=== PATIENT | female | born 1980 | race Caucasian/White ===

== ENCOUNTER 2019-09-19 13:40 | Emergency (ER) | payer OTHER, SELFPAY ==
--- NOTE | ~2019-09-19 | CT_ITS ---
EXAMINATION: CT abdomen pelvis w con DATE: 09/19/2019 18:53 INDICATION: Epigastric and right upper abdominal pain TECHNIQUE: Computed tomography (CT) of the abdomen and pelvis was performed with 100 cc Omnipaque 350 intravenous contrast. The dose-length product was 1472.28 mGy-cm. Automated exposure control and ite rative reconstruction technique were employed. COMPARISON: CT dated 12/09/2010 FINDINGS: There is right lower lobe atelectasis/scarring. Heart size normal. No significant pleural o r pericardial effusion. Fatty infiltration of the liver. The spleen, pancreas, adrenal glands and kid neys are normal. Normal appendix. Gallbladder is present. No significant vascular abnormality. No lym phadenopathy. Small fat-containing umbilical hernia. Anteverted uterus. Grade 1 spondylolisthesis L5 and S1 disc narrowing and endplate hypertrophy. No acute osseous abnormality. IMPRESSION: 1. Hepatic steatosis. 2: No acute abnormality of the abdomen or pelvis. Reviewed, dictated and finalized at location A.
[2019-09-19 13:51] VITALS: BP 145/84; PULSE 93; RESP 16; TEMP 37.5; O2SAT 97
[2019-09-19 14:19] VITALS: BP 155/89; PULSE 89; RESP 20; O2SAT 96
--- NOTE | 2019-09-19 14:22 | ED.ABDPAIN ---
HPI - Abdominal Pain General Chief Complaint: Abdominal Pain Stated Complaint: right abd pain Time Seen by Provider: 09/19/19 14:20 Source: patient Mode of arrival: ambulatory Limitations: no limitations History of Present Illness HPI narrative: The pt is a 39 y/o female who presents to the ED c/o intermittent RUQ ABD pain onset one day ago. Pt describes it as sharp, but also squeezing. She notes that the pain radiates into her back. Pt reports that it worsens with eating, and that her pain has not been improved with Aleve. Pt reports nausea, but denies cough, vomiting, and fever. Pt notes that she has never had similar pain. Pt reports a PMHx of DM and HTN. MD elicited complaint: abdominal pain Onset (ago): day(s) (1) Location: RUQ Quality: sharp and other (Squeezing) Radiation: back Exacerbating factors: eating Relieving factors: nothing Associated symptoms: nausea Treatments prior to arrival: other (Aleve) Related Data Home Medications Medication Instructions Recorded Confirmed lorazepam 0.5 mg PO DAILY PRN 05/13/19 05/13/19 sitagliptin [Januvia] 25 mg PO DAILY 05/13/19 05/13/19 topiramate [Topamax] 100 mg PO TID 05/13/19 05/13/19 trazodone 50 mg PO 05/13/19 vortioxetine [Trintellix] 20 mg PO DAILY 05/13/19 05/13/19 Allergies Allergy/AdvReac Type Severity Reaction Status Date / Time morphine Allergy Intermediate Unresponsiv Verified 09/19/19 14:25 e metformin Allergy Unknown Vomiting Verified 09/19/19 14:25 Review of Systems Review of Systems: All systems reviewed & are unremarkable except as noted in HPI and below Constitutional: Constitutional: Denies fever(s) Respiratory: Respiratory: Denies cough Gastrointestinal: Gastrointestinal: Reports abdominal pain (RUQ, sharp/squeezing, intermittent, radiates to the back), Reports nausea and Denies vomiting PMFSH Past Medical History Medical History Arthritis of spine Borderline diabetes mellitus Depression HTN (hypertension) Surgical History Surgical History No history of previous surgery Family History Family History (System 07/31/19 @ 12:26 by Annalise Reagan) Grandparent Diabetes mellitus Hypertension Family history of cardiovascular disease Family history of arthritis Family history of lung cancer Family history of primary malignant neoplasm of liver Family history of malignant neoplasm of breast in first degree relative Mother Diabetes mellitus Hypertension Family history of cardiovascular disease Family history of malignant neoplasm of ovary Sibling Family history of arthritis Other Carcinoma of colon Cerebrovascular accident Family history of alcoholism Family history of blood dyscrasia Family history of malignant neoplasm of urinary bladder Family history of mental disorder Family history of seizure disorder Malignant neoplasm of prostate Social History Social History Smoking packs per day: 1 Smoking cigarettes per day: 20.0 Smoking status: Current every day smoker Tobacco type: cigarettes Alcohol intake: never Gender identity (if verbalized by the patient): Female Comments 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
[2019-09-19] MEDS: ONDANSETRON INJ 4 MG/2 ML VIAL IV PUSH (15:28)
[2019-09-19] MEDS: SODIUM CHLORIDE 0.9% IV 1,000 ML 999 ML IV CONT (15:28)
[2019-09-19 15:33] LABS: Basophils Percent Auto 0.5 % (0.2-1.2); Eosinophils Absolute Auto 0.1 K/mm3 (0-0.3); Eosinophils Percent Auto 1.1 % (0-4.4); Hematocrit 46.9 % (37.0-47.0); Hemoglobin 15.1 g/dL (12.0-15.0); Immature Granulocyte Absolute 0.03 K/mm3 (0.00-0.031); Immature Granulocyte Percent A 0.3 % (0-0.5); Lymphocytes Absolute Auto 2.13 K/mm3 (0.9-3.2); Mean Corpuscular HGB Conc 32.2 g/dl (32-36); Mean Corpuscular Hemoglobin 27.4 pg (26-34); Mean Platelet Volume 10.3 fl (7.4-10.4); Monocytes Absolute Auto 0.4 K/mm3 (0.1-0.6); Monocytes Percent Auto 4.4 % (2.6-8.5); Neutrophils Absolute Auto 6.2 K/mm3 (1.3-6.7); Neutrophils Percent Auto 69.7 % (45.5-73.1); Platelet Count Result 355 k/mm3 (150-375); Red Blood Count 5.52 M/mm3 (4.2-5.4); Red Cell Distribution Width 14.3 % (11.5-14.5); White Blood Count 8.9 K/mm3 (4.5-10.0)
[2019-09-19 15:45] LABS: Alanine Aminotransferase 28 U/L (4-35); Alkaline Phosphatase 72 U/L (38-126); Aspartate Amino Transferase 26 U/L (14-36); Bilirubin,Total 0.4 mg/dL (0.2-1.3); Blood Urea Nitrogen 7 mg/dL (7-17); Calcium 9.2 mg/dL (8.4-10.2); Carbon Dioxide 25 mmol/L (22-30); Chloride 104 mmol/L (98-107); Estimated CRCL calculation 148 ml/min; Estimated Glomerular Filt Rate > 60; Glucose 150 mg/dL (65-105); Lipase 125 U/L (23-300); Potassium 3.9 mmol/L (3.4-5.0); Sodium 137 mmol/L (137-145)
--- NOTE | 2019-09-19 19:23 | PC.NURSE ---
assuming care of pt at this time, received report from anthony bocanegra.
[2019-09-19 19:24] VITALS: BP 145/85; PULSE 79; RESP 16; O2SAT 99
[2019-09-19 20:10] VITALS: BP 131/84; PULSE 70; RESP 16; TEMP 36.6; O2SAT 98
== END 2019-09-19 20:12 | disposition home or self-care (01) ==
PROVIDERS: Emergency Provider Emergency Medicine; PCP Nurse Practitioner Family
DX: R10.11 Right upper quadrant pain (principal); F41.9 Anxiety disorder, unspecified; F32.9 Major depressive disorder, single episode, unspecified; I10 Essential (primary) hypertension; R73.03 Prediabetes; Z79.84 Long term (current) use of oral hypoglycemic drugs; F17.210 Nicotine dependence, cigarettes, uncomplicated
CPT/HCPCS: 36415; 74177; 80053; 81025; 83690; 85025; 96361; 96374; 99284; J2405; J7030; Q9967

== ENCOUNTER 2019-10-11 13:22 | Outpatient (CLI) | payer OTHER, SELFPAY ==
--- NOTE | ~2019-10-11 | CT_ITS ---
EXAMINATION: CT brain wo con DATE: 10/11/2019 13:51 INDICATION: Migraine headache TECHNIQUE: Computed tomography (CT) of the head was performed without intravenous contrast. The mA wa s adjusted according to patient size. Iterative reconstruction technique was employed. Exam dose: 60 5.33 mGy-cm total exam DLP. COMPARISON: None FINDINGS: No intracranial mass lesion or hemorrhage or cerebrovascular accident. No midline shift or mass effect. No subdural or epidural hematoma. Normal ren white matter differentiation. Normal ventricular size. No skull fracture or bone destruction. The included paranasal sinuses and mastoid air cells are normally developed and aerated, with excepti on of mild mucoperiosteal thickening of the maxillary sinuses, greater on the left. IMPRESSION: No significant intracranial abnormality Reviewed, dictated and finalized at Location [facility]. Reviewed, dictated and finalized at location A.
== END 2019-10-11 13:23 | disposition home or self-care (01) ==
PROVIDERS: PCP Nurse Practitioner Family; Visit Provider Nurse Practitioner Family
DX: G43.909 Migraine, unspecified, not intractable, without status migrainosus (principal)
CPT/HCPCS: 70450

== ENCOUNTER 2020-02-10 23:00 | Emergency (ER) | payer OTHER, SELFPAY ==
--- NOTE | ~2020-02-10 | CT_ITS ---
EXAMINATION: CT abdomen pelvis w con INDICATION: Right upper quadrant pain TECHNIQUE: Computed tomographic images of the abdomen and pelvis were obtained after the administrati on of 100 cc of Omnipaque 350 intravenous contrast. The dose-length product (DLP) was 1617.92 mGy-cm. Automated exposure control and iterative reconstruction technique were employed. COMPARISON: 09/19/2019 FINDINGS: Minimal dependent atelectasis is present in the lung bases. The heart size is normal. The l iver is diffusely low in attenuation when compared with the spleen, consistent with hepatic steatosis . The spleen, pancreas, gallbladder, and adrenal glands are normal. The kidneys are unremarkable. No pathologically enlarged abdominal or pelvic lymph nodes are identified. There is no free intraperiton eal gas or evidence of bowel obstruction. There is a small fat-containing umbilical hernia. There are bilateral L4 and L5 pars defects with 5 mm of anterolisthesis of L5 on S1 and severe loss of the L5- S1 intervertebral disc space height. IMPRESSION: 1. No CT correlate for the patient's symptoms. 2. Diffuse hepatic steatosis. Reviewed, dictated and finalized at location A.
[2020-02-10 23:02] VITALS: BP 146/88; PULSE 112; RESP 14; TEMP 37.2; O2SAT 98
[2020-02-10 23:32] LABS: Basophils Absolute Auto 0.1 K/mm3 (0.0-0.1); Basophils Percent Auto 0.4 % (0.2-1.2); Eosinophils Absolute Auto 0.1 K/mm3 (0-0.3); Eosinophils Percent Auto 1.1 % (0-4.4); Hematocrit 48.2 % (37.0-47.0); Hemoglobin 15.6 g/dL (12.0-15.0); Immature Granulocyte Absolute 0.07 K/mm3 (0.00-0.031); Immature Granulocyte Percent A 0.6 % (0-0.5); Lymphocytes Absolute Auto 2.39 K/mm3 (0.9-3.2); Lymphocytes Percent Auto 21.4 % (18.3-44.2); Mean Corpuscular HGB Conc 32.4 g/dl (32-36); Mean Corpuscular Hemoglobin 28.3 pg (26-34); Mean Corpuscular Volume 87.3 fl (80-100); Mean Platelet Volume 10.2 fl (7.4-10.4); Monocytes Absolute Auto 0.6 K/mm3 (0.1-0.6); Monocytes Percent Auto 5.4 % (2.6-8.5); Neutrophils Percent Auto 71.1 % (45.5-73.1); Platelet Count Result 367 k/mm3 (150-375); Red Blood Count 5.52 M/mm3 (4.2-5.4); Red Cell Distribution Width 14.6 % (11.5-14.5); White Blood Count 11.2 K/mm3 (4.5-10.0)
[2020-02-10 23:37] LABS: Add Urine Microscopic? YES; Appearance Urine Clear (Clear); Bacteria Urine Trace /hpf; Bilirubin Urine Negative (Negative); Blood Urine 2+ (Negative); Color Urine Yellow (Yellow); Glucose Urine UA 2+ mg/dL (Negative); Ketones Urine Negative (Negative); Leukocyte Esterase Ur 2+ LEU/UL (Negative); Mucus Urine Rare /lpf; Nitrate Urine Negative (Negative); Protein Urine Negative (Negative); RBC Urine 0-2 /hpf (0-2); Specific Grav Ur 1.016 (1.001-1.035); Squamous Epithelial Cell Urine Many /hpf (Few); Urobilinogen Urine Negative mg/dL (<2.0); WBC Urine 21-30 /hpf
[2020-02-10 23:46] LABS: Alanine Aminotransferase 30 U/L (4-35); Albumin Level 3.8 g/dL (3.5-5.1); Alkaline Phosphatase 77 U/L (38-126); Anion Gap 9.9 mmol/L (7-16); Aspartate Amino Transferase 27 U/L (14-36); Bilirubin,Total 0.4 mg/dL (0.2-1.3); Blood Urea Nitrogen 10 mg/dL (7-17); Calcium 9.2 mg/dL (8.4-10.2); Carbon Dioxide 28 mmol/L (22-30); Chloride 101 mmol/L (98-107); Estimated CRCL calculation 167 ml/min; Estimated Glomerular Filt Rate > 60; Glucose 186 mg/dL (65-105); Lipase 243 U/L (23-300); Potassium 3.9 mmol/L (3.4-5.0); Sodium 135 mmol/L (137-145)
--- NOTE | 2020-02-10 23:50 | ED.ABDPAIN ---
HPI - Abdominal Pain General Chief Complaint: Abdominal Pain Stated Complaint: abdominal pain Time Seen by Provider: 02/10/20 23:16 History of Present Illness HPI narrative: Patient presents with her son for right upper quadrant pain today. She had a similar episode years ago, and was told it was her gallbladder. Started this morning with a light pain, but it has increased through the day to 9 out of 10. She has had chills. But no fever or sweats. She has been vomiting, and still has nausea. 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 She does smoke cigarettes, does not drink, do drugs. Her only surgery is a ear surgery with tubes. MD elicited complaint: abdominal pain Pertinent past history: other (Similar symptoms previous) Onset (ago): hour(s) Pain Consistency: constant Location: RUQ Severity: similar to previous episodes Exacerbating factors: nothing Relieving factors: nothing Associated symptoms: nausea, vomiting and chills Related Data Home Medications Medication Instructions Recorded Confirmed lorazepam 0.5 mg PO DAILY PRN 05/13/19 05/13/19 sitagliptin [Januvia] 25 mg PO DAILY 05/13/19 05/13/19 topiramate [Topamax] 100 mg PO TID 05/13/19 05/13/19 trazodone 50 mg PO 05/13/19 vortioxetine [Trintellix] 20 mg PO DAILY 05/13/19 05/13/19 Allergies Allergy/AdvReac Type Severity Reaction Status Date / Time morphine Allergy Intermediate Unresponsiv Verified 02/10/20 23:12 e metformin Allergy Unknown Vomiting Verified 02/10/20 23:12 Review of Systems Review of Systems: Narrative: CONSTITUTIONAL: Denies fever, chills, or sweats. EYES: Denies visual changes, redness, or discharge. ENT: Denies rhinorrhea, congestion, sore throat, or otalgia. CARDIOVASCULAR: Denies chest pain, palpitations, or edema. RESPIRATORY: Denies cough or dyspnea. GASTROINTESTINAL: She has abdominal pain, nausea, vomiting, but not diarrhea. GENITOURINARY: Denies dysuria or hematuria. SKIN: Denies rash or itching. MUSCULOSKELETAL: Denies back pain, joint pain, or myalgia. NEUROLOGIC: Denies headache, numbness, or weakness. PSYCHIATRIC: Denies anxiety or depression. [facility] Past Medical History Medical History (Updated 02/11/20 @ 01:28 by Lalitha Martin MD) Arthritis of spine Borderline diabetes mellitus Depression HTN (hypertension) Surgical History Surgical History (Updated 02/11/20 @ 00:06 by Lalitha Martin MD) History of ear surgery Family History Family History (System 07/31/19 @ 12:26 by Annalise Reagan) Grandparent Diabetes mellitus Hypertension Family history of cardiovascular disease Family history of arthritis Family history of lung cancer Family history of primary malignant neoplasm of liver Family history of malignant neoplasm of breast in first degree relative Mother Diabetes mellitus Hypertension Family history of cardiovascular disease Family history of malignant neoplasm of ovary Sibling Family history of arthritis Other Carcinoma of colon Cerebrovascular accident Family history of alcoholism Family history of blood dyscrasia Family history of malignant neoplasm of urinary bladder Family history of mental disorder Family history of seizure disorder Malignant neoplasm of prostate Social History Social History Smoking packs per day: 1 Smoking cigarettes per day: 20.0 Smoking status: Current every day smoker Tobacco type: cigarettes Alcohol intake: never Gender identity (if verbalized by the patient): Female Exam Narrative: Exam Narrative: GENERAL: Well-appearing, well-nourished, and in no acute distress. Morbid obesity. HEAD: Normocephalic, atraumatic. EYES: PERRLA and EOMI. ENT: Nares clear, no rhinorrhea or epistaxis. Mucous membranes moist. NECK: Supple. CHEST: Clear to auscultation. No respiratory distress. HEART: Regular rate and rhythm. No murmur heard. Normal peripheral pulses. ABDOMEN: Soft, nontender, nondistend
[2020-02-11] MEDS: FAMOTIDINE 20 MG/2 ML VIAL IV PUSH (00:24)
[2020-02-11] MEDS: ONDANSETRON INJ 4 MG/2 ML VIAL IV PUSH (00:24)
[2020-02-11] MEDS: SODIUM CHLORIDE 0.9% IV 1,000 ML 999 ML IV CONT (00:25)
[2020-02-11 00:33] VITALS: BP 158/104; PULSE 92; RESP 17; O2SAT 94
--- NOTE | 2020-02-11 00:58 | PC.NURSE ---
pt ambulatory to restroom at this time without difficulty. reports relief of pain
[2020-02-11 01:49] VITALS: BP 148/71; PULSE 87; RESP 17; O2SAT 95
== END 2020-02-11 01:51 | disposition home or self-care (01) ==
PROVIDERS: Emergency Provider Emergency Medicine; PCP Nurse Practitioner Family
DX: D75.1 Secondary polycythemia (principal); R10.11 Right upper quadrant pain; K76.0 Fatty (change of) liver, not elsewhere classified; F17.210 Nicotine dependence, cigarettes, uncomplicated; R73.03 Prediabetes; Z79.84 Long term (current) use of oral hypoglycemic drugs; I10 Essential (primary) hypertension; F32.9 Major depressive disorder, single episode, unspecified
CPT/HCPCS: 36415; 74177; 80053; 81001; 81025; 83690; 85025; 87077; 87086; 87088; 96361; 96374; 96375; 96376; 99284; J2405; J3010; J7030; Q9967

== ENCOUNTER 2020-04-17 14:49 | Emergency (ER) | payer OTHER, SELFPAY ==
[2020-04-17 14:54] VITALS: BP 159/89; PULSE 85; RESP 16; TEMP 36.9; O2SAT 98
--- NOTE | 2020-04-17 15:14 | ED.SKABFB ---
HPI - Skin/Abscess/Foreign Bdy General Chief complaint: Skin/Abscess/Foreign Body Stated complaint: Cyst on stomach Time Seen by Provider: 04/17/20 15:03 Source: patient and RN notes reviewed Mode of arrival: ambulatory Limitations: no limitations History of Present Illness HPI narrative: Patient presents today complaining of a cyst to the left lower abdomen x3 days. This area is been very painful. Reports a temperature from 99.5 to 100.82 days ago, but none since then. Currently rates her pain 8/10 and has been taking Tylenol, Aleve, and prescription pain pills without relief. History of diabetes. States she does have a history of abscesses to the axilla and lower abdomen. Denies history of known MRSA. MD complaint: abscess/boil Related Data Home Medications Medication Instructions Recorded Confirmed lorazepam 0.5 mg PO DAILY PRN 05/13/19 04/17/20 topiramate [Topamax] 100 mg PO TID 05/13/19 04/17/20 trazodone 50 mg PO DAILY 05/13/19 04/17/20 vortioxetine [Trintellix] 20 mg PO DAILY 05/13/19 04/17/20 medroxyprogesterone [Depo-SubQ 104 mg SUBCUT [id number] 04/17/20 04/17/20 provera 104] Allergies Allergy/AdvReac Type Severity Reaction Status Date / Time morphine Allergy Intermediate Unresponsiv Verified 04/17/20 15:06 e metformin Allergy Unknown Vomiting Verified 04/17/20 15:06 Review of Systems Review of Systems: Narrative: CONSTITUTIONAL: Denies body aches, fever, chills, or sweats. EYES: Denies visual changes, redness, or discharge. ENT: Denies rhinorrhea, congestion, sore throat, or otalgia. CARDIOVASCULAR: Denies chest pain, palpitations, or edema. RESPIRATORY: Denies cough or dyspnea. GASTROINTESTINAL: Denies abdominal pain, nausea, vomiting, or diarrhea. GENITOURINARY: Denies dysuria or hematuria. SKIN: Denies rash, itching, or wounds. + Cyst to left lower abdomen MUSCULOSKELETAL: Denies back pain, joint pain, or myalgia. NEUROLOGIC: Denies headache, numbness, tingling, or weakness. PSYCH: Denies depression or anxiety. [facility] Past Medical History Medical History Arthritis of spine Borderline diabetes mellitus Depression HTN (hypertension) Surgical History Surgical History History of ear surgery Family History Family History Grandparent Diabetes mellitus Hypertension Family history of cardiovascular disease Family history of arthritis Family history of lung cancer Family history of primary malignant neoplasm of liver Family history of malignant neoplasm of breast in first degree relative Mother Diabetes mellitus Hypertension Family history of cardiovascular disease Family history of malignant neoplasm of ovary Sibling Family history of arthritis Other Carcinoma of colon Cerebrovascular accident Family history of alcoholism Family history of blood dyscrasia Family history of malignant neoplasm of urinary bladder Family history of mental disorder Family history of seizure disorder Malignant neoplasm of prostate Social History Social History Smoking packs per day: 1 Smoking cigarettes per day: 20.0 Smoking status: Current every day smoker Tobacco type: cigarettes Alcohol intake: never Gender identity (if verbalized by the patient): Female Comments At time of signature, I have reviewed and agree with nursing past medical, surgical, social and family history unless otherwise noted. Please see nursing chart for further information. There is no relevant family history pertinent to the presenting complaint Exam Narrative: Exam Narrative: GENERAL: Well-appearing, well-nourished, and in no acute distress. HEAD: Normocephalic, atraumatic. EYES: EOMI. No redness or drainage. Conjunctivae normal. ENT: Mucous membranes
== END 2020-04-17 15:34 | disposition home or self-care (01) ==
PROVIDERS: Emergency Provider Nurse Practitioner; PCP Nurse Practitioner Family
DX: L02.211 Cutaneous abscess of abdominal wall (principal); L03.311 Cellulitis of abdominal wall; F17.210 Nicotine dependence, cigarettes, uncomplicated; F32.9 Major depressive disorder, single episode, unspecified; I10 Essential (primary) hypertension; M47.9 Spondylosis, unspecified
CPT/HCPCS: 10061; 99213; G0463

== ENCOUNTER 2020-06-11 12:03 | Emergency (ER) | payer OTHER, SELFPAY ==
--- NOTE | ~2020-06-11 | XR_ITS ---
EXAMINATION: XR chest 2V DATE: 06/11/2020 12:55 INDICATION: Shortness of breath. Burning chest pain. TECHNIQUE: Frontal and lateral views of the chest were obtained on 3 radiographs. COMPARISON: Chest 2 views 06/12/18 FINDINGS: The chest demonstrates clear lungs without pneumonia, pleural effusion, or pneumothorax. Th e heart size is normal. IMPRESSION: 1. No acute cardiopulmonary disease. Reviewed, dictated and finalized at location A. 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
[2020-06-11 12:08] VITALS: BP 161/92; PULSE 89; RESP 20; TEMP 36.8; O2SAT 100
--- NOTE | 2020-06-11 12:20 | ED.URI ---
HPI - URI/Sore Throat General Chief Complaint: Upper Respiratory Infection Stated Complaint: Hard to breathe Time Seen by Provider: 06/11/20 12:40 Source: patient and RN notes reviewed Mode of arrival: ambulatory Limitations: no limitations History of Present Illness HPI Narrative: 40-year-old female presents with concern for burning lungs, body aches, occasional cough. She denies shortness of breath, rhinorrhea nasal congestion, sore throat, chills, sweats, ear pain, headache. Denies any intervention. MD elicited complaint: cough Related Data Home Medications Medication Instructions Recorded Confirmed lorazepam 0.5 mg PO DAILY PRN 05/13/19 06/11/20 trazodone 50 mg PO BID 05/13/19 06/11/20 glimepiride 1 mg PO DAILY 06/11/20 06/11/20 glimepiride 4 mg PO DAILY 06/11/20 06/11/20 montelukast 10 mg PO DAILY 06/11/20 06/11/20 topiramate 100 mg PO DAILY 06/11/20 06/11/20 Allergies Allergy/AdvReac Type Severity Reaction Status Date / Time morphine Allergy Intermediate Unresponsiv Verified 06/11/20 12:14 e metformin Allergy Unknown Vomiting Verified 06/11/20 12:14 Review of Systems Review of Systems: Narrative: CONSTITUTIONAL: Denies malaise, chills, sweats, or fever. EYES: Denies visual changes, redness, or discharge. ENT: Denies rhinorrhea, congestion, sinus pain, otalgia and sore throat. CARDIOVASCULAR: Denies chest pain, palpitations, or edema. RESPIRATORY: Reports cough, burning sensation in the lungs. Denies dyspnea. GASTROINTESTINAL: Denies abdominal pain, nausea, vomiting, diarrhea SKIN: Denies rash or itching. MUSCULOSKELETAL: Denies myalgia. NEUROLOGIC: Denies headache. All systems reviewed & are unremarkable except as noted in HPI and below PMFSH Past Medical History Medical History Arthritis of spine Borderline diabetes mellitus Depression HTN (hypertension) Surgical History Surgical History History of ear surgery Family History Family History Grandparent Diabetes mellitus Hypertension Family history of cardiovascular disease Family history of arthritis Family history of lung cancer Family history of primary malignant neoplasm of liver Family history of malignant neoplasm of breast in first degree relative Mother Diabetes mellitus Hypertension Family history of cardiovascular disease Family history of malignant neoplasm of ovary Sibling Family history of arthritis Other Carcinoma of colon Cerebrovascular accident Family history of alcoholism Family history of blood dyscrasia Family history of malignant neoplasm of urinary bladder Family history of mental disorder Family history of seizure disorder Malignant neoplasm of prostate Social History Social History Smoking packs per day: 1 Smoking cigarettes per day: 20.0 Smoking status: Current every day smoker Tobacco type: cigarettes Alcohol intake: never Gender identity (if verbalized by the patient): Female Comments At time of signature, agree with nursing past medical, surgical, social and family history. There is no relevant family history pertinent to the presenting complaint Exam Narrative: Exam Narrative: GENERAL: Well-appearing, well-nourished, and in no acute distress. HEAD: Normocephalic EYES: PERRLA, conjunctivae clear ENT: Nares clear. Mucous membranes moist. TM pearly ren with dull light reflex bilaterally; no tragal tenderness. Oropharynx not erythematous without lesions. Tonsils not enlarged and without exudate, no drooling, no hoarseness, no trismus, uvula midline. NECK: Supple. No lymphadenopathy CHEST: Clear to auscultation, breath sounds equal. No wheezing, rhonchi, rales, or stridor. No respiratory distress, speaks in full sentences. HEART: Regular r
== END 2020-06-11 13:20 | disposition home or self-care (01) ==
PROVIDERS: Emergency Provider Nurse Practitioner; PCP Nurse Practitioner Family
DX: J06.9 Acute upper respiratory infection, unspecified (principal); Z20.828 Contact with and (suspected) exposure to other viral communicable diseases; F17.210 Nicotine dependence, cigarettes, uncomplicated; M47.9 Spondylosis, unspecified; F32.9 Major depressive disorder, single episode, unspecified; I10 Essential (primary) hypertension; R73.03 Prediabetes
CPT/HCPCS: 71046; 99213; G0463

== ENCOUNTER 2020-06-12 07:05 | Outpatient (NON) | payer OTHER, SELFPAY ==
[2020-06-12 19:11] LABS: SARS-CoV-2 RNA PCR Negative
== END 2020-06-12 07:06 ==
LOC: ANHCOVIDDT 07:36
PROVIDERS: PCP Nurse Practitioner Family; Visit Provider Nurse Practitioner
DX: Z20.828 Contact with and (suspected) exposure to other viral communicable diseases (principal); R05 Cough
CPT/HCPCS: 87635; C9803; U0003

== ENCOUNTER 2020-12-08 22:58 | Observation (INO) | payer OTHER, SELFPAY ==
--- NOTE | ~2020-12-08 | XR_ITS ---
XR chest 2V DATE: 12/08/2020 23:36 INDICATION: Epigastric chest pain, left side x1 day. Shortness of breath. TECHNIQUE: PA and lateral views COMPARISON: 06/11/2020 PA and lateral chest FINDINGS: Normal heart size. No hilar or mediastinal enlargement. No pulmonary infiltrate or consolid ation, pleural effusion or pulmonary vascular congestion or pneumothorax. IMPRESSION: No active cardiopulmonary disease Reviewed, dictated and finalized at location A.
--- NOTE | ~2020-12-08 | US_ITS ---
EXAMINATION: US venous doppler [facility] DATE: 12/09/2020 13:20 INDICATION: Lower limb swelling TECHNIQUE: Grayscale ultrasound images without and with compression and Doppler ultrasound images of the bilateral lower extremity veins were obtained. COMPARISON: None. FINDINGS: The visualized portions of right common femoral vein, profunda (deep) femoral vein, femoral vein, pop liteal vein, posterior tibial veins, peroneal veins, gastrocnemius vein and greater saphenous vein ou tflow are patent. The visualized portions of left common femoral vein, profunda femoral vein, femoral vein, popliteal v ein, posterior tibial veins, peroneal veins, gastrocnemius vein and greater saphenous vein outflow ar e patent. IMPRESSION: 1. No deep venous thrombosis in either lower limb. Reviewed, dictated and finalized at location A.
--- NOTE | ~2020-12-08 | CT_ITS ---
EXAMINATION: CTA chest PE protocol EXAM DATE: 12/09/2020 13:00 INDICATION: Midsternal chest pain with shortness of breath. TECHNIQUE: Spiral CTA of the chest (pulmonary arteries) was performed with 100 cc Omnipaque 350 intr avenous contrast injection. Images were acquired during the pulmonary arterial phase. Coronal maxi mum intensity projection 3D-reconstructions were created by the technologist on dedicated workstation . Axial, coronal and sagittal reformatted images were reviewed. The dose-length product (DLP) for t his examination was 1001.96 mGy-cm. The exposure was tailored according to patient size (auto mA ex posure control), and iterative reconstruction (ASIR) was used as additional dose reduction technique. There is no prior study for comparison. FINDINGS: Pulmonary arteries are well opacified and without intraluminal filling defects. No thora cic aortic dissection. The lungs are clear. There are no pleural or pericardial effusions. Trach eobronchial tree is patent. There is no mediastinal, hilar or axillary lymphadenopathy. There is no pneumothorax. Heart normal in size. No evidence of coronary arterial calcification. There is hepatic steatosis. There is thoracic spondylosis without osteoblastic or osteolytic lesions identifi ed. IMPRESSION: 1. No pulmonary emboli or acute findings. 2. Hepatic steatosis. Reviewed, dictated and finalized at location B.
--- NOTE | ~2020-12-08 | NM_ITS ---
EXAMINATION: NM chuck stress w perfusion DATE: 12/09/2020 12:45 INDICATION: Chest pain TECHNIQUE: Rest images were obtained following intravenous administration of 9.87 mCi Tc99m tetrofosm in (Myoview). The patient was infused intravenously with Lexiscan (Regadenoson). Then, 32.5 mCi Tc99m tetrofosmin (Myoview) was administered intravenously, and stress images were obtained. Data was silvina nstructed into short axis and horizontal and vertical long axis SPECT images. Gated SPECT images were also obtained. COMPARISON: None. FINDINGS: There is no definite reversible or fixed perfusion abnormality to suggest ischemia or infar ction. There is normal left ventricular chamber size, wall motion and ejection fraction. Left ventr icular ejection fraction measures >70%. IMPRESSION: 1. Normal myocardial perfusion at rest and during stress. 2. Left ventricular ejection fraction measuring >70%. Reviewed, dictated and finalized at location A.
--- NOTE | 2020-12-08 23:01 | ECG_ITS ---
Measurements Intervals [place] Rate: 85 P: 12 [place]: 157 QRS: 52 QRSD: 98 T: 32 QT: 372 QTc: 443 Interpretive Statements SINUS RHYTHM NORMAL ECG Electronically Signed On 12-09-2020 6:05:44 CDT by Scotty Vásquez D.O.
[2020-12-08 23:02] VITALS: BP 163/83; PULSE 90; RESP 18; TEMP 36.7; O2SAT 97
[2020-12-08 23:31] LABS: Basophils Percent Auto 0.4 % (0.2-1.2); Eosinophils Absolute Auto 0.1 K/mm3 (0-0.3); Eosinophils Percent Auto 1.3 % (0-4.4); Hematocrit 48.1 % (37.0-47.0); Hemoglobin 15.8 g/dL (12.0-15.0); Immature Granulocyte Absolute 0.03 K/mm3 (0.00-0.031); Immature Granulocyte Percent A 0.4 % (0-0.5); Lymphocytes Absolute Auto 2.03 K/mm3 (0.9-3.2); Lymphocytes Percent Auto 29.6 % (18.3-44.2); Mean Corpuscular HGB Conc 32.8 g/dl (32-36); Mean Corpuscular Hemoglobin 28.7 pg (26-34); Mean Corpuscular Volume 87.3 fl (80-100); Mean Platelet Volume 11.1 fl (7.4-10.4); Monocytes Absolute Auto 0.4 K/mm3 (0.1-0.6); Monocytes Percent Auto 6.1 % (2.6-8.5); Neutrophils Absolute Auto 4.3 K/mm3 (1.3-6.7); Neutrophils Percent Auto 62.2 % (45.5-73.1); Platelet Count Result 243 k/mm3 (150-375); Red Blood Count 5.51 M/mm3 (4.2-5.4); Red Cell Distribution Width 13.6 % (11.5-14.5); White Blood Count 6.9 K/mm3 (4.5-10.0)
[2020-12-08 23:41] LABS: INR 0.9; Partial Thromboplastin Time 25.9 SECONDS (22.3-36.8); Prothrombin Time 13.2 Seconds (11.1-14.7)
[2020-12-08 23:47] LABS: Anion Gap 11 mmol/L (8-16); Blood Urea Nitrogen 7 mg/dL (7-17); Calcium 9.6 mg/dL (8.4-10.2); Carbon Dioxide 24 mmol/L (22-30); Chloride 100 mmol/L (98-107); Estimated CRCL calculation 144 ml/min; Estimated Glomerular Filt Rate > 60; Glucose 460 mg/dL (65-105); Potassium 3.8 mmol/L (3.4-5.0); Sodium 135 mmol/L (137-145)
[2020-12-08 23:59] LABS: Troponin I < 0.012 ng/mL (0.000-0.034)
[2020-12-09] VITALS (23 sets, daily range): BP systolic 119–150; BP diastolic 53–115; PULSE 63–92; RESP 16–29; TEMP 35.8–36.6; O2SAT 94–100; BMI 51.5
--- NOTE | 2020-12-09 03:32 | ED.CHESTPAIN ---
HPI - Chest Pain General Chief Complaint: Chest Pain Stated Complaint: chest pain Time Seen by Provider: 12/09/20 02:50 Source: patient and family Mode of arrival: ambulatory History of Present Illness HPI narrative: Patient 40 years old white female came from home with left chest pain started 3 and half hour ago. Patient was planning to go to bed suddenly started having pain at the left side of her chest radiating to the left upper extremity, like somebody squeezing her heart. Patient denies having similar symptoms. History of diabetes, hypertension, morbid obesity, smoking, positive family history of coronary artery disease. Patient denies any fever, chills, nausea, vomiting, diarrhea, constipation, abdominal pain or back pain. Related Data Home Medications Medication Instructions Recorded Confirmed lorazepam 0.5 mg PO DAILY PRN 05/13/19 06/11/20 trazodone 50 mg PO BID 05/13/19 06/11/20 glimepiride 1 mg PO DAILY 06/11/20 06/11/20 glimepiride 4 mg PO DAILY 06/11/20 06/11/20 montelukast 10 mg PO DAILY 06/11/20 06/11/20 topiramate 100 mg PO DAILY 06/11/20 06/11/20 Allergies Allergy/AdvReac Type Severity Reaction Status Date / Time morphine Allergy Intermediate Unresponsiv Verified 06/11/20 12:14 e metformin Allergy Unknown Vomiting Verified 06/11/20 12:14 Review of Systems Review of Systems: Narrative: CONSTITUTIONAL: Denies fever, chills, or sweats. EYES: Denies visual changes, redness, or discharge. ENT: Denies rhinorrhea, congestion, sore throat, or otalgia. CARDIOVASCULAR: Denies chest pain, palpitations, or edema. RESPIRATORY: Denies cough or dyspnea. GASTROINTESTINAL: Denies abdominal pain, nausea, vomiting, or diarrhea. GENITOURINARY: Denies dysuria or hematuria. SKIN: Denies rash or itching. MUSCULOSKELETAL: Denies back pain, joint pain, or myalgia. NEUROLOGIC: Denies headache, numbness, or weakness. PSYCHIATRIC: Denies anxiety or depression. [facility] Past Medical History Medical History Arthritis of spine Borderline diabetes mellitus Depression HTN (hypertension) Surgical History Surgical History History of ear surgery Family History Family History Grandparent Diabetes mellitus Hypertension Family history of cardiovascular disease Family history of arthritis Family history of lung cancer Family history of primary malignant neoplasm of liver Family history of malignant neoplasm of breast in first degree relative Mother Diabetes mellitus Hypertension Family history of cardiovascular disease Family history of malignant neoplasm of ovary Sibling Family history of arthritis Other Carcinoma of colon Cerebrovascular accident Family history of alcoholism Family history of blood dyscrasia Family history of malignant neoplasm of urinary bladder Family history of mental disorder Family history of seizure disorder Malignant neoplasm of prostate Social History Social History Smoking packs per day: 1 Smoking cigarettes per day: 20.0 Smoking status: Current every day smoker Tobacco type: cigarettes Alcohol intake: never Gender identity (if verbalized by the patient): Female Exam Narrative: Exam Narrative: General appearance: Well-developed, well-nourished Skin: Normal color Head: Normocephalic, nontraumatic Eyes: Clear conjunctiva ENT: Oropharynx normal, ears normal, nose normal Neck: Supple, nontender Chest and respiratory: Diffuse tenderness left chest with light palpation, no bruises, no swelling or rash Heart: Regular rate/rhythm Abdomen: Soft, nontender, no organomegaly, quiet bowel sounds Vascular: Normal peripheral pulses, normal capillary refill. Musculoskeletal: Normal range of motion, nontender back Neurologic: Alert and oriented ?3, [employer] is normal as te
[2020-12-09] MEDS: ASPIRIN 81 MG CHEWABLE TABLET 324 MG PO (05:06)
[2020-12-09] MEDS: ENOXAPARIN 30 MG/0.3 ML SYRINGE SUB-Q (05:07)
[2020-12-09] MEDS: ENOXAPARIN 120 MG/0.8 ML SYRINGE SUB-Q (05:07)
[2020-12-09] MEDS: INSULIN HUMAN REGULAR (*BKC) 100 UNITS/ML 10 UNITS IV PUSH (05:50)
[2020-12-09] MEDS: SODIUM CHLORIDE 0.9% IV 1,000 ML 999 ML IV CONT (05:51)
[2020-12-09 06:08] LABS: Alveolar/Arterial O2 Gradient 14.9 mmHg; Base Excess ABG -4.1 mEq/l (+/-2.0); Fractional Inspired Oxygen 21 %; HCO3 ABG 19.7 mEq/l (22.0-26.0); Oxygen Content ABG 21.3 %vol (16.0-22.0); Oxygen Saturation ABG 97.3 % (95.0-100.0); Oxyhemoglobin 95.1 % THb (90.0-100.0); PCO2 ABG 33.2 mmHg (35.0-45.0); PO2 ABG 95.1 mmHg (80.0-100.0); PO2 FiO2 Ratio Arterial Blood 4.53 %; Total Hemoglobin 15.9 g/dL (12.0-18.0); pH ABG 7.392 (7.350-7.450)
[2020-12-09 06:10] LABS: Device ROOM AIR; Modified Allen's Test Pass; Site Drawn RIGHT RADIAL
[2020-12-09] MEDS: NITROGLYCERIN SL 0.4 MG TABLET SUBLINGUAL (06:45)
[2020-12-09 07:39] LABS: D Dimer 0.27 ug/mL (<0.48)
[2020-12-09 07:44] LABS: Troponin I < 0.012 ng/mL (0.000-0.034)
--- NOTE | 2020-12-09 08:40 | EST_ITS ---
Patient Info Name: Randee Lazo Age: 40 years : 1980 Gender: Female Ht: 66 in Wt: 319 lbs BSA: 2.68 m2 Exam Date: 12/09/2020 11:22 AM Exam Location: [facility] Stress Patient Status: Outpatient Admit Date: 12/09/2020 Staff Ordering Physician: Marleni Philippe MD Attending Provider: Keo Alexandre MD Exercise Technologist: Winston Singh RDCS, RT Exercise Physician: Marleni Philippe MD Exam Type: CA stress chuck w NM Study Info A regadenoson stress test was performed. Summary 1. Pharmacological EKG stress test. Reason for the test: chest pain Findings: The patient received total of 0.4 mg of Lexiscan. The resting heart rate was 67 and resting BP 146/76 . Following injection HR increased to 114 and BP decreased to 133/77 EKG at rest showed normal sinus rhythm. Post Lexiscan injection EKG showed sinus tachycardia with no ST/T changes from baseline. Impression: Negative stress EKG with lexiscan. Nuclear part of stress test to be reported separately. Protocol: Lexiscan Stress ECG Details Stage: REST Duration (min): 6 min : 2 sec HR (bpm): 73 SBP (mmHg): 146 DBP (mmHg): 76 Stage: REST Duration (min): 7 min : 46 sec HR (bpm): 69 SBP (mmHg): 146 DBP (mmHg): 76 Stage: STAGE 1 Duration (min): 0 min : 59 sec HR (bpm): 114 SBP (mmHg): 141 DBP (mmHg): 77 Stage: RECOVERY Duration (min): 1 min : 0 sec HR (bpm): 89 SBP (mmHg): 141 DBP (mmHg): 77 Stage: RECOVERY Duration (min): 2 min : 0 sec HR (bpm): 82 SBP (mmHg): 141 DBP (mmHg): 77 Stage: RECOVERY Duration (min): 3 min : 0 sec HR (bpm): 78 SBP (mmHg): 133 DBP (mmHg): 77 Stage: RECOVERY Duration (min): 4 min : 0 sec HR (bpm): 78 SBP (mmHg): 133 DBP (mmHg): 77 Stage: RECOVERY Duration (min): 4 min : 2 sec HR (bpm): 76 SBP (mmHg): 133 DBP (mmHg): 77 Rest HR: 69 bpm Peak HR: 114 bpm Rest Sys BP: 146 mmHg Peak Sys BP: 141 mmHg Max Pred HR: 182 bpm % Max Pred HR: 63 % Target HR: 155 bpm Max RPP: 16,074 bpm*mmHg Total Time: 1 min : 0 sec Rest Ascencio BP: 76 mmHg Peak Ascencio BP: 77 mmHg Total Dose: 0.4 mg Report Signatures
--- NOTE | 2020-12-09 08:42 | PM.CNCAR ---
Assessment and Plan Assessment and plan (1) Chest pain: Qualifiers: Chest pain type: unspecified Qualified Code(s): R07.9 - Chest pain, unspecified Code(s): R07.9 - Chest pain, unspecified Status: Acute Assessment and Plan: She ruled out for CO with negative troponin and EKG Chest pain has mixed features for angina. Given extensive risk factors including HTN, DM,morbid obesity and active tobacco abuse will proceed with nuc stress test to rule out ischemia as potential cause of her chest pain. She can't walk on treadmill due to back pain. Will proceed with Lexiscan stress test. She is NPO (2) HTN (hypertension): Code(s): I10 - Essential (primary) hypertension Status: Acute Assessment and Plan: Resume home Amlodipine. Consider adding Lisinopril for better BP control and given the fact she is diabetic (3) Uncontrolled diabetes mellitus with hyperglycemia: Qualifiers: Diabetes mellitus type: other specified (including KAR) Qualified Code(s): E13.65 - Other specified diabetes mellitus with hyperglycemia Code(s): E11.65 - Type 2 diabetes mellitus with hyperglycemia Status: Acute Assessment and Plan: Management per primary team (4) Tobacco abuse: Code(s): Z72.0 - Tobacco use Status: Acute Assessment and Plan: Smoking cessation counseling History of Present Illness History of Present Illness Consult date/time: 12/09/20 08:42 40 y/o female with no known cardiac history however extensive cardiovascular risk factors including insulin dependent DM, HTN, morbid obesity, family history of CAD and active tobacco abuse who presents with chest pain Pain started around 11 last night, was initially sharp and subsequently became like heaviness in the chest, no radiation, not associated with nausea, diaphoresis but admits to dyspnea. Pain is better right now but has not completely resolved. EKG shows normal sinus rhythm at HR of 85 Trop negative X3. D dimer was negative. Chest X ray within normal limits. She smokes half pack a day Mother alive, had stents in her 50s Reason For Visit: Chest pain, morbid obesity Review of Systems Review of Systems: All systems reviewed & are unremarkable except as noted in HPI and below Constitutional: Constitutional: Denies fatigue and Denies headache(s) Eyes: Eyes: Denies blurry vision ENT: Reports Normal hearing present and Denies headache(s) Cardiovascular: Cardiovascular: Denies chest pain, Denies diaphoresis, Denies pedal edema, Denies leg edema, Denies lightheadedness, Denies palpitations and Denies dyspnea Respiratory: Respiratory: Denies cough and Denies dyspnea Gastrointestinal: Gastrointestinal: Denies abdominal pain Musculoskeletal: Musculoskeletal: Denies back pain Neurologic: Reports Normal hearing present and Denies headache(s) Psychiatric: Psychiatric: Denies anxiety Endocrine: Endocrine: Denies fatigue and Denies palpitations PMFSH Past Medical History Medical History (Updated 12/09/20 @ 08:50 by Marleni Philippe MD) Arthritis of spine Borderline diabetes mellitus Depression HTN (hypertension) Surgical History Surgical History History of ear surgery Family History Family History Grandparent Diabetes mellitus Hypertension Family history of cardiovascular disease Family history of arthritis Family history of lung cancer Family history of primary malignant neoplasm of liver Family history of malignant neoplasm of breast in first degree relative Mother Diabetes mellitus Hypertension Family history of cardiovascular disease Family history of malignant neoplasm of ovary Sibling Family history of arthritis Other Carcinoma of colon Cerebrovascular accident Family history of alcoholism Family history of blood dyscrasia Family history of
[2020-12-09 08:44] LABS: Glucose Point of Care 241 mg/dl (65-105)
--- NOTE | 2020-12-09 09:08 | PM.IMHP ---
H&P: HPI History of Present Illness Date/Time: 12/09/20 09:08 Patient is a 40-year-old morbidly obese female with past medical history of hypertension, depression, and diabetes who presented to the ED with left-sided chest pain. Patient stated that her chest pain started 20 minutes prior to arrival and she had to the ED about 0414-5715. Patient stated that she has never had the experience of chest pain prior to this however she describes as sharp sternal with radiation to left arm and the back and a little bit in the jaw. Patient also said that she was short of breath and was unable to catch her breath. She also stated that it felt like somebody was squeezing her heart she took Tylenol at home with no relief. Patient also stated that she has been having some diarrhea lately and abnormal swelling in her legs. Patient denies nausea vomiting abdominal pain, constipation, lightheadedness, dizziness, fatigue, numbness and tingling, falls, syncope, sweats, chills, fevers, urination dysfunction or weakness. Patient did state that she has and substance she is tired today. Talked to patient about her glucose control. Patient states that she checks it once in the a.m. for a fasting glucose and takes clipper might at home. She also states that she takes 58 units of Lantus nightly however she has not taken it last night. This morning her glucose was 460. Patient also stated that she is fully vaccinated for COVID. Review of Systems Review of Systems: All systems reviewed & are unremarkable except as noted in HPI and below PMFSH Past Medical History Medical History Arthritis of spine Depression Diabetes HTN (hypertension) Migraine WINNIE (obstructive sleep apnea) Surgical History Surgical History History of ear surgery Family History Family History Grandparent Diabetes mellitus Hypertension Family history of cardiovascular disease Family history of arthritis Family history of lung cancer Family history of primary malignant neoplasm of liver Family history of malignant neoplasm of breast in first degree relative Mother Diabetes mellitus Hypertension Family history of cardiovascular disease Family history of malignant neoplasm of ovary Cerebrovascular accident PAD (peripheral artery disease) Heart disease HLD (hyperlipidemia) Sibling Family history of arthritis Father Hypertension Heart disease HLD (hyperlipidemia) Other Carcinoma of colon Family history of alcoholism Family history of blood dyscrasia Family history of malignant neoplasm of urinary bladder Family history of mental disorder Family history of seizure disorder Malignant neoplasm of prostate Social History Social History Social History: Patient lives at home with and 1 child. Patient would like her surrogate to be Christopher her . Patient also stated that she look forward is her mother and can also be contacted if needed. Patient has lots of animals including 4 cats and a dog with 9 puppies. Smoking packs per day: 1 Smoking cigarettes per day: 20.0 Years smoked: 20 Smoking pack-years: 20.00 Smoking status: Current every day smoker Tobacco type: cigarettes Alcohol intake: never Substance use: never Living arrangements: with family Occupation/Education: unemployed Gender identity (if verbalized by the patient): Female Sexual Orientation (if Verbalized by the Patient): Straight or Heterosexual Spiritual care concerns: No Meds Home Medications and Allergies Home Medications Medication Instructions Recorded Confirmed Type lorazepam 0.5 mg PO DAILY PRN 05/13/19 12/09/20 History montelukast 10 mg PO DAILY 06/11/20 12/09/20 History topiramate 100 mg PO DAILY 06/11/20
--- NOTE | 2020-12-09 10:58 | PC.NURSE ---
1015- to cardiology dept for stress test via wheelchair accompanied by transporters
[2020-12-09 11:08] LABS: NT Pro B Type Natriuretic Pept 20 pg/mL (5-100)
[2020-12-09 11:18] LABS: Hemoglobin A1C 12.6 % (<5.7)
[2020-12-09 13:13] LABS: Glucose Point of Care 291 mg/dl (65-105)
[2020-12-09] MEDS: FAMOTIDINE 20 MG TABLET 40 MG PO (13:16)
[2020-12-09] MEDS: MONTELUKAST SODIUM 10 MG TABLET PO (13:17)
[2020-12-09] MEDS: TOPIRAMATE 100 MG TABLET PO (13:17)
[2020-12-09] MEDS: INSULIN ASPART (*BKC) 100 UNITS/ML SUB-Q (13:18)
[2020-12-09] MEDS: amLODIPine BESYLATE 5 MG TABLET PO (13:18)
[2020-12-09] MEDS: INSULIN ASPART (*BKC) 100 UNITS/ML 10 UNITS SUB-Q (13:19)
--- NOTE | 2020-12-09 13:34 | PC.NURSE ---
1310 returned to room - procedures completed- denies pain- vss- monitor SR
--- NOTE | 2020-12-09 14:19 | PM.SD2 ---
Same Day Admit/Disch: HPI History of Present Illness Chief complaint: Chest pain, morbid obesity Narrative: Patient is a 40-year-old morbidly obese female with past medical history of hypertension, depression, and diabetes who presented to the ED with left-sided chest pain. Patient stated that her chest pain started 20 minutes prior to arrival and she had to the ED about [id number]. Patient stated that she has never had the experience of chest pain prior to this however she describes as sharp sternal with radiation to left arm and the back and a little bit in the jaw. Patient also said that she was short of breath and was unable to catch her breath. She also stated that it felt like somebody was squeezing her heart she took Tylenol at home with no relief. Patient also stated that she has been having some diarrhea lately and abnormal swelling in her legs. Patient denies nausea vomiting abdominal pain, constipation, lightheadedness, dizziness, fatigue, numbness and tingling, falls, syncope, sweats, chills, fevers, urination dysfunction or weakness. Patient did state that she has and substance she is tired today. Talked to patient about her glucose control. Patient states that she checks it once in the a.m. for a fasting glucose and takes clipper might at home. She also states that she takes 58 units of Lantus nightly however she has not taken it last night. This morning her glucose was 460. Patient also stated that she is fully vaccinated for COVID. Patient has had a lexiscan stress test that came back normal with an EF of >70%. CTA was negative for PE and Venous ultra sound was also negative for DVT. Explained to the patient that she should lose weight, quit smoking, and have better control over her diet and glucose levels. BNP was also 29, and all labs were normal as well. [facility] Past Medical History Medical History Arthritis of spine Depression Diabetes HTN (hypertension) Migraine WINNIE (obstructive sleep apnea) Surgical History Surgical History History of ear surgery Family History Family History Grandparent Diabetes mellitus Hypertension Family history of cardiovascular disease Family history of arthritis Family history of lung cancer Family history of primary malignant neoplasm of liver Family history of malignant neoplasm of breast in first degree relative Mother Diabetes mellitus Hypertension Family history of cardiovascular disease Family history of malignant neoplasm of ovary Cerebrovascular accident PAD (peripheral artery disease) Heart disease HLD (hyperlipidemia) Sibling Family history of arthritis Father Hypertension Heart disease HLD (hyperlipidemia) Other Carcinoma of colon Family history of alcoholism Family history of blood dyscrasia Family history of malignant neoplasm of urinary bladder Family history of mental disorder Family history of seizure disorder Malignant neoplasm of prostate Social History Social History Social History: Patient lives at home with and 1 child. Patient would like her surrogate to be Christopher her . Patient also stated that she look forward is her mother and can also be contacted if needed. Patient has lots of animals including 4 cats and a dog with 9 puppies. Smoking packs per day: 1 Smoking cigarettes per day: 20.0 Years smoked: 20 Smoking pack-years: 20.00 Smoking status: Current every day smoker Tobacco type: cigarettes Alcohol intake: never Substance use: never Living arrangements: with family Occupation/Education: unemployed Gender identity (if verbalized by the patient): Female Sexual Orientation (if Verbalized by the Patient): Straight or Heterosexual Spiritual care concerns: No
== END 2020-12-09 16:18 | disposition home or self-care (01) ==
LOC: ANHED 12-09 03:35 → ANHIMU 12-09 06:15
PROVIDERS: Nurse Practitioner; Admitting Provider Internal Medicine; Emergency Provider Emergency Medicine; PCP Nurse Practitioner Family; Visit Provider Internal Medicine
DX: R07.9 Chest pain, unspecified (principal); E11.65 Type 2 diabetes mellitus with hyperglycemia; R06.02 Shortness of breath; E66.01 Morbid (severe) obesity due to excess calories; I10 Essential (primary) hypertension; M79.89 Other specified soft tissue disorders; F17.210 Nicotine dependence, cigarettes, uncomplicated; G43.909 Migraine, unspecified, not intractable, without status migrainosus; G47.33 Obstructive sleep apnea (adult) (pediatric); Z68.43 Body mass index [BMI] 50.0-59.9, adult; Z79.4 Long term (current) use of insulin
CPT/HCPCS: 36415; 36600; 71046; 71275; 78452; 80048; 82805; 82948; 83036; 83880; 84484; 85025; 85380; 85610; 85730; 93005; 93017; 93970; 99285; A9270; A9502; G0378; G0379; J1650; J1815; J2785; J7030; Q9967

== ENCOUNTER 2021-07-09 01:03 | Emergency (ER) | payer OTHER, SELFPAY ==
--- NOTE | ~2021-07-09 | XR_ITS ---
EXAMINATION: XR finger 2nd RT min 2V DATE: 07/09/2021 03:24 INDICATION: Right hand second digit foreign body. TECHNIQUE: 4 views of right hand second digit were obtained. COMPARISON: Right wrist radiographs 11/24/2018 FINDINGS: Bone alignment is normal. No fracture. Joint spaces are well maintained. IMPRESSION: 1. No radiopaque foreign body. Reviewed, dictated and finalized at location A. [facility]
[2021-07-09 01:06] VITALS: BP 154/97; PULSE 112; RESP 18; TEMP 36.7; O2SAT 98
[2021-07-09] MEDS: HYDROcodone/acetaminophen (*CRX) 5-325 MG TABLET 1 TAB PO (03:15)
--- NOTE | 2021-07-09 03:46 | ED.GENADULT ---
HPI - General Adult General Chief complaint: Extremity Injury, Upper Stated complaint: right index finger injury Time Seen by Provider: 07/09/21 02:53 History of Present Illness HPI narrative: Patient is a 41-year-old female who reports injury to her right index finger. She was using her brush when it snapped and struck her finger. She has pain over the dorsal aspect of the PIP on the ulnar aspect. She can extend her finger but has difficulty flexing due to pain. She reports throbbing discomfort and some numbness going into her fingertip. No additional injuries. Related Data Home Medications Medication Instructions Recorded Confirmed lorazepam 0.5 mg PO DAILY PRN 05/13/19 12/09/20 montelukast 10 mg PO DAILY 06/11/20 12/09/20 topiramate 100 mg PO DAILY 06/11/20 12/09/20 Lantus Solostar U-100 Insulin 50 unit SUBCUT HS 12/09/20 12/09/20 acetaminophen 1,000 mg PO Q6H PRN 12/09/20 12/09/20 amlodipine 5 mg PO DAILY 12/09/20 12/09/20 diphenhydramine HCl [Benadryl] 50 mg PO HS 12/09/20 12/09/20 famotidine 40 mg PO DAILY 12/09/20 12/09/20 mometasone 1 applic TOPICAL DAILY 12/09/20 12/09/20 norethindrone (contraceptive) 0.35 mg DAILY 12/09/20 12/09/20 Allergies Allergy/AdvReac Type Severity Reaction Status Date / Time lisinopril Allergy Severe angioedema Verified 07/09/21 01:08 morphine Allergy Intermediate Unresponsiv Verified 07/09/21 01:08 e metformin Allergy Unknown Vomiting Verified 07/09/21 01:08 Review of Systems Review of Systems: All systems reviewed & are unremarkable except as noted in HPI and below Musculoskeletal: Musculoskeletal: Reports arthralgias, Reports joint swelling and Denies muscle cramps Integumentary/Breasts: Skin/Breast: Denies erythema and Denies rash Neurologic: Denies focal weakness and Reports numbness PMFSH Past Medical History Medical History Arthritis of spine Depression Diabetes HTN (hypertension) Migraine WINNIE (obstructive sleep apnea) Surgical History Surgical History History of ear surgery Family History Family History Grandparent Diabetes mellitus Hypertension Family history of cardiovascular disease Family history of arthritis Family history of lung cancer Family history of primary malignant neoplasm of liver Family history of malignant neoplasm of breast in first degree relative Mother Diabetes mellitus Hypertension Family history of cardiovascular disease Family history of malignant neoplasm of ovary Cerebrovascular accident PAD (peripheral artery disease) Heart disease HLD (hyperlipidemia) Sibling Family history of arthritis Father Hypertension Heart disease HLD (hyperlipidemia) Other Carcinoma of colon Family history of alcoholism Family history of blood dyscrasia Family history of malignant neoplasm of urinary bladder Family history of mental disorder Family history of seizure disorder Malignant neoplasm of prostate Social History Social History Social History: Patient lives at home with and 1 child. Patient would like her surrogate to be Christopher her . Patient also stated that she look forward is her mother and can also be contacted if needed. Patient has lots of animals including 4 cats and a dog with 9 puppies. Smoking packs per day: 1 Smoking cigarettes per day: 20.0 Years smoked: 20 Smoking pack-years: 20.00 Smoking status: Current every day smoker Tobacco type: cigarettes Alcohol intake: never Substance use: never Gender identity (if verbalized by the patient): Female Sexual Orientation (if Verbalized by the Patient): Straight or Heterosexual Spiritual care concerns: No Exam Narrative: GENERAL: Well-appearing, obese, and in no acute distress. STEPHANIE
[2021-07-09 03:56] VITALS: PULSE 68; RESP 15; O2SAT 99
== END 2021-07-09 03:57 | disposition home or self-care (01) ==
PROVIDERS: Emergency Provider Emergency Medicine; PCP Nurse Practitioner Family
DX: S63.610A Unspecified sprain of right index finger, initial encounter (principal); E11.9 Type 2 diabetes mellitus without complications; I10 Essential (primary) hypertension; F17.210 Nicotine dependence, cigarettes, uncomplicated; Z79.4 Long term (current) use of insulin; W22.8XXA Striking against or struck by other objects, initial encounter
CPT/HCPCS: 29130; 73140; 99283; A9270

== ENCOUNTER 2021-08-31 10:23 | Emergency (ER) | payer OTHER, SELFPAY ==
--- NOTE | ~2021-08-31 | XR_ITS ---
EXAMINATION: XR hand RT min 3V EXAM DATE: 08/31/2021 10:46 INDICATION: Diffuse rt hand pain s/p fall 2 day ago. TECHNIQUE: Right hand frontal, lateral and oblique projections obtained and reviewed. Comparison is m eligio to prior examination from 07/09/2021. FINDINGS: Right metacarpal bones are unremarkable. There are no acute fractures or dislocations iden tified. There is no subcutaneous gas. The soft tissue is unremarkable. There are no radiopaque fo reign bodies. IMPRESSION: 1. XR hand RT min 3V exam without acute osseous findings. Reviewed, dictated and finalized at location A. SKE[employer] EXAMINER
[2021-08-31 10:29] VITALS: BP 150/77; PULSE 87; RESP 16; TEMP 36.5; O2SAT 98
--- NOTE | 2021-08-31 10:34 | ED.UPPEXIN ---
HPI - Extremity Injury (Upper) General Chief Complaint: Extremity Injury, Upper Stated Complaint: right hand pain Time Seen by Provider: 08/31/21 10:50 Source: patient, RN notes reviewed and old records reviewed Mode of arrival: ambulatory Limitations: no limitations History of Present Illness HPI narrative: Patient presents with right hand pain. Fell 2 days ago down the stairs trying to lift [id number]'s wheelchair down the stairs. Patient fell forward bent hand towards wrist. Reports increased pain and discomfort. Unable to make fist. Unable to flex or extend wrist. Reports pain in middle of back of hand. Right hand and wrist are swollen. Has been taking 400 mg ibuprofen every 6 hours. Has been applying ice and heat. Does not feel heat or ice or ibuprofen are helping. Right hand is more painful today. Some parts of this dictation were generated by voice recognition software and may contain typographical and/or grammatical inaccuracies. complaint: injury to: right and hand Related Data Home Medications Medication Instructions Recorded Confirmed lorazepam 0.5 mg PO DAILY PRN 05/13/19 08/31/21 montelukast 10 mg PO DAILY 06/11/20 08/31/21 topiramate 100 mg PO DAILY 06/11/20 08/31/21 Lantus Solostar U-100 Insulin 50 unit SUBCUT HS 12/09/20 08/31/21 amlodipine 5 mg PO DAILY 12/09/20 08/31/21 vortioxetine [Trintellix] 10 mg DIRECTED 08/31/21 08/31/21 Allergies Allergy/AdvReac Type Severity Reaction Status Date / Time lisinopril Allergy Severe angioedema Verified 07/09/21 01:08 morphine Allergy Intermediate Unresponsiv Verified 07/09/21 01:08 e metformin Allergy Unknown Vomiting Verified 07/09/21 01:08 Review of Systems Review of Systems: CONSTITUTIONAL: Denies fever, chills, or sweats. EYES: Denies visual changes, redness, or discharge. ENT: Denies rhinorrhea, congestion, sore throat, or otalgia. CARDIOVASCULAR: Denies chest pain, palpitations, or edema. RESPIRATORY: Denies cough or dyspnea. GASTROINTESTINAL: Denies abdominal pain, nausea, vomiting, or diarrhea. GENITOURINARY: Denies dysuria or hematuria. SKIN: Denies rash or itching. MUSCULOSKELETAL: Denies back pain or myalgia. Reports right hand pain and tenderness and swelling after fall. NEUROLOGIC: Denies headache, numbness, or weakness. All other systems reviewed are negative, except as documented in HPI. [facility] Past Medical History Medical History Arthritis of spine Depression Diabetes HTN (hypertension) Migraine WINNIE (obstructive sleep apnea) Surgical History Surgical History History of ear surgery Family History Family History Grandparent Diabetes mellitus Hypertension Family history of cardiovascular disease Family history of arthritis Family history of lung cancer Family history of primary malignant neoplasm of liver Family history of malignant neoplasm of breast in first degree relative Mother Diabetes mellitus Hypertension Family history of cardiovascular disease Family history of malignant neoplasm of ovary Cerebrovascular accident PAD (peripheral artery disease) Heart disease HLD (hyperlipidemia) Sibling Family history of arthritis Father Hypertension Heart disease HLD (hyperlipidemia) Other Carcinoma of colon Family history of alcoholism Family history of blood dyscrasia Family history of malignant neoplasm of urinary bladder Family history of mental disorder Family history of seizure disorder Malignant neoplasm of prostate Social History Social History Social History: Patient lives at home with and 1 child. Patient would like her surrogate to be Christopher her . Patient also stated that she look forward is her mother and can also be contacted if needed. Wilder
== END 2021-08-31 11:19 | disposition home or self-care (01) ==
PROVIDERS: Emergency Provider Nurse Practitioner Family; PCP Nurse Practitioner Family
DX: S63.91XA Sprain of unspecified part of right wrist and hand, initial encounter (principal); S66.911A Strain of unspecified muscle, fascia and tendon at wrist and hand level, right hand, initial encounter; S60.221A Contusion of right hand, initial encounter; W10.9XXA Fall (on) (from) unspecified stairs and steps, initial encounter; F17.210 Nicotine dependence, cigarettes, uncomplicated; E11.9 Type 2 diabetes mellitus without complications; I10 Essential (primary) hypertension; G47.33 Obstructive sleep apnea (adult) (pediatric); M47.9 Spondylosis, unspecified
CPT/HCPCS: 73130; 99213; G0463

== ENCOUNTER 2021-10-26 10:55 | Outpatient (CLI) | payer OTHER, SELFPAY ==
--- NOTE | 2021-10-26 | ECG_ITS ---
Measurements Intervals [place] Rate: 82 P: 48 FL: 177 QRS: 42 QRSD: 97 T: 9 QT: 367 QTc: 429 Interpretive Statements SINUS RHYTHM LOW QRS VOLTAGE IN PRECORDIAL LEADS [QRS DEFLECTION < 1.0 mV IN CHEST LEADS] BORDERLINE ECG COMPARED TO ECG 12/08/2020 23:10:22 LOW-VOLTAGE QRS APPRECIATED Electronically Signed On 10-26-2021 15:00:38 CDT by Usman King M.D.
--- NOTE | ~2021-10-26 | XR_ITS ---
EXAMINATION: XR chest 2V Exam Date/Time: 10/26/2021 11:35 CDT CLINICAL HISTORY: MORBID OBESITY, PREOPERATIVE EXAMINATION, SMOKER Comparison: 12/08/2020. RESULT: Lines, tubes, and devices: None. Lungs and pleura: Clear. Cardiomediastinal silhouette: Stable cardiomediastinal silhouette. Other: No acute osseous or upper abdominal finding. IMPRESSION: No acute cardiopulmonary process Reviewed, dictated and finalized at location K.
== END 2021-10-26 10:56 | disposition home or self-care (01) ==
PROVIDERS: PCP Nurse Practitioner Family
DX: Z01.810 Encounter for preprocedural cardiovascular examination (principal)
CPT/HCPCS: 71046; 93005

== ENCOUNTER 2022-02-22 21:30 | Inpatient (IN) | payer OTHER, SELFPAY ==
--- NOTE | ~2022-02-22 | MR_ITS ---
EXAMINATION: MR brain/brain stem wo/w con DATE: 02/25/2022 12:55 INDICATION: Left arm numbness and paresthesias. TECHNIQUE: Magnetic resonance imaging (MRI) of the brain and brainstem was performed without and with 20 mL Multihance intravenous contrast. Sequences included sagittal and axial T1-weighted SE, axial d iffusion-weighted FS SE, axial 3D SWAN, axial T2-weighted FLAIR, and axial T2-weighted FSE. Postcontr ast axial and coronal T1-weighted SE was obtained. Apparent diffusion coefficient (ADC) maps were cre ated. COMPARISON: Head CT dated 02/25/2022 FINDINGS: There are no areas of restricted diffusion to suggest acute infarction. No intracranial hemorrhage or abnormal intracranial mass lesion. There are scattered areas of nonspecific increased T2-weighted si gnal intensity in the cerebral white matter, predominantly involving the deep and periventricular whi te matter. There are no intraparenchymal signal abnormalities seen on the other pulse sequences. The ventricles are symmetric and normal in size. Small CSF collection consistent with a normal variant me ga cisterna magna along the posterior midline of the posterior fossa. There are no other abnormal ext ra-axial fluid collections. Flow voids are seen in the cerebral arteries on the T2-weighted sequences consistent with their expected patency. Mucosal thickening the left maxillary sinus. Visualized orbi ts and soft tissues are unremarkable. There are no areas of abnormal enhancement on the post contrast images. IMPRESSION: 1. Normal brain. No acute intracranial process. Reviewed, dictated and finalized at location A.
--- NOTE | ~2022-02-22 | CT_ITS ---
EXAMINATION: CT diagnostic chest w con DATE: 02/25/2022 08:55 INDICATION: Cellulitis and abscess at the left breast and axilla TECHNIQUE: Computed tomography (CT) of the chest was performed with 75 mL Omnipaque-300 intravenous c ontrast. Additional 3D reconstructions utilizing coronal maximum intensity projection (MIP) were perf ormed. Automated exposure control and iterative reconstruction technique were employed. The dose-isrrael th product was 1072.85 mGy-cm. COMPARISON: 02/23/2022 FINDINGS: Unchanged mild atelectasis/scarring in the right lower lobe along the caudal aspect of the major fiss ure. No pneumonia, pulmonary edema or other pulmonary infiltrates. No pleural effusion or pneumothora x. Heart size is normal. No pericardial effusion. Thoracic aorta is normal in caliber with no dissect ion. No pathologically enlarged thoracic lymphadenopathy. Persistent skin thickening at the left michael st. There is a small amount of gas within the now unremarkable left and decompressed abscess cavity w ithin the region of left breast cellulitis. There is a small amount of high attenuation material angel g the margins of an additional likely unroofed and decompressed left axillary abscess cavity. No othe r masses or abnormal fluid collections identified. Diffuse hepatic steatosis. Moderate thoracic spond ylosis with chronic appearing mild anterior wedging at T6 and T7. IMPRESSION: 1. Interval incision and drainage of the previously seen small subcutaneous abscesses at the left yoni ast and left axilla with small amount of residual gas within the decompressed abscess cavities. Reviewed, dictated and finalized at location A. IMPRESSION: 1. Interval incision and drainage of the previously seen small subcutaneous abs cesses at the left breast and left axilla with small amount of residual gas wit hin the decompressed abscess cavities.
--- NOTE | ~2022-02-22 | MR_ITS ---
EXAMINATION: MRA neck wo/w con DATE: 02/25/2022 12:55 INDICATION: Left arm numbness and paresthesias. TECHNIQUE: Magnetic resonance angiography (MRA) of the neck was performed without and with 20 mL Mult ihance intravenous contrast. Sequences included axial 2D-time of flight T1-weighted FSPGR, axial INHA NCE 3D and precontrast and time course of postcontrast coronal [id number]-hw-[id number] T1-weighted SPGR. COMPARISON: None. FINDINGS: Visualized aortic arch and the great vessels arising from the arch appear normal. No aneurysm or diss ection. There is 0% stenosis of the right carotid bulb relative to normal distal artery lumen diamete r (NASCET criteria). There is 0% stenosis of the left carotid bulb relative to normal distal artery lumen diameter. IMPRESSION: 1. 0% stenosis of the right carotid bulb relative to normal distal artery lumen diameter (NASCET crit eria). 2. 0% stenosis of the left carotid bulb relative to normal distal artery lumen diameter. Reviewed, dictated and finalized at location A. IMPRESSION: 1. 0% stenosis of the right carotid bulb relative to normal distal artery lumen diameter (NASCET criteria). 2. 0% stenosis of the left carotid bulb relative to normal distal artery lumen diameter.
--- NOTE | ~2022-02-22 | CT_ITS ---
EXAMINATION: CT diagnostic chest w con DATE: 02/23/2022 01:04 INDICATION: L breast cellulitis, r/o abscess, marked w/ BB TECHNIQUE: Computed tomography (CT) of the chest was performed with 75 mL Omnipaque-300 intravenous c ontrast. Additional 3D reconstructions utilizing coronal maximum intensity projection (MIP) were perf ormed. Automated exposure control and iterative reconstruction technique were employed. The dose-isrrael th product was 953.11 mGy-cm. COMPARISON: 12/09/2020 FINDINGS: Unchanged mild discoid atelectasis/scarring in the right lower lobe along the caudal aspect of the ma joyce fissure. No pneumonia, pulmonary edema or other pulmonary infiltrates. No pleural effusion or pne umothorax. Heart size is normal. No pericardial effusion. There is a marking BB centrally within a re gion of skin thickening at the left breast. Immediately underlying the BB is a more focal approximate ly 4 x 2.5 cm lesion which appears centrally lower in attenuation than peripherally and with mild str anding along its margins suspicious for abscess with surrounding cellulitis. There is an additional s maller 2.5 x 2.3 cm superficial subcutaneous lesion at the left axilla also suspicious for abscess. N o pathologically enlarged thoracic lymphadenopathy. Prominent diffuse hepatic steatosis. Visualized u pper abdomen is otherwise unremarkable. Moderate thoracic spondylosis with chronic appearing mild ant erior wedging at T6 and T7. IMPRESSION: 1. A couple likely superficial subcutaneous abscesses at the left breast and left axilla. Would recom mend clinical follow-up to resolution with further evaluation with ultrasound should the lesion persi st as differential would include malignancy. Reviewed, dictated and finalized at location A. IMPRESSION: 1. A couple likely superficial subcutaneous abscesses at the left breast and le ft axilla. Would recommend clinical follow-up to resolution with further evalua tion with ultrasound should the lesion persist as differential would include ma lignancy.
--- NOTE | ~2022-02-22 | MR_ITS ---
EXAMINATION: MRA brain wo con DATE: 02/25/2022 12:55 INDICATION: Left arm numbness and paresthesias EXAMINATION: MRA brain wo con DATE: 02/25/2022 12:55 INDICATION: Left arm numbness and paresthesias TECHNIQUE: Magnetic resonance angiography (MRA) of the brain was performed without intravenous contrast by the 3 D [id number] technique. COMPARISON: None. FINDINGS: There is normal flow related signal seen within the vertebral, basilar and internal carotid arteries. There is no proximal stenosis. There are no aneurysms identified. Both A1 and P1 segments are pat ent. Flow in the cerebral arteries is symmetric. IMPRESSION: 1. Normal cerebral MR angiogram. Reviewed, dictated and finalized at location A.
--- NOTE | ~2022-02-22 | MR_ITS ---
EXAMINATION: MR chest wo/w con DATE: 02/25/2022 12:55 INDICATION: Left arm numbness and paresthesias TECHNIQUE: Magnetic resonance imaging (MRI) of the left brachial plexus was performed without and wit h 20 mL Multihance intravenous contrast. Sequences included axial and coronal T2-weighted FS FSE, cor onal STIR FSE, coronal T2 FSE FLEX, sagittal T1-weighted FS SE, sagittal T2-weighted FS FSE of the le ft brachial plexus. Postcontrast sequences included axial, sagittal and coronal T1-weighted FS FSE. COMPARISON: Chest CT dated 02/25/2022 FINDINGS: Left brachial plexus appears normal with no abnormally enhancing lesions or impinging masses along th e course of the brachial plexus. No pathologically enlarged lymphadenopathy at the axilla, neck or vi sualized chest. Bone marrow signal is normal throughout. Mild cervical and thoracic spondylosis with mild disc height loss at C4-C5 and moderate disc height loss at T5-T6. Small disc bulges resulting in mild central canal stenosis at C6-C7 and minimal at C5-C6 and C7-T1. No evident neural foraminal chester nosis. IMPRESSION: 1. Normal left brachial plexus with no evident abnormal enhancing lesions or impinging masses. 2. Mild cervical spondylosis. Reviewed, dictated and finalized at location A. IMPRESSION: 1. Normal left brachial plexus with no evident abnormal enhancing lesions or im pinging masses. 2. Mild cervical spondylosis.
--- NOTE | ~2022-02-22 | CT_ITS ---
EXAMINATION: CT brain wo con INDICATION: Left upper extremity numbness and tingling COMPARISON: 10/11/2019 TECHNIQUE: Standard unenhanced head CT. The dose-length product (DLP) was 605.33 mGy-cm. The mA was a djusted according to patient size. Iterative reconstruction technique was employed. FINDINGS: There is a subtle area of low attenuation in the right basal ganglia. There is no intracran ial hemorrhage or abnormal mass lesion. The ventricles are normal. There is no abnormal mass effect o r midline shift. The ren-white matter differentiation is normal. The basal cisterns are patent. The orbits are normal. The paranasal sinuses, mastoids and calvarium are normal. IMPRESSION: 1. Subtle area of low attenuation in the right basal ganglia which could be reflect an early infarct in the correct clinical setting. These findings were discussed with Maddison Barrett APRN at 0903 h ours on 02/25/2022. Reviewed, dictated and finalized at location A. IMPRESSION: 1. Subtle area of low attenuation in the right basal ganglia which could be ref lect an early infarct in the correct clinical setting. These findings were disc ussed with Maddison Barrett APRN at 0903 hours on 02/25/2022.
[2022-02-22 22:22] VITALS: BP 148/97; PULSE 100; RESP 16; TEMP 36.6; O2SAT 100
[2022-02-22 23:32] VITALS: BP 142/89; PULSE 102; RESP 20; TEMP 37.1; O2SAT 96
[2022-02-22 23:48] LABS: Basophils Percent Auto 0.3 % (0.2-1.2); Eosinophils Absolute Auto 0.1 K/mm3 (0-0.3); Eosinophils Percent Auto 0.8 % (0-4.4); Hematocrit 49.7 % (37.0-47.0); Hemoglobin 16.7 g/dL (12.0-15.0); Immature Granulocyte Absolute 0.04 K/mm3 (0.00-0.031); Immature Granulocyte Percent A 0.3 % (0-0.5); Lymphocytes Absolute Auto 2.43 K/mm3 (0.9-3.2); Lymphocytes Percent Auto 20.9 % (18.3-44.2); Mean Corpuscular HGB Conc 33.6 g/dl (32-36); Mean Corpuscular Hemoglobin 28.8 pg (26-34); Mean Corpuscular Volume 85.8 fl (80-100); Mean Platelet Volume 10.8 fl (7.4-10.4); Monocytes Absolute Auto 0.6 K/mm3 (0.1-0.6); Monocytes Percent Auto 5.4 % (2.6-8.5); Neutrophils Absolute Auto 8.4 K/mm3 (1.3-6.7); Neutrophils Percent Auto 72.3 % (45.5-73.1); Platelet Count Result 331 k/mm3 (150-375); Red Blood Count 5.79 M/mm3 (4.2-5.4); Red Cell Distribution Width 13.5 % (11.5-14.5); White Blood Count 11.6 K/mm3 (4.5-10.0)
[2022-02-23] VITALS (16 sets, daily range): BP systolic 108–147; BP diastolic 67–84; PULSE 66–86; RESP 14–20; TEMP 36.1–37.4; O2SAT 94–100; BMI 45.5
[2022-02-23 00:01] LABS: Potassium 3.9 mmol/L (3.4-5.0)
[2022-02-23 00:02] LABS: Lactic Acid Reflex 1.5 mmol/L (0.7-2.0)
[2022-02-23 00:07] LABS: Alanine Aminotransferase 27 U/L (6-35); Albumin Level 3.9 g/dL (3.5-5.1); Alkaline Phosphatase 121 U/L (38-126); Anion Gap 12 mmol/L (8-16); Aspartate Amino Transferase 27 U/L (14-36); Bilirubin,Total 0.5 mg/dL (0.2-1.3); Blood Urea Nitrogen 10 mg/dL (7-17); Calcium 9.3 mg/dL (8.4-10.2); Carbon Dioxide 19 mmol/L (22-30); Chloride 105 mmol/L (98-107); Estimated CRCL calculation 147 ml/min; Estimated Glomerular Filt Rate > 60; Glucose 307 mg/dL (65-110); Sodium 136 mmol/L (137-145)
--- NOTE | 2022-02-23 00:16 | ED.SKABFB ---
HPI - Skin/Abscess/Foreign Bdy General Chief complaint: Skin/Abscess/Foreign Body <Ivy Garcia PA-C - Last Filed: 02/23/22 03:39> Stated complaint: rash to left breast <Ivy Garcia PA-C - Last Filed: 02/23/22 03:39> Time Seen by Provider: 02/22/22 23:29 <MYRNA Mccarthy Last Filed: 02/23/22 03:39> Source: patient <Ivy Garcia PA-C - Last Filed: 02/23/22 03:39> Mode of arrival: ambulatory <MYRNA Mccarthy Last Filed: 02/23/22 03:39> Limitations: no limitations <Ivy Garcia PA-C - Last Filed: 02/23/22 03:39> History of Present Illness HPI narrative: Patient is a 41-year-old female who presents the ED with report of left breast redness, warmth, pain. Patient reports she first noticed an area of redness to the left of her nipple 1 week ago. She was seen by her primary care doctor at that time and started on Bactrim. She has been taking this for the last week but states the redness has continued to expand. Her left medial breast is erythematous, tender, warm. She does note an area of firmness underneath her left nipple and extending medially. She denies any fevers at home. No nipple discharge. She is a diabetic and reports her blood sugars have been elevated recently. Does also report nausea, but denies vomiting. <Ivy Garcia PA-C - Last Filed: 02/23/22 03:39> Related Data Home medications: Home Medications Medication Instructions Recorded Confirmed lorazepam 0.5 mg tablet 0.5 mg PO DAILY PRN Agitation 05/13/19 02/23/22 montelukast 10 mg tablet 10 mg PO DAILY 06/11/20 02/23/22 topiramate 100 mg tablet 100 mg PO DAILY 06/11/20 02/23/22 amlodipine 5 mg tablet 5 mg PO DAILY 12/09/20 02/23/22 insulin glargine 100 unit/mL (3 50 unit subcut HS 12/09/20 02/23/22 mL) subcutaneous pen (Lantus Solostar U-100 Insulin) vortioxetine 10 mg tablet 10 mg DIRECTED 08/31/21 02/23/22 (Trintellix) <Ivy Garcia PA-C - Last Filed: 02/23/22 03:39> Allergies/Adverse reactions: Allergies Allergy/AdvReac Type Severity Reaction Status Date / Time lisinopril Allergy Severe angioedema Verified 07/09/21 01:08 morphine Allergy Intermediate Unresponsiv Verified 07/09/21 01:08 e metformin Allergy Unknown Vomiting Verified 07/09/21 01:08 <Ivy Garcia PA-C - Last Filed: 02/23/22 03:39> Review of Systems Review of Systems: CONSTITUTIONAL: Denies fever, chills, or sweats. CARDIOVASCULAR: Denies chest pain. RESPIRATORY: Denies dyspnea. GASTROINTESTINAL: Reports nausea. Denies abdominal pain, vomiting, or diarrhea. SKIN: Reports redness and warmth to left breast. MUSCULOSKELETAL: Reports pain to left medial breast. <Ivy Garcia PA-C - Last Filed: 02/23/22 03:39> All systems reviewed & are unremarkable except as noted in HPI and below <Ivy Garcia PA-C - Last Filed: 02/23/22 03:39> [facility] Past Medical History Medical History: Medical History Arthritis of spine Depression Diabetes HTN (hypertension) Migraine WINNIE (obstructive sleep apnea) <Ivy Garcia PA-C - Last Filed: 02/23/22 03:39> Surgical History Surgical History: Surgical History History of ear surgery <Ivy Garcia PA-C - Last Filed: 02/23/22 03:39> Family History Family History: Family History Grandparent Diabetes mellitus Hypertension Family history of cardiovascular disease Family history of arthritis Family history of lung cancer Family history of primary malignant neoplasm of liver Family history of malignant neoplasm of breast in first degree relative Mother Diabetes mellitus Hypertension Family history of cardiovascular disease Family history of malignant neoplasm of ovary Cerebrovascular accident PAD (peripheral artery disease) Heart disease HLD (hyperlipi
[2022-02-23] MEDS: ONDANSETRON INJ 4 MG/2 ML VIAL IV PUSH (00:46)
[2022-02-23] MEDS: SODIUM CHLORIDE 0.9% IV 1,000 ML 999 ML IV CONT (00:47)
--- NOTE | 2022-02-23 00:49 | PC.NURSE ---
Pt to CT scan via w/c at this time.
[2022-02-23 01:31] LABS: SARS-CoV-2 RNA PCR Negative
[2022-02-23] MEDS: metroNIDAZOLE 500 MG/ISO 100ML 500 MG/100 ML BAG 100 MG IVPB ×3 (02:18→17:26)
--- NOTE | 2022-02-23 02:41 | PC.NURSE ---
Bedside glucose 02:42 249mg/dL
[2022-02-23 02:45] LABS: Glucose Point of Care 249 mg/dl (65-105)
[2022-02-23] MEDS: INSULIN HUMAN REGULAR (*BKC) 100 UNITS/ML 10 UNITS IV PUSH (03:12)
[2022-02-23] MEDS: fentaNYL CITRATE INJ (*CRX) 100 MCG/2 ML VIAL 25 MCG IV PUSH ×4 (03:44→20:32)
--- NOTE | 2022-02-23 04:17 | ADMGEN ---
This patient, Randee Lazo, was admitted to 3 [facility] Surg Room 317-01. Patient/family oriented to hospital policies and general routines including ID bracelet, bed and alarms, visiting hours, pain management, procedures, bathroom and other care routines, personal items, smoking policy, room service/diet, and visiting hours. Information on how to activate the Rapid Response Team has been discussed. Patient/Family are encouraged to report perceived risks to care and to ask questions if they do not understand what they are told or what they should do.
--- NOTE | 2022-02-23 07:02 | PM.IMHP ---
H&P: HPI History of Present Illness Date/Time: 02/23/22 07:02 Chief Complaint: Left breast redness and pain Narrative: Randee Lazo is a 41 yo insulin-dependent diabetes, hypertension, obesity BMI 45, CPAP trial compliant with CPAP, tobacco dependence, and depression with anxiety. The patient presented to the emergency department for evaluation of left breast redness, tenderness, and warmth. Patient reports this started approximately 1 week ago with a very small ?reddened area?. She states the area was not raised no discharge was noted she reports this progressively worsened to include the nipple area. She also reports open and draining lesions to her left armpit area. She has had a history of these types of lesions to her right axilla and lower abdomen. She denies known prior history of MRSA infection. However she does endorse having lower abdomen I&D of a large apparent mass and no culture was obtained. This was several years ago. She denies complaints of fever, chills, shortness of breath, chest pain, abdominal pain, vomiting, diarrhea, or dysuria. She has chronic nausea. Patient of note is scheduled for gastric sleeve on April 05 of this year. She does report of being evaluated by her primary care provider approximately 1 week ago and was prescribed Bactrim for approximately 10 days. She reports compliance with his antibiotic and has approximately 3 days remaining. She saw no improvement to her left breast since starting antibiotics. She denies injury. Patient does have family history maternal grandmother with breast cancer diagnosed at age 150. She has never had a mammogram. In the emergency room vitals were temp 98? F, heart rate 100, respirations 16, BP 148/97, and SpO2 100% on room air. Lab work was significant for WBC 11.6, lactic acid 1.5, glucose 307, sodium 136 (sodium corrects to normal when 41 when accounted for hyperglycemia) and hemoglobin 16.7. CT of the chest showed possible retroareolar abscess soft tissue inflammation. The patient was treated with IV cefepime, IV Flagyl, and IV vancomycin. General surgery was consulted in the ED and agreeable to evaluate the patient. If Review of Systems Review of Systems: All systems reviewed & are unremarkable except as noted in HPI and below Gastrointestinal: Gastrointestinal: Reports as per HPI and Reports other (anorexia ) Integumentary/Breasts: Skin/Breast: Reports as per HPI Psychiatric: Psychiatric: Reports anxiety and Reports depression [facility] Past Medical History Medical History (Updated 02/23/22 @ 11:34 by Maddison Barrett APRN) Arthritis of spine Depression Diabetes HTN (hypertension) Migraine WINNIE (obstructive sleep apnea) Surgical History Surgical History (Updated 02/23/22 @ 11:22 by Maddison Barrett APRN) History of ear surgery Eustachian tubes Family History Family History Grandparent Diabetes mellitus Hypertension Family history of cardiovascular disease Family history of arthritis Family history of lung cancer Family history of primary malignant neoplasm of liver Family history of malignant neoplasm of breast in first degree relative Mother Diabetes mellitus Hypertension Family history of cardiovascular disease Family history of malignant neoplasm of ovary Cerebrovascular accident PAD (peripheral artery disease) Heart disease HLD (hyperlipidemia) Sibling Family history of arthritis Father Hypertension Heart disease HLD (hyperlipidemia) Other Carcinoma of colon Family history of alcoholism Family history of blood dyscrasia Family history of malignant neoplasm of urinary bladder Family history of mental disorder Family history of seizure disorder Malignant neoplasm of prostate Social History Social History (Updated 02/23/22 @ 11:25 by Maddison Barrett APRN) Social History: Patient lives at home with and 1 child. Patient
[2022-02-23 07:50] LABS: Hemoglobin A1C 13.1 % (<5.7)
--- NOTE | 2022-02-23 07:50 | PM.CNGS ---
Assessment and Plan Assessment and plan (1) Cellulitis of left breast: Code(s): N61.0 - Mastitis without abscess Status: Acute Assessment and Plan: CT shows possible abscess in the left breast subareolar. I reviewed the CT scan of the chest done last evening with Dr. Chen in Radiology this morning. He agrees that both areas in the axilla and breast appeared to be superficial subcutaneous abscesses. Therefore, I did not feel that I needed ultrasound to show that this was an abscess since with clinical exam and the CT it seems obvious and the patient has significant uncontrolled diabetes. She would be best served with a incision and drainage and packing of the abscesses in the periareolar to area of her left breast and the left Axilla. This was discussed with her the risks including bleeding,and infection have been described and the need to pack this until it heals from the inside out have been described. She seemed to understand wished to proceed. (2) Diabetes mellitus: Qualifiers: Diabetes mellitus complication status: with hyperglycemia Diabetes mellitus group home insulin use: with group home use Diabetes mellitus type: type 2 Qualified Code(s): E11.65 - Type 2 diabetes mellitus with hyperglycemia; Z79.4 - shelter (current) use of insulin Code(s): E11.9 - Type 2 diabetes mellitus without complications Status: Acute Assessment and Plan: As per hospitalist (3) WINNIE (obstructive sleep apnea): Code(s): G47.33 - Obstructive sleep apnea (adult) (pediatric) Status: Acute Assessment and Plan: as per hospitalist (4) Tobacco abuse: Code(s): Z72.0 - Tobacco use Status: Acute Assessment and Plan: will encourage cessation. (5) HTN (hypertension): Qualifiers: Hypertension type: essential hypertension Qualified Code(s): I10 - Essential (primary) hypertension Code(s): I10 - Essential (primary) hypertension Status: Chronic (6) Morbid obesity: Code(s): E66.01 - Morbid (severe) obesity due to excess calories Status: Chronic (7) Left breast abscess: Code(s): N61.1 - Abscess of the breast and nipple Status: Acute Assessment and Plan: suspected clinically and by CT.#1 above see History of Present Illness Consult details Consult date: 02/23/22 Reason for consult: other ( suspected left breast abscess) Requesting physician: Jeovanny Baxter, DO Narrative: ?Patient is a 41-year-old White female who presents the ED with report of left breast redness, warmth, pain.? Patient reports she first noticed an area of redness to the left of her nipple 1 week ago.? She was seen by her primary care doctor at that time and started on Bactrim.? She has been taking this for the last week but states the redness has continued to expand.? Her left medial breast is erythematous, tender, warm.? She does note an area of firmness underneath her left nipple and extending medially.? She denies any fevers at home. No nipple discharge. She is a diabetic and reports her blood sugars have been elevated recently.? Does also report nausea, but denies vomiting. When I saw the patient this morning she also points out an approximately 3 cm rounded area of soreness and mild yellowish purulent drainage from a lump in the left axilla. She has had multiple previous small abscesses in the axilla on both sides in the past. She denies any on the right axilla at this time. Review of Systems Review of Systems: All systems reviewed & are unremarkable except as noted in HPI and below Constitutional: Constitutional: Reports as per HPI, Denies chills and Denies fever(s) Cardiovascular: Cardiovascular: Denies chest pain and Denies dyspnea Respiratory: Respiratory: Reports no additional respiratory complaints and Denies dyspnea Gastrointestinal: Gastrointestinal: Reports as per HPI and Denies bloating Musculoskeletal: Musculoskelet
[2022-02-23 08:14] LABS: Glucose Point of Care 211 mg/dl (65-105)
[2022-02-23] MEDS: SODIUM CHLORIDE 0.9% IV 1,000 ML 100 ML IV CONT (08:58)
[2022-02-23] MEDS: CHLORHEXIDINE GLUCONATE 4% SOL 120 ML BTL 1 APPLIC TOPICAL (11:31)
[2022-02-23] MEDS: TOLNAFTATE 1% POWDER 45 GM BTL 1 APPLIC TOPICAL ×2 (12:15→20:37)
[2022-02-23 12:16] LABS: Glucose Point of Care 229 mg/dl (65-105)
--- NOTE | 2022-02-23 13:30 | PC.NURSE ---
To OR via bed
[2022-02-23] MEDS: LACTATED RINGERS 1,000 ML 30 ML IV CONT ×2 (13:40→14:30)
--- NOTE | 2022-02-23 14:08 | WPDANESEPPF ---
Anes - Initial Pre Proc Eval Procedure: Operation Date: 02/23/22 14:30 Proposed Procedures p Incision and Drainage Left Breast Abscess, Incision and Drainage Left Axillary Abscess - Adarsh Youngblood MD Date/Time: 02/23/22 14:08 Surgeon: Jeovanny Baxter DO Pre Op Diagnosis: L breast cellulitis, poorly controlled diabetes Patient Data Age: 41 Gender: F Height: 1.68 m Weight: 128 kg Last Vital Signs Temp 36.1 C L 02/23/22 06:00 Pulse 68 02/23/22 14:00 Resp 16 02/23/22 14:00 BP 121/71 02/23/22 14:00 Pulse Ox 98 02/23/22 14:00 O2 Del Method Room Air 02/23/22 14:00 Allergies Allergy/AdvReac Type Severity Reaction Status Date / Time lisinopril Allergy Severe angioedema Verified 02/23/22 09:09 morphine Allergy Intermediate Unresponsiv Verified 02/23/22 09:09 e metformin AdvReac Unknown Vomiting Verified 02/23/22 09:09 Home Medications Medication Instructions Recorded Confirmed Type lorazepam 0.5 mg tablet 0.5 mg PO DAILY PRN Agitation 05/13/19 02/23/22 History montelukast 10 mg tablet 10 mg PO DAILY 06/11/20 02/23/22 History topiramate 100 mg tablet 100 mg PO BID 06/11/20 02/23/22 History insulin glargine 100 unit/mL (3 50 unit subcut HS 12/09/20 02/23/22 History mL) subcutaneous pen (Lantus Solostar U-100 Insulin) vortioxetine 10 mg tablet 10 mg PO DAILY 08/31/21 02/23/22 History (Trintellix) amlodipine 10 mg tablet 10 mg PO DAILY 02/23/22 02/23/22 History aripiprazole 2 mg tablet 2 mg PO DAILY 02/23/22 02/23/22 History ergocalciferol (vitamin D2) 1,250 1,250 mcg PO WEEKLY 02/23/22 02/23/22 History mcg (50,000 unit) capsule famotidine 40 mg tablet 40 mg PO HS 02/23/22 02/23/22 History ferrous sulfate 325 mg (65 mg 325 mg PO BID 02/23/22 02/23/22 History iron) tablet glimepiride 4 mg tablet 8 mg PO DAILY 02/23/22 02/23/22 History liraglutide 0.6 mg/0.1 mL (18 mg/3 1.2 mg subcut DAILY 02/23/22 02/23/22 History mL) subcutaneous pen injector (Victoza 2-Justo) magnesium oxide 400 mg (241.3 mg 400 mg PO DAILY 02/23/22 02/23/22 History magnesium) tablet rosuvastatin 10 mg tablet 10 mg PO DAILY 02/23/22 02/23/22 History Laboratory Tests 02/22/22 02/22/22 02/22/22 23:34 23:34 23:34 WBC 11.6 K/mm3 H K/mm3 (4.5-10.0) RBC 5.79 M/mm3 H M/mm3 (4.2-5.4) Hgb 16.7 g/dL H g/dL (12.0-15.0) Hct 49.7 % H % (37.0-47.0) MCV 85.8 fl fl (80-100) MCH 28.8 pg pg (26-34) MCHC 33.6 g/dl g/dl (32-36) RDW 13.5 % % (11.5-14.5) Plt Count 331 k/mm3 k/mm3 (150-375) MPV 10.8 fl H fl (7.4-10.4) Immature Gran % (Auto) 0.3 % % (0-0.5) Neut % (Auto) 72.3 % % (45.5-73.1) Lymph % (Auto) 20.9 % % (18.3-44.2) [place] % (Auto) 5.4 % % (2.6-8.5) Eos % (Auto) 0.8 % % (0-4.4) Baso % (Auto) 0.3 % % (0.2-1.2) Lymph # (Auto) 2.43 K/mm3 K/mm3 (0.9-3.2) [place] # (Auto) 0.6 K/mm3 K/mm3 (0.1-0.6) Eos # (Auto) 0.1 K/mm3 K/mm3 (0-0.3) Baso # (Auto) 0.0 K/mm3 K/mm3 (0.0-0.1) Abs Immat Gran (auto) 0.04 K/mm3 H K/mm3 (0.00-0.031) Absolute Neuts (auto) 8.4 K/mm3 H K/mm3 (1.3-6.7) Absolute Nucleated RBC 0.0 K/mm3 K/mm3 (0.0-0.012) Nucleated RBC % 0.0 % % (0.0-0.2) Sodium 136 mmol/L L mmol/L (137-145) Potassium 3.9 mmol/L mmol/L (3.4-5.0) Chloride 105 mmol/L mmol/L (98-107) Carbon Dioxide 19 mmol/L L mmol/L (22-30) Anion Gap 12 mmol/L mmol/L (8-16) BUN 10 mg/dL mg/dL (7-17) Creatinine 0.60 mg/dL L mg/dL (0.7-1.0) Estim Creat Clear Calc 147 ml/min ml/min Estimated GFR > 60 (59 - ) Glucose 307 mg/dL H mg/dL (65-110) POC Capillary Glucose Hemoglobin A1c Lactic Acid 1.5 mmol/L mmol/L (
--- NOTE | 2022-02-23 14:33 | WPDHPUPDATE1 ---
History and Physical Update Update Date/Time: 02/23/22 14:33 History and Physical has been reviewed, including an updated exam of the patient. There are NO changes in the patient's condition. Risks, benefits, and alternatives of incision and drainage left breast abscess and left axillary abscess have been discussed and questions answered. Patient agrees to proceed with procedure.
--- NOTE | 2022-02-23 15:28 | SUR.OPER ---
LEFT BREAST CULTURE AND LEFT AXILLA CULTURE SENT TO PATHOLOGY PER SCOTT FOSTER. RECEIVED BY SUGAR.
[2022-02-23 15:50] LABS: Glucose Point of Care 264 mg/dl (65-105)
--- NOTE | 2022-02-23 15:54 | W.PM.PROC2 ---
Procedure Note - Detailed Date of Procedure 02/23/22 Pre-op Diagnosis 1. Lt. breast cellulitis surrounding a subareolar abscess. 2. poorly controlled diabetes Post-op Diagnosis Same Procedure Performed 1. Incision and drainage of left breast abscess 2. Incision and drainage and placement of a vessel loop in an infected tract and subcutaneous abscess left axilla. Surgeon Adarsh Youngblood MD Client Sales And Service Officer [facility] [place], [place] 1st assist Anesthesia General and Local Indications Patient began developing a red area on the skin of her left breast approximately 1 week prior to presentation. She did see her PCP regarding this and was started on Bactrim. However this continued to worsen and she came to the ED last evening. See history and physical and consult note. CT scan suggested abscess and clinically appears she did have an abscess in the left breast and an obvious abscess in the left axilla with signs of chronic possible hidradenitis in the left axilla. (2 or 3 small skin openings with granulation drainage). Description of Procedure The area of the left breast abscess was marked and time-out performed confirming patient and site of required I and D. Following this the area was prepped with 1st a chlorhexidine wipes in the axilla and then Betadine scrub and paint. The area was draped as I drape a mastectomy with the entire left arm prepped in a stockinette placed over the hand so we could freely move the arm while we did the axillary abscess drainage also. And local anesthetic using 2% xylocaine with epinephrine was infiltrated directly over the area of swelling and abscess formation on the medial side of the nipple-areolar complex left breast. After allowing the local anesthetic to work an 18 gauge needle on a 20 cc syringe was inserted into the suspected abscess along the medial border of the nipple-areolar complex and 4 cc of yellowish pus was immediately aspirated. The syringe was disconnected and needle left in place. Some of the pus from the syringe was placed on a culture swab and sent for Gram stain aerobic anaerobic C&S. Subsequently then an incision was made over the central portion of the area of abscess using a 15 blade knife. The opening was made about 2-2.5 cm in size in a circumareolar manner. There was about a 4 x 3 x 4 cm area of abscess cavity under this area. This was thoroughly irrigated out with saline. Following this I did take a biopsy of some of the breast tissue within the abscess cavity to rule out any sign of cancer. This was sent for pathology. Bovie cautery was used for hemostasis within the wound cavity and then it was packed. Following this the area was packed fairly tightly with 1/4 inch iodoform Nu Gauze (approximately 3 ft used) The area was then covered with Kerlix super sponges until we finished with the drainage of the axillary abscess and then held in place with Medipore tape upon completing the surgery. Following this we turned our attention to the left axilla. The obvious abscess of the skin on the arm side of the axilla was identified and just with compression there was a small pin like opening that was draining some yellowish purulence. Local anesthetic was infiltrated on & around this and a transverse incision was made directly over it after aspirating again with a 18 gauge needle and approximately 4 cc of pus aspirated. Some of this pus was placed on a culture swab and sent labeled as a culture from the left axillary abscess. (for routine Gram stain aerobic anaerobic cultures). I then irrigated with by temperature saline and I simply probed this with a hemostat and it seemed to track medially toward an area that had already had a small 3 mm opening in the skin suggestive of infection related to hidradenitis. I suspect that the new abscess tracked from that and the tract sealed off and the abscess formed. Therefore, more local anesthetic was placed by this small opening and then a tonsil was used placing it t
[2022-02-23] MEDS: INSULIN HUMAN REGULAR (*BKC) 100 UNITS/ML SUB-Q (16:25)
--- NOTE | 2022-02-23 17:15 | PC.NURSE ---
Back from OR via bed.
[2022-02-23] MEDS: amLODIPine BESYLATE 5 MG TABLET PO (17:25)
[2022-02-23] MEDS: TOPIRAMATE 100 MG TABLET PO (17:25)
[2022-02-23 17:33] LABS: Glucose Point of Care 225 mg/dl (65-105)
[2022-02-23] MEDS: INSULIN ASPART (*BKC) 100 UNITS/ML SUB-Q (17:33)
[2022-02-23 20:44] LABS: Glucose Point of Care 263 mg/dl (65-105)
[2022-02-24 01:20] VITALS: BP 156/101; PULSE 81; RESP 18; TEMP 36.8; O2SAT 98
[2022-02-24 02:45] VITALS: PULSE 71; O2SAT 98
[2022-02-24] MEDS: metroNIDAZOLE 500 MG/ISO 100ML 500 MG/100 ML BAG 100 MG IVPB ×3 (03:10→17:55)
[2022-02-24] MEDS: SODIUM CHLORIDE 0.9% IV 1,000 ML 100 ML IV CONT (03:11)
[2022-02-24] MEDS: HYDROcodone/acetaminophen (*CRX) 7.5-325 MG TABLET 1 TAB PO ×4 (03:23→21:24)
[2022-02-24 07:11] LABS: Basophils Percent Auto 0.4 % (0.2-1.2); Eosinophils Absolute Auto 0.1 K/mm3 (0-0.3); Eosinophils Percent Auto 1.7 % (0-4.4); Hematocrit 45.1 % (37.0-47.0); Hemoglobin 14.8 g/dL (12.0-15.0); Immature Granulocyte Absolute 0.04 K/mm3 (0.00-0.031); Immature Granulocyte Percent A 0.5 % (0-0.5); Lymphocytes Absolute Auto 1.69 K/mm3 (0.9-3.2); Lymphocytes Percent Auto 22.7 % (18.3-44.2); Mean Corpuscular HGB Conc 32.8 g/dl (32-36); Mean Corpuscular Hemoglobin 28.8 pg (26-34); Mean Corpuscular Volume 87.7 fl (80-100); Monocytes Absolute Auto 0.4 K/mm3 (0.1-0.6); Monocytes Percent Auto 5.9 % (2.6-8.5); Neutrophils Absolute Auto 5.1 K/mm3 (1.3-6.7); Neutrophils Percent Auto 68.8 % (45.5-73.1); Platelet Count Result 258 k/mm3 (150-375); Red Blood Count 5.14 M/mm3 (4.2-5.4); Red Cell Distribution Width 13.8 % (11.5-14.5); White Blood Count 7.4 K/mm3 (4.5-10.0)
[2022-02-24 07:23] LABS: Alanine Aminotransferase 19 U/L (6-35); Albumin Level 2.8 g/dL (3.5-5.1); Alkaline Phosphatase 87 U/L (38-126); Anion Gap 7 mmol/L (8-16); Aspartate Amino Transferase 17 U/L (14-36); Bilirubin,Total 0.3 mg/dL (0.2-1.3); Blood Urea Nitrogen 5 mg/dL (7-17); Calcium 8.3 mg/dL (8.4-10.2); Carbon Dioxide 20 mmol/L (22-30); Chloride 108 mmol/L (98-107); Estimated CRCL calculation 147 ml/min; Estimated Glomerular Filt Rate > 60; Glucose 238 mg/dL (65-110); Potassium 3.8 mmol/L (3.4-5.0); Sodium 135 mmol/L (137-145)
[2022-02-24 07:51] LABS: Vancomycin Trough 9.8 ug/mL (10.0-20.0)
[2022-02-24 07:56] LABS: Glucose Point of Care 243 mg/dl (65-105)
[2022-02-24 08:00] VITALS: BP 145/89; PULSE 66; RESP 16; TEMP 36.6; O2SAT 98
[2022-02-24] MEDS: TOPIRAMATE 100 MG TABLET PO (08:08)
[2022-02-24] MEDS: INSULIN GLARGINE (*BKC) 100 UNITS/ML 25 UNITS SUB-Q (08:09)
[2022-02-24] MEDS: FERROUS SULFATE 324 MG TABLET PO (08:09)
[2022-02-24] MEDS: amLODIPine BESYLATE 5 MG TABLET 10 MG PO (08:09)
[2022-02-24] MEDS: ROSUVASTATIN 10 MG TABLET PO (08:09)
[2022-02-24] MEDS: MAGNESIUM OXIDE 400 MG TABLET PO (08:09)
[2022-02-24] MEDS: ARIPiprazole 2 MG TABLET PO (08:09)
[2022-02-24] MEDS: TOLNAFTATE 1% POWDER 45 GM BTL 1 APPLIC TOPICAL ×2 (08:10→21:19)
[2022-02-24] MEDS: INSULIN ASPART (*BKC) 100 UNITS/ML SUB-Q ×3 (08:11→16:59)
--- NOTE | 2022-02-24 11:20 | PM.IMPN ---
Progress Note: A&P Assessment and Plan (1) Cellulitis and abscess of other specified site: Code(s): L03.818 - Cellulitis of other sites; L02.818 - Cutaneous abscess of other sites Status: Acute Assessment and Plan: C/O left breast redness, pain, and warmth. Failed outpatient Bactrim. CT chest concerning for cellulitis changes and retroareolar abscess. FH of breast cancer. Wound care management per General Surgery Left breast and left axilla wound cultures pending. Left breast tissue biopsy taken in OR, per report Day 2: broad spectrum IV antibiotics - Vancomycin pharmacy to dose, Cefepime 2 gr Q8 hours, Metronidazole IV Q8 hours for anaerobe coverage. De-escalate and transition to oral antibiotics pending culture results. Continue PRN analgesics. (2) Hydradenitis: Code(s): L73.2 - Hidradenitis suppurativa Status: Acute Assessment and Plan: As above. Patient was being treated with oral doxycycline previously and should be resumed after this course of antibiotics is completed. (3) Uncontrolled diabetes mellitus with hyperglycemia: Qualifiers: Diabetes mellitus type: other specified (including KAR) Qualified Code(s): E13.65 - Other specified diabetes mellitus with hyperglycemia Code(s): E11.65 - Type 2 diabetes mellitus with hyperglycemia Status: Acute Assessment and Plan: Patient with insulin dependent diabetes. She reports elevated blood sugars recently. A1c 13.3% Blood glucose monitoring AC/HS. Increase aspart sliding scale high dose scale AC/HS . Resume lantus- patient was not taking reportedly. Start at 25 units daily and adjust for goal glucose <200 mg/dL for wound healing. She does not want to see a restaurant host. She is having a gastric sleeve in approximately 1 month. (4) Morbid obesity: Code(s): E66.01 - Morbid (severe) obesity due to excess calories Status: Chronic Assessment and Plan: Plan for gastric sleeve in March, per patient. (5) HTN (hypertension): Qualifiers: Hypertension type: essential hypertension Qualified Code(s): I10 - Essential (primary) hypertension Code(s): I10 - Essential (primary) hypertension Status: Chronic Assessment and Plan: Continue amlodipine as BP tolerates. Plan CODE STATUS: FULL CODE Disposition: Home DVT prophylaxis: pharmacologic VTE prophylaxis per surgery. Time Spent With Patient Time with patient: 15 - 25 minutes Subjective Date/time seen: 02/24/22 11:20 Interval history: Randee Lazo is a 41 yo insulin-dependent diabetes, hypertension, obesity BMI 45, CPAP trial compliant with CPAP, tobacco dependence, and depression with anxiety.? The patient presented to the emergency department for evaluation of left breast redness, tenderness, and warmth for approximately 1 week that did not improve on oral Bactrim. The patient underwent I&D of the left breast abscess and left axilla. She reports tenderness to her breast, but thinks the medication is helping. She denies SOB, chest pain, nausea, vomiting, dizziness or dysuria. She noticed some blood in her urine. She has not had her menses in several years and does not think it is that. She also reports trouble getting some of her medications and only recently resumed her medications since September. Review of Systems Review of Systems: All systems reviewed & are unremarkable except as noted in HPI and below Exam Narrative: General: No acute respiratory distress. Mental Status: Awake, AOx4. Clear speech. Flat affect. Skin: warm, dry.? Fair.? No cyanosis noted to all extremities or digits.? Left breast dressing with small serosanguinous discharge to distal end. Left axilla dressing clean and dry, loose. left pannus with improving red, moist excoriation. HEENT: Normocephalic. Sclera is non-icteric. Pupils equal and round. Mucous membranes moist. Neck: No JVD. Cardiac: S1 and S
[2022-02-24 11:50] LABS: Glucose Point of Care 333 mg/dl (65-105)
[2022-02-24 12:00] VITALS: BP 120/71; PULSE 70; RESP 16; TEMP 36.2; O2SAT 97
--- NOTE | 2022-02-24 12:37 | PM.PNGS ---
Progress Note: A&P Assessment and Plan (1) Left breast abscess: Code(s): N61.1 - Abscess of the breast and nipple Status: Acute Assessment and Plan: Postop day 1.---- Status post incision drainage of abscess medial side of left breast near nipple. pain seems to be a rolled okay. --- awaiting 1st dressing change. Initial cultures pending C & S Gram stain: gram-positive cocci in clumps or clusters. This could be MRSA so will await further identification and continue vancomycin. (2) Hydradenitis: Code(s): L73.2 - Hidradenitis suppurativa Status: Acute Assessment and Plan: Patient told me yesterday that she has received low-dose doxycycline from her PCPand has been taking this for almost a month daily prior to coming to the hospital. This correlates with her exam in the left axilla and with the finding of tunneling at surgery to a site of old infection in the left axilla. (3) Cellulitis and abscess of other specified site: Code(s): L03.818 - Cellulitis of other sites; L02.818 - Cutaneous abscess of other sites Status: Acute Assessment and Plan: Patient had a 2nd abscess in the axilla area on the left. This was I and D yesterday during her surgery. Initial Gram stain reveals Gram-positive cocci in chains ( may be strep species). Continue current antibiotics until further identification (4) Diabetes mellitus: Qualifiers: Diabetes mellitus complication status: with hyperglycemia Diabetes mellitus long chain beamer insulin use: with long chain beamer use Diabetes mellitus type: type 2 Qualified Code(s): E11.65 - Type 2 diabetes mellitus with hyperglycemia; Z79.4 - [facility] (current) use of insulin Code(s): E11.9 - Type 2 diabetes mellitus without complications Status: Acute Assessment and Plan: Discussed care with Maddison from hospitalist group. She will continue to work on improving the patient's diabetic care so that wound healing will be improved. (5) Tobacco abuse: Code(s): Z72.0 - Tobacco use Status: Acute Assessment and Plan: Discussed this with patient today. She states she is trying to quit smoking completely so that it she will have done so by the time she is scheduled for her laparoscopic sleeve gastrectomy in [facility]. She is down to about 5-10 cigarettes per day now. She is not using any assistance to quit. She is quitting cold turkey Subjective Subjective Date/Time Seen: 02/24/22 12:37 Review of Systems Review of Systems: All systems reviewed & are unremarkable except as noted in HPI and below Constitutional: Constitutional: Reports as per HPI, Denies chills and Denies fever(s) Cardiovascular: Cardiovascular: Denies chest pain and Denies dyspnea Respiratory: Respiratory: Reports no additional respiratory complaints and Denies dyspnea Gastrointestinal: Gastrointestinal: Reports as per HPI and Denies bloating Musculoskeletal: Musculoskeletal: Reports no additional musculoskeletal complaints Exam Const: General: cooperative, comfortable, alert and awake Orientation/consciousness: patient oriented x3 HENMT: Head: normal to inspection Mouth: Yes moist mucous membranes Chest: Chest palpation & inspection: normal inspection of the chest Breast/axilla inspection: abnormal inspection of the axilla ( Dressing intact, nurse reports serosanguineous drainage.) left erythema and abnormal inspection of the breast ( Left breast: Dressing intact with some serosanguineous drainage.) Other: Nurse reports less erythema but still significant pain when packing the abscess openings in the left axilla. ( patient again not tolerate showering the axillary area well). Resp: Effort & Inspection: normal respiratory effort Auscultation: clear to auscultation bilaterally Neuro: General: patient oriented x3 Objective Data Vital Signs Vital Signs: Vital Signs - 24 hr 02/23/22 14:00 02/23/22 15:
[2022-02-24] MEDS: ONDANSETRON INJ 4 MG/2 ML VIAL IV PUSH (12:55)
--- NOTE | 2022-02-24 13:26 | WPDANESPN ---
Anes - Prog Note Post-Op Date/Time: 02/24/22 13:26 Vital Signs: Last Vital Signs Temp 36.2 C L 02/24/22 12:00 Pulse 70 02/24/22 12:00 Resp 16 02/24/22 12:00 BP 120/71 02/24/22 12:00 Pulse Ox 97 02/24/22 12:00 O2 Del Method Room Air 02/24/22 08:05 O2 Flow Rate 10 02/23/22 16:05 Pain Score (VAS): 0 I/O: Intake & Output 02/23/22 02/24/22 02/24/22 23:59 07:59 15:59 Intake Total 720 1700 170 Output Total 500 Balance 720 1200 170 Laboratory Tests 02/24/22 06:55 02/24/22 06:55 02/23/22 02/23/22 02/23/22 15:47 17:29 20:24 WBC RBC Hgb Hct MCV MCH MCHC RDW Plt Count MPV Immature Gran % (Auto) Neut % (Auto) Lymph % (Auto) [place] % (Auto) Eos % (Auto) Baso % (Auto) Lymph # (Auto) [place] # (Auto) Eos # (Auto) Baso # (Auto) Abs Immat Gran (auto) Absolute Neuts (auto) Absolute Nucleated RBC Nucleated RBC % Sodium Potassium Chloride Carbon Dioxide Anion Gap BUN Creatinine Estim Creat Clear Calc Estimated GFR Glucose POC Capillary Glucose 264 H 225 H 263 H Calcium Total Bilirubin AST ALT Alkaline Phosphatase Total Protein Albumin Vancomycin Trough 02/24/22 02/24/22 02/24/22 06:54 06:55 06:55 WBC 7.4 RBC 5.14 Hgb 14.8 Hct 45.1 MCV 87.7 MCH 28.8 MCHC 32.8 RDW 13.8 Plt Count 258 MPV 11.0 H Immature Gran % (Auto) 0.5 Neut % (Auto) 68.8 Lymph % (Auto) 22.7 [place] % (Auto) 5.9 Eos % (Auto) 1.7 Baso % (Auto) 0.4 Lymph # (Auto) 1.69 [place] # (Auto) 0.4 Eos # (Auto) 0.1 Baso # (Auto) 0.0 Abs Immat Gran (auto) 0.04 H Absolute Neuts (auto) 5.1 Absolute Nucleated RBC 0.0 Nucleated RBC % 0.0 Sodium 135 L Potassium 3.8 Chloride 108 H Carbon Dioxide 20 L Anion Gap 7 L BUN 5 L D Creatinine 0.60 L Estim Creat Clear Calc 147 Estimated GFR > 60 Glucose 238 H POC Capillary Glucose Calcium 8.3 L Total Bilirubin 0.3 AST 17 ALT 19 Alkaline Phosphatase 87 Total Protein 6.0 L Albumin 2.8 L Vancomycin Trough 9.8 L 02/24/22 02/24/22 07:53 11:17 WBC RBC Hgb Hct MCV MCH MCHC RDW Plt Count MPV Immature Gran % (Auto) Neut % (Auto) Lymph % (Auto) [place] % (Auto) Eos % (Auto) Baso % (Auto) Lymph # (Auto) [place] # (Auto) Eos # (Auto) Baso # (Auto) Abs Immat Gran (auto) Absolute Neuts (auto) Absolute Nucleated RBC Nucleated RBC % Sodium Potassium Chloride Carbon Dioxide Anion Gap BUN Creatinine Estim Creat Clear Calc Estimated GFR Glucose POC Capillary Glucose 243 H 333 H Calcium Total Bilirubin AST ALT Alkaline Phosphatase Total Protein Albumin Vancomycin Trough Microbiology 02/23/22 15:00 Breast Left Anaerobic Culture - Preliminary 02/23/22 15:03 Axilla Left Anaerobic Culture - Preliminary Patient Feedback: Patient satisfied with anesthetic care. Other Findings: Patient states having nasuea, but did not report feeling nauseous to her nurse. Notified nursing staff of the patients complication.
[2022-02-24 16:51] LABS: Glucose Point of Care 243 mg/dl (65-105)
--- NOTE | 2022-02-24 18:20 | PC.NURSE ---
Encouraged patient to walk in the [place].
[2022-02-24] MEDS: DOCUSATE SODIUM 100 MG CAPSULE PO (21:18)
[2022-02-24] MEDS: FAMOTIDINE 20 MG TABLET 40 MG PO (21:18)
[2022-02-24 21:48] LABS: Glucose Point of Care 282 mg/dl (65-105)
[2022-02-24 21:52] VITALS: BP 119/70; PULSE 64; RESP 20; TEMP 36.1; O2SAT 98
[2022-02-24 23:41] VITALS: PULSE 70; O2SAT 98
[2022-02-25] VITALS (8 sets, daily range): BP systolic 107–127; BP diastolic 47–82; PULSE 55–74; RESP 16–20; TEMP 35.9–36.9; O2SAT 96–98
--- NOTE | 2022-02-25 | ECHO_ITS ---
Patient Info Name: Randee Lazo Age: 41 years : 1980 Gender: Female Ht: 66 in Wt: 282 lbs BSA: 2.51 m2 HR: 78 bpm BP: 127 / 82 mmHg Technical Quality: Poor Exam Date: 02/25/2022 1:41 PM Exam Location: [facility] Pul[facility] Exam Room: [facility] Patient Status: Inpatient Admit Date: 02/25/2022 Staff Ordering Physician: Maddison Barrett APRN Geek Squad Manager: Jeanette Singh RDCS Attending Provider: Jeovanny Baxter DO Referring Physician: Arnold ENGEL; Exam Type: CA echo dop bubble study w con Study Info Indications - stroke Complete two-dimentional, color flow and Doppler transthoracic echocardiogram is performed with agitated saline and with contrast to opacify the left ventricle and to improve the delineation of the left ventricle endocardial borders. Contrast/Agitated Saline Contrast/Ag. Saline: Definity Amount: 2.00 ml Administered By: Jeanette Singh [facility] Existing IV Access: Yes IV Access Condition: patent with no signs of infiltration Reason for Poor Study: patient body habitus Summary 1. Technically suboptimal study due to poor sonographic images. 2. Definity contrast administered improved wall motion interpretation. 3. Left ventricular chamber dimension is normal. 4. Left ventricular systolic function is normal, estimated at 65-70%. 5. The left ventricular diastolic function is abnormal. 6. E/e' 12 is mildly elevated. 7. No pulmonary hypertension, estimated pulmonary arterial systolic pressure is 24 mmHg. Left Ventricle Technically suboptimal study due to poor sonographic images. Definity contrast administered improved wall motion interpretation. E/e' 12 is mildly elevated. Left ventricular chamber dimension is normal. Left ventricular systolic function is normal, estimated at 65-70%. The left ventricular diastolic function is abnormal. Right Ventricle Right ventricular chamber dimension is normal. Right ventricular systolic function is normal. Left Atria Left atrial chamber dimension is normal. Right Atria Right atrial chamber dimension is normal. Atrial Septum Agitated saline injection with and without valsalva maneuver opacified right side cardiac chambers without obvious shunt to left side cardiac chambers. Intact interatrial septum visualized by 2D and agitated saline imaging. Aortic Valve The aortic valve is trileaflet. There is no aortic valve stenosis. There is no aortic valve regurgitation. Pulmonic Valve There is no pulmonic regurgitation. Mitral Valve There is no mitral valve stenosis. There is no mitral valve regurgitation. Tricuspid Valve There is no tricuspid valve regurgitation. No pulmonary hypertension, estimated pulmonary arterial systolic pressure is 24 mmHg. Pericardium/Pleural There is no pericardial effusion. Inferior Vena Cava Normal inferior vena cava with >50% collapse upon inspiration consistent with normal right atrial pressure, 5 mmHg. Aorta The aortic root size at the sinus of Valsalva is normal. Left Ventricular Outflow Tract Name Value Normal LVOT 2D LVOT Diameter 2.0 cm LVOT Doppler
[2022-02-25] MEDS: metroNIDAZOLE 500 MG/ISO 100ML 500 MG/100 ML BAG 100 MG IVPB ×3 (01:01→18:02)
[2022-02-25] MEDS: ONDANSETRON INJ 4 MG/2 ML VIAL IV PUSH (07:10)
--- NOTE | 2022-02-25 07:18 | ECG_ITS ---
Measurements Intervals [place] Rate: 68 P: 12 [place]: 180 QRS: 45 QRSD: 88 T: 7 QT: 405 QTc: 431 Interpretive Statements SINUS RHYTHM LOW QRS VOLTAGE IN PRECORDIAL LEADS [QRS DEFLECTION < 1.0 mV IN CHEST LEADS] COMPARED TO ECG 10/26/2021 11:56:25 NO SIGNIFICANT CHANGES Electronically Signed On 02-25-2022 12:00:58 CDT by Yuan Ordaz M.D.
[2022-02-25 07:50] LABS: Basophils Percent Auto 0.6 % (0.2-1.2); Eosinophils Absolute Auto 0.2 K/mm3 (0-0.3); Eosinophils Percent Auto 2.3 % (0-4.4); Hematocrit 45.4 % (37.0-47.0); Hemoglobin 14.7 g/dL (12.0-15.0); Immature Granulocyte Absolute 0.03 K/mm3 (0.00-0.031); Immature Granulocyte Percent A 0.5 % (0-0.5); Lymphocytes Absolute Auto 1.59 K/mm3 (0.9-3.2); Lymphocytes Percent Auto 24.6 % (18.3-44.2); Mean Corpuscular HGB Conc 32.4 g/dl (32-36); Mean Corpuscular Hemoglobin 28.5 pg (26-34); Mean Corpuscular Volume 88.2 fl (80-100); Mean Platelet Volume 10.9 fl (7.4-10.4); Monocytes Absolute Auto 0.3 K/mm3 (0.1-0.6); Monocytes Percent Auto 5.3 % (2.6-8.5); Neutrophils Absolute Auto 4.3 K/mm3 (1.3-6.7); Neutrophils Percent Auto 66.7 % (45.5-73.1); Platelet Count Result 289 k/mm3 (150-375); Red Blood Count 5.15 M/mm3 (4.2-5.4); Red Cell Distribution Width 13.7 % (11.5-14.5); White Blood Count 6.5 K/mm3 (4.5-10.0)
[2022-02-25 07:56] LABS: Alanine Aminotransferase 22 U/L (6-35); Albumin Level 3.1 g/dL (3.5-5.1); Alkaline Phosphatase 89 U/L (38-126); Anion Gap 10 mmol/L (8-16); Aspartate Amino Transferase 22 U/L (14-36); Bilirubin,Total 0.2 mg/dL (0.2-1.3); Blood Urea Nitrogen 6 mg/dL (7-17); Calcium 8.7 mg/dL (8.4-10.2); Carbon Dioxide 20 mmol/L (22-30); Chloride 104 mmol/L (98-107); Estimated CRCL calculation 147 ml/min; Estimated Glomerular Filt Rate > 60; Glucose 260 mg/dL (65-110); Potassium 3.6 mmol/L (3.4-5.0); Sodium 134 mmol/L (137-145)
[2022-02-25 08:37] LABS: Vancomycin Trough 30.7 ug/mL (10.0-20.0)
[2022-02-25 08:40] LABS: Creatine Kinase MB < 0.2 ng/mL (0.0-2.37); Troponin I < 0.012 ng/mL (0.000-0.034)
[2022-02-25] MEDS: MAGNESIUM OXIDE 400 MG TABLET PO (09:30)
[2022-02-25] MEDS: ARIPiprazole 2 MG TABLET PO (09:30)
[2022-02-25] MEDS: TOPIRAMATE 100 MG TABLET PO (09:30)
[2022-02-25] MEDS: FERROUS SULFATE 324 MG TABLET PO (09:30)
[2022-02-25] MEDS: ROSUVASTATIN 10 MG TABLET PO ×2 (09:30→13:21)
[2022-02-25] MEDS: amLODIPine BESYLATE 5 MG TABLET 10 MG PO (09:30)
[2022-02-25] MEDS: INSULIN ASPART (*BKC) 100 UNITS/ML SUB-Q ×3 (09:32→16:41)
[2022-02-25] MEDS: INSULIN GLARGINE (*BKC) 100 UNITS/ML 25 UNITS SUB-Q (09:36)
[2022-02-25] MEDS: DOCUSATE SODIUM 100 MG CAPSULE PO ×2 (09:37→20:13)
[2022-02-25 09:41] LABS: Glucose Point of Care 268 mg/dl (65-105)
[2022-02-25] MEDS: TOLNAFTATE 1% POWDER 45 GM BTL 1 APPLIC TOPICAL ×2 (09:43→20:14)
--- NOTE | 2022-02-25 09:56 | P.PNIM_ITS ---
Progress Note: A&P Assessment and Plan (1) Cellulitis and abscess of other specified site: Code(s): L03.818 - Cellulitis of other sites; L02.818 - Cutaneous abscess of other sites Status: Acute Assessment and Plan: C/O left breast redness, pain, and warmth. Failed outpatient Bactrim. CT chest concerning for cellulitis changes and retroareolar abscess. FH of breast cancer. * Wound care management per General Surgery * Left breast with Staph aureus and left axilla Group B strep noted. Final cultures pending with sensitivities. * Left breast tissue biopsy benighn fibrofatty tissue with acute inflammation. * Day 3: broad spectrum IV antibiotics - Vancomycin pharmacy to dose, Cefepime 2 gr Q8 hours, Metronidazole IV Q8 hours for anaerobe coverage. De-escalate and transition to oral antibiotics pending culture results. * Continue PRN analgesics. (2) Hydradenitis: Code(s): L73.2 - Hidradenitis suppurativa Status: Acute Assessment and Plan: As above. Patient was being treated with oral doxycycline previously and should be resumed after this course of antibiotics is completed. (3) Left arm numbness: Code(s): R20.0 - Anesthesia of skin Status: Acute Assessment and Plan: noted on awakening today (see 02/25/2022) per patient. slight weakness noted to left upper extremity compared to right upper extremity. * CT head with small hypoattenuation right basal ganglia noted. * MRI/ MRA head and neck completed and no acute infarct, large vessel occlusion or stenosis noted. * CT chest only shows improved small subcutaneous abscesses to the breast and axilla. * MRI chest is negative for brachial plexus impingement * neurology has been consulted and appreciate recommendations. * EKG shows normal sinus rhythm without ischemic changes or significant change from previous tracing. * Troponin negative x2 * Echocardiogram ordered and pending. * Monitor telemetry * Patient was treated with aspirin 325 mg p.o. x1 and Plavix 300 mg p.o. x1. Patient was continued on aspirin 81 mg to start on 02/26. Plavix was discontinued when MRI results were negative. NIHSS score 2. * neurochecks Q 4. * Given negative MRI/MRAs if paresthesia continues for 1 month patient will need EMG /NCS per Neurology (4) Uncontrolled diabetes mellitus with hyperglycemia: Qualifiers: Diabetes mellitus type: other specified (including KAR) Qualified Code(s): E13.65 - Other specified diabetes mellitus with hyperglycemia Code(s): E11.65 - Type 2 diabetes mellitus with hyperglycemia Status: Acute Assessment and Plan: Patient with insulin dependent diabetes. She reports elevated blood sugars recently. * A1c 13.3% * Blood glucose monitoring AC/HS. * Increase aspart sliding scale high dose scale AC/HS . * POC glucose >200 mg/dL today. Continue and increase lantus 30 units daily and adjust for goal glucose <200 mg/dL for wound healing. * She does not want to see a music educator. She is having a gastric sleeve in approximately 1 month. (5) Morbid obesity: Code(s): E66.01 - Morbid (severe) obesity due to excess calories Status: Chronic Assessment and Plan: Plan for gastric sleeve in March, per patient. (6) HTN (hypertension): Qualifiers: Hypertension type: essential hypertension Qualified Code(s): I10 - Essential (primary) hypertension Code(s): I10 - Essential (primary) hypertension Status: Chronic Assessment and Plan: * Hold amlodipine for possible str
--- NOTE | 2022-02-25 09:56 | PM.IMPN ---
Progress Note: A&P Assessment and Plan (1) Cellulitis and abscess of other specified site: Code(s): L03.818 - Cellulitis of other sites; L02.818 - Cutaneous abscess of other sites Status: Acute Assessment and Plan: C/O left breast redness, pain, and warmth. Failed outpatient Bactrim. CT chest concerning for cellulitis changes and retroareolar abscess. FH of breast cancer. Wound care management per General Surgery Left breast with Staph aureus and left axilla Group B strep noted. Final cultures pending with sensitivities. Left breast tissue biopsy benighn fibrofatty tissue with acute inflammation. Day 3: broad spectrum IV antibiotics - Vancomycin pharmacy to dose, Cefepime 2 gr Q8 hours, Metronidazole IV Q8 hours for anaerobe coverage. De-escalate and transition to oral antibiotics pending culture results. Continue PRN analgesics. (2) Hydradenitis: Code(s): L73.2 - Hidradenitis suppurativa Status: Acute Assessment and Plan: As above. Patient was being treated with oral doxycycline previously and should be resumed after this course of antibiotics is completed. (3) Left arm numbness: Code(s): R20.0 - Anesthesia of skin Status: Acute Assessment and Plan: noted on awakening today (see 02/25/2022) per patient. slight weakness noted to left upper extremity compared to right upper extremity. CT head with small hypoattenuation right basal ganglia noted. MRI/ MRA head and neck completed and no acute infarct, large vessel occlusion or stenosis noted. CT chest only shows improved small subcutaneous abscesses to the breast and axilla. MRI chest is negative for brachial plexus impingement neurology has been consulted and appreciate recommendations. EKG shows normal sinus rhythm without ischemic changes or significant change from previous tracing. Troponin negative x2 Echocardiogram ordered and pending. Monitor telemetry Patient was treated with aspirin 325 mg p.o. x1 and Plavix 300 mg p.o. x1. Patient was continued on aspirin 81 mg to start on 02/26. Plavix was discontinued when MRI results were negative. NIHSS score 2. neurochecks Q 4. Given negative MRI/MRAs if paresthesia continues for 1 month patient will need EMG /NCS per Neurology (4) Uncontrolled diabetes mellitus with hyperglycemia: Qualifiers: Diabetes mellitus type: other specified (including KAR) Qualified Code(s): E13.65 - Other specified diabetes mellitus with hyperglycemia Code(s): E11.65 - Type 2 diabetes mellitus with hyperglycemia Status: Acute Assessment and Plan: Patient with insulin dependent diabetes. She reports elevated blood sugars recently. A1c 13.3% Blood glucose monitoring AC/HS. Increase aspart sliding scale high dose scale AC/HS . POC glucose >200 mg/dL today. Continue and increase lantus 30 units daily and adjust for goal glucose <200 mg/dL for wound healing. She does not want to see a ems educator. She is having a gastric sleeve in approximately 1 month. (5) Morbid obesity: Code(s): E66.01 - Morbid (severe) obesity due to excess calories Status: Chronic Assessment and Plan: Plan for gastric sleeve in March, per patient. (6) HTN (hypertension): Qualifiers: Hypertension type: essential hypertension Qualified Code(s): I10 - Essential (primary) hypertension Code(s): I10 - Essential (primary) hypertension Status: Chronic Assessment and Plan: Hold amlodipine for possible stroke symptoms. Will allow permissive hypertension for 24 hours. PRN hydralazine 10 mg IV for SBP>180 or DBP>110 Plan CODE STATUS: FULL CODE Disposition: Home Time Spent With Patient Time with patient: 25 - 35 minutes Subjective Date/time seen: 02/25/22 09:56 Interval history: Randee Lazo is a 41 yo insulin-dependent diabetes, hypertension, obesity BMI 45, CPAP trial comp
--- NOTE | 2022-02-25 10:38 | WPDNEURCNPN ---
Assessment and Plan Assessment and plan (1) Left arm numbness: Code(s): R20.0 - Anesthesia of skin Status: Acute Assessment and Plan: Ms. Lazo is a 41 year old female with a history of DM, HTN, obesity, and smoking who is s/p I+D of left breast and axilla abscesses. She started having numbness of the left face and left arm this morning. LKW is not clear as patient is not sure if she woke-up with symptoms or not. CT head showed R basal ganglia hypodensity. Given unknown LKW and improving symptoms, tPA was not administered. Left facial numbness has mostly resolved. LUE numbness and weakness fits distribution of axillary and radial nerve which would indicate posterior cord involvement of the brachial plexus. This could be seen in the setting of post-op swelling or local anesthesia to the axilla. However, a R basal ganglia stroke could also present with LUE/facial numbness. Per patient, symptoms have improved since then morning. Weakness is still present in the extensors of the left arm but subtle. Plan - Recommend MRI brain, vessel imaging of brain and neck (CTA or MRA), MRI w/wo contrast of left brachial plexus - Obtain surface echo with bubble study - Most recent A1c was 13.1, check lipid panel; goal LDL<70 - Ok to give ASA and Plavix Consult date: 02/25/22 Time Seen: 10:38 Reason for consult: Left facial and upper extremity numbness HPI: Randee Lazo is a 41 year old female with a history of DM, HTN, obesity, smoking who is current admitted for L axillary/breast cellulitus. She presented with pain and induration in that area two days ago. CT chest at [place] showed retroareolar and axillary abscesses. She underwent I+D of the abscesses in the breast and axilla day before yesterday. In addition to general anesthesia, she received local anesthesia in the axilla. She felt fine when she woke up from surgery and all of yesterday. This morning she noticed some numbness on the left side of her face and left arm. She is not sure exactly when it started but she reported it to her nurse this morning. Since then she had noted gradual improvement in her symptoms. She denies any vision changes, dysphagia, speech difficulties, or focal weakness. She had a CT head this morning that showed small area of hypodensity in the right basal ganglia. EKG done this morning, resport pending. Her WBC this morning was 6.5 and she has been afebrile. Review of Systems Constitutional: Constitutional: Reports body ache(s), Denies chills and Reports difficulty sleeping Eyes: Eyes: Reports no additional eye complaints ENT: Reports Normal hearing present and Denies dysphagia Cardiovascular: Cardiovascular: Reports no additional cardiovascular complaints Respiratory: Respiratory: Reports no additional respiratory complaints Gastrointestinal: Gastrointestinal: Reports no additional gastrointestinal complaints Genitourinary: Genitourinary: Reports no additional female genitourinary complaints Musculoskeletal: Musculoskeletal: Reports myalgias Integumentary/Breasts: Skin/Breast: Reports breast pain Neurologic: Reports as per HPI and Reports numbness Psychiatric: Psychiatric: Reports anxiety PMFSH Past Medical History Medical History Arthritis of spine Depression Diabetes HTN (hypertension) Migraine WINNIE (obstructive sleep apnea) Surgical History Surgical History History of ear surgery Eustachian tubes Family History Family History Grandparent Diabetes mellitus Hypertension Family history of cardiovascular disease Family history of arthritis Family history of lung cancer Family history of primary malignant neoplasm of liver Family history of malignant neoplasm of breast in first degree relative Mother Diabetes mellitus Hypertension Family history of cardiovascular dise
[2022-02-25] MEDS: CLOPIDOGREL BISULFATE 300 MG TABLET PO (11:01)
[2022-02-25] MEDS: ASPIRIN 325 MG TABLET PO (11:01)
[2022-02-25 11:32] LABS: LDL Cholesterol Direct 58 mg/dL
[2022-02-25 11:36] LABS: Cholesterol 107 mg/dL (0-200); HDL Direct 26 mg/dL; Triglycerides 69 mg/dL (<150)
[2022-02-25 13:33] LABS: Glucose Point of Care 234 mg/dl (65-105)
[2022-02-25] MEDS: PERFLUTREN LIPID MICROSPHERES 1.5 ML VIAL DILUTED TO 10 ML TOTAL VOLUME IV PUSH (13:59)
--- NOTE | 2022-02-25 13:59 | IVDEFINITY ---
Prior to administration of IV Definity the patient was educated on the risks and benefits of the imaging enhancing agent including potential adverse side effects. The patient verbalized understanding. Allergies were verified. No exclusion criteria were identified and at least one of the following inclusion criteria were met: 1) physician request, 2) patient technically difficult to image (per the [place] [employer] guidelines of two or more segments not discernable within the apical view), or 3) questionable left ventricular function. ?
--- NOTE | 2022-02-25 15:14 | PM.PNGS ---
Progress Note: A&P Assessment and Plan (1) Left breast abscess: Code(s): N61.1 - Abscess of the breast and nipple Status: Acute Assessment and Plan: Postop day 2.---- Status post incision drainage of abscess medial side of left breast near nipple. pain seems to be a little less today. (Patient did have packing changed yesterday with the nurse and has significant discomfort more at the axilla than the breast). Initial cultures pending C & S Gram stain-Breast abscess: gram-positive cocci in clumps or clusters. Identified as Staph aureus no sensitivities yet. This could be MRSA so will await further identification and continue vancomycin. plan: Okay for discharge Surgically whenever okay with medical service. ---- I recommend if patient is sent home before culture sensitivities are back that we cover for MRSA. We could consider even now changing patient to Bactrim 2 double-strength tablets PO q.12 hours here in the hospital and see how she does since her white count is normal &the abscesses are drained. Could also consider switching metronidazole to oral. Would need to continue cefepime to cover for the streptococci at the other sites and decide on appropriate p.o. coverage upon discharge for this streptococci group B. (2) Hydradenitis: Code(s): L73.2 - Hidradenitis suppurativa Status: Acute Assessment and Plan: Patient told me yesterday that she has received low-dose doxycycline from her PCP and has been taking this for almost a month on a daily basis prior to coming to the hospital. This is often done for patients with hidradenitis. This therefore, correlates with her exam in the left axilla and with the finding of tunneling at surgery to a site of old infection in the left axilla. (3) Cellulitis and abscess of other specified site: Code(s): L03.818 - Cellulitis of other sites; L02.818 - Cutaneous abscess of other sites Status: Acute Assessment and Plan: Patient had a 2nd abscess in the axilla area on the left. This was I and D'ed on 02/23 during her surgery. This abscess seemed to be associated with tunneling from 1 of the chronic openings from her suspected hidradenitis. Initial Gram stain reveals Gram-positive cocci in chains ( may be strep species). This is now known to be based group B strep and should be sensitive to penicillin and cephalosporins. (See microbiology report). 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 She will continue to work on improving the patient's diabetic care so that wound healing will be improved. (5) Tobacco abuse: Code(s): Z72.0 - Tobacco use Status: Acute Assessment and Plan: Discussed this with patient on 02/24. She states she is trying to quit smoking completely so that it she will have done so by the time she is scheduled for her laparoscopic sleeve gastrectomy in [place], [place]. She is down to about 5-10 cigarettes per day now. She is not using any assistance to quit. She is quitting cold turkey . Subjective Subjective Date/Time Seen: 02/25/22 15:00 Post Op day: 2 ( Status post I and D of left breast and left axillary abscesses) Patient reports: pain is less and other ( When awakening today had reports of numbness in left arm and face.) Interval history: because of the above complaints the patient has had a battery of blood tests and radiology test. See neurology consultation and notes. Review of Systems Review of Systems: All systems reviewed & are un
[2022-02-25 15:17] LABS: Troponin I < 0.012 ng/mL (0.000-0.034)
[2022-02-25 15:47] LABS: Thyroid Stimulating Hormone Reflex 0.901 uIU/mL (0.465-4.68)
[2022-02-25] MEDS: HYDROcodone/acetaminophen (*CRX) 7.5-325 MG TABLET 1 TAB PO (15:50)
[2022-02-25 16:29] LABS: Glucose Point of Care 236 mg/dl (65-105)
[2022-02-25] MEDS: FAMOTIDINE 20 MG TABLET 40 MG PO (20:13)
[2022-02-25 21:43] LABS: Glucose Point of Care 316 mg/dl (65-105)
[2022-02-26] VITALS: PULSE 63
[2022-02-26] MEDS: metroNIDAZOLE 500 MG/ISO 100ML 500 MG/100 ML BAG 100 MG IVPB ×2 (02:56→09:13)
[2022-02-26 03:00] VITALS: PULSE 61; O2SAT 96
[2022-02-26 04:00] VITALS: PULSE 63
[2022-02-26 05:42] VITALS: BP 91/54; PULSE 59; RESP 17; TEMP 36.8; O2SAT 96
[2022-02-26 06:21] LABS: Hematocrit 45.1 % (37.0-47.0); Hemoglobin 14.8 g/dL (12.0-15.0); Mean Corpuscular HGB Conc 32.8 g/dl (32-36); Mean Corpuscular Hemoglobin 28.6 pg (26-34); Mean Corpuscular Volume 87.2 fl (80-100); Mean Platelet Volume 10.9 fl (7.4-10.4); Platelet Count Result 272 k/mm3 (150-375); Red Blood Count 5.17 M/mm3 (4.2-5.4); Red Cell Distribution Width 13.6 % (11.5-14.5); White Blood Count 6.3 K/mm3 (4.5-10.0)
[2022-02-26 06:39] LABS: Anion Gap 10 mmol/L (8-16); Blood Urea Nitrogen 9 mg/dL (7-17); Calcium 8.3 mg/dL (8.4-10.2); Carbon Dioxide 20 mmol/L (22-30); Chloride 109 mmol/L (98-107); Estimated CRCL calculation 147 ml/min; Estimated Glomerular Filt Rate > 60; Glucose 240 mg/dL (65-110); Potassium 3.8 mmol/L (3.4-5.0); Sodium 139 mmol/L (137-145)
[2022-02-26 07:35] LABS: Glucose Point of Care 244 mg/dl (65-105)
[2022-02-26 08:00] VITALS: PULSE 67
[2022-02-26] MEDS: ARIPiprazole 2 MG TABLET PO (08:45)
[2022-02-26] MEDS: MAGNESIUM OXIDE 400 MG TABLET PO (08:46)
[2022-02-26] MEDS: DOCUSATE SODIUM 100 MG CAPSULE PO (08:46)
[2022-02-26] MEDS: ASPIRIN 81 MG ENTERIC TABLET PO (08:46)
[2022-02-26] MEDS: FERROUS SULFATE 324 MG TABLET PO (08:46)
[2022-02-26] MEDS: TOPIRAMATE 100 MG TABLET PO (08:46)
[2022-02-26] MEDS: ROSUVASTATIN 10 MG TABLET 20 MG PO (08:46)
[2022-02-26] MEDS: INSULIN ASPART (*BKC) 100 UNITS/ML SUB-Q (08:47)
[2022-02-26] MEDS: INSULIN GLARGINE (*BKC) 100 UNITS/ML 30 UNITS SUB-Q (08:47)
[2022-02-26] MEDS: TOLNAFTATE 1% POWDER 45 GM BTL 1 APPLIC TOPICAL (08:48)
[2022-02-26 09:10] LABS: Vancomycin Trough < 5.0 ug/mL (10.0-20.0)
--- NOTE | 2022-02-26 10:54 | P.DS_ITS ---
DS: Admitting Diagnosis Discharge Date 02/26/2022 Admitting Diagnosis Left breast redness and pain DS: Discharge Diagnosis Discharge Diagnosis (1) Cellulitis and abscess of other specified site: Code(s): L03.818 - Cellulitis of other sites; L02.818 - Cutaneous abscess of other sites Status: Acute Assessment and Plan: C/O left breast redness, pain, and warmth. Failed outpatient Bactrim. CT chest concerning for cellulitis changes and retroareolar abscess. FH of breast cancer. * Wound care management per General Surgery * Left breast with Staph aureus and left axilla Group B strep noted. Final cultures pending with sensitivities. * Left breast tissue biopsy benighn fibrofatty tissue with acute inflammation. * Day 3: broad spectrum IV antibiotics - Vancomycin pharmacy to dose, Cefepime 2 gr Q8 hours, Metronidazole IV Q8 hours for anaerobe coverage. De-escalate and transition to oral antibiotics pending culture results. * Continue PRN analgesics. (2) Hydradenitis: Code(s): L73.2 - Hidradenitis suppurativa Status: Acute Assessment and Plan: As above. Patient was being treated with oral doxycycline previously and should be resumed after this course of antibiotics is completed. (3) Left arm numbness: Code(s): R20.0 - Anesthesia of skin Status: Acute Assessment and Plan: noted on awakening today (see 02/25/2022) per patient. slight weakness noted to left upper extremity compared to right upper extremity. * CT head with small hypoattenuation right basal ganglia noted. * MRI/ MRA head and neck completed and no acute infarct, large vessel occlusion or stenosis noted. * CT chest only shows improved small subcutaneous abscesses to the breast and axilla. * MRI chest is negative for brachial plexus impingement * neurology has been consulted and appreciate recommendations. * EKG shows normal sinus rhythm without ischemic changes or significant change from previous tracing. * Troponin negative x2 * Echocardiogram ordered and pending. * Monitor telemetry * Patient was treated with aspirin 325 mg p.o. x1 and Plavix 300 mg p.o. x1. Patient was continued on aspirin 81 mg to start on 02/26. Plavix was discontinued when MRI results were negative. NIHSS score 2. * neurochecks Q 4. * Given negative MRI/MRAs if paresthesia continues for 1 month patient will need EMG /NCS per Neurology (4) Uncontrolled diabetes mellitus with hyperglycemia: Qualifiers: Diabetes mellitus type: other specified (including KAR) Qualified Code(s): E13.65 - Other specified diabetes mellitus with hyperglycemia Code(s): E11.65 - Type 2 diabetes mellitus with hyperglycemia Status: Acute Assessment and Plan: Patient with insulin dependent diabetes. She reports elevated blood sugars recently. * A1c 13.3% * Blood glucose monitoring AC/HS. * Increase aspart sliding scale high dose scale AC/HS . * POC glucose >200 mg/dL today. Continue and increase lantus 30 units daily and adjust for goal glucose <200 mg/dL for wound healing. * She does not want to see a human resources partner. She is having a gastric sleeve in approximately 1 month. (5) Morbid obesity: Code(s): E66.01 - Morbid (severe) obesity due to excess calories Status: Chronic Assessment and Plan: Plan for gastric sleeve in March, per patient. (6) HTN (hypertension): Qualifiers: Hypertension type: essential hypertension Qualified Code(s): I10 - Essential (primary) hypertension Code(s): I10
--- NOTE | 2022-02-26 10:54 | PM.DS ---
DS: Admitting Diagnosis Discharge Date 02/26/2022 Admitting Diagnosis Left breast redness and pain DS: Discharge Diagnosis Discharge Diagnosis (1) Cellulitis and abscess of other specified site: Code(s): L03.818 - Cellulitis of other sites; L02.818 - Cutaneous abscess of other sites Status: Acute Assessment and Plan: C/O left breast redness, pain, and warmth. Failed outpatient Bactrim. CT chest concerning for cellulitis changes and retroareolar abscess. FH of breast cancer. Wound care management per General Surgery Left breast with Staph aureus and left axilla Group B strep noted. Final cultures pending with sensitivities. Left breast tissue biopsy benighn fibrofatty tissue with acute inflammation. Day 3: broad spectrum IV antibiotics - Vancomycin pharmacy to dose, Cefepime 2 gr Q8 hours, Metronidazole IV Q8 hours for anaerobe coverage. De-escalate and transition to oral antibiotics pending culture results. Continue PRN analgesics. (2) Hydradenitis: Code(s): L73.2 - Hidradenitis suppurativa Status: Acute Assessment and Plan: As above. Patient was being treated with oral doxycycline previously and should be resumed after this course of antibiotics is completed. (3) Left arm numbness: Code(s): R20.0 - Anesthesia of skin Status: Acute Assessment and Plan: noted on awakening today (see 02/25/2022) per patient. slight weakness noted to left upper extremity compared to right upper extremity. CT head with small hypoattenuation right basal ganglia noted. MRI/ MRA head and neck completed and no acute infarct, large vessel occlusion or stenosis noted. CT chest only shows improved small subcutaneous abscesses to the breast and axilla. MRI chest is negative for brachial plexus impingement neurology has been consulted and appreciate recommendations. EKG shows normal sinus rhythm without ischemic changes or significant change from previous tracing. Troponin negative x2 Echocardiogram ordered and pending. Monitor telemetry Patient was treated with aspirin 325 mg p.o. x1 and Plavix 300 mg p.o. x1. Patient was continued on aspirin 81 mg to start on 02/26. Plavix was discontinued when MRI results were negative. NIHSS score 2. neurochecks Q 4. Given negative MRI/MRAs if paresthesia continues for 1 month patient will need EMG /NCS per Neurology (4) Uncontrolled diabetes mellitus with hyperglycemia: Qualifiers: Diabetes mellitus type: other specified (including KAR) Qualified Code(s): E13.65 - Other specified diabetes mellitus with hyperglycemia Code(s): E11.65 - Type 2 diabetes mellitus with hyperglycemia Status: Acute Assessment and Plan: Patient with insulin dependent diabetes. She reports elevated blood sugars recently. A1c 13.3% Blood glucose monitoring AC/HS. Increase aspart sliding scale high dose scale AC/HS . POC glucose >200 mg/dL today. Continue and increase lantus 30 units daily and adjust for goal glucose <200 mg/dL for wound healing. 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 She is having a gastric sleeve in approximately 1 month. (5) Morbid obesity: Code(s): E66.01 - Morbid (severe) obesity due to excess calories Status: Chronic Assessment and Plan: Plan for gastric sleeve in March, per patient. (6) HTN (hypertension): Qualifiers: Hypertension type: essential hypertension Qualified Code(s): I10 - Essential (primary) hypertension Code(s): I10 - Essential (primary) hypertension Status: Chronic Assessment and Plan: Hold amlodipine for possible stroke symptoms. Will allow permissive hypertension for 24 hours. PRN hydralazine 10 mg IV for SBP>180 or DBP>110 Plan CODE STATUS: FULL CODE Disposition: Home DS: Summary Hospital Course Reason for hospitalization: Left breast redness and pain Narrative: Randee Lazo i
== END 2022-02-26 10:48 | disposition home or self-care (01) | DRG 363 ==
LOC: ANHED 23:53 → ANH3MEDSUR 02-23 03:27
PROVIDERS: Nurse Practitioner Family; Physician Assistant; Surgery; Admitting Provider Internal Medicine; Emergency Provider Emergency Medicine; PCP Nurse Practitioner Family; Visit Provider Family Medicine
PROC: 0HBU0ZX Excision of Left Breast, Open Approach, Diagnostic (ICD-10-PCS; principal; 2022-02-23 14:30)
DX: N61.1 Abscess of the breast and nipple (principal); L02.412 Cutaneous abscess of left axilla; L03.818 Cellulitis of other sites; Z68.42 Body mass index [BMI] 45.0-49.9, adult; L73.2 Hidradenitis suppurativa; E66.01 Morbid (severe) obesity due to excess calories; B95.61 Methicillin susceptible Staphylococcus aureus infection as the cause of diseases classified elsewhere; B95.1 Streptococcus, group B, as the cause of diseases classified elsewhere; Z80.3 Family history of malignant neoplasm of breast; R20.0 Anesthesia of skin; E11.65 Type 2 diabetes mellitus with hyperglycemia; F17.210 Nicotine dependence, cigarettes, uncomplicated; F41.8 Other specified anxiety disorders; G47.33 Obstructive sleep apnea (adult) (pediatric); I10 Essential (primary) hypertension; G43.909 Migraine, unspecified, not intractable, without status migrainosus; M47.9 Spondylosis, unspecified; Z20.822 Contact with and (suspected) exposure to COVID-19; Z79.4 Long term (current) use of insulin; Z79.84 Long term (current) use of oral hypoglycemic drugs; Z79.899 Other long term (current) drug therapy
CPT/HCPCS: 36415; 70450; 70544; 70549; 70553; 71260; 71552; 80048; 80053; 80061; 80202; 81025; 82550; 82553; 82948; 83036; 83605; 84443; 84484; 85025; 85027; 87070; 87075; 87147; 87181; 87186; 87205; 88305; 93005; 96365; 96367; 96375; 99285; A9270; A9577; C8929; C9803; G0378; G0379; J0131; J0692; J1815; J2250; J2405; J2704; J3010; J3370; J7030; J7120; Q9957; Q9967; U0003; U0005

== ENCOUNTER 2022-03-08 11:59 | Outpatient (RCR) | payer OTHER, SELFPAY ==
[2022-03-08 12:44] VITALS: BMI 45.5
--- NOTE | 2022-03-08 21:04 | WPDWOUNDNOTE ---
Wound Care Note Date/Time: 03/08/22 12:04 History: Patient is a morbidly obese 41-year-old white female who has a history of previous abscesses. She was recently in the hospital with a left breast abscess. She also had a abscess in the Lt. axilla. and tis may have been related to hidradenitis. The abscess from breast cultured MSSA sens to Bactirm. Wound history: Patient actually has four wounds which are being treated. The left breast wound just medial to the nipple is healing well and is with about a 1.5 cm opening. It is being packed and. Pt. has 3 small wounds in left axilla which are being packed with quarter-inch Nu Gauze. These are all smaller with around 3 mm size openings. There is good granulation tissue under each of them. Continue packing and let them heal from the inside out. Patient has a history hidradenitis problems in both axilla in the past. Wound width: see wound clinic nurse documentation: Lt. Breast: 0.5 cm Wound length: as above Lt.breast:0.5 cm Wound depth: as above LT. Breast:0.6 cm Drainage: serous from all. Surrounding tissue appearance: normal appearing skin Tunneling: The most lateral one in the lt. axilla tunnes about 1 cm medailly. Percentage granulation tissue: 100 % Treatment/Procedures: Will Change to wicking /packing with plain Nu-gauze. Dressings: packing and gauze covering Assessment and Plan Assessment and plan (1) Left breast abscess: Code(s): N61.1 - Abscess of the breast and nipple Status: Acute Assessment and Plan: suspected clinically and by CT.#1 above and now > 1 week s/p I & D. see c & S results ---- showed MSSA sens to Bactrim which she has been on and will complete the course tomorrow. plan for this left breast abscess is to continue packing let it heal from inside out. will change to packing it with quarter-inch plain Nu Gauze. Will wash the area as well also cleanse the area with Hibiclens 3 times a week. When she finishes her Bactrim she will go on doxycycline once a day for 30 days mainly for treatment helpful fluid prevention further infections the axilla which are probably related to # 8 below. (2) Cellulitis of left breast: Code(s): N61.0 - Mastitis without abscess Status: Acute Assessment and Plan: CT at the time of her hospitalization in Feb showed an abscess in the left breast subareolar area. I D/W pt that she would be best served with a incision and drainage and packing of the abscesses in the periareolar to area of her left breast and the left Axilla. This was done approximately 1 week ago. 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 (6) HTN (hypertension): Qualifiers: Hypertension type: essential hypertension Qualified Code(s): I10 - Essential (primary) hypertension Code(s): I10 - Essential (primary) hypertension Status: Chronic Assessment and Plan: on meds as per PCP (7) Morbid obesity: Code(s): E66.01 - Morbid (severe) obesity due to excess calories Status: Chronic Assessment and Plan: encouraged wt loss diet (8) Hydradenitis: Code(s): L73.2 - Hidradenitis suppurativa Status: Acute Assessment and Plan: I suspected the a
--- NOTE | 2022-03-24 12:43 | PCWOUND ---
WOCN NOTE Patient did not show up for appointment, called phone number several times with no answer and unable to leave a message. Reported to Dr Youngblood.
--- NOTE | 2022-03-24 13:24 | PCWOUND ---
WOCN NOTE Patient called back and stated her wounds are healed. Phone Dr Youngblood with report.
== END 2022-05-23 09:28 | disposition home or self-care (01) ==
LOC: ANHWOC 11:59
PROVIDERS: PCP Nurse Practitioner Family; Visit Provider Surgery
DX: Z48.817 Encounter for surgical aftercare following surgery on the skin and subcutaneous tissue (principal); N61.1 Abscess of the breast and nipple; L73.2 Hidradenitis suppurativa
CPT/HCPCS: 99213; G0463

== ENCOUNTER 2022-05-05 18:47 | Emergency (ER) | payer OTHER, SELFPAY ==
[2022-05-05 18:59] VITALS: BP 152/89; PULSE 103; RESP 16; TEMP 36.7; O2SAT 99
--- NOTE | 2022-05-05 19:12 | ED.SKABFB ---
HPI - Skin/Abscess/Foreign Bdy General Chief complaint: Skin/Abscess/Foreign Body Stated complaint: rash Time Seen by Provider: 05/05/22 19:14 Source: patient and RN notes reviewed Mode of arrival: ambulatory Limitations: no limitations History of Present Illness HPI narrative: 42-year-old female with a history of diabetes, morbid obesity presents to the [facility] with a rash underneath her pannus for several days. Has been using fungal powder with no relief. Describes it as being very painful. Has a history of cellulitis to the same area and under her breast. Denies fevers. Related Data Home Medications Medication Instructions Recorded Confirmed lorazepam 0.5 mg tablet 0.5 mg PO DAILY PRN Agitation 05/13/19 03/08/22 montelukast 10 mg tablet 10 mg PO DAILY 06/11/20 03/08/22 topiramate 100 mg tablet 100 mg PO BID 06/11/20 03/08/22 insulin glargine 100 unit/mL (3 50 unit subcut HS 12/09/20 03/08/22 mL) subcutaneous pen (Lantus Solostar U-100 Insulin) vortioxetine 10 mg tablet 10 mg PO DAILY 08/31/21 03/08/22 (Trintellix) amlodipine 10 mg tablet 10 mg PO DAILY 02/23/22 03/08/22 aripiprazole 2 mg tablet 2 mg PO DAILY 02/23/22 03/08/22 ergocalciferol (vitamin D2) 1,250 1,250 mcg PO WEEKLY 02/23/22 03/08/22 mcg (50,000 unit) capsule famotidine 40 mg tablet 40 mg PO HS 02/23/22 03/08/22 ferrous sulfate 325 mg (65 mg 325 mg PO BID 02/23/22 03/08/22 iron) tablet glimepiride 4 mg tablet 8 mg PO DAILY 02/23/22 03/08/22 liraglutide 0.6 mg/0.1 mL (18 mg/3 1.2 mg subcut DAILY 02/23/22 03/08/22 mL) subcutaneous pen injector (Victoza 2-Justo) magnesium oxide 400 mg (241.3 mg 400 mg PO DAILY 02/23/22 03/08/22 magnesium) tablet rosuvastatin 10 mg tablet 10 mg PO DAILY 02/23/22 03/08/22 Allergies Allergy/AdvReac Type Severity Reaction Status Date / Time lisinopril Allergy Severe angioedema Verified 05/05/22 19:09 morphine Allergy Intermediate Unresponsiv Verified 05/05/22 19:09 e metformin AdvReac Unknown Vomiting Verified 05/05/22 19:09 Review of Systems Review of Systems: All systems reviewed & are unremarkable except as noted in HPI and below Constitutional: Constitutional: Reports no additional constitutional complaints, Denies chills and Denies fever(s) Eyes: Eyes: Reports no additional eye complaints ENT: Reports system reviewed and no additional complaints, except as documented Cardiovascular: Cardiovascular: Reports no additional cardiovascular complaints Respiratory: Respiratory: Reports no additional respiratory complaints Gastrointestinal: Gastrointestinal: Reports no additional gastrointestinal complaints Musculoskeletal: Musculoskeletal: Reports no additional musculoskeletal complaints Integumentary/Breasts: Skin/Breast: Reports as per HPI and Reports erythema Neurologic: Reports system reviewed and no additional complaints, except as documented Psychiatric: Psychiatric: Reports no additional psychiatric complaints Allergic/Immunologic: Allergic/Immunologic: Reports no additional allergic/immunologic complaints [facility] Past Medical History Medical History Arthritis of spine Depression Diabetes HTN (hypertension) Migraine WINNIE (obstructive sleep apnea) Surgical History Surgical History History of ear surgery Eustachian tubes Family History Family History Grandparent Diabetes mellitus Hypertension Family history of cardiovascular disease Family history of arthritis Family history of lung cancer Family history of primary malignant neoplasm of liver Family history of malignant neoplasm of breast in first degree relative Mother Diabetes mellitus Hypertension Family history of cardiovascular disease Family history of malignant neoplasm of ovary Cerebrovascular accident PAD (peripheral artery disease)
== END 2022-05-05 19:28 | disposition short-term general hospital (02) ==
PROVIDERS: Emergency Provider Nurse Practitioner; PCP Nurse Practitioner Family
DX: L03.311 Cellulitis of abdominal wall (principal); E66.01 Morbid (severe) obesity due to excess calories; Z68.41 Body mass index [BMI] 40.0-44.9, adult; F17.210 Nicotine dependence, cigarettes, uncomplicated; F12.90 Cannabis use, unspecified, uncomplicated; E11.9 Type 2 diabetes mellitus without complications; I10 Essential (primary) hypertension; G47.33 Obstructive sleep apnea (adult) (pediatric); M47.819 Spondylosis without myelopathy or radiculopathy, site unspecified
CPT/HCPCS: 99212; G0463

== ENCOUNTER 2022-05-05 19:43 | Emergency (ER) | payer OTHER, SELFPAY ==
--- NOTE | ~2022-05-05 | CT_ITS ---
EXAMINATION: CT abdomen pelvis w con INDICATION: Panniculitis TECHNIQUE: Computed tomographic images of the abdomen and pelvis were obtained after the administrati on of 100 cc of Omnipaque 350 intravenous contrast. The dose-length product (DLP) was 1570.65 mGy-cm. Automated exposure control and iterative reconstruction technique were employed. COMPARISON: 02/11/2020 FINDINGS: The lung bases are clear. The heart size is normal. The liver, spleen, pancreas, gallbladde r, and adrenal glands are normal. Surgical changes in the stomach have the appearance of gastric slee ve surgery. The kidneys are unremarkable. No pathologically enlarged abdominal or pelvic lymph nodes are identified. There is no free intraperitoneal gas or evidence of bowel obstruction. There is mild subcutaneous inflammation involving the pannus without evidence of focal fluid collection or abscess. The appendix is normal. There are pars defects at L4 and L5. There is grade 1 anterolisthesis of L5 on S1 with severe loss of intervertebral disc space height at L5-S1. A small fat-containing umbilical hernia is noted. IMPRESSION: 1. Findings consistent with mild panniculitis without focal fluid collection or abscess. Reviewed, dictated and finalized at location F.
[2022-05-05 19:46] VITALS: BP 149/93; PULSE 90; RESP 18; TEMP 37.1; O2SAT 100
--- NOTE | 2022-05-05 22:40 | ED.SKABFB ---
HPI - Skin/Abscess/Foreign Bdy General Chief complaint: Skin/Abscess/Foreign Body Stated complaint: rash to stomach sent by urgent care Time Seen by Provider: 05/05/22 21:36 Source: patient Mode of arrival: ambulatory Limitations: no limitations History of Present Illness HPI narrative: Patient is a 42-year-old female, with a history of hidradenitis suppurativa, who presents to the ED with report of a rash to her lower abdomen. Patient reports she first noticed the rash under her pannus 3 days ago. She has been using Tolnaftate power, but denies any improvement. She states the rash is very uncomfortable. She denies any other abdominal pain. She has had similar rashes like this in the past, which have been fungal infections. Patient also has 2 sores to her lower abdomen, which she reports is also frequent. Denies any current drainage. Denies fevers. She has been nauseous and had one episode of emesis last night. Patient has a history of diabetes mellitus and states her blood sugars have been under control. She denies any changes in her blood sugars over the last couple days since the rash began. Related Data Home Medications Medication Instructions Recorded Confirmed lorazepam 0.5 mg tablet 0.5 mg PO DAILY PRN Agitation 05/13/19 03/08/22 montelukast 10 mg tablet 10 mg PO DAILY 06/11/20 03/08/22 insulin glargine 100 unit/mL (3 50 unit subcut HS 12/09/20 03/08/22 mL) subcutaneous pen (Lantus Solostar U-100 Insulin) vortioxetine 10 mg tablet 10 mg PO DAILY 08/31/21 03/08/22 (Trintellix) amlodipine 10 mg tablet 10 mg PO DAILY 02/23/22 03/08/22 aripiprazole 2 mg tablet 2 mg PO DAILY 02/23/22 03/08/22 ergocalciferol (vitamin D2) 1,250 1,250 mcg PO WEEKLY 02/23/22 03/08/22 mcg (50,000 unit) capsule magnesium oxide 400 mg (241.3 mg 400 mg PO DAILY 02/23/22 03/08/22 magnesium) tablet rosuvastatin 10 mg tablet 10 mg PO DAILY 02/23/22 03/08/22 Aimovig Autoinjector 05/05/22 ursodiol 05/05/22 Allergies Allergy/AdvReac Type Severity Reaction Status Date / Time lisinopril Allergy Severe angioedema Verified 05/05/22 23:17 morphine Allergy Intermediate Unresponsiv Verified 05/05/22 23:17 e metformin AdvReac Unknown Vomiting Verified 05/05/22 23:17 Review of Systems Review of Systems: CONSTITUTIONAL: Denies fever, chills, or sweats. GASTROINTESTINAL: Reports N/V. Denies abdominal pain. SKIN: Reports painful red rash to pannus/lower abdomen. All systems reviewed & are unremarkable except as noted in HPI and below PMFSH Past Medical History Medical History (Updated 05/06/22 @ 00:56 by Ivy Haro PA-C) Arthritis of spine Depression Diabetes Hidradenitis suppurativa HTN (hypertension) Migraine WINNIE (obstructive sleep apnea) Surgical History Surgical History (Updated 05/05/22 @ 22:46 by Ivy Haro PA-C) H/O gastric sleeve History of ear surgery Eustachian tubes Family History Family History Grandparent Diabetes mellitus Hypertension Family history of cardiovascular disease Family history of arthritis Family history of lung cancer Family history of primary malignant neoplasm of liver Family history of malignant neoplasm of breast in first degree relative Mother Diabetes mellitus Hypertension Family history of cardiovascular disease Family history of malignant neoplasm of ovary Cerebrovascular accident PAD (peripheral artery disease) Heart disease HLD (hyperlipidemia) Sibling Family history of arthritis Father Hypertension Heart disease HLD (hyperlipidemia) Other Carcinoma of colon Family history of alcoholism Family history of blood dyscrasia Family history of malignant neoplasm of urinary bladder Family history of mental disorder Family history of seizure disorder Malignant neoplasm of prostate Social History Social History
[2022-05-05 22:55] LABS: Basophils Absolute Auto 0.1 K/mm3 (0.0-0.1); Basophils Percent Auto 0.5 % (0.2-1.2); Eosinophils Absolute Auto 0.2 K/mm3 (0-0.3); Eosinophils Percent Auto 1.5 % (0-4.4); Hematocrit 48.4 % (37.0-47.0); Hemoglobin 15.5 g/dL (12.0-15.0); Immature Granulocyte Absolute 0.02 K/mm3 (0.00-0.031); Immature Granulocyte Percent A 0.2 % (0-0.5); Lymphocytes Absolute Auto 2.47 K/mm3 (0.9-3.2); Lymphocytes Percent Auto 25.5 % (18.3-44.2); Mean Corpuscular Hemoglobin 29.1 pg (26-34); Mean Corpuscular Volume 90.8 fl (80-100); Mean Platelet Volume 10.7 fl (7.4-10.4); Monocytes Absolute Auto 0.5 K/mm3 (0.1-0.6); Monocytes Percent Auto 5.1 % (2.6-8.5); Neutrophils Absolute Auto 6.5 K/mm3 (1.3-6.7); Neutrophils Percent Auto 67.2 % (45.5-73.1); Platelet Count Result 340 k/mm3 (150-375); Red Blood Count 5.33 M/mm3 (4.2-5.4); Red Cell Distribution Width 14.7 % (11.5-14.5); White Blood Count 9.7 K/mm3 (4.5-10.0)
[2022-05-05 23:06] VITALS: O2SAT 97
[2022-05-05 23:06] LABS: Alanine Aminotransferase 28 U/L (6-35); Albumin Level 4.2 g/dL (3.5-5.1); Alkaline Phosphatase 93 U/L (38-126); Anion Gap 10 mmol/L (8-16); Aspartate Amino Transferase 28 U/L (14-36); Bilirubin,Total 0.6 mg/dL (0.2-1.3); Blood Urea Nitrogen 8 mg/dL (7-17); Calcium 9.2 mg/dL (8.4-10.2); Carbon Dioxide 23 mmol/L (22-30); Chloride 108 mmol/L (98-107); Estimated CRCL calculation 106 ml/min; Estimated Glomerular Filt Rate > 60; Glucose 176 mg/dL (65-110); Potassium 3.5 mmol/L (3.4-5.0); Sodium 141 mmol/L (137-145)
[2022-05-05 23:07] VITALS: BP 125/85; O2SAT 96
[2022-05-05 23:15] VITALS: O2SAT 95
[2022-05-06] MEDS: FLUCONAZOLE 150 MG TABLET PO (01:16)
[2022-05-06] MEDS: SULFAMETHOXAZOLE/TRIMETHOPRIM 800/160 MG DS TABLET 1 TAB PO (01:16)
[2022-05-06 01:20] VITALS: BP 141/80; PULSE 78; RESP 14; O2SAT 97
== END 2022-05-06 01:25 | disposition home or self-care (01) ==
PROVIDERS: Physician Assistant; Emergency Provider Emergency Medicine; PCP Nurse Practitioner Family
DX: M79.3 Panniculitis, unspecified (principal); L30.4 Erythema intertrigo; E11.9 Type 2 diabetes mellitus without complications; I10 Essential (primary) hypertension; F32.A Depression, unspecified; G47.33 Obstructive sleep apnea (adult) (pediatric); F17.210 Nicotine dependence, cigarettes, uncomplicated; Z98.84 Bariatric surgery status; Z79.4 Long term (current) use of insulin
CPT/HCPCS: 36415; 74177; 80053; 81025; 85025; 99284; A9270; Q9967

== ENCOUNTER 2022-10-24 09:50 | Emergency (ER) | payer OTHER, SELFPAY ==
[2022-10-24 10:11] VITALS: BP 138/62; PULSE 66; RESP 16; TEMP 36.9; O2SAT 99
--- NOTE | 2022-10-24 10:56 | ED.URI ---
HPI - URI/Sore Throat General Chief Complaint: Upper Respiratory Infection Stated Complaint: Sore Throat Time Seen by Provider: 10/24/22 10:50 Source: patient Mode of arrival: ambulatory Limitations: no limitations History of Present Illness HPI Narrative: Patient presents today complaining of a sore throat since yesterday that has been worsening since onset with congestion and rhinorrhea. She currently rates her pain 7/10 and has been drinking hot tea and using Chloraseptic spray without relief. States she is unable to get Tylenol or ibuprofen down due to swelling in her throat. Smokes 1 pack per day. Denies shortness of breath. Related Data Home Medications Medication Instructions Recorded Confirmed lorazepam 0.5 mg tablet 0.5 mg PO DAILY PRN Agitation 05/13/19 10/24/22 montelukast 10 mg tablet 10 mg PO DAILY 06/11/20 10/24/22 insulin glargine 100 unit/mL (3 50 unit subcut HS 12/09/20 10/24/22 mL) subcutaneous pen (Lantus Solostar U-100 Insulin) vortioxetine 10 mg tablet 10 mg PO DAILY 08/31/21 10/24/22 (Trintellix) amlodipine 10 mg tablet 10 mg PO DAILY 02/23/22 10/24/22 aripiprazole 2 mg tablet 2 mg PO DAILY 02/23/22 10/24/22 ergocalciferol (vitamin D2) 1,250 1,250 mcg PO WEEKLY 02/23/22 10/24/22 mcg (50,000 unit) capsule magnesium oxide 400 mg (241.3 mg 400 mg PO DAILY 02/23/22 10/24/22 magnesium) tablet rosuvastatin 10 mg tablet 10 mg PO DAILY 02/23/22 10/24/22 erenumab-aooe 70 mg/mL 70 mg subcut USEASDIRECTD 10/24/22 10/24/22 subcutaneous auto-injector (Aimovig Autoinjector) ubrogepant 50 mg tablet (Ubrelvy) 50 mg PO USEASDIRECTD 10/24/22 10/24/22 Allergies Allergy/AdvReac Type Severity Reaction Status Date / Time lisinopril Allergy Severe angioedema Verified 10/24/22 10:47 morphine Allergy Intermediate Unresponsiv Verified 10/24/22 10:47 e metformin AdvReac Unknown Vomiting Verified 10/24/22 10:47 Review of Systems Review of Systems: CONSTITUTIONAL: Denies body aches, fever, chills, or sweats. EYES: Denies visual changes, redness, or discharge. ENT: Denies otalgia.+ sore throat, congestion, rhinorrhea CARDIOVASCULAR: Denies chest pain, palpitations, or edema. RESPIRATORY: Denies cough or dyspnea. GASTROINTESTINAL: Denies abdominal pain, nausea, vomiting, or diarrhea. GENITOURINARY: Denies dysuria or hematuria. SKIN: Denies rash, itching, or wounds. MUSCULOSKELETAL: Denies back pain, joint pain, or myalgia. NEUROLOGIC: Denies headache, numbness, tingling, or weakness. PSYCH: Denies depression or anxiety. FOR[facility]LY [facility], [facility] Past Medical History Medical History Arthritis of spine Depression Diabetes Hidradenitis suppurativa HTN (hypertension) Migraine WINNIE (obstructive sleep apnea) Surgical History Surgical History H/O gastric sleeve History of ear surgery Eustachian tubes Family History Family History Grandparent Diabetes mellitus Hypertension Family history of cardiovascular disease Family history of arthritis Family history of lung cancer Family history of primary malignant neoplasm of liver Family history of malignant neoplasm of breast in first degree relative Mother Diabetes mellitus Hypertension Family history of cardiovascular disease Family history of malignant neoplasm of ovary Cerebrovascular accident PAD (peripheral artery disease) Heart disease HLD (hyperlipidemia) Sibling Family history of arthritis Father Hypertension Heart disease HLD (hyperlipidemia) Other Carcinoma of colon Family history of alcoholism Family history of blood dyscrasia Family history of malignant neoplasm of urinary bladder Family history of mental disorder Family history of seizure disorder Malignant neoplasm of prostate Social History Social History (Reviewed 10/24/22 @ 10:57 b
== END 2022-10-24 11:32 | disposition home or self-care (01) ==
PROVIDERS: Emergency Provider Nurse Practitioner; PCP Nurse Practitioner Family
DX: J06.9 Acute upper respiratory infection, unspecified (principal); F17.210 Nicotine dependence, cigarettes, uncomplicated; F12.90 Cannabis use, unspecified, uncomplicated; M47.819 Spondylosis without myelopathy or radiculopathy, site unspecified; E11.9 Type 2 diabetes mellitus without complications; I10 Essential (primary) hypertension; Z98.84 Bariatric surgery status
CPT/HCPCS: 87081; 87880; 99213; G0463

== ENCOUNTER 2024-01-25 19:33 | Emergency (ER) | payer OTHER, SELFPAY ==
--- NOTE | ~2024-01-25 | XR_ITS ---
XR chest 2V Ordering provider: Delbert Floyd APRN History: 43 years Female with . left side chest pain radiating to back x 1 day . Comparison: October 26, 2021 FINDINGS: MEDIASTINUM: The cardiac silhouette is not enlarged. LUNGS: No infiltrates, effusions or pneumothorax. OTHER: No free air under the diaphragm. IMPRESSION: No acute cardiopulmonary pathology. Reviewed, dictated and finalized at location A.
[2024-01-25 19:35] VITALS: BP 175/72; PULSE 91; RESP 16; TEMP 36.8; O2SAT 99
--- NOTE | 2024-01-25 19:39 | ECG_ITS ---
Test Date: 2024-01-25 19:39:16 Measurements Intervals [place] Rate: 85 P: 3 MI: 158 QRS: 27 QRSD: 93 T: 12 QT: 357 QTc: 425 Interpretive Statements SINUS RHYTHM BORDERLINE ST-T WAVE ABNORMALITY- DIFFUSE LEADS BASELINE ARTIFACT- I, II, III, AVR, AVF, V1 BORDERLINE ECG No previous ECG available for comparison Electronically Signed On 01-26-2024 07:49:43 CDT by Scotty Vásquez D.O.
[2024-01-25 20:01] LABS: Basophils Percent Auto 0.4 % (0.2-1.2); Eosinophils Absolute Auto 0.1 K/mm3 (0-0.3); Eosinophils Percent Auto 0.8 % (0-4.4); Hematocrit 48.2 % (37.0-47.0); Hemoglobin 16.2 g/dL (12.0-15.0); Immature Granulocyte Absolute 0.05 K/mm3 (0.00-0.031); Immature Granulocyte Percent A 0.5 % (0-0.5); Lymphocytes Percent Auto 25.1 % (18.3-44.2); Mean Corpuscular HGB Conc 33.6 g/dl (32-36); Mean Corpuscular Hemoglobin 30.3 pg (26-34); Mean Corpuscular Volume 90.1 fl (80-100); Mean Platelet Volume 9.9 fl (7.4-10.4); Monocytes Absolute Auto 0.5 K/mm3 (0.1-0.6); Monocytes Percent Auto 5.1 % (2.6-8.5); Neutrophils Absolute Auto 6.2 K/mm3 (1.3-6.7); Neutrophils Percent Auto 68.1 % (45.5-73.1); Platelet Count Result 329 k/mm3 (150-375); Red Blood Count 5.35 M/mm3 (4.2-5.4); Red Cell Distribution Width 13.9 % (11.5-14.5); White Blood Count 9.2 K/mm3 (4.5-10.0)
[2024-01-25 20:12] LABS: Alanine Aminotransferase 17 U/L (6-35); Albumin Level 4.2 g/dL (3.5-5.1); Alkaline Phosphatase 73 U/L (38-126); Anion Gap 8 mmol/L (4-12); Aspartate Amino Transferase 20 U/L (14-36); Bilirubin,Total 0.4 mg/dL (0.2-1.3); Blood Urea Nitrogen 10 mg/dL (7-17); Carbon Dioxide 23 mmol/L (22-30); Chloride 104 mmol/L (98-107); Estimated CRCL calculation 136 ml/min; Estimated Glomerular Filt Rate > 60; Glucose 161 mg/dL (65-110); INR 0.9; Lipase 337 U/L (23-300); Partial Thromboplastin Time 26.1 Seconds (22.3-36.8); Sodium 135 mmol/L (137-145)
[2024-01-25 20:23] LABS: Troponin I < 0.012 ng/mL (0.000-0.034)
[2024-01-25 21:25] VITALS: O2SAT 96
[2024-01-25 21:27] VITALS: BP 110/74; PULSE 63; RESP 14; O2SAT 98
--- NOTE | 2024-01-25 21:54 | ED.GENADULT ---
HPI - General Adult General Chief complaint: Chest Pain Stated complaint: chest pain Time Seen by Provider: 01/25/24 21:02 History of Present Illness HPI narrative: patient 43-year-old female who presents emergency department with chief complaint of chest pain. Patient reports that she has sharp pain in the sternal border and reports that she has a heaviness in her chest. The patient reports that she has no nausea reports that she has had no fever reports no trauma patient had a stress test in 2020 did not show any acute abnormalities Related Data Home Medications Medication Instructions Recorded Confirmed lorazepam 0.5 mg tablet 0.5 mg PO DAILY PRN Agitation 05/13/19 10/24/22 montelukast 10 mg tablet 10 mg PO DAILY 06/11/20 10/24/22 insulin glargine 100 unit/mL (3 50 unit subcut HS 12/09/20 10/24/22 mL) subcutaneous pen (Lantus Solostar U-100 Insulin) vortioxetine 10 mg tablet 10 mg PO DAILY 08/31/21 10/24/22 (Trintellix) amlodipine 10 mg tablet 10 mg PO DAILY 02/23/22 10/24/22 aripiprazole 2 mg tablet 2 mg PO DAILY 02/23/22 10/24/22 ergocalciferol (vitamin D2) 1,250 1,250 mcg PO WEEKLY 02/23/22 10/24/22 mcg (50,000 unit) capsule magnesium oxide 400 mg (241.3 mg 400 mg PO DAILY 02/23/22 10/24/22 magnesium) tablet rosuvastatin 10 mg tablet 10 mg PO DAILY 02/23/22 10/24/22 erenumab-aooe 70 mg/mL 70 mg subcut USEASDIRECTD 10/24/22 10/24/22 subcutaneous auto-injector (Aimovig Autoinjector) ubrogepant 50 mg tablet (Ubrelvy) 50 mg PO USEASDIRECTD 10/24/22 10/24/22 doxycycline hyclate 100 mg capsule mg 01/25/24 erenumab-aooe 70 mg/mL mg subcut 01/25/24 subcutaneous auto-injector (Aimovig Autoinjector) gabapentin 100 mg capsule mg 01/25/24 gabapentin 300 mg capsule mg 01/25/24 hydroxyzine HCl 25 mg tablet mg 01/25/24 lamotrigine 100 mg tablet mg 01/25/24 linaclotide 145 mcg capsule mcg 01/25/24 (Linzess) sertraline 50 mg tablet mg 01/25/24 sertraline 50 mg tablet mg 01/25/24 spironolactone 100 mg tablet mg 01/25/24 spironolactone 50 mg tablet mg 01/25/24 Allergies Allergy/AdvReac Type Severity Reaction Status Date / Time lisinopril Allergy Severe angioedema Verified 01/25/24 19:38 morphine Allergy Intermediate Unresponsiv Verified 01/25/24 19:38 e metformin AdvReac Unknown Vomiting Verified 01/25/24 19:38 Review of Systems Review of Systems: A 10 system review of systems was completed on the patient and is negative except for what is stated in the HPI. Nursing and ancillary documentation was reviewed. [facility] Past Medical History Medical History Arthritis of spine Depression Diabetes Hidradenitis suppurativa HTN (hypertension) Migraine WINNIE (obstructive sleep apnea) Surgical History Surgical History H/O gastric sleeve History of ear surgery Eustachian tubes Family History Family History Grandparent Diabetes mellitus Hypertension Family history of cardiovascular disease Family history of arthritis Family history of lung cancer Family history of primary malignant neoplasm of liver Family history of malignant neoplasm of breast in first degree relative Mother Diabetes mellitus Hypertension Family history of cardiovascular disease Family history of malignant neoplasm of ovary Cerebrovascular accident PAD (peripheral artery disease) Heart disease HLD (hyperlipidemia) Sibling Family history of arthritis Father Hypertension Heart disease HLD (hyperlipidemia) Other Carcinoma of colon Family history of alcoholism Family history of blood dyscrasia Family history of malignant neoplasm of urinary bladder Family history of mental disorder Family history of seizure disorder Malignant neoplasm of prostate Social History Social History (Reviewed
[2024-01-25] MEDS: BELLADONNA ALK/PHENOB ELIX 10 ML, MAG HYDROX/ALUMINUM HYD/SIMETH 30 ML, LIDOCAINE HCL 2... PO (22:34)
[2024-01-25] MEDS: ASPIRIN 81 MG CHEWABLE TABLET 324 MG PO (22:34)
--- NOTE | 2024-01-25 23:00 | ECG_ITS ---
Test Date: 2024-01-25 23:06:38 Measurements Intervals [place] Rate: 54 P: -2 SC: 171 QRS: 52 QRSD: 91 T: 48 QT: 432 QTc: 412 Interpretive Statements SINUS BRADYCARDIA BASELINE ARTIFACT- I, II, III, AVR, AVL, AVF, V1-V2 BORDERLINE ECG No previous ECG available for comparison Electronically Signed On 01-26-2024 05:57:47 CDT by Scotty Vásquez D.O.
[2024-01-25 23:31] LABS: Troponin I < 0.012 ng/mL (0.000-0.034)
[2024-01-25 23:53] VITALS: BP 104/64; PULSE 58; RESP 15; O2SAT 98
== END 2024-01-25 23:54 | disposition home or self-care (01) ==
PROVIDERS: Nurse Practitioner Family; Emergency Provider Emergency Medicine
DX: R07.89 Other chest pain (principal); E11.9 Type 2 diabetes mellitus without complications; I10 Essential (primary) hypertension; G47.33 Obstructive sleep apnea (adult) (pediatric); F32.A Depression, unspecified; Z98.84 Bariatric surgery status; F17.210 Nicotine dependence, cigarettes, uncomplicated; R94.31 Abnormal electrocardiogram [ECG] [EKG]; Z79.4 Long term (current) use of insulin; Z79.899 Other long term (current) drug therapy
CPT/HCPCS: 36415; 71046; 80053; 83690; 84484; 85025; 85610; 85730; 93005; 99284; A9270

== ENCOUNTER 2024-08-14 14:19 | Emergency (ER) | payer BC, SELFPAY ==
--- NOTE | ~2024-08-14 | XR_ITS ---
CHEST RADIOGRAPH, PA AND LATERAL CLINICAL HISTORY: chest pain . COMPARISON: 01/25/2024 TECHNIQUE: PA and lateral views of the chest. FINDINGS The cardiomediastinal silhouette is unremarkable. The lungs are clear. Visualized osseous structures and soft tissues are unremarkable. IMPRESSION: No focal infiltrate or effusion. Reviewed, dictated and finalized at location A. [employer] REFRIGERATION TECHNICIAN
[2024-08-14 14:28] VITALS: BP 135/81; PULSE 60; RESP 18; TEMP 36.8; O2SAT 100
--- OUTSIDE RECORDS SUMMARY | 2024-08-14 15:12 | XMS_ITS | Clinical Summary ---
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 Mill Operator Name Role Phone Maribell Dowling APRN, SALES OPERATIONS LEAD Primary Care Provider Van Watts MD Unavailable [phone] Allergies Active Allergy Reactions Criticality Noted Date Comments Egg Solids, Whole Other (see Comments),Vomiting Medium 11/01/2021 Body aching Hydrocodone Vomiting 05/10/2023 Lisinopril Swelling Medium 11/01/2021 Metformin Other (see Comments),Vomiting High 02/14/2019 Low blood sugar, disorientation Low blood sugar, disorientation Morphine Nausea 09/16/2015 Nsaids Other (see Comments) Medium 05/10/2023 Previous sleeve gastrectomy; contraindication Medications HYDROcodone-shireen taminophen (NORCO) 10-325 MG Tablet Take 1 Tab by mouth every 6 hours as needed for Pain. 20 Tab 0 08/10/2016 Active CLINDAMYCIN HCL PO Take by mouth. Active Topiramate (TOPAMAX PO) Take by mouth. Active naproxen (NAPROSYN) 500 MG Tablet Take 1 Tab by mouth 2 times daily as needed for Mild or more severe pain. 20 Tab 04/23/2018 Active linaclotide (Linzess) 145 MCG Capsule 1 capsule at least 30 minutes before the first meal of the day on an empty stomach Orally Once a day 05/09/2023 Active Aripiprazole (Abilify) 20 MG Tablet 1 tablet Orally Once a day for 30 days Active Trintellix 20 MG Tablet Take 1 Tablet by mouth daily. 06/14/2023 Active hydrOXYzine (ATARAX) 25 MG Tablet TAKE 1 TABLET BY MOUTH TWICE A DAY NEEDED FOR 30 DAYS 06/22/2023 Active gabapentin (NEURONTIN) 300 MG Capsule 1 Capsule. Active spironolactone (ALDACTONE) 50 MG Tablet Take 1 Tablet by mouth daily. 03/22/2023 Active gabapentin (NEURONTIN) 100 MG Capsule TAKE ONE CAP EVERY DAY IN THE MORNING AND AT NOON 06/13/2023 Active magnesium oxide (MAG-OX) 400 MG Tablet Take 400 mg by mouth daily. 06/19/2023 Active lamoTRIgine (LaMICtal) 100 MG Tablet 07/11/2023 Active Biotin 06131 MCG Tablet Take 1 Tablet by mouth daily. Active Aimovig 70 MG/ML Solution Auto-injector 07/13/2023 Activ e Ubrelvy 50 MG Tablet TAKE 1 TABLET BY MOUTH AT ONSET OF HEADACHE. MAY REPEAT IN 2 HOURS FOR 1 DOSE. MAX 200 MG/24 HOURS 04/26/2023 Active Calcium Carbonate (CALCIUM 500 PO) Take by mouth. Active Multiple Vitamin (MULTIVITAMINS PO) Take by mouth. Active Active Problems Problem Noted Date Diagnosed Date Polycythemia 07/13/2023 Family History Medical History Relation Name Comments Cancer Maternal Grandmother Congestive Heart Failure Maternal Grandmother Diabetes Maternal Grandmother Cancer Mother Congestive Heart Failure Mother Coronary Artery Disease Mother Diabetes Mother Cancer Paternal Grandfather Cancer Paternal Grandmother Diabetes Paternal Grandmother Relation Name Status Comments Maternal Grandmother Mother Paternal Grandfather Paternal Grandmother Social History Tobacco Use Types Packs/Day Years Used Date Smoking Tobacco: Every Day Cigarettes Smokeless Tobacco: Never Tobacco Cessation:Ready to Q uit: Not Asked; Counseling Given: Not Answered Alcohol Use Standard Drinks/Week Comments No 0 (1 standard drink = 0.6 oz pur e alcohol) Comments No Sex and Gender Information Value Date Recorded Sex Assigned at Not on file Legal Sex Female 7:35 PM CDT Gender Identity Not on file Sexual Orientation Not on file Last Filed Vital Signs Vital Sign Reading Time Taken Comments Blood Pressure 136/82 07/13/2023 12:55 PM SENIOR DIRECTOR INSIGHT Pulse 79 07/13/2023 12:55 PM [employer]ENIOR [employer]OR [employer] Temperature 36.6 C (97.8 F) 07/13/2023 12:55 PM SENIOR [employer]OR INSIGHT Respiratory Rate 18 07/13/2023 12:55 PM SENIOR DIRECTOR INSIGHT Oxygen Saturation 98% 07/13/2023 12:55 PM SENIOR [employer]OR INSIGHT Inhaled Oxygen Concentration - - Weight 107 kg (236 lb) 07/13/2023 12:55 PM SENIOR DIRECTOR INSIGHT Height 170.2 cm (5' 7 ) 07/13/2023 12:55 PM SENIOR DIRECTOR INSIGHT Body Mass Index 36.96 07/13/2023 12:55 PM SENIOR DIRECTOR INSIGHT Plan of Treatment Health Maintenance Due Date Last Done Comments Hepatitis C Virus (HCV) Screening 1982 Hepatitis B Immunization (1 of 3 - 19+ 3-dose series) 2001 Pneumococcal Immunization Combined (1 of 2 - PCV) 2001 Pap Smear 2003 Cervical Cancer Screening (CCS) 2012 HPV/Cotest 2012 Discussion re Starting/Frequency of Mammograms 2022 Influenza Immunization (#1) 2024 06/06/2016 SARS-COV-2 Immunization ( season) 2024 11/20/2020, 10/30/2020 Respiratory Syncytial Virus (RSV) Immunization (Adult) (1 - 1-dose 75+ series) 2057 DTaP/Tdap/Td Immunization Discontinued 05/25/2021 TdaP Immunization Completed 05/25/2021 Meningococcal Immunization (ACWY) Aged Out No longer eligible based on patient's age to complete this topic Rotavirus Immunization Aged Out No lo nger eligible based on patient's age to complete this topic Insurance MEDICAID [employer] Care Teams Pulp Mill Operator Relationship Specialty Start Date End Date Maribell Dowling, PSYCHIATRIC CNS, SALES OPERATIONS LEAD [address] [place] [address] PCP - General Certified Nurse Practitioner 09/16/15 Van Watts MD [address] [place] [phone] Consulting Physician Oncology 06/06/23
--- OUTSIDE RECORDS SUMMARY | 2024-08-14 15:12 | XMS_ITS | Data Portability ---
Author Organization [facility] [place] Yang Address [address] [place] [address] Care Team Providers Care Glass Driller Name Role Phone DOWLINGESATANVIR Primary Care Provider Assessment Encounter Date Assessment Date Assessment LastModified by Organization Details LastModified Time 12/24/2020 12/24/2020 Duration of appointment was 65 minutes rloar Not available 12/24/2020 17:22:25 Plan of Treatment Reminders Order Date Submit Date Provider Last Modified By Organization Details Last Modified Time Details Appointments None recorded. Lab H pylori urea breath test, co2 infrared 2020 021 [facility] (Lab), [address], [place], [address], 21:07:48 SARS CoV 2 RNA (COVID-19) , QL, ginner helper-PCR, respirator y specimen 2020 021 [facility] (Lab), [address] [facility], [place], [address], 11:42:47 CBC w/ diff [address] [facility] (Lab), [address], [place], [address], 08:32:49 gamma-glut amyl transferas e (ggt), serum 2020 021 [facility] (Lab), [address], [place], [address], 15:10:11 iron + TIBC + ferritin, serum [address] [facility] (Lab), [address], [place], [address], 1 08:32:49 hepatitis panel (A+B+C), acute, serum 2020 [facility] (Lab), [address], [place], [address], 1 11:12:08 ceruloplas min, serum 2020 [facility] (Lab), [address], [place], [address], 1 11:12:07 alpha-1-an titrypsin (aat), QN, serum 2020 [facility] (Lab), [address], [place], [address], 08:32:49 LOIS (antinucle ar antibodies ) panel, serum 2020 [facility] (Lab), [address], [place], [address], 1 13:10:38 liver-kidn ey microsome type 1 igg Ab, serum 2020 [facility] (Lab), [address], [place], [address], 1 08:32:50 smooth muscle Ab, serum 2020 [facility] (Lab), [address], [place], [address], 1 08:32:50 prothrombi n time 2020 [facility] (Lab), [address], [place], [address], 08:32:50 BMP, serum or plasma 2020 [facility] (Lab), [address], [place], [address], 20:33:05 hepatic function panel, serum 2020 [facility] (Lab), [address], [place], [address], 20:33:02 mitochondr ial Ab, serum 2020 [facility] (Lab), [address], [place], [address], 15:10:15 Referral cardiologi referral - Chest pain. Records ordered from [facility]. They told me I might have angina 2020 [facility] Not available 17:43:35 Procedures upper endoscopy procedure (EGD) (PROC) - Cardiac clearance required 2020 [facility] (Surgery Sched), [address] [place], [address], 12:26:55 colonoscop y procedure (PROC) - cardiac clearance 2020 021 [facility] (Surgery Sched), [address] [place], [address], 15:41:31 Surgeries None recorded. Imaging US, elastogram - NAFLD - already had US at [place] 2020 [facility] (Rad), [address], [place], [address], 16:35:20 Medication Orders pantoprazo le 40 mg tablet,del ayed release 2020 [facility]/Pharmacy #[id number], [address] [place], [address], 17:09:26 Dulcolax (bisacodyl ) 5 mg tablet,del ayed release 2020 [id number] [address] [place], [address], 17:09:26 Miralax 17 gram/dose oral powder 2020 021 [id number] [address] [place], [address], 17:09:25 Patient TargetsNo targets recorded. Patient Instructions Encounter Date Encounter Id Patient Instructions Last Modified By Organization Details Last Modified Time 12/24/2020 [id number] medical record request* - All records, procedure notes, imaging, lab results, discharge medication list from October 2020 to present [facility] Not available 12/25/2020 08:29:52 medical record request* - Abdominal and pelvic US of 10/15/2020, HIDA scan of 10/23/20 [email or web address] Not available 12/25/2020 08:29:32 RL About your EGD rloar Not availabl e 12/24/2020 17:09:21 RL About Your Colonoscopy 1 Day Prep rloar Not available 12/24/2020 17:09:21 cardiac clearance* [email or web address] Not available 05/14/2021 10:39:35 To take pantoprazole on an empty stomach and wait for 30 - 60 minutes before eating or drinking. Stressed that procedure is done at [facility]. Discussed that patient will need a front loader residential driver to and from the hospital. Instructed in clear liquid diet the day before the colonoscopy and that laxative should be taken only the day before the colonoscopy. Importance of full prep prior to colonoscopy discussed. Discussed NPO after the midnight prior to the colonoscopy. rloar Not available 12/24/2020 17:05:48 Discussed rationale for colonoscopy and EGD, discussed procedure, prep. The risks and benefits of the procedures were discussed with the patient at length including but not limited to bleeding for which a blood transfusion might be necessary, adverse reaction to the medications given, infection, aspiration, perforation of the bowel/stomach/eso phagus for which surgery may be needed, missing lesions, and even . Patient verbalized understanding and wishes to proceed with the procedures. 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 Records ordered from [facility]. They told me I might have angina Referring Physician: Brandon Escudero, Gastroenterology, Encounter Date: 12/24/2020 Results Created Date Observation Date Name Description Value Unit Range Abnormal Flag Note LastModifiedBy Organization Detail LastModifiedTime 12/25/19 21 12/24/2020 CBC w/ auto diff WBC 10.3 K/uL 3.4-10 .8 Not Available [facility] (Lab) [address], [place], [address], 12/24/2020 19:36:19 12/25/19 21 12/24/2020 CBC w/ auto diff red blood count 5.5 M/uL 4.2-5. 4 high Not Available [facility] (Lab) [address], [place], [address], 12/24/2020 19:36:19 12/25/19 21 12/24/2020 CBC w/ auto diff hemoglobin 16.2 g/dL 11.5-1 5.5 high Not Available [facility] (Lab) [address] [place], [address], 12/24/2020 19:36:19 12/25/19 21 12/24/2020 CBC w/ auto diff hematocrit 48.6 % 36.0-4 8.0 high Not Available [facility] (Lab) [address] [place], [address], 12/24/2020 19:36:19 12/25/19 21 12/24/2020 CBC w/ auto diff MCV 89 fL 80-95 Not Available [facility] (Lab) [address], [place], [address], 12/24/2020 19:36:19 12/25/19 21 12/24/2020 CBC w/ auto diff MCH 30 pg 27-32 Not Available [facility] (Lab) [address], [place], [address], 12/24/2020 19:36:19 12/25/19 21 12/24/2020 CBC w/ auto diff MCHC 33 g/dL 32-36 Not Available [facility] (Lab) [address], [place], [address], 12/24/2020 19:36:19 12/25/19 21 12/24/2020 CBC w/ auto diff platelets 309 K/uL 155-37 9 Not Available [facility] (Lab) [address], [place], [address], 12/24/2020 19:36:19 12/25/19 21 12/24/2020 CBC w/ auto diff RDW 14.8 % 11.5-1 4.5 high Not Available [facility] (Lab) [address], [place], [address], 12/24/2020 19:36:19 12/25/19 21 12/24/2020 CBC w/ auto diff MPV 11.7 fL 8.9-12 .7 Not Available [facility] (Lab) [address], [place], [address], 12/24/2020 19:36:19 12/25/19 21 12/24/2020 CBC w/ auto diff neutrophils absolute 7.6 K/uL 1.4-7. 0 high Not Available [facility] (Lab) [address] [place], [address], 12/24/2020 19:36:19 12/25/19 21 12/24/2020 CBC w/ auto diff lymphs (absolute) 2.1 K/uL 0.7-3. 1 Not Available [facility] (Lab) [address] [place], [address], 12/24/2020 19:36:19 12/25/19 21 12/24/2020 CBC w/ auto diff monocytes (absolute) 0.6 K/uL 0.1-0. 9 Not Available [facility] (Lab) [address] [place], [address], 12/24/2020 19:36:19 12/25/19 21 12/24/2020 CBC w/ auto diff eos (absolute) 0.1 K/uL 0.0-0. 4 Not Available [facility] (Lab) [address] [place], [address], 12/24/2020 19:36:19 12/25/19 21 12/24/2020 CBC w/ auto diff baso (absolute) 0.0 K/uL 0.0-0. 3 Not Available [facility] (Lab) [address], [place], [address], 12/24/2020 19:36:19 12/25/19 21 12/24/2020 CBC w/ auto diff neut % 73.2 % 40.0-7 4.0 Not Available [facility] (Lab) [address] [place], [address], 12/24/2020 19:36:19 12/25/19 21 12/24/2020 CBC w/ auto diff lymphs % 19.9 % 14.0-4 6.0 Not Available [facility] (Lab) [address] [place], [address], 12/24/2020 19:36:19 12/25/19 21 12/24/2020 CBC w/ auto diff mono % 5.5 % 4.0-12 .0 Not Available [facility] (Lab) [address] [place], [address], 12/24/2020 19:36:19 12/25/19 21 12/24/2020 CBC w/ auto diff eos % 1 % 0-5 Not Available [facility] (Lab) [address] [place], [address], 12/24/2020 19:36:19 12/25/19 21 12/24/2020 CBC w/ auto diff baso % 0.2 % 0.0-1. 0 Not Available [facility] (Lab) [address], [place], [address], 12/24/2020 19:36:19 12/25/19 21 12/24/2020 PT/IN R PT 10.0 secon ds 9.3-11 .1 Not Available [facility] (Lab) [address], [place], [address], 12/24/2020 20:01:19 12/25/19 21 12/24/2020 PT/IN R INR 1.0 0.4-2. 0 Not Available [facility] (Lab) [address], [place], [address], 12/24/2020 20:01:19 12/25/19 21 12/24/2020 PT/IN R coagcom Please note Refere nce Range has change d Not Available [facility] (Lab) [address], [place], [address], 12/24/2020 20:01:19 12/25/19 21 12/24/2020 hepat ic funct ion panel , serum total protein 6.7 g/dL 6.7-8. 2 Not Available [facility] (Lab) [address] [place], [address], 12/24/2020 20:33:02 12/25/19 21 12/24/2020 hepat ic funct ion panel , serum albumin, serum 3.8 g/dL 3.5-5. 5 Not Available [facility] (Lab) [address] [place], [address], 12/24/2020 20:33:02 12/25/19 21 12/24/2020 hepat ic funct ion panel , serum bilt 0.4 mg/dL 0.0-1. 2 Not Available [facility] (Lab) [address], [place], [address], 12/24/2020 20:33:02 12/25/19 21 12/24/2020 hepat ic funct ion panel , serum bild <0.20 mg/dL 0.10-0 .50 Not Available [facility] (Lab) [address] [place], [address], 12/24/2020 20:33:02 12/25/19 21 12/24/2020 hepat ic funct ion panel , serum AST 19.6 U/L 10.0-4 2.0 Not Available [facility] (Lab) [address], [place], [address], 12/24/2020 20:33:02 12/25/19 21 12/24/2020 hepat ic funct ion panel , serum ALT 33.5 U/L 10.0-6 0.0 Not Available [facility] (Lab) [address], [place], [address], 12/24/2020 20:33:02 12/25/19 21 12/24/2020 hepat ic funct ion panel , serum alk phos 112.0 IU/L 42.0-1 21.0 Not Available [facility] (Lab) [address], [place], [address], 12/24/2020 20:33:02 12/25/19 21 12/24/2020 hepat ic funct ion panel , serum agratio 1.3 Not Available [facility] (Lab) [address], [place], [address], 12/24/2020 20:33:02 12/25/19 21 12/24/2020 BMP, serum or plasm a glucose, serum 241 mg/dL 65-99 high Not Available [facility] (Lab) [address] [place], [address], 12/24/2020 20:33:05 12/25/19 21 12/24/2020 BMP, serum or plasm a BUN 8 mg/dL 8-26 Not Available [facility] (Lab) [address] [place], [address], 12/24/2020 20:33:05 12/25/19 21 12/24/2020 BMP, serum or plasm a creatinine, serum 0.65 mg/dL 0.50-1 .40 Not Available [facility] (Lab) [address] [place], [address], 12/24/2020 20:33:05 12/25/19 21 12/24/2020 BMP, serum or plasm a BUN/creatnin e ratio 12.9 Not Available [facility] (Lab) [address], [place], [address], 12/24/2020 20:33:05 12/25/19 21 12/24/2020 BMP, serum or plasm a sodium, serum 137.0 mmol/ L 136.0- 144.0 Not Available [facility] (Lab) [address] [place], [address], 12/24/2020 20:33:05 12/25/19 21 12/24/2020 BMP, serum or plasm a potassium, serum 4.1 mmol/ L 3.5-5. 3 Not Available [facility] (Lab) [address], [place], [address], 12/24/2020 20:33:05 12/25/19 21 12/24/2020 BMP, serum or plasm a chloride, serum 103 mmol/ l 101-11 1 Not Available [facility] (Lab) [address] [place], [address], 12/24/2020 20:33:05 12/25/19 21 12/24/2020 BMP, serum or plasm a carbon dioxide total 18.2 mmol/ L 21.0-3 2.0 low Not Available [facility] (Lab) [address] [place], [address], 12/24/2020 20:33:05 12/25/19 21 12/24/2020 BMP, serum or plasm a aniongp 20.0 mmol/ L Not Available [facility] (Lab) [address] [place], [address], 12/24/2020 20:33:05 12/25/19 21 12/24/2020 BMP, serum or plasm a calcium, serum 9.8 mg/dL 8.2-10 .0 Not Available [facility] (Lab) [address], [place], [address], 12/24/2020 20:33:05 12/25/19 21 12/24/2020 BMP, serum or plasm a osmol 280.0 mOsm/ L 275.0- 301.0 Not Available [facility] (Lab) [address], [place], [address], 12/24/2020 20:33:05 12/25/19 21 12/24/2020 BMP, serum or plasm a eGFR, non- AM 109 mL/mi n/1.7 3/m >=60 Not Available [facility] (Lab) [address] [place], [address], 12/24/2020 20:33:05 12/25/19 21 12/25/2020 LOIS (anti nucle ar antib odies ) panel , serum anti-DNA (ds) Ab qn <1 IU/mL 0-9 Negat mark <5 Equiv ocal 5 - 9 Posit mark >9 Not Available [facility] (Lab) [address] [place], [address], 12/25/2020 13:10:38 12/25/19 21 12/25/2020 LOIS (anti nucle ar antib odies ) panel , serum engineering scientist antibodies 0.7 ai 0.0-0. 9 Not Available [facility] (Lab) [address], [place], [address], 12/25/2020 13:10:38 12/25/19 21 12/25/2020 LIOS (anti nucle ar antib odies ) panel , serum mao antibodies <0.2 ai 0.0-0. 9 Not Available [facility] (Lab) [address] [place], [address], 12/25/2020 13:10:38 12/25/19 21 12/25/2020 LOIS (anti nucle ar antib odies ) panel , serum antisclerode rma-70 antibodies <0.2 ai 0.0-0. 9 Not Available [facility] (Lab) [address] [place], [address], 12/25/2020 13:10:38 12/25/19 21 12/25/2020 LOIS (anti nucle ar antib odies ) panel , serum sjogren's anti-ss-A <0.2 ai 0.0-0. 9 Not Available [facility] (Lab) [address] [place], [address], 12/25/2020 13:10:38 12/25/19 21 12/25/2020 LOIS (anti nucle ar antib odies ) panel , serum sjogren's anti-ss-B <0.2 ai 0.0-0. 9 Not Available [facility] (Lab) [address] [place], [address], 12/25/2020 13:10:38 12/25/19 21 12/25/2020 LOIS (anti nucle ar antib odies ) panel , serum antichromati n antibodies <0.2 ai 0.0-0. 9 Not Available [facility] (Lab) [address] [place], [address], 12/25/2020 13:10:38 12/25/19 21 12/25/2020 LOIS (anti nucle ar antib odies ) panel , serum anti-taylor-1 <0.2 ai 0.0-0. 9 Not Available [facility] (Lab) [address] [place], [address], 12/25/2020 13:10:38 12/25/19 21 12/25/2020 LOIS (anti nucle ar antib odies ) panel , serum anti-centrom ere B antibodies <0.2 ai 0.0-0. 9 Not Available [facility] (Lab) [address], [place], [address], 12/25/2020 13:10:38 12/25/19 21 12/25/2020 LOIS (anti nucle ar antib odies ) panel , serum see below: [employer] nt[employer] se [employer] iatio n ----- ----- ----- ----- ----- ----- ----- ----- ----- ----- ----- ----- Condi tion Frequ ency ----- ----- ----- ----- - ----- ----- ----- ----- ---- ----- ---- Antin uclea r Antib chaya, SLE, mixed conne ctive Direc t (LOIS- D) tissu e disea ses ----- ----- ----- ----- - ----- ----- ----- ----- ---- ----- ---- dsDNA SLE 40 - 60% ----- ----- ----- ----- - ----- ----- ----- ----- ---- ----- ---- Chrom atin Drug induc ed SLE 90% SLE 48 - 97% ----- ----- ----- ----- - ----- ----- ----- ----- ---- ----- ---- SSA (Ro) SLE 25 - 35% Sjogr en's Syndr ome 40 - 70% Neona lynn Lupus 100% ----- ----- ----- ----- - ----- ----- ----- ----- ---- ----- ---- SSB (La) SLE 10% Sjogr en's Syndr ome 30% ----- ----- ----- ----- - ----- ----- ----- ----- --- ----- ---- Sm (anti -Pete h) SLE 15 - 30% ----- ----- ----- ----- - ----- ----- ----- ----- --- ----- ---- COLD ROLL CATCHER Mixed Conne ctive Tissu e Disea se 95% (U1 nRNP, SLE 30 - 50% anti- ribon ucleo prote in) Polym yosit is and/o r [place] tomyo sitis 20% ----- ----- ----- ----- - ----- ----- ----- ----- ---- ----- ---- Scl-7 0 (anti DNA Scler oderm a (diff use) 20 - 35% topoi kennedi ase) Crest 13% ----- ----- ----- ----- - ----- ----- ----- ----- ---- ----- ---- Taylor-1 Polym yosit is and/o r [place] tomyo sitis 20 - 40% ----- ----- ----- ----- - ----- ----- ----- ----- ---- ----- ---- Centr omere B Scler oderm a - Crest varia nt 80% Not Available [facility] (Lab) [address], [place], [address], 12/25/2020 13:10:38 12/25/19 21 12/25/2020 gamma -glut amyl trans feras e (ggt) , serum GGT 110 IU/L 0-60 high Not Available [facility] (Lab) [address] [place], [address], 12/25/2020 15:10:11 12/25/19 21 12/25/2020 alpha 1 antit rypsi n pheno typin g, serum or plasm a [id number] trypsin, serum 151 mg/dL 100-18 8 Not Available [facility] (Lab) [address], [place], [address], 12/25/2020 15:10:12 12/25/19 21 12/25/2020 iron + total iron- pattie ng capac ity (TIBC ), serum iron bind.cap.(TI BC) 251 ug/dL 250-45 0 Not Available [facility] (Lab) [address] [place], [address], 12/25/2020 15:10:14 12/25/19 21 12/25/2020 iron + total iron- pattie ng capac ity (TIBC ), serum UIBC 203 ug/dL 131-42 5 Not Available [facility] (Lab) [address], [place], [address], 12/25/2020 15:10:14 12/25/19 21 12/25/2020 iron + total iron- pattie ng capac ity (TIBC ), serum iron, serum 48 ug/dL 27-159 Not Available [facility] ([facility]) [address] [place], [address], 12/25/2020 15:10:14 12/25/19 21 12/25/2020 iron + total iron- pattie ng capac ity (TIBC ), serum iron saturation 19 % 15-55 Not Available [facility] ([facility]) [address] [place], [address], 12/25/2020 15:10:14 12/25/19 21 12/25/2020 mitoc hondr ial Ab, serum mitochondria l (M2) antibody <20.0 units 0.0-20 .0 Negat mark 0.0 - 20.0 Equiv ocal 20.1 - 24.9 Posit mark >24.9 . Mitoc hondr ial (M2) Antib odies are found in 90-96 % of patie nts with prima ry bilia ry cirrh osis. Not Available [facility] (Lab) [address] [place], [address], 12/25/2020 15:10:15 12/25/19 21 12/25/2020 actin jase h muscl e Ab, serum actin (smooth muscle) antibody 8 units 0-19 Negat mark 0 - 19 Weak posit mark 20 - 30 Moder ate to stron g posit mark >30 . Actin Antib odies are found in 52-85 % of patie nts with autoi mmune hepat itis or chron ic activ e hepat itis and in 22% of patie nts with prima ry bilia ry cirrh osis. Not Available [facility] (Lab) [address], [place], [address], 12/25/2020 15:10:16 12/25/19 21 12/25/2020 H pylor i urea breat h test, co2 infra red H pylori breath test Negati ve negati ve Not Available [facility] (Lab) [address], [place], [address], 12/25/2020 21:07:48 12/25/19 21 12/30/2020 liver -kidn ey micro some Ab, serum liver-kidney microsomal Ab 1.2 units 0.0-20 .0 Negat mark 0.0 - 20.0 Equiv ocal 20.1 - 24.9 Posit mark >24.9 . LKM type 1 antib odies are detec sagar in patie nts with autoi mmune hepat itis type 2 and in up to 8% of patie nts with chron ic HCV infec tion. Not Available [facility] (Lab) [address] [place], [address], 12/30/2020 11:12:04 12/25/19 21 12/30/2020 madonna tin, serum or plasm a ferritin, serum 95 NG/mL 15-150 Not Available [facility] (Lab) [address] [place], [address], 12/30/2020 11:12:06 12/25/19 21 12/30/2020 cerul oplas min, serum ceruloplasmi n 37.3 mg/dL 19.0-3 9.0 Not Available [facility] (Lab) [address] [place], [address], 12/30/2020 11:12:07 12/25/19 21 12/30/2020 hepat itis panel (A+B+ C), acute , serum hep A Ab, IgM Negati ve negati ve Not Available [facility] (Lab) [address] [place], [address], 12/30/2020 11:12:08 12/25/19 21 12/30/2020 hepat itis panel (A+B+ C), acute , serum HBsAg screen Negati ve negati ve Not Available [facility] (Lab) [address] [place], [address], 12/30/2020 11:12:08 12/25/19 21 12/30/2020 hepat itis panel (A+B+ C), acute , serum hep B core Ab, IgM Negati ve negati ve Not Available [facility] (Lab) [address], [place], [address], 12/30/2020 11:12:08 12/25/19 21 12/30/2020 hepat itis panel (A+B+ C), acute , serum hep C virus Ab <0.1 s/co_ ratio 0.0-0. 9 Negat mark: < 0.8 Indet ermin ate: 0.8 - 0.9 Posit mark: > 0.9 . The CDC recom mends that a posit mark HCV antib chaya resul t be follo wed up with a HCV Nucle ic Acid Ampli ficat ion test (5507 13). Not Available [facility] (Lab) [address], [place], [address], 12/30/2020 11:12:08 12/26/19 21 10/30/2020 NM, hepat obili conchita scan No observ ation record ed. [facility] Add On Lab Orders [address], [place], [address], 12/25/2020 11:34:58 12/26/19 21 10/19/2020 CT, abdom en + pelvi s, w/ contr ast No observ ation record ed. rloar Not Available 2020 13:31:06 Result Notes Documentation Provider Name and Address Organization Details Recorded Time Nm, Hepatobiliary Scan : Normal HIDA Scan with gallbladder EF 52%. BRANDON ESCUDERO NP [address], [place], [address], [facility] 12/25/2020 11:34:58 Problems Name Problem SNOMED Code Status Onset Date Resolution Date Notes Provider Name and Address Organization Details Recorded Time Uncontrolle d type 2 diabetes mellitus 090031031 Active 2020 BRANDON ESCUDERO NP [address] [place], [address], [facility] 1 15:25:29 Vitamin D deficiency 62231651 Active 2020 BRANDON ESCUDERO NP [address] [place], [address], [facility] 1 15:26:02 Mixed anxiety and depressive disorder 155600878 Active 2020 BRANDON ESCUDERO NP [address] [place], [address], [facility] 15:26:13 Tobacco user 982365780 Active 2020 BRANDON ESCUDERO NP [address] [place], [address], [facility] 15:26:22 Migraine 72900583 Active 2020 BRANDON ESCUDERO NP [address], [place], [address], [place] [facility] 1 15:26:33 Peripheral neuropathy due to type 2 diabetes mellitus 7018670103232 Active 2020 BRANDON ESCUDERO NP [address], [place], [address], [place] [facility] 1 15:26:49 Essential hypertensio n 51846773 Active 2020 BRANDON ESCUDERO NP [address], [place], [address], [place] [facility] 1 15:26:57 Diverticulo sis of colon 453505837 Active 2020 BRANDON ESCUDERO NP [address], [place], [address], [place] [facility] 1 15:27:08 Hidradeniti s suppurativa 58485270 Active 2020 BRANDON ESCUDERO NP [address], [place], [address], [place] [facility] 1 15:27:30 Heartburn 16274352 Active 2020 BRANDON ESCUDERO NP [address], [place], [address], [place] [facility] 1 15:27:45 Obstructive sleep apnea syndrome 66891914 Active 2020 BRANDON ESCUDERO NP [address], [place] [facility] [place], [address], [place] [facility] 1 10:17:36 Problem Notes None recorded. Procedures Surgical History None recorded. Imaging Results Imaging Date Name Status LastModified by Organization Details LastModified Time 10/30/2020 NM, [facility] [facility] Orders [address], [place], [address], 12/25/2020 11:34:58 10/19/2020 CT, abdomen + pelvis, w/ contrast completed [facility] Information not available 12/28/2020 13:31:06 Procedure Notes None recorded. Medical Equipment None Reported. Allergies Allergen ID Allergen Name Allergen Category Reaction Reaction Severity Criticality Documentation Date Start Date Code Code System Note Provider Name and Address Organization Details Recorded Time [id number] lisinopri l medicatio n swelling Not available Not available 12/22/2020 48008 RxNorm Not Available Not Available Not Available 432363 metformin medicatio n vomiting Not available Not available 12/22/2020 6809 RxNorm Not Available Not Available Not Available 333135 morphine medicatio n confusion moderate Not available 12/22/2020 7052 RxNorm Not Available Not Available Not Available [id number] egg extract food,medi cation nausea Not available Not available 12/24/2020 48680 15 RxNorm Not Available Not Available Not Available Medications Name Sig Start Date Stop Date Status Note LastModified by Organization Details LastModified Time Miralax 17 gram/dose oral powder In a pitcher, mix entire bottle of Miralax in one 64 ounce bottle of yellow or green Gatorade. Beginning at 5:00 PM the evening before the colonosco py, drink 1 8-ounce glass every 15 minutes until completed . Drink 4 glasses of water after finishing this mixture 2020 active Not Available Not Available Not Avai lable potassium chloride ER 10 mEq capsule,ext ended release active Not Available Not Available Not Available clindamycin HCl 300 mg capsule TAKE 1 CAPSULE BY MOUTH EVERY 6 HOURS FOR 10 DAYS 12/24 completed Not Available Not Available Not Available trazodone 50 mg tablet TAKE 1 2 TABS AT BEDTIME FOR INSOMNIA 12/24 completed Not Available Not Available Not Available azithromyci n 250 mg tablet TAKE 2 TABLETS BY MOUTH TODAY, THEN TAKE 1 TABLET DAILY FOR 4 DAYS 12/24 completed Not Available Not Available Not Available fluconazole 150 mg tablet TAKE 1 TABLET EVERY 72 HRS X 3 DOSES, THEN CONTINUE TAKING 1 TABLET EVERY WEEK FOR 6 MONTHS active Not Available Not Available No t Available hydrocodone 5 mg-acetamin ophen 325 mg tablet TAKE 1 TABLET BY MOUTH EVERY 4 HOURS NEEDED FOR PAIN 12/24 completed Not Available Not Available Not Available ondansetron HCl 4 mg tablet TAKE 1 TABLET BY MOUTH EVERY 6 HOURS NEEDED FOR NAUSEA AND VOMITING 12/24 completed Not Available Not Available Not Available famotidine 40 mg tablet TAKE 1 TABLET BY MOUTH EVERY DAY active Not Available Not Available No t Available prednisone 20 mg tablet TAKE 1 TABLET BY MOUTH EVERY DAY FOR 5 DAYS 12/24 completed Not Available Not Available Not Available clotrimazol e 1 % vaginal cream INSERT 1 APPLICATO RFUL EVERY DAY BY VAGINAL ROUTE AT BEDTIME. active Not Available Not Available No t Available metronidazo le 500 mg tablet TAKE 1 TABLET BY MOUTH EVERY 8 HOURS FOR 7 DAYS 12/24 completed Not Available Not Available Not Available amlodipine 5 mg tablet Take 1 tablet every day by oral route. active Not Available Not Available No t Available glimepiride 1 mg tablet TAKE 1 TABLET BY MOUTH EVERY DAY 12/24 completed Not Available Not Available Not Available magnesium oxide 400 mg (241.3 mg magnesium) tablet active Not Available Not Available Not Available lorazepam 0.5 mg tablet TAKE 1 TABLET BY MOUTH EVERY DAY NEEDED active Not Available Not Available No t Available pantoprazol e 40 mg tablet,karen yed release Take 1 tablet(s) every day by oral route for 30 days. active Not Available Not Available No t Available glimepiride 4 mg tablet TAKE 1 TABLET BY MOUTH EVERY DAY AT LUNCH active Not Available Not Available No t Available montelukast 10 mg tablet TAKE 1 TABLET BY MOUTH EVERY DAY active Not Available Not Available No t Available mupirocin 2 % topical ointment APPLY TO AFFECTED AREA 3 TIMES A DAY 12/24 completed Not Available Not Available Not Available diclofenac sodium 50 mg tablet,karen yed release TAKE 1 TABLET BY MOUTH TWICE A DAY *STOP IBUPROFEN 12/24 completed Not Available Not Available Not Available methylpredn isolone 4 mg tablets in a dose pack TAKE 6 TABLETS ON DAY 1 DIRECTED ON PACKAGE AND DECREASE BY 1 TAB EACH DAY FOR A TOTAL OF 6 DAYS 12/24 completed Not Available Not Available Not Available albuterol sulfate HFA 90 mcg/actuati on aerosol inhaler INHALE 2 PUFFS BY MOUTH 4 TIMES A DAY NEEDED FOR SHORTNESS OF BREATH OR WHEEZING 12/24 completed Not Available Not Available Not Available norethindro ne (contracept mark) 0.35 mg tablet TAKE 1 TABLET BY MOUTH EVERY DAY active Not Available Not Available No t Available topiramate 100 mg tablet TAKE 1 TABLET BY MOUTH TWICE A DAY active Not Available Not Available No t Available fluticasone propionate 50 mcg/actuati on nasal spray,suspe nsion SPRAY 1 SPRAY INTO EACH NOSTRIL EVERY DAY 12/24 completed Not Available Not Available Not Available doxycycline hyclate 100 mg tablet 12/24 completed Not Available Not Available Not Available dicyclomine 10 mg capsule TAKE 1 CAPSULE BY MOUTH 3 TIMES A DAY NEEDED FOR 30 DAYS 12/24 completed Not Available Not Available Not Available mometasone 0.1 % topical cream APPLY SPARINGLY TO AFFECTED AREA EVERY DAY 12/24 completed Not Available Not Available Not Available Dulcolax (bisacodyl) 5 mg tablet,karen yed release At 2:00 PM the day before the colonosco py, take all 4 tablets of Dulcolax by mouth at one time with 8 ounces of water 2020 active Not Available Not Available Not Avai lable hydrocortis one 1 % topical cream with perineal applicator active Not Available Not Available N ot Available OneTouch UltraSoft Lancets USE TO TEST ONCE DAILY active Not Available Not Available No t Available pregabalin 50 mg capsule Take 1 capsule twice a day by oral route for 30 days. active Not Available Not Available No t Available aripiprazol e 2 mg tablet active Not Available Not Available Not Available Lantus Solostar U-100 Insulin 100 unit/mL (3 mL) subcutaneou s pen INJECT 20 UNITS SUBQ EVERY DAY AT BEDTIME. active Not Available Not Available No t Available BD Ultra-Fine Loren Pen Needle 32 gauge x 5/32 USE DIRECTED. active Not Available Not Available No t Available Trintellix 10 mg tablet TAKE 1 TABLET BY MOUTH EVERY DAY active Not Available Not Available No t Available OneTouch Ultra Blue Test Strip USE TO TEST BLOOD SUGAR ONCE DAILY active Not Available Not Available No t Available OneTouch Ultra2 Meter USE TO TEST DAILY active Not Available Not Available No t Available OneTouch Delica Plus Lancet 33 gauge active Not Available Not Available Not Available Vitals Date Recorded Body height Body mass index (BMI) Body weight Heart rate Body temperature Respiratory rate Systolic blood pressure Diastolic blood pressure Provider Name and Address Organization Details Last Updated DateTime 167.64 cm 51.9 kg/m2 028352. 31 g 87 /min 99.3 [degF] 16 /min 153 mm[Hg] 92 mm[Hg] Paulina Ariza, DAT INSTRUCTOR [place] - [facility] 15:46:39 Social History Question Answer Notes LastModified by Organizat ion Details LastModified Time Tobacco Smoking Status Current Every Day Smoker 1/2 ppd BRANDON ESCUDERO NP [address] [place], [address], [facility] - [facility] 12/22/2020 15:29:10 What Is Your Level Of Alcohol Consumption? Occasional Information not available 12/24/2020 Do You Use Any Illicit Or Recreational Drugs? No Information not available 12/24/2020 Has Tobacco Cessation Counseling Been Provided? Yes Information not available 12/24/2020 On What Date Was Tobacco Cessation Counseling Provided? 12/24/2020 Information not available 12/24/2020 Do You Or Have You Ever Used Any Other Forms Of Tobacco Or Nicotine? No Information not available 12/24/2020 Sex: Unknown Functional Status None recorded. Mental Status None recorded. Family History Relationship Description Onset Age of this Age Resolved Age Notes LastModified by Organization Details LastModified Time Mother Diabetes mellitus rloar Not available 2020 15:28:14 Mother Essential hypertension rloar Not available 15:28:25 Mother Hyperlipidem ia rloar Not available 2020 15:28:40 Father Essential hypertension rloar Not available 15:28:25 Father Hyperlipidem ia rloar Not available 2020 15:28:40 Maternal Uncle Malignant tumor of colon areakalpn Not available 2020 15:48:40 Medical History Condition Response Anxiety Disorder Y Diabetes Y Gout N Seizures/Epilepsy N Arthritis N Kidney Stones N Hyperthyroidism N Tuberculosis N Hyperlipidemia Y Asthma N COPD N Hypothyroidism N Depression Y Sleep Apnea Y GERD/Reflux Y Hepatitis N Liver Disease N Heart Disease N Hypertension Y Kidney Disease N Gynecological HistoryNo gynecological history recorded. Obstetrics History GPAL:G 0 P 0 0 0 0 Past Encounters Encounter ID Performer Location Encounter Start Date Encounter Closed Date Diagnosis/Indication Diagnosis SNOMED-CT Code Diagnosis ICD10 Code Diagnosis Note [id number] BRANDON ESCUDERO NP [facility] [address] [place] [address] 12/24/2020 15:27:21 12/28/2020 15:51:26 Abdominal pain 76393489 R10.9 epigastric painStop famotidine Start pantopazol eDecrease caffeine Chest pain 95675706 R07. 9 To go to the ED with chest pain Steatosis of liver 1007 K76.0 Likely NAFLD Patient counseled at length regarding dietary changes and exercise targeting a sustained 5% - 10% weight loss. Treatment should be focused on optimizing control of the metabolic syndrome, which should reduce risk of cardiovasc ular disease and severity of liver disease. The use of a statin in NAFLD is safe, with no increased risk of drug-induc ed hepatotoxi city. Continue to work with PCP for blood sugar management Discussed with patient the concern that ongoing elevated liver enzymes can lead to liver fibrosis which can progress to cirrhosis. Cirrhosis is progressiv e liver damage with complicati ons of liver cancer, liver failure and . Hematochezia 064973488 K 92.1 Tobacco user 537290922 Z 72.0 Strongly encouraged to discontinu e smoking Essential hypertension 10210671 I10 On amlodipine Managed by primary care Uncontroll ed type 2 diabetes mellitus 324375787 E11.65 Last A1C 11.2% on 09/15/2020.O n insulin and Glimepirid eManaged by primary care Peripheral neuropathy due to type 2 diabetes mellitus 7700581544 107 E11.42 On pregabalin Managed in Primary Care Mixed anxi ety and depressive disorder 433215008 F41.8 On Trintellix , lorazepam Health Concerns Section Related Observation LastModified by Organization Detai ls LastModified Time None Recorded Concern Status LastModified by Organization Details LastModified Time None Recorded Advance Directives Directive None Recorded Payers Encounter Date Sequence Insurance Name Policy Number Policy Morales Covered Member ID Morales Member ID Guarantor Name 12/24/2020 1 [facility] (MEDICAID HMO) [id number] Randee Lazo [id number] Randee Lazo Notes Date Note Type Note Provider Name and Address Organization Details Recorded Time 12/24/2020 text/html Abdominal PainReported bypatient.Location:LL Q; LUQ; RLQ; RUQ; epigastric; At the onset, the pain was at the RUQ, then she developed LUQ pain, then epigastric discomfort, RLQ and LLQ pain. State that the whole abdomen is painful. Quality:RUQ nd LUQ: sharp Epigastric: knot like, like there is something there that shouldn't be LLQ, RLQ: cramping Severity:moderate Duration:intermittent ; September or October 2019. Onset/Timing:worse Modifying Factors:nothing gives relief; Has tried bland diets, pepto bismol, famotidine, IB Guard - nothing works Eating makes the pain worse Associated Symptoms:nausea;vomit ing;red blood stool; has had bright red and dark blood in her stool with BMs. Adherent to the stool on the toilet paper, in the toilet water. Nausea and vomiting of undigested food or stomach acid Other:denies possible 40 year old presents as referred by Maribell Dowling APRN for abdominal pain. Per records review, CT abdomen with contrast of 10/19/2020 from [facility] reveals hepatomegaly of 23 cm cephalocaudal and hepatic steatosis. HgbA1C was 11.2% on 09/15/2020. Blood sugar this morning was 221. States that she might have angina - was hospitalized at [facility] in [place]. She had a stress test, cardiac enzymes. Not seeing a master brewer. Had a HIDA scan. Results are not available. Has had US abdomen/pelvis, results not available BMs are daily, sometimes formed, sometimes watery. EtOH: 2 x / yearTobacco: 1/2 PPD x 20 years: 10 PYHRecreational drugs: deniesCaffeine: 60 ounces of soda daily Denies fever, chills, difficulty swallowing, hematemesis, heartburn, reflux, bloating, constipation, excessive belching or flatus, bleeding gums, easy bruising. BRANDON ESCUDERO, AFRICANA STUDIES PROFESSOR [address], [place], [address], [place] 12/25/2020 08:16:17 OBGyn Episode No OBEpisode recorded.
--- OUTSIDE RECORDS SUMMARY | 2024-08-14 15:12 | XMS_ITS | Referral Summary ---
Author Organization [facility] [address] [place] [address] Care Team Providers Care Cement Finisher Name Role Phone Marta Hay DESIGNER ARCHITECT Primary Care Provider Allergies Active Allergy Reactions Criticality Noted Date Comments Egg Fever,Vomiting Medium 11/01/2021 Body aching Lisinopril Swelling Medium 11/01/2021 Metformin Other (See comments),Vomiting High 02/14/2019 Low blood sugar, disorientation Morphine Mental status changes,Nausea only,Other (See comments) High 09/16/2015 Small dose too effective Medications erenumab-aooe (Aimovig Autoinjector) 70 mg/mL auto-injector subcutaneous injection Aimovig Autoinjector 70 mg/mL subcutaneous auto-injector 03/24/20 22 Active ergocalciferol (VITAMIN D) 50,000 unit capsule ergocalciferol (vitamin D2) 1,250 mcg (50,000 unit) capsule Active omeprazole (PriLOSEC) 40 mg capsule omeprazole 40 mg capsule,delayed release 03/24/20 22 Active Trintellix 10 mg tablet Take 1 tablet (10 mg total) by mouth daily 05/17/20 22 Active ondansetron ODT (ZOFRAN-ODT) 4 mg disintegrating tablet ondansetron 4 mg disintegrating tablet DISSOLVE 1 TABLET BY MOUTH EVERY 4 HOURS NEEDED FOR NAUSEA AND VOMITING 03/24/20 22 Active rosuvastatin (CRESTOR) 10 mg tablet rosuvastatin 10 mg tablet 06/11/20 21 Active gabapentin (NEURONTIN) 300 mg capsule gabapentin 300 mg capsule Active ARIPiprazole (ABILIFY) 2 mg tablet aripiprazole 2 mg tablet 06/20/20 21 Active ubrogepant (UBRELVY) 50 mg tablet Ubrelvy 50 mg tablet TAKE 1 TABLET BY MOUTH AT ONSET OF HEADACHE. MAY REPEAT IN 2 HOURS FOR 1 DOSE. MAX 200 MG/24 HOURS Active montelukast (SINGULAIR) 10 mg tablet montelukast 10 mg tablet TAKE 1 TABLET BY MOUTH EVERY DAY 06/22/20 21 Active fluticasone propionate (FLONASE) 50 mcg/actuation nasal spray fluticasone propionate 50 mcg/actuation nasal spray,suspension SPRAY 1 SPRAY BY INTRANASAL ROUTE EVERY DAY Active insulin glargine (LANTUS) 100 unit/mL (3 mL) pen for injection Inject 20 Units under the skin daily Active LORAZEPAM ORAL Take by mouth daily as needed Active adalimumab (Humira,CF, Pen) 80 mg/0.8 mL pen injector kitIndications:Hid radenitis suppurativa Loading dose. Use two 80mg pens on day 1, then one 80mg pen day 14. 3 each 06/23/20 22 Active adalimumab (Humira,CF, Pen) 80 mg/0.8 mL pen injector kitIndications:Hid radenitis suppurativa Inject 0.8 mL (80 mg total) under the skin every 14 (fourteen) days 4 each 5 06/23/20 22 Active ketoconazole (NIZORAL) 2 % creamIndications:I ntertrigo Apply twice daily underneath abdomen 60 g 11 10/27/19 23 Active hydrocortisone 2.5 % creamIndications:I ntertrigo Mix 50:50 with ketoconazole cream and apply twice daily to rash underneath abdomen when flaring 28 g 3 10/27/19 23 Active doxycycline hyclate 100 mg capsuleIndications :Hidradenitis suppurativa TAKE 1 CAPSULE BY MOUTH TWICE A DAY 60 capsule 3 12/28/19 23 Active Active Problems Problem Noted Date Diagnosed Date Obstructive sleep apnea syndrome 01/28/2013 Overview (10/13/2016): Obstructive sleep apnea syndrome Morbid obesity 01/28/2013 Overview (10/14/2016): Morbid obesity Restless legs syndrome 01/28/2013 Overview (10/14/2016): Restless leg syndrome Extreme obesity with alveolar hypoventilation Overview (10/14/2016): Obesity hypoventilation syndrome 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 Never 10/26/2022 Average Number of Drinks Not on file 023 Frequency of Binge Drinking Not on file 10/08 Hunger Vital Sign Answer Date Recorded Within the past 12 months, y ou worried that your food would run out before you got the money to buy more. Never true 10/27/19 23 Within the past 12 months, t he food you bought just didn't last and you didn't have money to get more. Never true 10/26/2022 Comments Unknown Sex and Gender Information Value Date Recorded Sex Assigned at Not on file Legal Sex Female 2:57 AM MARKETING DESIGNER Gender Identity Not on file Sexual Orientation Not on file Last Filed Vital Signs Vital Sign Reading Time Taken Comments Blood Pressure 123/79 10/26/2022 2:37 PM CDT Pulse 90 10/26/2022 2:37 PM CDT Temperature 37.1 C (98.7 F) 10/26/2022 2:37 PM CDT Respiratory Rate 20 05/25/2022 3:09 PM MARKETING DESIGNER Oxygen Saturation 97% 01/28/2013 1:15 PM CDT Inhaled Oxygen Concentration - - Weight 105.7 kg (233 lb) 10/26/2022 2:37 PM CDT Height 167.6 cm (5' 6 ) 10/26/2022 2:37 PM CDT Body Mass Index 37.61 10/26/2022 2:37 PM CDT Plan of Treatment Not on file Procedures Procedure Name Priority Date/Time Associated Diagnosis Comments HEPATITIS PANEL, ACUTE Routine 06/07/2022 10:15 AM MARKETING DESIGNER High risk medication use from Last 3 Months or Most Recently Relevant to Health Maintenance Results * Hepatitis panel, acute (06/07/2022 10:15 AM MARKETING DESIGNER) Hep A IgM NON-REACTI VE NON-REACT MARIANA [facility] Comment: For additional information, please refer to http://[employer].MyLifeBrand/faq/FOW069 (This link is being provided for informational/ educational purposes only.) HepBsAg NON-REACTI VE NON-REACT MARIANA [facility] Hep B core IgM NON-REACTI VE NON-REACT MARIANA [facility] Hep C Ab NON-REACTI VE NON-REACT MARIANA [facility] SIGNAL TO CUT-OFF 0.04 <1.00 [facility] Comment: HCV antibody was non-reactive. There is no laboratory evidence of HCV infection. In most cases, no further action is required. However, if recent HCV exposure is suspected, a test for HCV RNA (test code 41330) is suggested. For additional information please refer to http://[employer].MyLifeBrand/faq/PXY37z9 (This link is being provided for informational/ educational purposes only.) Blood 06/07/2022 10:1 5 AM MARKETING DESIGNER 06/07/2022 10:15 AM MARKETING DESIGNER Narrative [facility] - 06/09/2022 2:50 PM MARKETING DESIGNER FASTING:NO FASTING: NO us Celina Vincent MD LAB MICROBIOLOGY - GENERAL ORDERABLES Final Result [facility] [address] [address] [id number] from Last 3 Months or Most Recently Relevant to Health Maintenance Insurance [facility] Care Teams Cement Finisher Relationship Specialty Start Date End Date Marta Hay NP [address] [place] [address] [place] [address] PCP - General Nurse Practitioner 04/01/24
--- OUTSIDE RECORDS SUMMARY | 2024-08-14 15:12 | XMS_ITS | Clinical Summary ---
Author Organization [facility] [address] [place] [address] Care Team Providers Care Towel Weaver Name Role Phone Marta Hay TRANSFORMER MECHANIC Primary Care Provider Allergies Active Allergy Reactions [...] cataplexy 01/28/2013 Overview (10/14/2016): Narcolepsy and cataplexy Medical History Medical History Date Comments Hypertension Hypertension Family History Medical History Relation Name Comments Diabetes Mother Diabetes mellit us; Hypertension Mother Hypertension; Relation Name Status Comments Mother Social History Tobacco Use Types Packs/Day Years [...] on file Legal Sex Female 2:57 AM SUMMER COUNSELOR Gender Identity Not on file Sexual Orientation Not on file Obstetrics History Last Filed Vital Signs Vital Sign Reading Time Taken Comments Blood Pressure 123/79 10/26/2022 2:37 PM CDT Pulse 90 10/26/2022 2:37 PM CDT Temperature 37.1 C (98.7 F) 10/26/2022 2:37 PM CDT Respiratory Rate 20 05/25/2022 3:09 PM SUMMER COUNSELOR Oxygen Saturation 97% 01/28/2013 1:15 PM CDT Inhaled Oxygen Concentration - - Weight 105.7 kg (233 lb) 10/26/2022 2:37 PM CDT Height 167.6 cm (5' 6 ) 10/26/2022 2:37 PM CDT Body Mass Index 37.61 10/26/2022 2:37 PM CDT Plan of Treatment Health Maintenance Due Date Last Done Comments Breast Cancer Screening-Mammogram 1982 Cervical Cancer Screening 1982 Depression Screening 1982 Pneumococcal vaccine <65 (1 of 2 - PCV) 1988 Varicella Vaccines (1 of 2 - 13+ 2-dose series) 1995 Hepatitis B Screening 2000 Regular Well Visit/Exam 18-64 2000 Zoster Vaccine (1 of 2) 2001 Covid-19 Vaccine (3 - Pfizer risk series) 12/18/2020 11/20/2020, 10/30/2020 Influenza Vaccine (#1) 2024 06/06/2016 DTaP/Tdap/Td Vaccine (2 - Td or Tdap) 05/25/2031 05/25/2021 Hepatitis C Screening Completed 06/07/2022 HPV Vaccines Aged Out No longer eligi ble based on patient's age to complete this topic Procedures Procedure Name Priority Date/Time Associated Diagnosis Comments HEPATITIS PANEL, ACUTE Routine 06/07/2022 10:15 AM SUMMER COUNSELOR High risk medication use from Last 3 Months or Most Recently Relevant to Health Maintenance Results * Hepatitis panel, acute (06/07/2022 10:15 AM SUMMER COUNSELOR) Hep A IgM NON-REACTI VE NON-REACT MARIANA [facility] Comment: For additional information, please refer to http://education.Siklu.Kili/faq/KQS541 (This link is being provided for informational/ [...] a test for HCV RNA (test code 17331) is suggested. For additional information please refer to http://education.Siklu.Kili/faq/TSY27g0 (This link is being provided for informational/ educational purposes only.) Blood 06/07/2022 10:1 5 AM SUMMER COUNSELOR 06/07/2022 10:15 AM SUMMER COUNSELOR Narrative [facility] - 06/09/2022 2:50 PM SUMMER COUNSELOR FASTING:NO FASTING: NO Celina Vincent MD LAB MICROBIOLOGY - GENERAL ORDERABLES Final Result [facility] [address] [place] [address] from Last 3 Months or Most Recently Relevant to Health Maintenance [place] [address] [address] [facility] Care Teams Towel Weaver Relationship Specialty Start Date End Date Marta Hay NP [address] [place] [address] [place] [address] PCP - General Nurse Practitioner 04/01/24
--- OUTSIDE RECORDS SUMMARY | 2024-08-14 15:12 | XMS_ITS | Clinical Summary ---
Author Organization [facility] Address [address] [place] [id number] Care Team Providers Care Hall Worker Name Role Phone Unavailable Primary Care Provider Unavailabl e Social History Tobacco Use Types Packs/Day Years Used Date Smoking Tobacco: Never Assessed Comments Unknown Sex and Gender Information Value Date Recorded Sex Assigned at Not on file Legal Sex Female 4:31 PM CDT Gender Identity Not on file Sexual Orientation Not on file Plan of Treatment Health Maintenance Due Date Last Done Comments Cervical Cancer Screening Pa p Smear (Age 30 to 64) Every 3 Years 1982 Annual Physical 1985 Hepatitis C 2000 DTaP, Tdap and Td Vaccines ( 1 - Tdap) 2001 Hepatitis B Vaccines (1 of 3 - 19+ 3-dose series) 2001 Cervical Cancer Screening Pa p with HPV Testing (Age 30 to 64) Every 5 Years 2012 Cervical Cancer Screening with HPV 2012 Mammogram Screening 2022 COVID-19 Vaccine (2023-2 5 season) 2024 Influenza Adult (#1) 2024 HPV Vaccines Aged Out No longer eligi ble based on patient's age to complete this topic Meningococcal B Vaccine Aged Out No l onger eligible based on patient's age to complete this topic Meningococcal Vaccine Aged Out No rickie alex eligible based on patient's age to complete this topic Pneumococcal Vaccine: Pediat rics (0 to 5 Years) and At-Risk Patients (6 to 64 Years) Aged Out No longer eligible b ased on patient's age to complete this topic RSV Immunizations Under 20 Months Aged Out No longer eligible based on patient's age to complete this topic
--- OUTSIDE RECORDS SUMMARY | 2024-08-14 15:12 | XMS_ITS | CONTINUITY OF CARE DOCUMENT ---
Author Name rosaleezay rosaleezay Address Unknown Organization [facility] Address [address] [place] [address] Phone [phone] Care Team Providers Care Variety Lathe Operator Name Role Phone Nolan Daigle DO Unavailable MURPHY MASSAGE THERAPIST, DELORA Unavailable [phone] MURPHY MASSAGE THERAPIST, DELORA Unavailable PROBLEMS Condition Status Date Provider Notes Dizziness active Nolan cobb DO Diabetes mellitus, type 2 active Sarah Gilmore Abnormal electrocardiogram active P radcelina Daigle DO Overweight active Nolan cobb DO Chest pain--stress nuc essence l 12/2020 active Sarah Gilmore Family History of Hypertension: completed - Sarah Gilmore Family History of CVA or Stroke: completed - Sarah Gilmore ENCOUNTERS Date Type Provider Location Encounter Diag nosis - In-person encounter Office Visit Willie You MD [facility] - In-person encounter Office Visit Willie You MD [facility] Family History of CVA or Stroke:Family History of Hypertension:Chest pain--stress nuc normal iabetes mellitus, type 2 - In-person encounter Office Visit Nolan Daigle DO [facility] Chest pain--stress nuc normal 12/2020OverweightDizzine ssAbnormal electrocardiogram VITAL SIGNS Date Observation Value Provider Body Mass Index (Ratio) 49.22 kg/m2 Collins Escoto REGULATORY LEADER blood pressure, diastolic 84 mm[Hg] Sh arsen Escoto REGULATORY LEADER blood pressure, systolic 152 mm[Hg] She edwina Escoto REGULATORY LEADER respiratory rate E&M 20 /min Lina Escoto NP oxygen saturation, oximetry 98 % Lina Escoto NP pulse rate 92 /min Lina Escoto NP weight E&M 305 [lb_av] Lina Escoto NP Body Mass Index (Ratio) 51.81 kg/m2 Taew on Mando blood pressure, cuff size large Ke rri Gruenenfelder blood pressure, diastolic 84 mm[Hg] Ke rri Gruenenfelder blood pressure, systolic 142 mm[Hg] Charity ri Dianeelder oxygen saturation, oximetry 98 % Sherrill Radhaazaelphyliciaer respiratory rate E&M 16 /min Sherrill huangelder pulse rate 90 /min Sherrill Fatemeh lder weight E&M 321 [lb_av] Sherrill Marvnefederica lder height E&M 66 [in_i] Sherrill Jose Albertomarlinazaele lder Body Mass Index (Ratio) 54.71 kg/m2 Prad celina Daigle DO blood pressure, resting No Brit maura Block pulse rate 85 /min June Block blood pressure, diastolic 84 mm[Hg] Br ittany Block blood pressure, systolic 124 mm[Hg] Paty ttany Block oxygen saturation, oximetry 96 % June Block respiratory rate E&M 16 /min Brittan y Block height E&M 66 [in_i] June Block weight E&M 339 [lb_av] June Block ALLERGIES Allergy Name Onset Date Reaction Criticality Status MORPHINE High Criticality active METFORMIN High Criticality active HISTORY OF MEDICATION USE Medication Status Instructions Dates Provider Indications Com ments rosuvastatin 10 mg tablet completed Take 1 tablet by mouth once a day TAKE 1 TABLET DAILY - Hasmukh Ahmedzai pantoprazole 40 mg tablet,delayed release (DR/EC) active Hasmukh Ahmedzai magnesium oxide 400 mg (241.3 mg magnesium) tablet active Hasmukh Ahmedzai potassium chloride 10 mEq capsule, extended release active Hasmukh Ahmedzai nitroglycerin 0.4 mg tablet, sublingual active Hasmukh Ahmedzai glimepiride 4 mg tablet active Hasmukh Ahmedzai fluconazole 150 mg tablet active Hasmukh Ahmedzai amlodipine 10 mg tablet completed TAKE 1 TABLET BY MOUTH EVERY DAY - Sarah Gilmore ibuprofen 800 mg tablet active 1 tablet by mouth three times a day Sherrill Johnson Trintellix 20 mg tablet active 1 tablet by mouth once a day Sherrill Johnson SOCIAL HISTORY Date Observation Value Provider Exercise counseling yes Lina malone NP social history E&M S moking History: P atanh currently smokes every day. Hasmukh Gillespie social history reviewed E&M revi ewed - no changes required Hasmukh Gillespie smoking, date started 1999 Sherrill Johnson smoking history, tot al pack/day 1 Sherrill Johnson cigarette use yes Sherrill méndez smoking status Current every day smoker K kathyrn Johnson alcohol use, average drinks per day <1 June Block alcohol use yes June Block smoking, date started 1999 Latasha ny Block smoking history, tot al pack/day 1 June Block cigarette use yes June Block smoking status Current every day smoker B campos Laws FAMILY HISTORY Family Member Condition Father Family History Unkno wn Mother Family History of Co ngestive Heart Failure: Mother Family History of Hy pertension: Mother Family History of Di abetes: Mother Family History of CV A or Stroke: INSURANCE PROVIDERS Payer name Policy type / Coverage type Luis Manuel red democrat [place] [employer]ICA[employer] Medicaid [id number] ADVANCE DIRECTIVES Name Date DISCUSSED - NO DECISION MADE TREATMENT PLAN Date Name Performer [id number],C,P lans for gastric sleeve surgery. Stress test 12/2020 negative for ischemia. Patient is acceptable risk for surgery. Lina Escoto NP [id number],S,per PCP Ciera Escoto NP [id number],B, Hasmukh Abarcaza i [id number],S, Hasmukh Abarcaza i [id number],S, Hasmukh Ahmedza i Electrophysiology:Pl ans for gastric sleeve surgery. Stress test 12/2020 negative for ischemia. Patient is acceptable risk for surgery. Lina Escoto NP Electrophysiology:per PCP Lina Escoto NP Electrophysiology Hasmukh Ahmedzai Electrophysiology Hasmukh Ahmedzai Electrophysiology Hasmukh Ahmedzai Cardiology:atypical c heck echo s tress test Nolan Daigle DO Cardiology:echo Nolan murphy DO Cardiology:nonspecif ic probably weight related changes. Nolan Daigle DO Cardiology:looking f or bariatric surgeon b rosey does not take her insurance Nolan Daigle DO Date Name Complete Echo LIPID PANEL CBC (INCLUDES DIFF/P LT) COMPREHENSIVE METABO LIC PANEL, W/EGFR Complete Echo Complete Echo Stress Regadenoson HISTORY OF PROCEDURES Procedure Date Procedure Name Provider Procedure Notes S tatus EKG Willie You MD comp leted EKG Nolan Daigle DO completed
--- OUTSIDE RECORDS SUMMARY | 2024-08-14 15:12 | XMS_ITS | Referral Summary ---
Author Organization [facility] Address [address] [place] [address] Care Team Providers Care Work Manager Name Role Phone Maribell Dowling Nayan RELATIONSHIP MANAGER-PUFF IRON OPERATOR Primary Care Provider Source Comments [facility],non-owned Affiliates and Associated Physician Practices is amultiple site organization consisting of ambulatory clinics and hospital sitesin [place], [place], [place] and [place]. This disclosure is being madepursuant to the Care Everywhere program and may not contain all information available regarding this patient. Last updated 18.[facility] Encounters Date Type Department Care Team Description 05/22/2024 Telephone [facility] Weight Management Services [address] [place] [phone] Corry Tam MD Appointment 05/17/2024 Telephone [facility] [address] [place] [phone] Corry Tam MD Appointment from Last 3 Months Allergies Active Allergy Reactions Criticality Noted Date Comments Codeine Vomiting 05/10/2023 Per pt - vomiting and flushing Egg-Pro Fever,Vomiting 11/01/2021 Body aching Hydrocodone Vomiting 05/10/2023 Lisinopril Swelling 11/01/2021 Metformin Other 09/30/2021 Low blood sugar, disorientation Morphine Other 09/30/2021 Small dose too effective Nsaids Other Medium 05/10/2023 Previous sleeve gastrectomy; contraindication Medications * Be aware that medications may not be up to date on this document. Alwaysverify current medications with the patient. Medication Sig Dispensed Refills Start Date End Date Status doxycycline hyclate (VIBRAMYCIN) 100 MG tablet Take 1 (one) tablet by mouth once daily 06/20/2021 Active magnesium oxide (MAG-OX) 400 (241.3 Mg) MG tablet Take 1 (one) tablet by mouth once daily 06/20/2021 Active medroxyPROGESTERon e Acetate (DEPO-PROVERA IM) Inject into muscle Every 90 days Active Aimovig 70 MG/ML auto injector pen Inject 1 mL subcutaneously every 30 days 03/24/2022 Active gabapentin (Neurontin) 300 MG capsule Take 1 (one) capsule by mouth at bedtime Active ubrogepant (Ubrelvy) 50 MG tablet Take 1 (one) tablet by mouth once as needed for Migraine Maximum daily dose: 200mg/24 hours Active gabapentin (Neurontin) 100 MG capsule 09/21/2022 Active clindamycin (Cleocin) 1 % lotion 05/25/2022 Active clotrimazole (Lotrimin AF) 1 % cream 1 APPLIC TOPICALLY TWICE A DAY FOR 4 WEEKS 05/06/2022 Active Anti-Fungal 1 % powder APPLY TO AFFECTED AREA TWICE A DAY FOR 4-6 WEEKS NEEDED 05/17/2022 Active Trintellix 20 MG tablet 05/04/2023 Active Trulicity 0.75 MG/0.5ML injection INJECT 0.75 MG SUBCUTANEOUSLY ONE TIME PER WEEK 04/06/2023 Active fluconazole (Diflucan) 150 MG tablet TAKE 1 TABLET EVERY 7 DAYS X 5 DOSES 04/12/2023 Active hydrocortisone (Hytone) 2.5 % cream MIX 50:50 WITH KETOCONAZOLE CREAM AND APPLY TWICE DAILY TO RASH UNDERNEATH ABDOMEN 10/26/2022 Active lamoTRIgine (LaMICtal) 100 MG tablet Take 1 (one) tablet by mouth 05/02/2023 Active Linzess 145 MCG capsule 05/09/2023 Active meloxicam (Mobic) 15 MG tablet 05/08/2023 Active spironolactone (Aldactone) 50 MG tablet Take 1 (one) tablet by mouth once daily 03/22/2023 Active ARIPiprazole (Abilify) 10 MG tablet TAKE 1 TABLET BY MOUTH EVERY DAY FOR 30 DAYS 05/02/2023 Active Active Problems Problem Noted Date Diagnosed Date Morbid obesity 04/05/2022 Social History Tobacco Use Types Packs/Day Years Used Date Smoking Tobacco: Former Cigarettes Q uit: 09/22/2021 Smokeless Tobacco: Never Tobacco Cessation:Counseling Given: Not Answered Alcohol Use Standard Drinks/Week Comments Not Currently 0 (1 standard drink = 0.6 oz pur e alcohol) Sex and Gender Information Value Date Recorded Sex Assigned at Not on file Gender Identity Not on file Sexual Orientation Not on file Last Filed Vital Signs Vital Sign Reading Time Taken Comments Blood Pressure 120/78 05/10/2023 1:41 PM CDT Pulse 66 05/10/2023 1:41 PM CDT Temperature 36.3 C (97.3 F) 05/10/2023 1:41 PM CDT Respiratory Rate 20 05/10/2023 1:41 PM CDT Oxygen Saturation 98% 09/23/2022 10: 46 AM CDT Inhaled Oxygen Concentration - - Weight 108.5 kg (239 lb 4.8 oz) 05/10/2023 1:41 PM CDT Height 169.8 cm (5' 6.85 ) 05/10/2023 1:41 PM CD T Body Mass Index 37.65 05/10/2023 1:41 PM CDT Plan of Treatment Not on file Procedures Procedure Name Priority Date/Time Associated Diagnosis Comments HEMOGLOBIN A1C Routine 09/23/2022 11:31 AM CDT Type 2 diabetes mellitus without complication, without long-term current use of insulin (HCC) Status post laparoscopic sleeve gastrectomy Obesity (BMI 30-39.9) Intestinal malabsorption following gastrectomy (HCC) LIPID PROFILE Routine 09/23/2022 11:31 AM CDT Status post laparoscopic sleeve gastrectomy Obesity (BMI 30-39.9) Intestinal malabsorption following gastrectomy (HCC) from Last 3 Months or Most Recently Relevant to Health Maintenance Results * (ABNORMAL) HEMOGLOBIN A1C (09/23/2022 11:31 AM CDT) Hemoglobin A1c 6.4(H) 4.2 - 5.6 % 09/23/2022 12:02 PM CDT [facility] Estimated Average Glucose 137 mg/dL 09/23/2022 12:02 PM CDT [facility] Blood BLOOD SPECIMEN / Unknown Lab Venipuncture / Unknown 09/23/2022 11:31 AM CDT 09/23/2022 11:42 AM CDT Narrative [facility] - 09/23/2022 12:02 PM CDT HbA1c Interpretation: Normal: < 5.7% Pre-diabetes: 5.7-6.4% Diabetes: Equal to or greater than 6.5% Test results diagnostic of diabetes should be repeated for confirmation. Treatment target values recommended by ADA and other clinical organizations should be used to evaluate metabolic control in patients. This test should not replace glucose testing for patients with Type 1 diabetes, pediatric patients, or women. Falsely low HbA1c results may be observed in patients with clinical conditions that shorten erythrocyte life span or decrease mean erythrocyte age such as the presence of unstable hemoglobin variants, elevated hemoglobin F level or other causes of hemolytic anemia. HbA1c may not accurately reflect glycemic control when clinical conditions that affect erythrocyte survival are present. Severe Iron deficiency anemia may yield falsely high results. Hemoglobin A1c assay should not be used to diagnose or monitor diabetes in patients with malignancy, recent blood transfusion, chronic kidney or liver disease. This method may yield falsely low results when hemoglobin (HbF) exceeds 5% in the specimen. The [employer] assay for the measurement of HbA1c is a National Glycohemoglobin Standardization Program (NGSP) certified method. Zoila Stein RELATIONSHIP MANAGER-[facility] LAB - CHEMISTRY ORDERABLES Performing Organization Address City/State/[facility] Co de Phone Number [facility] [address] * (ABNORMAL) LIPID PROFILE (09/23/2022 11:31 AM CDT) [facility] Cholesterol 170 <200 mg/dL 09/23/2022 12:16 PM CDT [facility] Triglycerides 115 <150 mg/dL 09/23/2022 12:16 PM CDT [facility] HDL Cholesterol 35(L) >40 mg/dL 12:16 PM CDT [facility] Chol HDL Ratio 4.9 1.0 - 6.0 09/23/2022 12:16 PM CDT [facility] LDL Calculated 112 65 - 130 mg/dL 09/23/2022 12:16 PM CDT [facility] VLDL Calculated 23 <=30 mg/dL 3 12:16 PM CDT [facility] Blood BLOOD SPECIMEN / Unknown Lab Venipuncture / Unknown 09/23/2022 11:31 AM CDT 09/23/2022 11:42 AM CDT Narrative [facility] - 09/23/2022 12:16 PM CDT Lipid Profile Comment: CHOLESTEROL LEVEL..................CLINICAL INTERPRETATION LESS THAN 200 MG/DL..............................DESIRABLE 200-239 MG/DL..............................BORDERLINE HIGH GREATER THAN 240 MG/DL................................HIGH LDL-CHOLESTEROL LEVEL..............CLINICAL INTERPRETATION LESS THAN 100 MG/DL................................OPTIMAL 100-129 MG/DL.................................NEAR OPTIMAL GREATER THAN 160 MG/DL...........................HIGH RISK HDL RISK LEVEL GREATER THEN 60 MG/DL............................DECREASED 40-60 MG/DL........................................AVERAGE LESS THAN 40 MG/DL...............................INCREASED TRIGLYCERIDE LEVEL..................CLINICAL INTERPRETATION LESS THAN 150 MG/DL...............................DESIRABLE 150-199 MG/DL...............................BORDERLINE HIGH 200-499 MG/DL..........................................HIGH GREATER THAN 500..................................VERY HIGH THE NATIONAL CHOLESTEROL EDUCATION PROGRAM HAS SET THE ABOVE GUIDELINES (REFERANCE VALUES) FOR CHOLESTEROL AND HDL. RISK ASSOCIATED WITH CHOLESTEROL/HDL RATIOS RISK....................MALE RATIO.............FEMALE RATIO 1/2 AVERAGE.................<3.4.......................<3.3 LOW RISK.................... 4.0 ...................... 3.8 AVERAGE..................... 5.0 ...................... 4.5 2X AVERAGE.................. 9.5 ...................... 7.0 3X AVERAGE...................>23........................>11 Zoila Stein APRN-PUFF IRON OPERATOR LAB - CHEMISTRY ORDERABLES [facility] [address] from Last 3 Months or Most Recently Relevant to Health Maintenance Advance Directives * Full Code (Latest Code Status on File) Date Activated Date Inactivated Comments 04/05/2022 10:44 AM 04/06/2022 4:30 PM Care Teams Work Manager Relationship Specialty Start Date End Date Maribell Dowling APRN-CNP [address] [place] [phone] PCP - General Nurse Practitioner Family 09/30/21
--- OUTSIDE RECORDS SUMMARY | 2024-08-14 15:12 | XMS_ITS | Clinical Summary ---
Author Organization [facility] Address [address] [address] Care Team Providers Care Tare Man Name Role Phone Maribell Dowling Nayan MANAGER DATABASE-DIRECTOR OF STATE Primary Care Provider Source Comments [facility],non-owned Affiliates and Associated Physician Practices is amultiple site organization consisting of ambulatory clinics and hospital sitesin [place], [place], [place] and [place]. This disclosure is being madepursuant to the Care Everywhere program and may not contain all information available regarding this patient. Last updated 18.[facility] [place] Allergies Active Allergy Reactions Criticality Noted Date [...] Noted Date Diagnosed Date Morbid obesity 04/05/2022 Encounters Date Type Department Care Team Description 05/22/2024 Telephone [facility] Weight Management Services [address] [place] [address] Corry Tam MD Appointment 05/17/2024 Telephone [facility] Weight Management Services [address] [place] [phone] Corry Tam MD Appointment from Last 3 Months Family History Medical History Relation Name Comments Cancer Maternal Grandmother Diabetes; unknown type Maternal Grandmother Heart Failure Maternal Grandmother CAD (Coronary Artery Disease) Mother Cancer Mother Diabetes; unknown type Mother Heart Failure Mother Cancer Paternal Grandfather Cancer Paternal Grandmother Diabetes; unknown type Paternal Grandmother Relation Name Status Comments Maternal [...] 05/10/2023 1:41 PM CDT Plan of Treatment Health Maintenance Due Date Last Done Comments MAMMOGRAM 1982 PAP SMEAR 1982 HIV SCREENING 1997 HEPATITIS C SCREENING 04/24/2000 DTAP/TDAP/TD VACCINES (1 - Tdap) 2001 HEPATITIS B VACCINE (1 of 3 - 19+ 3-dose series) 2001 COVID-19 VACCINE (3 - 2023- season) 2024 11/20/2020, 10/30/2020 INFLUENZA VACCINE (#1) 2024 06/06/2016 DEPRESSION SCREENING 07/10/2024 SCREENING FOR DIABETES 09/23/2025 3, 09/23/2022, 04/06/2022, Additional history exists LIPID TESTING 09/24/2027 09/23/2022 ZOSTER VACCINE (1 of 2) 2032 HIB VACCINE Aged Out No longer eligi ble based on patient's age to complete this topic HPV VACCINE Aged Out No longer eligi ble based on patient's age to complete this topic MENINGOCOCCAL (Group B) VACCINE Aged Out No longer eligible based on patient's age to complete this topic MENINGOCOCCAL VACCINE Aged Out No rickie alex eligible based on patient's age to complete this topic PNEUMOCOCCAL VACCINE Aged Out No long er eligible based on patient's age to complete [...] - 5.6 % 09/23/2022 12:02 PM CDT [facility] Estimated Average Glucose 137 mg/dL 09/23/2022 12:02 PM CDT [facility] Blood BLOOD SPECIMEN / Unknown Lab Venipuncture / Unknown 09/23/2022 11:31 AM CDT 09/23/2022 11:42 AM CDT Narrative [facility] - 09/23/2022 12:02 PM CDT HbA1c [...] exceeds 5% in the specimen. The [employer] assay for the measurement of HbA1c is a National Glycohemoglobin Standardization Program (NGSP) certified method. Zoila Stein MANAGER DATABASE-DIRECTOR OF STATE LAB - CHEMISTRY ORDERABLES Performing Organization Address City/State/[facility] Co de Phone Number [facility] [address] * (ABNORMAL) LIPID PROFILE (09/23/2022 11:31 AM CDT) [facility] Cholesterol 170 <200 mg/dL 09/23/2022 12:16 PM CDT [facility] Triglycerides 115 <150 mg/dL 09/23/2022 12:16 PM CDT [facility] HDL Cholesterol 35(L) >40 mg/dL 3 12:16 PM CDT [facility] Chol HDL Ratio 4.9 1.0 - 6.0 09/23/2022 12:16 PM CDT [facility] LDL Calculated 112 65 - 130 mg/dL 09/23/2022 12:16 PM CDT [facility] VLDL Calculated 23 <=30 mg/dL 3 12:16 PM CDT [facility] Blood BLOOD SPECIMEN / Unknown Lab Venipuncture / Unknown 09/23/2022 11:31 AM CDT 09/23/2022 11:42 AM CDT Narrative [facility] - 09/23/2022 12:16 PM CDT Lipid [...] 9.5 ...................... 7.0 3X AVERAGE...................>23........................>11 Zoila Stein MANAGER DATABASE-DIRECTOR OF STATE LAB - CHEMISTRY ORDERABLES Performing Organization Address City/State/[facility] Co de Phone Number [facility] [address] [place] [address], [facility] from Last 3 Months or Most Recently Relevant to Health Maintenance Advance Directives * Full Code (Latest Code Status on File) Date Activated Date Inactivated Comments 04/05/2022 10:44 AM 04/06/2022 4:30 PM Care Teams Tare Man Relationship Specialty Start Date End Date Maribell Dowling, MANAGER DATABASE-DIRECTOR OF STATE [address] [phone] [phone] PCP - General Nurse Practitioner Family 09/30/21
--- OUTSIDE RECORDS SUMMARY | 2024-08-14 15:12 | XMS_ITS | Patient Health Summary ---
Author Organization [facility] Address [address] [place] [address] Care Team Providers Care Mat Puncher Name Role Phone Maribell Dowling Nayan SEVILLA-SYNTHETIC FILAMENT EXTRUDER Primary Care Provider Note from [facility],non-owned Affiliates and Associated Physician Practices is amultiple site organization consisting of ambulatory clinics and hospital sitesin [place], [place] and [place]. This disclosure is being madepursuant to the Care Everywhere program and may not contain all information available regarding this patient. Last updated 18.[facility] Allergies * Codeine(Vomiting) * Egg-Pro(Fever,Vomiting) * Hydrocodone(Vomiting) * Lisinopril(Swelling) * Metformin(Other) * Morphine(Other) * Nsaids(Other) -Medium Criticality Medications * Be aware that medications may not be up to date on this document. Alwaysverify current medications with the patient. * doxycycline hyclate (VIBRAMYCIN) 100 MG tablet(Started 06/20/2021) Take 1 (one) tablet by mouth once daily * magnesium oxide (MAG-OX) 400 (241.3 Mg) MG tablet(Started 06/20/2021) Take 1 (one) tablet by mouth once daily * medroxyPROGESTERone Acetate (DEPO-PROVERA IM) Inject into muscle Every 90 days * Aimovig 70 MG/ML auto injector pen(Started 03/24/2022) Inject 1 mL subcutaneously every 30 days * gabapentin (Neurontin) 300 MG capsule Take 1 (one) capsule by mouth at bedtime * ubrogepant (Ubrelvy) 50 MG tablet Take 1 (one) tablet by mouth once as needed for Migraine Maximum daily dose: 200mg/24 hours * gabapentin (Neurontin) 100 MG capsule(Started 09/21/2022) * clindamycin (Cleocin) 1 % lotion(Started 05/25/2022) * clotrimazole (Lotrimin AF) 1 % cream(Started 05/06/2022) 1 APPLIC TOPICALLY TWICE A DAY FOR 4 WEEKS * Anti-Fungal 1 % powder(Started 05/17/2022) APPLY TO AFFECTED AREA TWICE A DAY FOR 4-6 WEEKS NEEDED * Trintellix 20 MG tablet(Started 05/04/2023) * Trulicity 0.75 MG/0.5ML injection(Started 04/06/2023) INJECT 0.75 MG SUBCUTANEOUSLY ONE TIME PER WEEK * fluconazole (Diflucan) 150 MG tablet(Started 04/12/2023) TAKE 1 TABLET EVERY 7 DAYS X 5 DOSES * hydrocortisone (Hytone) 2.5 % cream(Started 10/26/2022) MIX 50:50 WITH KETOCONAZOLE CREAM AND APPLY TWICE DAILY TO RASH UNDERNEATH ABDOMEN * lamoTRIgine (LaMICtal) 100 MG tablet(Started 05/02/2023) Take 1 (one) tablet by mouth * Linzess 145 MCG capsule(Started 05/09/2023) * meloxicam (Mobic) 15 MG tablet(Started 05/08/2023) * spironolactone (Aldactone) 50 MG tablet(Started 03/22/2023) Take 1 (one) tablet by mouth once daily * ARIPiprazole (Abilify) 10 MG tablet(Started 05/02/2023) TAKE 1 TABLET BY MOUTH EVERY DAY FOR 30 DAYS Active Problems Problem Noted Date Diagnosed Date [...] Mass Index 37.65 05/10/2023 1:41 PM CDT Procedures * LAB MISC TEST(Performed 05/25/2023) * PHOSPHORUS BLOOD(Performed 05/25/2023) Performed for Class 2 severe obesity due to excess calories with serious comorbidity and body mass index (BMI) of 37.0 to 37.9 in adult ([facility]), Type 2 diabetes mellitus without complication, without long-term current use of insulin ([facility]), Intestinal malabsorption following gastrectomy ([facility]), Status post laparoscopic sleeve gastrectomy * PTH INTACT+CALCIUM(Performed 05/25/2023) Performed for Class 2 severe obesity due to excess calories with serious comorbidity and body mass index (BMI) of 37.0 to 37.9 in adult ([facility]), Type 2 diabetes mellitus without complication, without long-term current use of insulin ([facility]), Intestinal malabsorption following gastrectomy ([facility]), Status post laparoscopic sleeve gastrectomy * VITAMIN B1(Performed 05/25/2023) Performed for Class 2 severe obesity due to excess calories with serious comorbidity and body mass index (BMI) of 37.0 to 37.9 in adult ([facility]), Type 2 diabetes mellitus without complication, without long-term current use of insulin ([facility]), Intestinal malabsorption following gastrectomy ([facility]), Status post laparoscopic sleeve gastrectomy * MAGNESIUM BLOOD(Performed 05/25/2023) Performed for Class 2 severe obesity due to excess calories with serious comorbidity and body mass index (BMI) of 37.0 to 37.9 in adult ([facility]), Type 2 diabetes mellitus without complication, without long-term current use of insulin ([facility]), Intestinal malabsorption following gastrectomy ([facility]), Status post laparoscopic sleeve gastrectomy * FERRITIN(Performed 05/25/2023) Performed for Class 2 severe obesity due to excess calories with serious comorbidity and body mass index (BMI) of 37.0 to 37.9 in adult ([facility]), Type 2 diabetes mellitus without complication, without long-term current use of insulin ([facility]), Intestinal malabsorption following gastrectomy ([facility]), Status post laparoscopic sleeve gastrectomy * CBC W AUTO DIFFERENTIAL(Performed 05/25/2023) Performed for Class 2 severe obesity due to excess calories with serious comorbidity and body mass index (BMI) of 37.0 to 37.9 in adult ([facility]), Type 2 diabetes mellitus without complication, without long-term current use of insulin (HCC), Intestinal malabsorption following gastrectomy ([facility]), Status post laparoscopic sleeve gastrectomy, Iron deficiency anemia, unspecified iron deficiency anemia type * IRON + TRANSFERRIN PANEL(Performed 05/25/2023) Performed for Class 2 severe obesity due to excess calories with serious comorbidity and body mass index (BMI) of 37.0 to 37.9 in adult ([facility]), Type 2 diabetes mellitus without complication, without long-term current use of insulin (HCC), Intestinal malabsorption following gastrectomy (HCC), Status post laparoscopic sleeve gastrectomy, Iron deficiency anemia, unspecified iron deficiency anemia type * LAB MISC TEST(Performed 05/08/2023) * FOLATE(Performed 03/10/2023) Performed for Folate deficiency, Vitamin D deficiency * VITAMIN D 25-HYDROXY(Performed 03/10/2023) Performed for Folate deficiency, Vitamin D deficiency * HEMOGLOBIN A1C(Performed 09/23/2022) Performed for Type 2 diabetes mellitus without complication, without long-term current use of insulin (HCC), Status post laparoscopic sleeve gastrectomy, Obesity (BMI 30-39.9), Intestinal malabsorption following gastrectomy (HCC) * VITAMIN D 25-HYDROXY(Performed 09/23/2022) Performed for Status post laparoscopic sleeve gastrectomy, Obesity (BMI 30- 39.9), Intestinal malabsorption following gastrectomy (HCC) * VITAMIN B12 FOLATE PANEL(Performed 09/23/2022) Performed for Status post laparoscopic sleeve gastrectomy, Obesity (BMI 30- 39.9), Intestinal malabsorption following gastrectomy (HCC) * VITAMIN B1(Performed 09/23/2022) Performed for Status post laparoscopic sleeve gastrectomy, Obesity (BMI 30- 39.9), Intestinal malabsorption following gastrectomy (HCC) * PTH INTACT+CALCIUM(Performed 09/23/2022) Performed for Status post laparoscopic sleeve gastrectomy, Obesity (BMI 30- 39.9), Intestinal malabsorption following gastrectomy (HCC) * PHOSPHORUS BLOOD(Performed 09/23/2022) Performed for Status post laparoscopic sleeve gastrectomy, Obesity (BMI 30- 39.9), Intestinal malabsorption following gastrectomy (HCC) * CBC W AUTO DIFFERENTIAL(Performed 09/23/2022) Performed for Status post laparoscopic sleeve gastrectomy, Obesity (BMI 30- 39.9), Intestinal malabsorption following gastrectomy (HCC) * COMPREHENSIVE METABOLIC PANEL(Performed 09/23/2022) Performed for Status post laparoscopic sleeve gastrectomy, Obesity (BMI 30- 39.9), Intestinal malabsorption following gastrectomy (HCC) * FERRITIN(Performed 09/23/2022) Performed for Status post laparoscopic sleeve gastrectomy, Obesity (BMI 30- 39.9), Intestinal malabsorption following gastrectomy (HCC) * IRON + TRANSFERRIN PANEL(Performed 09/23/2022) Performed for Status post laparoscopic sleeve gastrectomy, Obesity (BMI 30- 39.9), Intestinal malabsorption following gastrectomy (HCC) * LIPID PROFILE(Performed 09/23/2022) Performed for Status post laparoscopic sleeve gastrectomy, Obesity (BMI 30- 39.9), Intestinal malabsorption following gastrectomy (HCC) * MAGNESIUM BLOOD(Performed 09/23/2022) Performed for Status post laparoscopic sleeve gastrectomy, Obesity (BMI 30- 39.9), Intestinal malabsorption following gastrectomy (HCC) * CARDIAC RHYTHM STRIP ORDER(Performed 04/07/2022) * MAGNESIUM BLOOD(Performed 04/06/2022) Performed for Morbid obesity (HCC) * GLUCOSE - POINT OF CARE(Performed 04/06/2022) * GLUCOSE - POINT OF CARE(Performed 04/06/2022) * HEMOGLOBIN A1C(Performed 04/06/2022) Performed for Morbid obesity (HCC) * PHOSPHORUS BLOOD(Performed 04/06/2022) Performed for Morbid obesity (HCC) * MAGNESIUM BLOOD(Performed 04/06/2022) Performed for Morbid obesity (HCC) * COMPREHENSIVE METABOLIC PANEL(Performed 04/06/2022) Performed for Morbid obesity (HCC) * CBC W AUTO DIFFERENTIAL(Performed 04/06/2022) Performed for Morbid obesity (HCC) * MAGNESIUM BLOOD(Performed 04/05/2022) Performed for Morbid obesity (HCC) * GLUCOSE - POINT OF CARE(Performed 04/05/2022) * GLUCOSE - POINT OF CARE(Performed 04/05/2022) * PHOSPHORUS BLOOD(Performed 04/05/2022) Performed for Morbid obesity (HCC) * MAGNESIUM BLOOD(Performed 04/05/2022) Performed for Morbid obesity (HCC) * COMPREHENSIVE METABOLIC PANEL(Performed 04/05/2022) Performed for Morbid obesity (HCC) * CBC W AUTO DIFFERENTIAL(Performed 04/05/2022) Performed for Morbid obesity (HCC) * GLUCOSE - POINT OF CARE(Performed 04/05/2022) * GROSS + MICRO EXAM (ILL)(Performed 04/05/2022) Performed for Morbid obesity (HCC) * ROBOTIC ASSISTED GASTRECTOMY (LONGITUDINAL/SLEEVE)(Performed 04/05/2022) Performed for Morbid obesity (HCC) * GLUCOSE - POINT OF CARE(Performed 04/05/2022) * HCG URINE QUALITATIVE - POCT (IP) BEAKER - ILL(Performed 04/05/2022) * TYPE + SCREEN PANEL(Performed 03/29/2022) Performed for Morbid obesity (HCC), Preop examination, Obesity, morbid, BMI 40.0-49.9 (HCC) * NICOTINE + METABOLITES BLOOD(Performed 03/29/2022) Performed for Tobacco dependence * BASIC METABOLIC PANEL (CALCIUM TOTAL)(Performed 03/29/2022) Performed for Morbid obesity (HCC), Preop examination, Obesity, morbid, BMI 40.0-49.9 (HCC) * CBC W AUTO DIFFERENTIAL(Performed 03/29/2022) Performed for Morbid obesity (HCC), Preop examination, Obesity, morbid, BMI 40.0-49.9 (HCC) * VITAMIN B1(Performed 01/12/2022) Performed for Pre-op exam * GLUCOSE - POINT OF CARE(Performed 01/05/2022) * GROSS + MICRO EXAM (ILL)(Performed 01/05/2022) Performed for Gastroesophageal reflux disease, unspecified whether esophagitis present * VT EGD FLEX TRANSORAL W BX SNGL OR MULT(Performed 01/05/2022) Performed for Gastroesophageal reflux disease, unspecified whether esophagitis present * GLUCOSE - POINT OF CARE(Performed 01/05/2022) * HCG URINE QUALITATIVE(Performed 01/05/2022) Performed for Pre-op testing * GLUCOSE - POINT OF CARE(Performed 01/05/2022) * NICOTINE + METABOLITES BLOOD(Performed 11/30/2021) Performed for Tobacco dependence, Preop examination * EKG(Performed 10/26/2021) * XR CHEST 2VW(Performed 10/26/2021) * LAB MISC TEST(Performed 10/19/2021) * LAB MISC TEST(Performed 10/19/2021) Results * LAB MISC TEST (05/25/2023) Only the most recent of4 resultswithin the time period is included. Blood BLOOD SPECIMEN / Unknown Historical Provider MD LAB SEND OUT * PTH INTACT+CALCIUM (05/25/2023) Only the most recent of2 resultswithin the time period is included. Blood BLOOD SPECIMEN / Unknown 05/25/2023 [facility] - CHEMISTRY ORDERABLES Performing Organization Address City/[facility] Co de Phone Number OTHER LAB * VITAMIN B1 (05/25/2023) Only the most recent of3 resultswithin the time period is included. Blood BLOOD SPECIMEN / Unknown 05/25/2023 [facility] - CHEMI[facility]Y ORDERAB[facility] Performing Organization Address City/[facility] Co de Phone Number OTHER LAB * CBC WITH DIFFERENTIAL (05/25/2023) Only the most recent of5 resultswithin the time period is included. Blood BLOOD SPECIMEN / Unknown 05/25/2023 [facility] - HEMATOLOGY ORDERABLES Performing Organization Address City/[facility] Co de Phone Number OTHER LAB * PHOSPHORUS BLOOD (05/25/2023) Only the most recent of4 resultswithin the time period is included. Blood BLOOD SPECIMEN / Unknown 05/25/2023 Zoilasj Wileyy SEQUENCING MACHINE OPERATOR-SYNTHETIC FILAMENT EXTRUDER LAB - CHEMISTRY ORDERABLES OTHER LAB * MAGNESIUM BLOOD (05/25/2023) Only the most recent of6 resultswithin the time period is included. Blood BLOOD SPECIMEN / Unknown 05/25/2023 Zoila R Stein SEQUENCING MACHINE OPERATOR-SYNTHETIC FILAMENT EXTRUDER LAB - CHEMISTRY ORDERABLES OTHER LAB * IRON + TRANSFERRIN PANEL (05/25/2023) Only the most recent of2 resultswithin the time period is included. Blood BLOOD SPECIMEN / Unknown 05/25/2023 Zoila Stein APRN-[facility] LAB - CHEMISTRY ORDERABLES Performing Organization Address City/[facility]/ZIP Co de Phone Number OTHER LAB * FERRITIN (05/25/2023) Only the most recent of2 resultswithin the time period is included. Blood BLOOD SPECIMEN / Unknown 05/25/2023 Zoila Stein APRN-[facility] LAB - CHEMISTRY ORDERABLES OTHER LAB * VITAMIN D 25-HYDROXY (03/10/2023) Only the most recent of2 resultswithin the time period is included. Blood BLOOD SPECIMEN / Unknown 03/10/2023 Zoila Stein APRN-[facility] LAB - CHEMISTRY ORDERABLES [facility] [address], [place] [address] * FOLATE (03/10/2023) Blood BLOOD SPECIMEN / Unknown 03/10/2023 Zoila Wileyy [facility] - CHEMISTRY ORDERABLES Performing Organization Address [facility] Co de Phone Number [facility] [address] * (ABNORMAL) HEMOGLOBIN A1C (09/23/2022 11:31 AM CDT) Only the most recent of2 resultswithin the time period is included. Hemoglobin A1c 6.4(H) 4.2 - 5.6 % 09/23/2022 12:02 PM CDT [facility] Estimated Average Glucose 137 mg/dL 09/23/2022 12:02 PM CDT [facility] Blood BLOOD SPECIMEN / Unknown Lab Venipuncture / Unknown 09/23/2022 11:31 AM CDT 09/23/2022 11:42 AM CDT Narrative [facility] - 09/23/2022 12:02 PM CDT HbA1c [...] exceeds 5% in the specimen. The [employer] assay for the measurement of HbA1c is a National Glycohemoglobin Standardization Program (NGSP) certified method. Zoila Lopez Stein [facility] - CHEMISTRY ORDERABLES Performing Organization Address [facility] Co de Phone Number [facility] [address] * (ABNORMAL) COMPREHENSIVE METABOLIC PANEL (09/23/2022 11:31 AM [facility]) Only the most recent of3 resultswithin the time period is included. [facility] Signature Glucose 135(H) 70 - 125 mg/dL 09/23/2022 12:16 PM [facility] Sodium 139 136 - 145 mmol/L 09/23/2022 12:16 PM [facility] Potassium 3.9 3.4 - 5.1 mmol/L 09/23/2022 12:16 PM [facility] Chloride 106 98 - 107 mmol/L 09/23/2022 12:16 PM [facility] CO2 25 22 - 29 mmol/L 09/23/2022 12:16 PM [facility] Calcium 9.6 8.4 - 10.2 mg/dL 09/23/2022 12:16 PM [facility] Anion Gap 12 10 - 20 mmol/L 09/23/2022 12:16 PM [facility] BUN 8.1(L) 9.8 - 20.1 mg/dL 09/23/2022 12:16 PM [facility] Creatinine 0.74 0.57 - 1.11 mg/dL 09/23/2022 12:16 PM [facility] Alkaline Phosphatase 78 40 - 150 U/L 09/23/2022 12:16 PM [facility] ALT 14 5 - 55 U/L 09/23/2022 12:16 PM [facility] AST 9 5 - 34 U/L 09/23/2022 12:16 PM [facility] Protein Total 6.9 6.4 - 8.3 gm/dL 09/23/2022 12:16 PM [facility] Albumin 3.6 3.5 - 5.0 gm/dL 09/23/2022 12:16 PM [facility] Globulin Total 3.3 2.6 - 4.0 gm/dL 09/23/2022 12:16 PM [facility] Albumin/Globulin Ratio 1.1 0.9 - 1.6 09/23/2022 12:16 PM [facility] Bilirubin Total 0.6 0.2 - 1.2 mg/dL 09/23/2022 12:16 PM [facility] eGFR >90 >90 mL/min/1.7 3m2 09/23/2022 12:16 PM CDT [facility] Comment:The GFR result was c alculated using the updated CKD-EPI Creatinine Equation (2020). Blood BLOOD SPECIMEN / Unknown Lab Venipuncture / Unknown 09/23/2022 11:31 AM CDT 09/23/2022 11:42 AM CDT Zoila Stein [facility] - CHEMISTRY ORDERABLES Performing Organization Address [facility] de Phone Number [facility] [address] [place] [address] * (ABNORMAL) VITAMIN B12 FOLATE PANEL (09/23/2022 11:31 AM CDT) Vitamin B12 237 213 - 816 pg/mL 09/23/2022 12:38 PM CDT [facility] Folate 6.1(L) 7.0 - 31.4 ng/mL 09/23/2022 12:38 PM CDT [facility] Blood BLOOD SPECIMEN / Unknown Lab Venipuncture / Unknown 09/23/2022 11:31 AM CDT 09/23/2022 11:42 AM CDT Zoila Stein [facility] - CHEMISTRY ORDERABLES Performing Organization Address [facility] de Phone Number [facility] [address] [place] [address] * (ABNORMAL) LIPID PROFILE (09/23/2022 11:31 AM CDT) Cholesterol 170 <200 mg/dL 09/23/2022 12:16 PM CDT [facility] Triglycerides 115 <150 mg/dL 09/23/2022 12:16 PM CDT [facility] HDL Cholesterol 35(L) >40 mg/dL 3 12:16 PM CDT [facility] Chol HDL Ratio 4.9 1.0 - 6.0 09/23/2022 12:16 PM CDT [facility] LDL Calculated 112 65 - 130 mg/dL 09/23/2022 12:16 PM CDT [facility] VLDL Calculated 23 <=30 mg/dL 3 12:16 PM CDT [facility] Blood BLOOD SPECIMEN / Unknown Lab Venipuncture / Unknown 09/23/2022 11:31 AM CDT 09/23/2022 11:42 AM CDT [facility] - 09/23/2022 12:16 PM CDT Lipid [...] 9.5 ...................... 7.0 3X AVERAGE...................>23........................>11 Zoila Stein SEQUENCING MACHINE OPERATOR-SYNTHETIC FILAMENT EXTRUDER LAB - CHEMISTRY ORDERABLES [facility] [address], [place] [id number] [place] [address] * CARDIAC RHYTHM STRIP ORDER (04/07/2022 11:38 AM CDT) Narrative 04/07/2022 11:38 AM CDT Ordered by an unspecified provider. Scanned Document CARDIAC SERVICES ORD ERABLES * (ABNORMAL) GLUCOSE - POINT OF CARE (04/06/2022 12:11 PM CDT) Only the most recent of9 resultswithin the time period is included. Glucose WB/POC 159(H) 70 - 125 mg/dL 04/06/2022 12:13 PM CDT [facility] Specimen Type Cap Fingerstick 2021 12:13 PM CDT [facility] Blood BLOOD SPECIMEN / Unknown 04/06/2022 12:11 PM CDT 04/06/2022 12:13 PM CDT Crory Tam MD LAB - POINT OF C ARE ORDERABLES [facility] [address] * GROSS + MICRO EXAM (ILL) (04/05/2022 9:06 AM CDT) Only the most recent of2 resultswithin the time period is included. Pathologist [facility] Case Report Surgical Pathology Report Case: [id number] Authorizing Provider: Corry Tam MD Collected: 04/05/2022 09:06 AM Ordering Location: [facility] PERIOP Received: 04/05/2022 11:30 AM Pathologist: Alana Stephens MD Specimen: Stomach 04/06/2022 8:45 AM CDT [facility] Final Diagnosis Stomach, sleeve gastrectomy - No histopathologic abnormality 04/06/2022 8:45 AM CDT [facility] Microscopic Description and Comment Microscopic examination substantiates the above diagnosis. Gross evaluation and prosection of this specimen was performed at [facility], [address] [place] [address] (CLIA # [id number]). Tissue processing and slide preparation was performed at [facility], [address] [place] [address] (CLIA # [id number]). Interpretation of this case is performed by [facility] Pathology at [facility], [address] [place] [address] (CLIA # [id number]). 04/06/2022 8:45 AM CDT [facility] Clinical History The patient is a 41-year-old woman with morbid obesity. Operative procedure: sleeve gastrectomy. 04/06/2022 8:45 AM CDT [facility] Gross Description The requisition and specimen(s) are identified with the patient's name, Randee Lazo. Received in formalin, specimen stomach , is a stapled portion of stomach 20.8 x 4.3 x 2.9 cm demonstrating pink-elliott to focally hemorrhagic and smooth to focally roughened serosa with scant attached yellow-elliott perigastric adipose tissue. Opening reveals pink-elliott to focally hemorrhagic mucosa with prominent rugal folds. The wall thickness is 0.1-0.2 cm. Music Director sections are submitted in cassettes A1-A2 with sections subjacent to the staple line in A1. AW 04/06/2022 8:45 AM CDT [facility] Disclaimer All histochemical and/or immune results are interpreted with controls that demonstrate appropriate staining reactions before reporting results. Note on use of immunocytochemistry reagents: This test was developed and its performance characteristic determined by [facility], Department of Laboratory Medicine. It has not been cleared or approved by the US Food and Drug Administration (FDA). The FDA has determined that such clearance or approval is not necessary. The test is used for clinical purpose. It should not be regarded as investigational or for research. This laboratory is certified to perform high complexity testing. H&E slides, special stains and Immunohistochemical stains were prepared at [facility] - and case was interpreted by the [facility] Department of Pathology at [facility] at [address] [facility], [place] [address] 04/06/2022 8:45 AM CDT [facility] Embedded Images 04/06/2022 8:45 AM CDT [facility] Pathology/Cytolo gy ENTIRE STOMACH / Unknown 04/05/2022 9:06 AM CDT 04/05/2022 11:30 AM CDT Comment:Pre-op diagnosis: Morbid obesity [E66.01] Corry Tam MD LAB - PATHOLOGY/ CYTOLOGY ORDERABLES Performing Organization Address [facility]/ZIP Co de Phone Number [facility] [address] * HCG URINE QUALITATIVE - POCT (IP) BEAKER - ILL (04/05/2022 6:20 AM CDT) [facility] HCG Qual Urine Negative Negative [facility] Lot # [id number] [facility] Expiration Date 05/09/23 [facility] QC Verified Yes Yes [facility] POC T TESTING Urine URINE / Unknown 04/05/2022 6 :20 AM CDT Nelsy Vickers APRN-SYNTHETIC FILAMENT EXTRUDER LAB - POINT OF C ARE ORDERABLES Performing Organization Address [facility] Co de Phone Number [facility] [address] * TYPE + SCREEN PANEL (03/29/2022 1:19 PM CDT) [facility] ABO Rh B POS 03/29/2022 2:20 PM CDT [facility] Antibody Screen NEG 2 2:20 PM CDT [facility] BLOOD BANK Blood Bank BLOOD SPECIMEN / Unknown Venipuncture / Unknown 03/29/2022 1:19 PM CDT 03/29/2022 1:22 PM CDT Nelsy Vickers SEQUENCING MACHINE OPERATOR-SYNTHETIC FILAMENT EXTRUDER LAB - BLOOD BANK ORDERABLES Performing Organization Address [facility] Co de Phone Number [facility] BLOOD B[facility] [address] * NICOTINE + METABOLITES BLOOD (03/29/2022 1:19 PM CDT) Only the most recent of2 resultswithin the time period is included. [facility] Nicotine <5 ng/mL 04/03/2022 12:41 AM CDT [facility] ([facility]) Comment: INTERPRETIVE INFORMATION: Nicotine and Metabolites, Serum or Plasma, Quantitative Methodology: Quantitative Liquid Chromatography-Tandem Mass Spectrometry Positive cutoff: 5 ng/mL For medical purposes only; not valid for forensic use. This test is designed to evaluate recent use of nicotine-containing products. Passive and active exposure cannot be discriminated definitively, although a cutoff of 10 ng/mL cotinine is frequently used for surgery qualification purposes. For smoking cessation programs or compliance testing, the absence of expected drug(s) and/or drug metabolite(s) may indicate non-compliance, inappropriate timing of specimen collection relative to drug administration, poor drug absorption, or limitations of testing. This test cannot distinguish between use of tobacco and purified nicotine products. The concentration value must be greater than or equal to the cutoff to be reported as positive. This test was developed and its performance characteristics determined by [facility]. It has not been cleared or approved by the [place] Food and Drug Administration. This test was performed in a CLIA certified laboratory and is intended for clinical purposes. Performed By: [facility] [address] [place] [address] Software Support Technician: Jose Ramon Maya MD, PhD Cotinine 32 ng/mL 04/03/2022 12:41 AM CDT [facility] ([facility]) Comment: Consistent with use of a nicotine-containing product within 1 week of specimen collection. Cotinine is the major metabolite of nicotine. The half-life of cotinine is approximately 16 hours. Blood BLOOD SPECIMEN / Unknown Venipuncture / Unknown 03/29/2022 1:19 PM CDT 03/29/2022 1:22 PM CDT Lydia Mcdaniels SEQUENCING MACHINE OPERATOR-SYNTHETIC FILAMENT EXTRUDER LAB - VIKTORIYA CATHERINE ORDERABLES [facility] [employer] ([facility]) [address] * (ABNORMAL) BASIC METABOLIC PANEL (CALCIUM TOTAL) (03/29/2022 1:19 PM CDT) Pathologist [facility] Glucose 157(H) 70 - 125 mg/dL 03/29/2022 1:48 PM CDT [facility] Sodium 138 136 - 145 mmol/L 03/29/2022 1:48 PM CDT [facility] Potassium 3.9 3.4 - 5.1 mmol/L 03/29/2022 1:48 PM CDT [facility] Chloride 108(H) 98 - 107 mmol/L 03/29/2022 1:48 PM CDT [facility] CO2 22 22 - 29 mmol/L 03/29/2022 1:48 PM CDT [facility] Calcium 9.30 8.4 - 10.2 mg/dL 03/29/2022 1:48 PM CDT [facility] Anion Gap 12 10 - 20 mmol/L 03/29/2022 1:48 PM CDT [facility] BUN 12.6 9.8 - 20.1 mg/dL 03/29/2022 1:48 PM CDT [facility] Creatinine 0.78 0.57 - 1.11 mg/dL 03/29/2022 1:48 PM CDT [facility] eGFR by MDRD >60 >60 mL/min/1.7 3m2 03/29/2022 1:48 PM CDT [facility] eGFR by MDRD >60 >60 mL/min/1.7 3m2 03/29/2022 1:48 PM CDT [facility] Blood BLOOD SPECIMEN / Unknown Venipuncture / Unknown 03/29/2022 1:19 PM CDT 03/29/2022 1:22 PM CDT Nelsy Vickers SEQUENCING MACHINE OPERATOR-SYNTHETIC FILAMENT EXTRUDER LAB - CHEMISTRY ORDERABLES Performing Organization Address [facility]/State/[facility] Co de Phone Number [facility] [address] * (ABNORMAL) HCG URINE QUALITATIVE (01/05/2022 10:16 AM CDT) hCG Qualitative Urine Negative Negative 01/05/2022 10:24 AM CDT [facility] Specific [place] UA 1.048(H) 1.005 - 1.030 01/05/2022 10:24 AM CDT [facility] Urine URINE / Unknown Collection / Unknown 01/05/2022 10:16 AM CDT 01/05/2022 10:16 AM CDT Narrative [facility] - 01/05/2022 10:24 AM CDT Erna Garibay MD LAB - URINALY SIS ORDERABLES [facility] [address] * EKG (10/26/2021) Historical Provider SCANNING ONLY * XR CHEST 2VW (10/26/2021) Anatomical Region Laterality Modality Chest Other Historical Provider DIAGNOSTIC CORTEZ Cameron ORDERABLES Care Teams Mat Puncher Relationship Specialty Start Date End Date Maribell Dowling, SEQUENCING MACHINE OPERATOR-SYNTHETIC FILAMENT EXTRUDER [address] [place] [address] PCP - General Nurse Practitioner Family 09/30/21
--- NOTE | 2024-08-14 17:05 | ECG_ITS ---
Test Date: 2024-08-14 17:09:09 Measurements Intervals [place] Rate: 55 P: 10 KS: 178 QRS: 38 QRSD: 82 T: 46 QT: 409 QTc: 393 Interpretive Statements SINUS BRADYCARDIA LOW QRS VOLTAGE IN PRECORDIAL LEADS CONSIDER ANTERIOR INFARCT, AGE INDETERMINATE ABNORMAL ECG Compared to ECG 01/25/2024 23:06:38 Low QRS voltage now present Electronically Signed On 08-14-2024 17:58:31 BOARD OF DIRECTORS by Scotty Vásquez D.O.
--- NOTE | 2024-08-14 17:15 | ED.SOB ---
HPI - SOB/Dyspnea General Chief Complaint: Shortness of Breath/Dyspnea <Pushpa Carrillo APRN - Last Filed: 08/14/24 17:22> Stated Complaint: hard time breathing <Pushpa Carrillo APRN - Last Filed: 08/14/24 17:22> Time Seen by Provider: 08/14/24 17:00 <Pushpa Carrillo APRN - Last Filed: 08/14/24 17:22> Focused HPI: Patient is a 44-year-old female who endorses chest pain started approximately 1:00 a.m. this afternoon. She also endorses shortness of breath. Patient reports ?I think I have something around my lungs? and ?it's hard to swallow while and it feels like my neck is swelling? and ?my ears hurt. She endorses a history of depression, anxiety, high blood pressure, diabetes, and gastric sleeve. Patient also endorses an intermittent headache for the past 2 weeks. She denies any abdominal pain, urinary symptoms, recent fevers, back pain. GENERAL: Well-appearing, well-nourished, and in no acute distress. HEAD: Normocephalic, atraumatic. CHEST: Clear to auscultation. ?No respiratory distress. HEART: Regular rate and rhythm.? NEURO: ?Alert and oriented x3. Patient screened in triage and initial orders placed.? ?Additional care and disposition to be based upon?diagnostic testing and treatment. <Pushpa Carrillo APRN - Last Filed: 08/14/24 17:22> Related Data Home Medications: Home Medications ?Medication ?Instructions ?Recorded ?Confirmed ?Last Taken ?Type lorazepam 0.5 mg tablet 0.5 mg PO DAILY PRN Agitation 05/13/19 10/24/22 02/21/22 21:00 History montelukast 10 mg tablet 10 mg PO DAILY 06/11/20 10/24/22 02/22/22 08:00 History insulin glargine 100 unit/mL (3 50 unit subcut HS 12/09/20 10/24/22 02/21/22 21:00 History mL) subcutaneous pen (Lantus Solostar U-100 Insulin) vortioxetine 10 mg tablet 10 mg PO DAILY 08/31/21 10/24/22 02/22/22 08:00 History (Trintellix) amlodipine 10 mg tablet 10 mg PO DAILY 02/23/22 10/24/22 02/22/22 08:00 History aripiprazole 2 mg tablet 2 mg PO DAILY 02/23/22 10/24/22 02/22/22 08:00 History ergocalciferol (vitamin D2) 1,250 1,250 mcg PO WEEKLY 02/23/22 10/24/22 02/22/22 08:00 History mcg (50,000 unit) capsule magnesium oxide 400 mg (241.3 mg 400 mg PO DAILY 02/23/22 10/24/22 02/22/22 08:00 History magnesium) tablet rosuvastatin 10 mg tablet 10 mg PO DAILY 02/23/22 10/24/22 02/22/22 08:00 History erenumab-aooe 70 mg/mL 70 mg subcut USEASDIRECTD 10/24/22 10/24/22 Unknown History subcutaneous auto-injector (Aimovig Autoinjector) ubrogepant 50 mg tablet (Ubrelvy) 50 mg PO USEASDIRECTD 10/24/22 10/24/22 Unknown History doxycycline hyclate 100 mg capsule mg 01/25/24 Unknown History erenumab-aooe 70 mg/mL mg subcut 01/25/24 Unknown History subcutaneous auto-injector (Aimovig Autoinjector) gabapentin 100 mg capsule mg 01/25/24 Unknown History gabapentin 300 mg capsule mg 01/25/24 Unknown History hydroxyzine HCl 25 mg tablet mg 01/25/24 Unknown History lamotrigine 100 mg tablet mg 01/25/24 Unknown History linaclotide 145 mcg capsule mcg 01/25/24 Unknown History (Linzess) sertraline 50 mg tablet mg 01/25/24 Unknown History sertraline 50 mg tablet mg 01/25/24 Unknown History spironolactone 100 mg tablet mg 01/25/24 Unknown History spironolactone 50 mg tablet mg 01/25/24 Unknown History <Pushpa Carrillo, ASSEMBLY SUPERVISOR - Last Filed: 08/14/24 17:22> Allergies/Adverse Reactions: Allergies Allergy/AdvReac Type Severity Reaction Status Date / Time lisinopril Allergy Severe angioedema Verified 07/18/24 19:38 morphine Allergy Intermediate Unresponsiv Verified 01/25/24 19:38 e metformin AdvReac Unknown Vomiting Verified 01/25/24 19:38 <Pushpa Carrillo APRN - Last Filed: 08/14/24 17:22> Review of Systems Review of Systems: All systems as dictated in HPI <Morteza West PA-C - Last Filed: 08/15/24 02:47> REPLACED BY [facility] Past Medical History Medical History: Medical History Arthritis of spine Depression Diabetes Hidradenitis suppurativa HTN (hypertension) Migraine WINNIE (obstructive sleep apnea) <Pushpa Carrillo APRN - Last Filed: 08/14/24 17:22> Surgical History Surgical History: Surgical History H/O gastric sleeve History of ear surgery Eustachian tubes <Pushpa Carrillo APRN - Last Filed: 08/14/24 17:22> Family History Family History: Family History Grandparent Diabetes mellitus Hypertension Family history of cardiovascular disease Family history of arthritis Family history of lung cancer Family history of primary malignant neoplasm of liver Family history of malignant neoplasm of breast in first degree relative Mother Diabetes mellitus Hypertension Family history of cardiovascular disease Family history of malignant neoplasm of ovary Cerebrovascular accident PAD (peripheral artery disease) Heart disease HLD (hyperlipidemia) Sibling Family history of arthritis Father Hypertension Heart disease HLD (hyperlipidemia) Other Carcinoma of colon Family history of alcoholism Family history of blood dyscrasia Family history of malignant neoplasm of urinary bladder Family history of mental disorder Family history of seizure disorder Malignant neoplasm of prostate <Pushpa Carrillo APRN - Last Filed: 08/14/24 17:22> Social History Social History: Social History Social History: Patient lives at home with and 1 child. Patient would like her surrogate to be Christopher her . Patient also stated that she look forward is her mother and can also be contacted if needed. Patient has lots of animals including 4 cats, 1 dog, 2 birds, and 1 fish. 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 Gender identity (if verbalized by the patient): Female Sexual Orientation (if Verbalized by the Patient): Straight or Heterosexual Spiritual care concerns: No <Pushpa Carrillo ASSEMBLY SUPERVISOR - Last Filed: 08/14/24 17:22> Exam Narrative: GENERAL: Well-appearing, well-nourished, and in no acute distress. HEAD: Normocephalic, atraumatic. EYES: PERRLA and EOMI. ENT: Nares clear, no rhinorrhea or epistaxis. Mucous membranes moist. Oropharynx without tonsillar hypertrophy exudate or other lesions. NECK: Supple. No adenopathy or masses. CHEST: No respiratory distress. Clear to auscultation. No wheezes rales or rhonchi HEART: Regular rate and rhythm. No murmur heard. Normal peripheral pulses. ABDOMEN: Soft, nontender, nondistended, normal active bowel sounds. MSK: Normal range of motion. No edema. SKIN: Warm, dry, no rash. NEURO: Alert and oriented x4. No focal deficits. PSYCH: Normal mood and affect. <Morteza West PA-C - Last Filed: 08/15/24 02:47> Course Vital Signs Vital signs: Vital Signs Temperature 98.3 F 08/14/24 14:28 Pulse Rate 60 08/14/24 14:28 Respiratory Rate 18 08/14/24 14:28 Blood Pressure 135/81 08/14/24 14:28 Pulse Oximetry 100 08/14/24 14:28 Temperature 98.1 F 08/15/24 01:22 Pulse Rate 66 08/15/24 01:22 Respiratory Rate 17 08/15/24 01:22 Blood Pressure 133/83 08/15/24 01:22 Pulse Oximetry 99 08/15/24 01:22 Oxygen Delivery Room Air 08/15/24 00:56 <Pushpa Carrillo APRN - Last Filed: 08/14/24 17:22> Vital Signs Temperature 98.3 F 08/14/24 14:28 Pulse Rate 60 08/14/24 14:28 Respiratory Rate 18 08/14/24 14:28 Blood Pressure 135/81 08/14/24 14:28 Pulse Oximetry 100 08/14/24 14:28 Temperature 98.1 F 08/15/24 01:22 Pulse Rate 66 08/15/24 01:22 Respiratory Rate 17 08/15/24 01:22 Blood Pressure 133/83 08/15/24 01:22 Pulse Oximetry 99 08/15/24 01:22 Oxygen Delivery Room Air 08/15/24 00:56 <Morteza West PA-C - Last Filed: 08/15/24 02:47> MDM - SOB/Dyspnea MDM Narrative Medical decision making narrative: This is a 44-year-old female who presents to the ED for pleuritic chest pain. Vitals are normal. Exam is benign. EKG shows a sinus bradycardia with no acute ischemia. Lab work shows mild hemoconcentration on the CBC but a normal white count. Troponin is negative. D-dimer negative. Chest x-ray shows no acute findings. Presentation likely consistent with pleurisy. Patient will be discharged in stable condition. Supportive measures discussed and return precautions given. Patient is understanding and agreeable with plan for discharge with PCP follow-up. <Morteza West PA-C - Last Filed: 08/15/24 02:47> Lab Data Result diagrams: 08/14/24 22:28 08/14/24 22:28 <Pushpa Carrillo APRN - Last Filed: 08/14/24 17:22> Labs: Lab Results 08/14/24 Range/Units 22:28 WBC 7.9 (4.5-10.0) K/mm3 RBC 5.26 (4.2-5.4) M/mm3 Hgb 15.5 H (12.0-15.0) g/dL Hct 47.2 H (37.0-47.0) % MCV 89.7 (80-100) fl MCH 29.5 (26-34) pg MCHC 32.8 (32-36) g/dl RDW 14.1 (11.5-14.5) % Plt Count 322 (150-375) k/mm3 MPV 9.9 (7.4-10.4) fl Immature Gran % (Auto) 0.3 (0-0.5) % Neut % (Auto) 62.9 (45.5-73.1) % Lymph % (Auto) 30.5 (18.3-44.2) % [place] % (Auto) 4.7 (2.6-8.5) % Eos % (Auto) 1.3 (0-4.4) % Baso % (Auto) 0.3 (0.2-1.2) % Lymph # (Auto) 2.40 (0.9-3.2) K/mm3 [place] # (Auto) 0.4 (0.1-0.6) K/mm3 Eos # (Auto) 0.1 (0-0.3) K/mm3 Baso # (Auto) 0.0 (0.0-0.1) K/mm3 Abs Immat Gran (auto) 0.02 (0.00-0.031) K/mm3 Absolute Neuts (auto) 5.0 (1.3-6.7) K/mm3 Absolute Nucleated RBC 0.000 (0.0-0.012) K/mm3 Nucleated RBC % 0.0 (0.0-0.2) % PT 14.3 (11.1-14.7) Seconds INR 1.1 APTT 28.3 (22.3-36.8) Seconds D-Dimer 0.29 (<0.48) ug/mL Sodium 136 L (137-145) mmol/L Potassium 4.0 (3.4-5.0) mmol/L Chloride 103 (98-107) mmol/L Carbon Dioxide 26 (22-30) mmol/L Anion Gap 7 (4-12) mmol/L BUN 7 (7-17) mg/dL Creatinine 0.60 L (0.7-1.0) mg/dL Estim Creat Clear Calc 125 ml/min Estimated GFR > 60 (59 - ) Glucose 105 (65-110) mg/dL Calcium 9.5 (8.4-10.2) mg/dL Total Bilirubin 0.6 (0.2-1.3) mg/dL AST 17 (14-36) U/L ALT 16 (6-35) U/L Alkaline Phosphatase 60 (38-126) U/L Troponin I < 0.012 (0.000-0.034) ng/mL NT-Pro-B Natriuret Pep 29 (19.9-100) pg/mL Total Protein 7.0 (6.3-8.2) g/dL Albumin 4.0 (3.5-5.1) g/dL Urine Color Dark yellow (Yellow) Urine Appearance Cloudy H (Clear) Urine pH 5.0 (5.0-9.0) Ur Specific [place] 1.028 (1.001-1.035) Urine Protein Negative (Negative) mg/dL Urine Glucose (UA) 1+ H (Negative) mg/dL Urine Ketones Trace H (Negative) mg/dL Ur Blood (Man) Negative (Negative) Urine Nitrate Negative (Negative) Urine Bilirubin Negative (Negative) Urine Urobilinogen 1.0 (<2.0) mg/dL Add Ur Microanalysis Reviewed Leukocyte Esterase Rfl Trace H (Negative) SHINE/UL Urine RBC 3-5 H (0-2) /hpf Urine WBC 0-5 (0-3) /hpf Ur Squamous Epith Cells Moderate (Few) /hpf Urine Bacteria 1+ H /hpf Urine Casts 3-5 Influenza A (RT-PCR) Negative (Negative) Influenza B (RT-PCR) Negative (Negative) RSV (RT-PCR) Negative (Negative) SARS-CoV-2 RNA (RT-PCR) Negative (Negative) <Pushpa Carrillo, ASSEMBLY SUPERVISOR - Last Filed: 08/14/24 17:22> Lab Results 08/14/24 Range/Units 22:28 WBC 7.9 (4.5-10.0) K/mm3 RBC 5.26 (4.2-5.4) M/mm3 Hgb 15.5 H (12.0-15.0) g/dL Hct 47.2 H (37.0-47.0) % MCV 89.7 (80-100) fl MCH 29.5 (26-34) pg MCHC 32.8 (32-36) g/dl RDW 14.1 (11.5-14.5) % Plt Count 322 (150-375) k/mm3 MPV 9.9 (7.4-10.4) fl Immature Gran % (Auto) 0.3 (0-0.5) % Neut % (Auto) 62.9 (45.5-73.1) % Lymph % (Auto) 30.5 (18.3-44.2) % [place] % (Auto) 4.7 (2.6-8.5) % Eos % (Auto) 1.3 (0-4.4) % Baso % (Auto) 0.3 (0.2-1.2) % Lymph # (Auto) 2.40 (0.9-3.2) K/mm3 [place] # (Auto) 0.4 (0.1-0.6) K/mm3 Eos # (Auto) 0.1 (0-0.3) K/mm3 Baso # (Auto) 0.0 (0.0-0.1) K/mm3 Abs Immat Gran (auto) 0.02 (0.00-0.031) K/mm3 Absolute Neuts (auto) 5.0 (1.3-6.7) K/mm3 Absolute Nucleated RBC 0.000 (0.0-0.012) K/mm3 Nucleated RBC % 0.0 (0.0-0.2) % PT 14.3 (11.1-14.7) Seconds INR 1.1 APTT 28.3 (22.3-36.8) Seconds D-Dimer 0.29 (<0.48) ug/mL Sodium 136 L (137-145) mmol/L Potassium 4.0 (3.4-5.0) mmol/L Chloride 103 (98-107) mmol/L Carbon Dioxide 26 (22-30) mmol/L Anion Gap 7 (4-12) mmol/L BUN 7 (7-17) mg/dL Creatinine 0.60 L (0.7-1.0) mg/dL Estim Creat Clear Calc 125 ml/min Estimated GFR > 60 (59 - ) Glucose 105 (65-110) mg/dL Calcium 9.5 (8.4-10.2) mg/dL Total Bilirubin 0.6 (0.2-1.3) mg/dL AST 17 (14-36) U/L ALT 16 (6-35) U/L Alkaline Phosphatase 60 (38-126) U/L Troponin I < 0.012 (0.000-0.034) ng/mL NT-Pro-B Natriuret Pep 29 (19.9-100) pg/mL Total Protein 7.0 (6.3-8.2) g/dL Albumin 4.0 (3.5-5.1) g/dL Urine Color Dark yellow (Yellow) Urine Appearance Cloudy H (Clear) Urine pH 5.0 (5.0-9.0) Ur Specific [place] 1.028 (1.001-1.035) Urine Protein Negative (Negative) mg/dL Urine Glucose (UA) 1+ H (Negative) mg/dL Urine Ketones Trace H (Negative) mg/dL Ur Blood (Man) Negative (Negative) Urine Nitrate Negative (Negative) Urine Bilirubin Negative (Negative) Urine Urobilinogen 1.0 (<2.0) mg/dL Add Ur Microanalysis Reviewed Leukocyte Esterase Rfl Trace H (Negative) SHINE/UL Urine RBC 3-5 H (0-2) /hpf Urine WBC 0-5 (0-3) /hpf Ur Squamous Epith Cells Moderate (Few) /hpf Urine Bacteria 1+ H /hpf Urine Casts 3-5 Influenza A (RT-PCR) Negative (Negative) Influenza B (RT-PCR) Negative (Negative) RSV (RT-PCR) Negative (Negative) SARS-CoV-2 RNA (RT-PCR) Negative (Negative) <Morteza West PA-C - Last Filed: 08/15/24 02:47> Discharge Plan Discharge Clinical Impression: Pleuritic chest pain Chest pain Qualifiers: Chest pain type: unspecified Qualified Code(s): R07.9 - Chest pain, unspecified <Pushpa Carrillo APRN - Last Filed: 08/14/24 17:22> Patient Disposition: Home, Self-Care <Pushpa Carrillo APRN - Last Filed: 08/14/24 17:22> Condition: Stable <Pushpa Carrillo APRN - Last Filed: 08/14/24 17:22> Instructions: Antibiotic Form <Pushpa Carrillo APRN - Last Filed: 08/14/24 17:22> Additional Instructions: Your exam and imaging today are reassuring overall. Please take naproxen for pleuritic chest pain. Follow-up PCP closely on this issue. If you have any new or worsening symptoms please return to the ER for further evaluation. <Pushpa Carrillo APRN - Last Filed: 08/14/24 17:22> Patient Language: Kazakh <Pushpa Carrillo APRN - Last Filed: 08/14/24 17:22> Prescriptions: New naproxen 500 mg tablet 500 mg PO BID PRN (Reason: pain) Qty: 30 0RF naproxen 500 mg tablet 500 mg PO BID PRN (Reason: pain) Qty: 30 0RF No Action montelukast 10 mg tablet 10 mg PO DAILY Trintellix 10 mg tablet 10 mg PO DAILY Aimovig Autoinjector 70 mg/mL auto-injector 70 mg SUBCUT USEASDIRECTD Ubrelvy 50 mg tablet 50 mg PO USEASDIRECTD lorazepam 0.5 mg Tablet 0.5 mg PO DAILY PRN (Reason: Agitation) magnesium oxide 400 mg (241.3 mg magnesium) tablet 400 mg PO DAILY amlodipine 10 mg tablet 10 mg PO DAILY ergocalciferol (vitamin D2) 1,250 mcg (50,000 unit) capsule 1,250 mcg PO WEEKLY Rx Instructions: takes on monday rosuvastatin 10 mg tablet 10 mg PO DAILY aripiprazole 2 mg tablet 2 mg PO DAILY docusate sodium 100 mg Capsule 100 mg PO Q12HR Qty: 30 0RF clotrimazole 1 % cream 1 applic topical BID 28 Days Qty: 30 0RF doxycycline hyclate 100 mg capsule spironolactone 100 mg tablet gabapentin 300 mg capsule hydroxyzine HCl 25 mg tablet gabapentin 100 mg capsule sertraline 50 mg tablet sertraline 50 mg tablet lamotrigine 100 mg tablet spironolactone 50 mg tablet Linzess 145 mcg capsule Aimovig Autoinjector 70 mg/mL auto-injector SUBCUT insulin glargine [Lantus Solostar U-100 Insulin] 100 unit/mL (3 mL) insulin pen 50 unit SUBCUT HS <Pushpa Carrillo APRN - Last Filed: 08/14/24 17:22> Follow-up/Referrals: Satnam,Marta Zavaleta, ASSEMBLY SUPERVISOR [Primary Care Provider] - <Pushpa Carrillo APRN - Last Filed: 08/14/24 17:22> Stand Alone Forms: Work/School Release IP <Pushpa Carrillo APRN - Last Filed: 08/14/24 17:22> Time of Disposition: 01:11 <Pushpa Carrillo APRN - Last Filed: 08/14/24 17:22> 01:11 <Morteza West PA-C - Last Filed: 08/15/24 02:47> Quality HEART score for chest pain patients History: slightly suspicious <Morteza West PA-C - Last Filed: 08/15/24 02:47> ECG: normal <Morteza West PA-C - Last Filed: 08/15/24 02:47> Age: < or = to 45 years <Morteza West PA-C - Last Filed: 08/15/24 02:47> Risk factors: 1 or 2 risk factors <Morteza West PA-C - Last Filed: 08/15/24 02:47> Troponin: < or = to 1x normal limit <Morteza West PA-C - Last Filed: 08/15/24 02:47> Heart score: 1 <Morteza West PA-C - Last Filed: 08/15/24 02:47>
[2024-08-14 22:35] LABS: Basophils Percent Auto 0.3 % (0.2-1.2); Eosinophils Absolute Auto 0.1 K/mm3 (0-0.3); Eosinophils Percent Auto 1.3 % (0-4.4); Hematocrit 47.2 % (37.0-47.0); Hemoglobin 15.5 g/dL (12.0-15.0); Immature Granulocyte Absolute 0.02 K/mm3 (0.00-0.031); Immature Granulocyte Percent A 0.3 % (0-0.5); Lymphocytes Percent Auto 30.5 % (18.3-44.2); Mean Corpuscular HGB Conc 32.8 g/dl (32-36); Mean Corpuscular Hemoglobin 29.5 pg (26-34); Mean Corpuscular Volume 89.7 fl (80-100); Mean Platelet Volume 9.9 fl (7.4-10.4); Monocytes Absolute Auto 0.4 K/mm3 (0.1-0.6); Monocytes Percent Auto 4.7 % (2.6-8.5); Neutrophils Percent Auto 62.9 % (45.5-73.1); Platelet Count Result 322 k/mm3 (150-375); Red Blood Count 5.26 M/mm3 (4.2-5.4); Red Cell Distribution Width 14.1 % (11.5-14.5); White Blood Count 7.9 K/mm3 (4.5-10.0)
[2024-08-14 22:52] LABS: INR 1.1; Prothrombin Time 14.3 Seconds (11.1-14.7)
[2024-08-14 22:53] LABS: Partial Thromboplastin Time 28.3 Seconds (22.3-36.8)
[2024-08-14 22:57] LABS: D Dimer 0.29 ug/mL (<0.48); Troponin I < 0.012 ng/mL (0.000-0.034)
[2024-08-14 23:08] LABS: Add Urine Microscopic? YES; Appearance Urine Cloudy (Clear); Bacteria Urine 1+ /hpf; Bilirubin Urine Negative (Negative); Blood Urine Negative (Negative); Color Urine Dark Yellow (Yellow); Glucose Urine UA 1+ mg/dL (Negative); Ketones Urine Trace mg/dL (Negative); Leukocyte Esterase Ur Trace LEU/UL (Negative); Need Manual Microscopic Reviewed; Nitrate Urine Negative (Negative); Protein Urine Negative (Negative); Specific Grav Ur 1.028 (1.001-1.035); Squamous Epithelial Cell Urine Moderate /hpf (Few); WBC Urine 0-5 /hpf (0-3)
[2024-08-14 23:11] LABS: Influenza A QL RT-PCR Negative (Negative); Influenza B QL RT-PCR Negative (Negative); RSV RNA, RT-PCR Negative (Negative); SARS-CoV-2 RNA PCR Negative (Negative)
[2024-08-14 23:34] LABS: Alanine Aminotransferase 16 U/L (6-35); Alkaline Phosphatase 60 U/L (38-126); Anion Gap 7 mmol/L (4-12); Aspartate Amino Transferase 17 U/L (14-36); Bilirubin,Total 0.6 mg/dL (0.2-1.3); Blood Urea Nitrogen 7 mg/dL (7-17); Calcium 9.5 mg/dL (8.4-10.2); Carbon Dioxide 26 mmol/L (22-30); Chloride 103 mmol/L (98-107); Estimated CRCL calculation 125 ml/min; Estimated Glomerular Filt Rate > 60; Glucose 105 mg/dL (65-110); Sodium 136 mmol/L (137-145)
[2024-08-14 23:43] LABS: NT Pro B Type Natriuretic Pept 29 pg/mL (19.9-100)
[2024-08-15 00:56] VITALS: O2SAT 99
[2024-08-15 00:58] VITALS: BP 133/83; PULSE 66; RESP 17; O2SAT 99
--- OUTSIDE RECORDS SUMMARY | 2024-08-15 01:03 | XMS_ITS | Referral Summary ---
Author Organization [facility] [address] [place] [id number] Care Team Providers Care Veterinarian Name Role Phone Marta Hay KEY ACCOUNT REPRESENTATIVE Primary Care Provider Allergies Active Allergy Reactions [...] on file Legal Sex Female 2:57 AM HEAT TREATING FURNACE TENDER Gender Identity Not on file Sexual Orientation Not on file Last Filed Vital Signs Vital Sign Reading Time Taken Comments Blood Pressure 123/79 10/26/2022 2:37 PM CDT Pulse 90 10/26/2022 2:37 PM CDT Temperature 37.1 C (98.7 F) 10/26/2022 2:37 PM CDT Respiratory Rate 20 05/25/2022 3:09 PM HEAT TREATING FURNACE TENDER Oxygen Saturation 97% 01/28/2013 1:15 PM CDT Inhaled Oxygen Concentration - - Weight 105.7 kg (233 lb) 10/26/2022 2:37 PM CDT Height 167.6 cm (5' 6 ) 10/26/2022 2:37 PM CDT Body Mass Index 37.61 10/26/2022 2:37 PM CDT Plan of Treatment Not on file Procedures Procedure Name Priority Date/Time Associated Diagnosis Comments HEPATITIS PANEL, ACUTE Routine 06/07/2022 10:15 AM HEAT TREATING FURNACE TENDER High risk medication use from Last 3 Months or Most Recently Relevant to Health Maintenance Results * Hepatitis panel, acute (06/07/2022 10:15 AM HEAT TREATING FURNACE TENDER) Hep A IgM NON-REACTI VE NON-REACT MARIANA [facility] Comment: For additional information, please refer to http://PlaytestCloud.CaseRails/faq/SMG145 (This link is being provided for informational/ [...] a test for HCV RNA (test code 51764) is suggested. For additional information please refer to http://PlaytestCloud.CaseRails/faq/ILK90q3 (This link is being provided for informational/ educational purposes only.) Blood 06/07/2022 10:1 5 AM HEAT TREATING FURNACE TENDER 06/07/2022 10:15 AM HEAT TREATING FURNACE TENDER Narrative [facility] - 06/09/2022 2:50 PM HEAT TREATING FURNACE TENDER FASTING:NO FASTING: NO us Celina Vincent MD LAB MICROBIOLOGY - GENERAL ORDERABLES Final Result [facility] [id number] [address] [id number] from Last 3 Months or Most Recently Relevant to Health Maintenance Insurance [facility] Care Teams Veterinarian Relationship Specialty Start Date End Date Marta Hay NP [address] [place] [address] [place] [address] PCP - General Nurse Practitioner 04/01/24
--- OUTSIDE RECORDS SUMMARY | 2024-08-15 01:03 | XMS_ITS | Clinical Summary ---
Author Organization [facility] [address] [place] [id number] Care Team Providers Care Solar Project Coordination Specialist Name Role Phone Marta Hay MC KAY MACHINE OPERATOR Primary Care Provider Allergies Active Allergy Reactions [...] on file Legal Sex Female 2:57 AM GUEST SERVICES REPRESENTATIVE Gender Identity Not on file Sexual Orientation Not on file Obstetrics History Last Filed Vital Signs Vital Sign Reading Time Taken Comments Blood Pressure 123/79 10/26/2022 2:37 PM CDT Pulse 90 10/26/2022 2:37 PM CDT Temperature 37.1 C (98.7 F) 10/26/2022 2:37 PM CDT Respiratory Rate 20 05/25/2022 3:09 PM GUEST SERVICES REPRESENTATIVE Oxygen Saturation 97% 01/28/2013 1:15 PM CDT [...] HEPATITIS PANEL, ACUTE Routine 06/07/2022 10:15 AM GUEST SERVICES REPRESENTATIVE High risk medication use from Last 3 Months or Most Recently Relevant to Health Maintenance Results * Hepatitis panel, acute (06/07/2022 10:15 AM GUEST SERVICES REPRESENTATIVE) Hep A IgM NON-REACTI VE NON-REACT MARIANA [facility] Comment: For additional information, please refer to http://education.SmartEquip.CPG Soft/faq/HAS813 (This link is being provided for informational/ [...] a test for HCV RNA (test code 21493) is suggested. For additional information please refer to http://education.SmartEquip.CPG Soft/faq/EGA63o8 (This link is being provided for informational/ educational purposes only.) Blood 06/07/2022 10:1 5 AM GUEST SERVICES REPRESENTATIVE 06/07/2022 10:15 AM GUEST SERVICES REPRESENTATIVE Narrative [facility] - 06/09/2022 2:50 PM GUEST SERVICES REPRESENTATIVE FASTING:NO FASTING: NO Celina Vincent MD LAB MICROBIOLOGY - GENERAL ORDERABLES Final Result [facility] [address] [place] [phone] from Last 3 Months or Most Recently Relevant to Health Maintenance [place] [address] [place] [address] [facility] Care Teams Solar Project Coordination Specialist Relationship Specialty Start Date End Date Marta Hay NP [address] [place] [address] [place] [address] PCP - General Nurse Practitioner 04/01/24
--- OUTSIDE RECORDS SUMMARY | 2024-08-15 01:04 | XMS_ITS | CONTINUITY OF CARE DOCUMENT ---
Author Name dillan rosaleezay Address Unknown Organization [facility] Address [address] [place] [address] Phone [phone] Care Team Providers Care Recreation Leader Name Role Phone Nolan Daigle DO Unavailable [phone] MURPHY BOOKY, DELORA Unavailable [phone] MURPHY BOOKY, DELORA Unavailable PROBLEMS Condition Status Date Provider Notes Family History of CVA or Stroke: completed - Sarah Gilmore Family History of Hypertension: completed - Sarah Gilmore Chest pain--stress nuc essence l 12/2020 active Sarah Gilmore Overweight active Nolan Underwood handra DO Dizziness active Nolan Underwood handra DO Abnormal electrocardiogram active Suzanne Daigle DO Diabetes mellitus, type 2 active Sarah Gilmore ENCOUNTERS Date Type Provider Location Encounter Diag nosis - In-person encounter Office Visit Willie You MD [facility] - In-person encounter Office Visit Willie You MD [facility] Family History of CVA or Stroke:Family History of Hypertension:Chest pain--stress nuc normal iabetes mellitus, type 2 - In-person encounter Office Visit Nolan Daigle DO [facility] Chest pain--stress nuc normal 12/2020OverweightDizzine ssAbnormal electrocardiogram VITAL SIGNS Date Observation Value Provider Body Mass Index (Ratio) 49.22 kg/m2 Collins Escoto LINING CASER blood pressure, diastolic 84 mm[Hg] Sh arsen Escoto LINING CASER blood pressure, systolic 152 mm[Hg] She edwina Escoto LINING CASER respiratory rate E&M 20 /min Lina Escoto [...] smoking status Current every day smoker K kathryn Johnson alcohol use, average drinks per day [...] Manuel red democrat [place] [employer] MEDICA[employer] Medicaid [id number] ADVANCE DIRECTIVES Name Date DISCUSSED - NO DECISION MADE TREATMENT PLAN Date Name Performer [id number],C,P lans for gastric sleeve surgery. Stress test 12/2020 negative for ischemia. Patient is acceptable risk for surgery. Lina Escoto NP [id number],S,per PCP Ciera Escoto NP [id number],B, Hasmukh Abarcaza i [phone],S, Hasmukh Abarcaza i [phone],S, Hasmukh Ahmedza i Electrophysiology:Pl ans for gastric [...]
--- OUTSIDE RECORDS SUMMARY | 2024-08-15 01:04 | XMS_ITS | Clinical Summary ---
Author Organization [facility] Address [address] [place] [id number] Care Team Providers Care Carpenter Labor Supervisor Name Role Phone Unavailable Primary Care Provider [...]
--- OUTSIDE RECORDS SUMMARY | 2024-08-15 01:04 | XMS_ITS | Patient Health Summary ---
Author Organization [facility] Address [address] [address] Care Team Providers Care Clinical Dietitian Name Role Phone Maribell Dowling Nayan SEVILLA-STATE EPIDEMIOLOGIST Primary Care Provider Note from [facility],non-owned Affiliates and Associated Physician Practices is amultiple site organization consisting of ambulatory clinics and hospital sitesin [place], [place], [place] and [place]. This disclosure is being madepursuant to the Care Everywhere program and may not contain all information available regarding this patient. Last updated 18.[facility] Allergies * Codeine(Vomiting) * Egg-Pro(Fever,Vomiting) * Hydrocodone(Vomiting) [...] (BMI) of 37.0 to 37.9 in adult ([facility]), Type 2 diabetes mellitus without complication, without long-term current use of insulin ([facility]), Intestinal malabsorption following gastrectomy ([facility]), Status post laparoscopic sleeve gastrectomy * PTH INTACT+CALCIUM(Performed 05/25/2023) Performed for Class 2 severe obesity due to excess calories with serious comorbidity and body mass index (BMI) of 37.0 to 37.9 in adult ([facility]), Type 2 diabetes mellitus without complication, without long-term current use of insulin ([facility]), Intestinal malabsorption following gastrectomy ([facility]), Status post laparoscopic sleeve gastrectomy * VITAMIN B1(Performed 05/25/2023) Performed for Class 2 severe obesity due to excess calories with serious comorbidity and body mass index (BMI) of 37.0 to 37.9 in adult ([facility]), Type 2 diabetes mellitus without complication, without long-term current use of insulin ([facility]), Intestinal malabsorption following gastrectomy ([facility]), Status post laparoscopic sleeve gastrectomy * MAGNESIUM BLOOD(Performed 05/25/2023) Performed for Class 2 severe obesity due to excess calories with serious comorbidity and body mass index (BMI) of 37.0 to 37.9 in adult ([facility]), Type 2 diabetes mellitus without complication, without long-term current use of insulin ([facility]), Intestinal malabsorption following gastrectomy ([facility]), Status post laparoscopic sleeve gastrectomy * FERRITIN(Performed [...] (BMI) of 37.0 to 37.9 in adult ([facility]), Type 2 diabetes mellitus without complication, without long-term current use of insulin ([facility]), Intestinal malabsorption following gastrectomy ([facility]), Status post laparoscopic sleeve gastrectomy, Iron deficiency anemia, unspecified iron deficiency anemia type * IRON + TRANSFERRIN PANEL(Performed 05/25/2023) Performed for Class 2 severe obesity due to excess calories with serious comorbidity and body mass index (BMI) of 37.0 to 37.9 in adult ([facility]), Type 2 diabetes mellitus without complication, without [...] reflux disease, unspecified whether esophagitis present * AR EGD FLEX TRANSORAL W BX SNGL OR [...] BLOOD SPECIMEN / Unknown 05/25/2023 [facility]ila [facility] - CHEMISTRY ORDERABLES Performing Organization Address City/[facility] Co de Phone Number OTHER LAB * VITAMIN B1 (05/25/2023) Only the most recent of3 resultswithin the time period is included. Blood BLOOD SPECIMEN / Unknown 05/25/2023 [facility]ila [facility] - CHEMISTRY ORDERABLES Performing Organization Address City/[facility] Co de Phone Number OTHER LAB * CBC WITH DIFFERENTIAL (05/25/2023) Only the most recent of5 resultswithin the time period is included. Blood BLOOD SPECIMEN / Unknown 05/25/2023 [facility]ila [facility] - HEMATOLOGY ORDERABLES Performing Organization Address City/[facility] Co de Phone Number OTHER LAB * PHOSPHORUS BLOOD (05/25/2023) Only the most recent of4 resultswithin the time period is included. Blood BLOOD SPECIMEN / Unknown 05/25/2023 Zoilasj Wileyy STATISTICIAN APPLIED-STATE EPIDEMIOLOGIST LAB - CHEMISTRY ORDERABLES OTHER LAB * MAGNESIUM BLOOD (05/25/2023) Only the most recent of6 resultswithin the time period is included. Blood BLOOD SPECIMEN / Unknown 05/25/2023 Zoila R Stein STATISTICIAN APPLIED-STATE EPIDEMIOLOGIST LAB - CHEMISTRY ORDERABLES OTHER LAB * IRON + TRANSFERRIN PANEL (05/25/2023) Only the most recent of2 resultswithin the time period is included. Blood BLOOD SPECIMEN / Unknown 05/25/2023 Zoila Stein APRN-[facility] LAB - CHEMISTRY ORDERABLES Performing Organization Address City/[facility]/ZIP Co de Phone Number OTHER LAB * FERRITIN (05/25/2023) Only the most recent of2 resultswithin the time period is included. Blood BLOOD SPECIMEN / Unknown 05/25/2023 Zoila Stein APRN-[facility] LAB - CHEMISTRY ORDERABLES OTHER LAB * VITAMIN D 25-HYDROXY (03/10/2023) Only the most recent of2 resultswithin the time period is included. Blood BLOOD SPECIMEN / Unknown 03/10/2023 Zoila Stein APRN-[facility] LAB - CHEMISTRY ORDERABLES [facility] [address] [place], [place] [address]RUST * FOLATE (03/10/2023) Blood BLOOD SPECIMEN / Unknown 03/10/2023 Zoila Wileyy [facility] LAB - CHEMISTRY ORDERABLES Performing Organization Address [facility] Co de Phone Number [facility] [address] * (ABNORMAL) HEMOGLOBIN A1C (09/23/2022 11:31 AM CDT) Only the most recent of2 resultswithin the time period is included. Hemoglobin A1c 6.4(H) 4.2 - 5.6 % 09/23/2022 12:02 PM CDT [facility] Estimated Average Glucose 137 mg/dL 09/23/2022 12:02 PM CDT [facility] Blood BLOOD SPECIMEN / Unknown Lab Venipuncture / Unknown 09/23/2022 11:31 AM CDT 09/23/2022 11:42 AM CDT Narrative [facility] - 09/23/2022 12:02 PM [...] exceeds 5% in the specimen. The [employer] Economist assay for the measurement of HbA1c is a National Glycohemoglobin Standardization Program (NGSP) certified method. Zoila Lopez Stein [facility] LAB - CHEMISTRY ORDERABLES Performing Organization Address [facility] Co de Phone Number [facility] [address] * (ABNORMAL) COMPREHENSIVE METABOLIC PANEL (09/23/2022 11:31 AM [facility]) Only the most recent of3 resultswithin the time period is included. [facility] Signature Glucose 135(H) 70 - 125 mg/dL 09/23/2022 12:[address] [facility] Sodium 139 136 - 145 mmol/L 09/23/2022 12:[address] [facility] Potassium 3.9 3.4 - 5.1 mmol/L 09/23/2022 12:[address] [facility] Chloride 106 98 - 107 mmol/L 09/23/2022 12:[address] [facility] CO2 25 22 - 29 mmol/L 09/23/2022 12:[address] [facility] Calcium 9.6 8.4 - 10.2 mg/dL 09/23/2022 12:[address] [facility] Anion Gap 12 10 - 20 mmol/L 09/23/2022 12:[address] [facility] BUN 8.1(L) 9.8 - 20.1 mg/dL 09/23/2022 12:[address] [facility] Creatinine 0.74 0.57 - 1.11 mg/dL 09/23/2022 12:[address] [facility] Alkaline Phosphatase 78 40 - 150 U/L 09/23/2022 12:[address] [facility] ALT 14 5 - 55 U/L 09/23/2022 12:[address] [facility] AST 9 5 - 34 U/L 09/23/2022 12:[address] [facility] Protein Total 6.9 6.4 - 8.3 gm/dL 09/23/2022 12:[address] [facility] Albumin 3.6 3.5 - 5.0 gm/dL 09/23/2022 12:[address] [facility] Globulin Total 3.3 2.6 - 4.0 gm/dL 09/23/2022 12:[address] [facility] Albumin/Globulin Ratio 1.1 0.9 - 1.6 09/23/2022 12:[address] [facility] Bilirubin Total 0.6 0.2 - 1.2 mg/dL 09/23/2022 12:[address] [facility] eGFR >90 >90 mL/min/1.7 3m2 09/23/2022 12:16 PM CDT [facility] Comment:The GFR result was c alculated using the updated CKD-EPI Creatinine Equation (2020). Blood BLOOD SPECIMEN / Unknown Lab Venipuncture / Unknown 09/23/2022 11:31 AM CDT 09/23/2022 11:42 AM CDT Zoila Stein [facility] LAB - CHEMISTRY ORDERABLES Performing Organization Address [facility] de Phone Number [facility] [address] [place] [address] * (ABNORMAL) VITAMIN B12 FOLATE PANEL (09/23/2022 11:31 AM CDT) Vitamin B12 237 213 - 816 pg/mL 09/23/2022 12:38 PM CDT [facility] Folate 6.1(L) 7.0 - 31.4 ng/mL 09/23/2022 12:38 PM CDT [facility] Blood BLOOD SPECIMEN / Unknown Lab Venipuncture / Unknown 09/23/2022 11:31 AM CDT 09/23/2022 11:42 AM CDT Zoila Stein [facility] LAB - CHEMISTRY ORDERABLES Performing Organization Address [facility] de Phone Number [facility] [address] [place] [address] * (ABNORMAL) LIPID PROFILE (09/23/2022 11:31 AM CDT) Cholesterol 170 <200 mg/dL 09/23/2022 12:16 PM CDT [facility] Triglycerides 115 <150 mg/dL 09/23/2022 12:16 PM CDT [facility] HDL Cholesterol 35(L) >40 mg/dL 3 12:16 PM CDT [facility] Chol HDL Ratio 4.9 1.0 - 6.0 09/23/2022 12:16 PM CDT [facility] LDL Calculated 112 65 - 130 mg/dL 09/23/2022 12:16 PM CDT [facility] VLDL Calculated 23 <=30 mg/dL 3 12:16 PM CDT [facility] Blood BLOOD SPECIMEN / Unknown Lab Venipuncture / Unknown 09/23/2022 11:31 AM CDT 09/23/2022 11:42 AM CDT [facility] - 09/23/2022 12:16 PM CDT Lipid [...] 9.5 ...................... 7.0 3X AVERAGE...................>23........................>11 Zoila Stein STATISTICIAN APPLIED-STATE EPIDEMIOLOGIST LAB - CHEMISTRY ORDERABLES [facility] [address] [place], [place] [id number] [place] [address] * CARDIAC RHYTHM STRIP ORDER (04/07/2022 11:38 AM CDT) Narrative 04/07/2022 11:38 AM CDT Ordered by an unspecified provider. Scanned Document CARDIAC SERVICES ORD ERABLES * (ABNORMAL) GLUCOSE - POINT OF CARE (04/06/2022 12:11 PM CDT) Only the most recent of9 resultswithin the time period is included. Glucose WB/POC 159(H) 70 - 125 mg/dL 04/06/2022 12:13 PM CDT [facility] Specimen Type Cap Fingerstick 2021 12:13 PM CDT [facility] Blood BLOOD SPECIMEN / Unknown 04/06/2022 12:11 PM CDT 04/06/2022 12:13 PM CDT Corry Tam MD LAB - POINT OF C ARE ORDERABLES [facility] [address] * GROSS + MICRO EXAM (ILL) (04/05/2022 9:06 AM CDT) Only the most recent of2 resultswithin the time period is included. Pathologist [facility] Case Report Surgical Pathology Report Case: [id number] Authorizing Provider: Corry Tam MD Collected: 04/05/2022 09:06 AM Ordering Location: [facility] PERIOP Received: 04/05/2022 11:30 AM Pathologist: Alana Stephens MD Specimen: Stomach 04/06/2022 8:45 AM CDT [facility] Final Diagnosis Stomach, sleeve gastrectomy - No histopathologic abnormality 04/06/2022 8:45 AM CDT [facility] Microscopic Description and Comment Microscopic examination substantiates the above diagnosis. Gross evaluation and prosection of this specimen was performed at [facility], [address] [place] [address] (CLIA # [id number]). Tissue processing and slide preparation was performed at [facility], [address] [place] [address] (CLIA # [id number]). Interpretation of this case is performed by [facility] Pathology at [facility], [address] [place] [address] (CLIA # [id number]). 04/06/2022 8:45 AM CDT [facility] Clinical History The patient is a 41-year-old woman with morbid obesity. Operative procedure: sleeve gastrectomy. 04/06/2022 8:45 AM CDT [facility] Gross Description The requisition and specimen(s) are identified with the patient's name, Randee Lzao. Received in formalin, specimen stomach , is a stapled portion of stomach 20.8 x 4.3 x 2.9 cm demonstrating pink-elliott to focally hemorrhagic and smooth to focally roughened serosa with scant attached yellow-elliott perigastric adipose tissue. Opening reveals pink-elliott to focally hemorrhagic mucosa with prominent rugal folds. The wall thickness is 0.1-0.2 cm. Fermentation Operator sections are submitted in cassettes A1-A2 with sections subjacent to the staple line in A1. AW 04/06/2022 8:45 AM CDT [facility] Disclaimer All histochemical and/or immune results are interpreted with controls that demonstrate appropriate staining reactions before reporting results. Note on use of immunocytochemistry reagents: This test was developed and its performance characteristic determined by [facility], Department of Laboratory Medicine. It has not [...] stains and Immunohistochemical stains were prepared at [facility] - and case was interpreted by the [facility] Department of Pathology at [facility] [place] at [address], [place] [address] 04/06/2022 8:45 AM CDT [facility] Embedded Images 04/06/2022 8:45 AM CDT [facility] Pathology/Cytolo gy ENTIRE STOMACH / Unknown 04/05/2022 9:06 AM CDT 04/05/2022 11:30 AM CDT Comment:Pre-op diagnosis: Morbid obesity [E66.01] Corry Tam MD LAB - PATHOLOGY/ CYTOLOGY ORDERABLES Performing Organization Address [facility]/ZIP Co de Phone Number [facility] [address] * HCG URINE QUALITATIVE - POCT (IP) BEAKER - ILL (04/05/2022 6:20 AM CDT) [facility] HCG Qual Urine Negative Negative [facility] Lot # [id number] [facility] Expiration Date 05/09/23 [facility] QC Verified Yes Yes [facility] POC T TESTING Urine URINE / Unknown 04/05/2022 6 :20 AM CDT Nelsy Vickers APRN-STATE EPIDEMIOLOGIST LAB - POINT OF C ARE ORDERABLES Performing Organization Address [facility] Co de Phone Number [facility] [address] * TYPE + SCREEN PANEL (03/29/2022 1:19 PM CDT) [facility] ABO Rh B POS 03/29/2022 2:20 PM CDT [facility] Antibody Screen NEG 2 2:20 PM CDT [facility] Blood Bank BLOOD SPECIMEN / Unknown Venipuncture / Unknown 03/29/2022 1:19 PM CDT 03/29/2022 1:22 PM CDT Nelsy Vickers STATISTICIAN APPLIED-STATE EPIDEMIOLOGIST LAB - BLOOD BANK ORDERABLES Performing Organization Address [facility] Co de Phone Number [facility] [address] * NICOTINE + METABOLITES BLOOD (03/29/2022 1:19 PM CDT) Only the most recent of2 resultswithin the time period is included. [facility] Nicotine <5 ng/mL 04/03/2022 12:41 AM CDT [facility] ([facility]) Comment: INTERPRETIVE INFORMATION: Nicotine and Metabolites, Serum [...] developed and its performance characteristics determined by [facility]. It has not been cleared or approved by the US Food and Drug Administration. This test was performed in a CLIA certified laboratory and is intended for clinical purposes. Performed By: [facility] [address] [place] [address] Property Staff Accountant: Jose Ramon Maya MD, PhD Cotinine 32 ng/mL 04/03/2022 12:41 AM CDT [employer] ([facility]) Comment: Consistent with use of a nicotine-containing product within 1 week of specimen collection. Cotinine is the major metabolite of nicotine. The half-life of cotinine is approximately 16 hours. Blood BLOOD SPECIMEN / Unknown Venipuncture / Unknown 03/29/2022 1:19 PM CDT 03/29/2022 1:22 PM CDT Lydia Mcdaniels STATISTICIAN APPLIED-STATE EPIDEMIOLOGIST LAB - VIKTORIYA CATHERINE ORDERABLES [facility] [employer] ([facility]) [address] * (ABNORMAL) BASIC METABOLIC PANEL (CALCIUM TOTAL) (03/29/2022 1:19 PM CDT) Pathologist [facility] Glucose 157(H) 70 - 125 mg/dL 03/29/2022 1:48 PM CDT [facility] Sodium 138 136 - 145 mmol/L 03/29/2022 1:48 PM CDT [facility] Potassium 3.9 3.4 - 5.1 mmol/L 03/29/2022 1:48 PM CDT [facility] Chloride 108(H) 98 - 107 mmol/L 03/29/2022 1:48 PM CDT [facility] CO2 22 22 - 29 mmol/L 03/29/2022 1:48 PM CDT [facility] Calcium 9.30 8.4 - 10.2 mg/dL 03/29/2022 1:48 PM CDT [facility] Anion Gap 12 10 - 20 mmol/L 03/29/2022 1:48 PM CDT [facility] BUN 12.6 9.8 - 20.1 mg/dL 03/29/2022 1:48 PM CDT [facility] Creatinine 0.78 0.57 - 1.11 mg/dL 03/29/2022 1:48 PM CDT [facility] eGFR by MDRD >60 >60 mL/min/1.7 3m2 03/29/2022 1:48 PM CDT [facility] eGFR by MDRD >60 >60 mL/min/1.7 3m2 03/29/2022 1:48 PM CDT [facility] Blood BLOOD SPECIMEN / Unknown Venipuncture / Unknown 03/29/2022 1:19 PM CDT 03/29/2022 1:22 PM CDT Nelsy Vickers STATISTICIAN APPLIED-STATE EPIDEMIOLOGIST LAB - CHEMISTRY ORDERABLES Performing Organization Address [facility]/State/[facility] Co de Phone Number [facility] [address] * (ABNORMAL) HCG URINE QUALITATIVE (01/05/2022 10:16 AM CDT) hCG Qualitative Urine Negative Negative 01/05/2022 10:24 AM CDT [facility] Specific [place] UA 1.048(H) 1.005 - 1.030 01/05/2022 10:24 AM CDT [facility] Urine URINE / Unknown Collection / Unknown 01/05/2022 10:16 AM CDT 01/05/2022 10:16 AM CDT Narrative [facility] - 01/05/2022 10:24 AM CDT Erna Garibay MD LAB - URINALY SIS ORDERABLES [facility] [address] * EKG (10/26/2021) Historical Provider SCANNING ONLY * XR CHEST 2VW (10/26/2021) Anatomical Region Laterality Modality Chest Other Historical Provider DIAGNOSTIC CORTEZ Cameron ORDERABLES Care Teams Clinical Dietitian Relationship Specialty Start Date End Date Maribell Dowling, STATISTICIAN APPLIED-STATE EPIDEMIOLOGIST [address] [place] [place] [address] PCP - General Nurse Practitioner Family 09/30/21
--- OUTSIDE RECORDS SUMMARY | 2024-08-15 01:04 | XMS_ITS | Clinical Summary ---
Author Organization [facility] Address [address] [place] [address] Care Team Providers Care Rail Transit Operator Name Role Phone Maribell Dowling Nayan COMPLIANCE CONSULTANT-MARINE DESIGNER Primary Care Provider Source Comments [facility],non-owned Affiliates and Associated Physician Practices is amultiple site organization consisting of ambulatory clinics and hospital sitesin [place], [place], [place] and [place]. This disclosure is being madepursuant to the Care Everywhere program and may not contain all information available regarding this patient. Last updated 18.[facility] Phase III Development Allergies Active Allergy Reactions Criticality Noted Date [...] Type Department Care Team Description 05/22/2024 Telephone [facility] Health Weight Management Services [address] [place] [address] Corry Tam MD Appointment 05/17/2024 Telephone [facility] Weight Management Services [address] [place] [address] Corry Tam MD Appointment from Last 3 [...] - 5.6 % 09/23/2022 12:02 PM CDT [facility] Estimated Average Glucose 137 mg/dL 09/23/2022 12:02 PM CDT [facility] Blood BLOOD SPECIMEN / Unknown Lab Venipuncture / Unknown 09/23/2022 11:31 AM CDT 09/23/2022 11:42 AM CDT Narrative [facility] - 09/23/2022 12:02 PM [...] exceeds 5% in the specimen. The [employer] Nurse Spec assay for the measurement of HbA1c is a National Glycohemoglobin Standardization Program (NGSP) certified method. Zoila Stein COMPLIANCE CONSULTANT-MARINE DESIGNER LAB - CHEMISTRY ORDERABLES Performing Organization Address City/State/[facility] Co de Phone Number [facility] [address] * (ABNORMAL) LIPID PROFILE (09/23/2022 11:31 AM CDT) [facility] [place] Cholesterol 170 <200 mg/dL 09/23/2022 12:16 PM CDT [facility] Triglycerides 115 <150 mg/dL 09/23/2022 12:16 PM CDT [facility] HDL Cholesterol 35(L) >40 mg/dL 3 12:16 PM CDT [facility] Chol HDL Ratio 4.9 1.0 - 6.0 09/23/2022 12:16 PM CDT [facility] LDL Calculated 112 65 - 130 mg/dL 09/23/2022 12:16 PM CDT [facility] VLDL Calculated 23 <=30 mg/dL 3 12:16 PM CDT [facility] Blood BLOOD SPECIMEN / Unknown Lab Venipuncture / Unknown 09/23/2022 11:31 AM CDT 09/23/2022 11:42 AM CDT Narrative [facility] - 09/23/2022 12:16 PM [...] 9.5 ...................... 7.0 3X AVERAGE...................>23........................>11 Zoila Stein COMPLIANCE CONSULTANT-MARINE DESIGNER LAB - CHEMISTRY ORDERABLES Performing Organization Address City/State/[facility] Co de Phone Number [facility] [address] [place] [address], [facility] from Last 3 Months or Most Recently Relevant to Health Maintenance Advance Directives * Full Code (Latest Code Status on File) Date Activated Date Inactivated Comments 04/05/2022 10:44 AM 04/06/2022 4:30 PM Care Teams Rail Transit Operator Relationship Specialty Start Date End Date Maribell Dowling, COMPLIANCE CONSULTANT-MARINE DESIGNER [address] [place] [id number] PCP - General Nurse Practitioner Family 09/30/21
--- OUTSIDE RECORDS SUMMARY | 2024-08-15 01:04 | XMS_ITS | Referral Summary ---
Author Organization [facility] Address [address] [address] Care Team Providers Care Agriculture Laborer Name Role Phone Maribell Dowling Nayan DIRECTOR OF STUDENT AID-DYNAMOTOR REPAIRER Primary Care Provider Source Comments [facility],non-owned Affiliates and Associated Physician Practices is amultiple site organization consisting of ambulatory clinics and hospital sitesin [place], [place], [place] and [place]. This disclosure is being madepursuant to the Care Everywhere program and may not contain all information available regarding this patient. Last updated 18.[facility] Encounters Date Type Department Care Team Description 05/22/2024 Telephone [facility] Weight Management Services [address] [place] [phone] Corry Tam MD Appointment 05/17/2024 Telephone [facility] Weight Management Services [address] [place] [phone] Corry Tam MD Appointment from Last 3 [...] - 5.6 % 09/23/2022 12:02 PM CDT [facility] Estimated Average Glucose 137 mg/dL 09/23/2022 12:02 PM CDT [facility] Blood BLOOD SPECIMEN / Unknown Lab Venipuncture / Unknown 09/23/2022 11:31 AM CDT 09/23/2022 11:42 AM CDT Narrative [facility] - 09/23/2022 12:02 PM CDT [...] exceeds 5% in the specimen. The [employer] Principal Quality Engineer assay for the measurement of HbA1c is a National Glycohemoglobin Standardization Program (NGSP) certified method. Zoila Stein DIRECTOR OF STUDENT AID-[facility] - CHEMISTRY ORDERABLES Performing Organization Address City/State/[facility] Co de Phone Number [facility] [address] * (ABNORMAL) LIPID PROFILE (09/23/2022 11:31 AM CDT) [facility] Cholesterol 170 <200 mg/dL 09/23/2022 12:16 PM CDT [facility] Triglycerides 115 <150 mg/dL 09/23/2022 12:16 PM CDT [facility] HDL Cholesterol 35(L) >40 mg/dL 12:16 PM CDT [facility] Chol HDL Ratio 4.9 1.0 - 6.0 09/23/2022 12:16 PM CDT [facility] LDL Calculated 112 65 - 130 mg/dL 09/23/2022 12:16 PM CDT [facility] VLDL Calculated 23 <=30 mg/dL 3 12:16 PM CDT [facility] Blood BLOOD SPECIMEN / Unknown Lab Venipuncture / Unknown 09/23/2022 11:31 AM CDT 09/23/2022 11:42 AM CDT Narrative [facility] - 09/23/2022 12:16 PM CDT Lipid [...] 9.5 ...................... 7.0 3X AVERAGE...................>23........................>11 Zoila Stein APRN-DYNAMOTOR REPAIRER LAB - CHEMISTRY ORDERABLES [facility] [address] from Last 3 Months or Most Recently Relevant to Health Maintenance Advance Directives * Full Code (Latest Code Status on File) Date Activated Date Inactivated Comments 04/05/2022 10:44 AM 04/06/2022 4:30 PM Care Teams Agriculture Laborer Relationship Specialty Start Date End Date Maribell Dowling APRN-CNP [address] [place] [phone] PCP - General Nurse Practitioner Family 09/30/21
--- OUTSIDE RECORDS SUMMARY | 2024-08-15 01:04 | XMS_ITS | Data Portability ---
Author Organization [facility] [place] Yang Address [address] [place] [address] Care Team Providers Care It Program Manager Name Role Phone DOWLINGESATANVIR Primary Care Provider [phone] Assessment Encounter Date Assessment Date Assessment LastModified by Organization Details LastModified Time 12/24/2020 12/24/2020 Duration of appointment was 65 minutes rloar Not available 12/24/2020 17:22:25 Plan of Treatment Reminders Order Date Submit Date Provider Last Modified By Organization Details Last Modified Time Details Appointments None recorded. Lab H pylori urea breath test, co2 infrared 2020 021 [facility] (Lab), [address] [facility], [place], [address], 21:07:48 SARS CoV 2 RNA (COVID-19) , QL, break out man-PCR, respirator y specimen [address] [facility] (Lab), [address] [facility], [place], [address], 11:42:47 CBC w/ diff 2020 021 [facility] (Lab), [address], [place], [address], 08:32:49 gamma-glut amyl transferas e (ggt), serum 2020 021 [facility] (Lab), [address], [place], [address], 15:10:11 iron + TIBC + ferritin, serum 2020 021 [facility] (Lab), [address], [place], [address], 1 08:32:49 hepatitis panel (A+B+C), acute, serum 2020 [facility] (Lab), [address], [place], [address], 1 11:12:08 ceruloplas min, serum 2020 [facility] (Lab), [address], [place], [address], 1 11:12:07 alpha-1-an titrypsin (aat), QN, serum 2020 [facility] (Lab), [address], [place], [address], 08:32:49 LOIS (antinucle ar antibodies ) panel, serum 2020 [facility] (Lab), [address], [place], [address], 1 13:10:38 liver-kidn ey microsome type 1 igg Ab, serum 2020 [facility] (Lab), [address], [place], [address], 1 08:32:50 smooth muscle Ab, serum 2020 [facility] (Lab), [address], [place], [address], 1 08:32:50 prothrombi n time 2020 [facility] (Lab), [address], [place], [address], 08:32:50 BMP, serum or plasma 2020 [facility] (Lab), [address], [place], [address], 20:33:05 hepatic function panel, serum 2020 [facility] (Lab), [address], [place], [address], 20:33:02 mitochondr ial Ab, serum 2020 [facility] (Lab), [address], [place], [address], 15:10:15 Referral cardiologi referral - Chest pain. Records ordered from [facility]. They told me I might have ang[facility] Not available 17:43:35 Procedures upper endoscopy procedure (EGD) (PROC) - Cardiac clearance required 2020 [facility] (Surgery Sched), [address] [place], [address], 12:26:55 colonoscop y procedure (PROC) - cardiac clearance 2020 021 [facility] (Surgery Sched), [address] [place], [address], 15:41:31 Surgeries None recorded. Imaging US, elastogram - NAFLD - already had US at [facility] 2020 [facility] (Rad), [address], [place], [address], 16:35:20 Medication Orders pantoprazo le 40 mg tablet,del ayed release 2020 [facility]/Pharmacy #[id number], [address] [place], [address], 17:09:26 Dulcolax (bisacodyl ) 5 mg tablet,del ayed release 2020 [facility]21 [id number] [address] [place], [address], 17:09:26 Miralax 17 gram/dose oral powder 2020 021 [id number] [address] [place], [address], 17:09:25 Patient TargetsNo targets recorded. Patient Instructions Encounter Date Encounter Id Patient Instructions Last Modified By Organization Details Last Modified Time 12/24/2020 [id number] medical record request* - All records, procedure notes, imaging, lab results, discharge medication list from October [facility] Not available 12/25/2020 08:29:52 medical record request* [...] Stressed that procedure is done at [facility]. Discussed that patient will need a straddle truck driver to and from the hospital. Instructed [...] Not available 12/24/2020 17:18:57 Reason for Referral Riveter Referral for Ch est pain Chest pain. Records ordered from [facility]. They told me I might have angina Referring Physician: Brandon Escudero, Gastroenterology, Encounter Date: 12/24/2020 Results Created Date Observation Date Name Description Value Unit Range Abnormal Flag Note LastModifiedBy Organization Detail LastModifiedTime 12/25/19 21 12/24/2020 CBC w/ auto diff WBC 10.3 K/uL 3.4-10 .8 Not Available [facility] (Lab) [address], [place], [address], 12/24/2020 19:36:19 12/25/19 21 12/24/2020 CBC w/ auto diff red blood count 5.5 M/uL 4.2-5. 4 high Not Available [facility] (Lab) [address] [facility] [address], [place], [address], 12/24/2020 19:36:19 12/25/19 21 12/24/2020 CBC w/ auto diff hemoglobin 16.2 g/dL 11.5-1 5.5 high Not Available [facility] (Lab) [address] [place], [address], 12/24/2020 19:36:19 12/25/19 21 12/24/2020 CBC w/ auto diff hematocrit 48.6 % 36.0-4 8.0 high Not Available [facility] (Lab) [address] [place], [address], 12/24/2020 19:36:19 12/25/19 21 12/24/2020 CBC w/ auto diff MCV 89 fL 80-95 Not Available [facility] (Lab) [address] [facility], [place], [address], 12/24/2020 19:36:19 12/25/19 21 12/24/2020 CBC w/ auto diff MCH 30 pg 27-32 Not Available [facility] (Lab) [address], [place], [address], 12/24/2020 19:36:19 12/25/19 21 12/24/2020 CBC w/ auto diff MCHC 33 g/dL 32-36 Not Available [facility] (Lab) [address], [place], [address], 12/24/2020 19:36:19 12/25/19 21 12/24/2020 CBC w/ auto diff platelets 309 K/uL 155-37 9 Not Available [facility] (Lab) [address], [place], [address], 12/24/2020 19:36:19 12/25/19 21 12/24/2020 CBC w/ auto diff RDW 14.8 % 11.5-1 4.5 high Not Available [facility] (Lab) [address], [place], [address], 12/24/2020 19:36:19 12/25/19 21 12/24/2020 CBC w/ auto diff MPV 11.7 fL 8.9-12 .7 Not Available [facility] (Lab) [address] [facility], [place], [address], 12/24/2020 19:36:19 12/25/19 21 12/24/2020 CBC w/ auto diff neutrophils absolute 7.6 K/uL 1.4-7. 0 high Not Available [facility] (Lab) [address] [place], [address], 12/24/2020 19:36:19 12/25/19 21 12/24/2020 CBC w/ auto diff lymphs (absolute) 2.1 K/uL 0.7-3. 1 Not Available [facility] (Lab) [address] [place], [address], 12/24/2020 19:36:19 12/25/19 21 12/24/2020 CBC w/ auto diff monocytes (absolute) 0.6 K/uL 0.1-0. 9 Not Available [facility] (Lab) [address] [place], [address], 12/24/2020 19:36:19 12/25/19 21 12/24/2020 CBC w/ auto diff eos (absolute) 0.1 K/uL 0.0-0. 4 Not Available [facility] (Lab) [address] [place], [address], 12/24/2020 19:36:19 12/25/19 21 12/24/2020 CBC w/ auto diff baso (absolute) 0.0 K/uL 0.0-0. 3 Not Available [facility] (Lab) [address] [facility], [place], [address], 12/24/2020 19:36:19 12/25/19 21 12/24/2020 CBC w/ auto diff neut % 73.2 % 40.0-7 4.0 Not Available [facility] (Lab) [address] [place], [address], 12/24/2020 19:36:19 12/25/19 21 12/24/2020 CBC w/ auto diff lymphs % 19.9 % 14.0-4 6.0 Not Available [facility] (Lab) [address] [place], [address], 12/24/2020 19:36:19 12/25/19 21 12/24/2020 CBC w/ auto diff mono % 5.5 % 4.0-12 .0 Not Available [facility] (Lab) [address] [place], [address], 12/24/2020 19:36:19 12/25/19 21 12/24/2020 CBC w/ auto diff eos % 1 % 0-5 Not Available [facility] (Lab) [address] [place], [address], 12/24/2020 19:36:19 12/25/19 21 12/24/2020 CBC w/ auto diff baso % 0.2 % 0.0-1. 0 Not Available [facility] (Lab) [address], [place], [address], 12/24/2020 19:36:19 12/25/19 21 12/24/2020 PT/IN R PT 10.0 secon ds 9.3-11 .1 Not Available [facility] (Lab) [address], [place], [address], 12/24/2020 20:01:19 12/25/19 21 12/24/2020 PT/IN R INR 1.0 0.4-2. 0 Not Available [facility] (Lab) [address], [place], [address], 12/24/2020 20:01:19 12/25/19 21 12/24/2020 PT/IN R coagcom Please note Refere nce Range has change d Not Available [facility] (Lab) [address], [place], [address], 12/24/2020 20:01:19 12/25/19 21 12/24/2020 hepat ic funct ion panel , serum total protein 6.7 g/dL 6.7-8. 2 Not Available [facility] (Lab) [address] [place], [address], 12/24/2020 20:33:02 12/25/19 21 12/24/2020 hepat ic funct ion panel , serum albumin, serum 3.8 g/dL 3.5-5. 5 Not Available [facility] (Lab) [address] [place], [address], 12/24/2020 20:33:02 12/25/19 21 12/24/2020 hepat ic funct ion panel , serum bilt 0.4 mg/dL 0.0-1. 2 Not Available [facility] (Lab) [address] [facility], [place], [address], 12/24/2020 20:33:02 12/25/19 21 12/24/2020 hepat ic funct ion panel , serum bild <0.20 mg/dL 0.10-0 .50 Not Available [facility] (Lab) [address] [place], [address], 12/24/2020 20:33:02 12/25/19 21 12/24/2020 hepat ic funct ion panel , serum AST 19.6 U/L 10.0-4 2.0 Not Available [facility] (Lab) [address], [place], [address], 12/24/2020 20:33:02 12/25/19 21 12/24/2020 hepat ic funct ion panel , serum ALT 33.5 U/L 10.0-6 0.0 Not Available [facility] (Lab) [address] [facility] [address], [place], [address], 12/24/2020 20:33:02 12/25/19 21 12/24/2020 hepat ic funct ion panel , serum alk phos 112.0 IU/L 42.0-1 21.0 Not Available [facility] (Lab) [address] [facility], [place], [address], 12/24/2020 20:33:02 12/25/19 21 12/24/2020 hepat ic funct ion panel , serum agratio 1.3 Not Available [facility] (Lab) [address] [facility] [address], [place], [address], 12/24/2020 20:33:02 12/25/19 21 12/24/2020 BMP, serum or plasm a glucose, serum 241 mg/dL 65-99 high Not Available [facility] (Lab) [address] [place], [address], 12/24/2020 20:33:05 12/25/19 21 12/24/2020 BMP, serum or plasm a BUN 8 mg/dL 8-26 Not Available [facility] (Lab) [address] [place], [address], 12/24/2020 20:33:05 12/25/19 21 12/24/2020 BMP, serum or plasm a creatinine, serum 0.65 mg/dL 0.50-1 .40 Not Available [facility] (Lab) [address] [place], [address], 12/24/2020 20:33:05 12/25/19 21 12/24/2020 BMP, serum or plasm a BUN/creatnin e ratio 12.9 Not Available [facility] (Lab) [address], [place], [address], 12/24/2020 20:33:05 12/25/19 21 12/24/2020 BMP, serum or plasm a sodium, serum 137.0 mmol/ L 136.0- 144.0 Not Available [facility] (Lab) [address] [place], [address], 12/24/2020 20:33:05 12/25/19 21 12/24/2020 BMP, serum or plasm a potassium, serum 4.1 mmol/ L 3.5-5. 3 Not Available [facility] (Lab) [address], [place], [address], 12/24/2020 20:33:05 12/25/19 21 12/24/2020 BMP, serum or plasm a chloride, serum 103 mmol/ l 101-11 1 Not Available [facility] (Lab) [address] [place], [address], 12/24/2020 20:33:05 12/25/19 21 12/24/2020 BMP, serum or plasm a carbon dioxide total 18.2 mmol/ L 21.0-3 2.0 low Not Available [facility] (Lab) [address] [place], [address], 12/24/2020 20:33:05 12/25/19 21 12/24/2020 BMP, serum or plasm a aniongp 20.0 mmol/ L Not Available [facility] (Lab) [address] [place], [address], 12/24/2020 20:33:05 12/25/19 21 12/24/2020 BMP, serum or plasm a calcium, serum 9.8 mg/dL 8.2-10 .0 Not Available [facility] (Lab) [address] [facility], [place], [address], 12/24/2020 20:33:05 12/25/19 21 12/24/2020 BMP, serum or plasm a osmol 280.0 mOsm/ L 275.0- 301.0 Not Available [facility] (Lab) [address] [facility], [place], [address], 12/24/2020 20:33:05 12/25/19 21 12/24/2020 BMP, serum or plasm a eGFR, non- AM 109 mL/mi n/1.7 3/m >=60 Not Available [facility] (Lab) [address] [place], [address], 12/24/2020 20:33:05 12/25/19 21 12/25/2020 LOIS (anti nucle ar antib odies ) panel , serum anti-DNA (ds) Ab qn <1 IU/mL 0-9 Negat mark <5 Equiv ocal 5 - 9 Posit mark >9 Not Available [facility] (Lab) [address] [place], [address], 12/25/2020 13:10:38 12/25/19 21 12/25/2020 LOIS (anti nucle ar antib odies ) panel , serum management aide antibodies 0.7 ai 0.0-0. 9 Not Available [facility] (Lab) [address] [facility], [place], [address], 12/25/2020 13:10:38 12/25/19 21 12/25/2020 LOIS (anti nucle ar antib odies ) panel , serum mao antibodies <0.2 ai 0.0-0. 9 Not Available [facility] (Lab) [address] [place], [address], 12/25/2020 13:10:38 12/25/19 21 12/25/2020 LOIS (anti nucle ar antib odies ) panel , serum antisclerode rma-70 antibodies <0.2 ai 0.0-0. 9 Not Available [facility] (Lab) [address] [place], [address], 12/25/2020 13:10:38 12/25/19 21 12/25/2020 LOIS (anti nucle ar antib odies ) panel , serum sjogren's anti-ss-A <0.2 ai 0.0-0. 9 Not Available [facility] (Lab) [address] [place], [address], 12/25/2020 13:10:38 12/25/19 21 12/25/2020 LOIS (anti nucle ar antib odies ) panel , serum sjogren's anti-ss-B <0.2 ai 0.0-0. 9 Not Available [facility] (Lab) [address] [place], [address], 12/25/2020 13:10:38 12/25/19 21 12/25/2020 LOIS (anti nucle ar antib odies ) panel , serum antichromati n antibodies <0.2 ai 0.0-0. 9 Not Available [facility] (Lab) [address] [place], [address], 12/25/2020 13:10:38 12/25/19 21 12/25/2020 LOIS (anti nucle ar antib odies ) panel , serum anti-taylor-1 <0.2 ai 0.0-0. 9 Not Available [facility] (Lab) [address] [place], [address], 12/25/2020 13:10:38 12/25/19 21 12/25/2020 LOIS (anti nucle ar antib odies ) panel , serum anti-centrom ere B antibodies <0.2 ai 0.0-0. 9 Not Available [facility] (Lab) [address], [place], [address], 12/25/2020 13:10:38 12/25/19 21 12/25/2020 LOIS (anti [...] ----- ----- ----- ----- --- ----- ---- DIE MECHANIC Mixed Conne ctive Tissu e Disea se 95% (U1 nRNP, SLE 30 - 50% anti- ribon ucleo prote in) Polym yosit is and/o r Nicholls tomyo sitis 20% ----- ----- ----- ----- - ----- ----- ----- ----- ---- ----- ---- Scl-7 0 (anti DNA Scler oderm a (diff use) 20 - 35% topoi kennedi ase) Crest 13% ----- ----- ----- ----- - ----- ----- ----- ----- ---- ----- ---- Taylor-1 Polym yosit is and/o r Nicholls tomyo sitis 20 - 40% ----- ----- ----- ----- - ----- ----- ----- ----- ---- ----- ---- Centr omere B Scler oderm a - Crest varia nt 80% Not Available [facility] (Lab) [address], [place], [address], 12/25/2020 13:10:38 12/25/19 21 12/25/2020 gamma -glut amyl trans feras e (ggt) , serum GGT 110 IU/L 0-60 high Not Available [facility] (Lab) [address] [place], [address], 12/25/2020 15:10:11 12/25/19 21 12/25/2020 alpha 1 antit rypsi n pheno typin g, serum or plasm a [id number]-8-[id number] trypsin, serum 151 mg/dL 100-18 8 Not Available [facility] (Lab) [address] [facility], [place], [address], 12/25/2020 15:10:12 12/25/19 21 12/25/2020 iron + total iron- pattie ng capac ity (TIBC ), serum iron bind.cap.(TI BC) 251 ug/dL 250-45 0 Not Available [facility] (Lab) [address] [place], [address], 12/25/2020 15:10:14 12/25/19 21 12/25/2020 iron + total iron- pattie ng capac ity (TIBC ), serum UIBC 203 ug/dL 131-42 5 Not Available [facility] (Lab) [address] [facility] [address], [place], [address], 12/25/2020 15:10:14 12/25/19 21 12/25/2020 iron + total iron- pattie ng capac ity (TIBC ), serum iron, serum 48 ug/dL 27-159 Not Available [facility] ([facility]) [address] [place], [address], 12/25/2020 15:10:14 12/25/19 21 12/25/2020 iron + total iron- pattie ng capac ity (TIBC ), serum iron saturation 19 % 15-55 Not Available [facility] ([facility]) [address] [place], [address], 12/25/2020 15:10:14 12/25/19 21 12/25/2020 mitoc hondr ial Ab, serum mitochondria l (M2) antibody <20.0 units 0.0-20 .0 Negat mark 0.0 - 20.0 Equiv ocal 20.1 - 24.9 Posit mark >24.9 . Mitoc hondr ial (M2) Antib odies are found in 90-96 % of patie nts with prima ry bilia ry cirrh osis. Not Available [facility] (Lab) [address] [place], [address], 12/25/2020 15:10:15 12/25/19 21 12/25/2020 actin jase [...] ry bilia ry cirrh osis. Not Available [facility] (Lab) [address] [facility], [place], [address], 12/25/2020 15:10:16 12/25/19 21 12/25/2020 H pylor i urea breat h test, co2 infra red H pylori breath test Negati ve negati ve Not Available [facility] (Lab) [address] [facility], [place], [address], 12/25/2020 21:07:48 12/25/19 21 12/30/2020 liver -kidn [...] chron ic HCV infec tion. Not Available [facility] (Lab) [address] [place], [address], 12/30/2020 11:12:04 12/25/19 21 12/30/2020 madonna tin, serum or plasm a ferritin, serum 95 NG/mL 15-150 Not Available [facility] (Lab) [address] [place], [address], 12/30/2020 11:12:06 12/25/19 21 12/30/2020 cerul oplas min, serum ceruloplasmi n 37.3 mg/dL 19.0-3 9.0 Not Available [facility] (Lab) [address] [place], [address], 12/30/2020 11:12:07 12/25/19 21 12/30/2020 hepat itis panel (A+B+ C), acute , serum hep A Ab, IgM Negati ve negati ve Not Available [facility] (Lab) [address] [place], [address], 12/30/2020 11:12:08 12/25/19 21 12/30/2020 hepat itis panel (A+B+ C), acute , serum HBsAg screen Negati ve negati ve Not Available [facility] (Lab) [address] [place], [address], 12/30/2020 11:12:08 12/25/19 21 12/30/2020 hepat itis panel (A+B+ C), acute , serum hep B core Ab, IgM Negati ve negati ve Not Available [facility] (Lab) [address] [facility], [place], [address], 12/30/2020 11:12:08 12/25/19 21 12/30/2020 hepat itis [...] ficat ion test (5507 13). Not Available [facility] (Lab) [address], [place], [address], 12/30/2020 11:12:08 12/26/19 21 10/30/2020 NM, hepat obili conchita scan No observ ation record ed. [facility] Add On Lab Orders [address], [place], [address], 12/25/2020 11:34:58 12/26/19 21 10/19/2020 CT, abdom en + pelvi s, w/ contr ast No observ ation record ed. rloar Not Available 2020 13:31:06 Result Notes Documentation Provider Name and Address Organization Details Recorded Time Nm, Hepatobiliary Scan : Normal HIDA Scan with gallbladder EF 52%. BRANDON ESCUDERO NP [address], [place], [address], [facility] 12/25/2020 11:34:58 Problems Name Problem SNOMED Code Status Onset Date Resolution Date Notes Provider Name and Address Organization Details Recorded Time Uncontrolle d type 2 diabetes mellitus 546861097 Active 2020 BRANDON ESCUDERO NP [address] [place], [address], [facility] 1 15:25:29 Vitamin D deficiency 18911993 Active 2020 BRANDON ESCUDERO NP [address] [place], [address], [facility] 1 15:26:02 Mixed anxiety and depressive disorder 779962940 Active 2020 BRANDON ESCUDERO NP [address] [place], [address], [facility] 15:26:13 Tobacco user 834756538 Active 2020 BRANDON ESCUDERO NP [address] [place], [address], [facility] - [facility] 15:26:22 Migraine 00102388 Active 2020 BRANDON ESCUDERO NP [address], [place], [address], [place] [facility] 1 15:26:33 Peripheral neuropathy due to type 2 diabetes mellitus 7739670916455 Active 2020 BRANDON ESCUDERO NP [address], [place], [address], [place] [facility] 1 15:26:49 Essential hypertensio n 10533008 Active 2020 BRANDON ESCUDERO NP [address], [place], [address], [place] [facility] 1 15:26:57 Diverticulo sis of colon 390181852 Active 2020 BRANDON ESCUDERO NP [address], [place], [address], [place] [facility] 1 15:27:08 Hidradeniti s suppurativa 52127977 Active 2020 BRANDON ESCUDERO NP [address], [place], [address], [place] [facility] 1 15:27:30 Heartburn 36438179 Active 2020 BRANDON ESCUDERO NP [address], [place], [address], [place] [facility] 1 15:27:45 Obstructive sleep apnea syndrome 86283285 Active 2020 BRANDON ESCUDERO NP [address], [place] [facility] [place], [address], [place] [facility] 1 10:17:36 Problem Notes None recorded. Procedures Surgical History None recorded. Imaging Results Imaging Date Name Status LastModified by Organization Details LastModified Time 10/30/2020 NM, [email or web address] [address], [place], [address], 12/25/2020 11:34:58 10/19/2020 CT, abdomen + pelvis, w/ contrast completed [facility] Information not available 12/28/2020 13:31:06 Procedure Notes None recorded. Medical Equipment None Reported. Allergies Allergen ID Allergen Name Allergen Category Reaction Reaction Severity Criticality Documentation Date Start Date Code Code System Note Provider Name and Address Organization Details Recorded Time 13880108 lisinopri l medicatio n swelling Not available Not available 12/22/2020 70999 RxNorm Not Available Not Available Not Available 875402 metformin medicatio n vomiting Not available Not available 12/22/2020 6809 RxNorm Not Available Not Available Not Available 881655 morphine medicatio n confusion moderate Not available 12/22/2020 7052 RxNorm Not Available Not Available Not Available 976046 egg extract food,medi cation nausea Not available Not available 12/24/2020 74828 15 RxNorm Not Available Not Available Not [...] Last Updated DateTime 167.64 cm 51.9 kg/m2 749137. 31 g 87 /min 99.3 [degF] 16 /min 153 mm[Hg] 92 mm[Hg] Paulina Ariza, [employer] [place] [facility] 15:46:39 Social History Question Answer Notes LastModified by Organizat ion Details LastModified Time Tobacco Smoking Status Current Every Day Smoker 1/2 ppd BRANDON ESCUDERO NP [address] [place], [address], [facility] 12/22/2020 15:29:10 What Is Your [...] available 2020 15:48:40 Medical History Condition Response Gout N Kidney Stones N Hyperthyroidism N COPD N Depression Y Hypothyroidism N Anxiety Disorder Y Arthritis N Liver Disease N Kidney Disease N Diabetes Y Seizures/Epilepsy N Tuberculosis N Hyperlipidemia Y Asthma N Sleep Apnea Y GERD/Reflux Y Hepatitis N Heart Disease N Hypertension Y Gynecological HistoryNo gynecological history recorded. Obstetrics History GPAL:G 0 P 0 0 0 0 Past Encounters Encounter ID Performer Location Encounter Start Date Encounter Closed Date Diagnosis/Indication Diagnosis SNOMED-CT Code Diagnosis ICD10 Code Diagnosis Note [id number] BRANDON ESCUDERO NP [facility] [address] [place] [address] 12/24/2020 15:27:21 12/28/2020 15:51:26 Abdominal pain 19285117 R10.9 epigastric painStop famotidine Start pantopazol eDecrease caffeine Chest pain 83532558 R07. 9 To go to the ED [...] liver cancer, liver failure and . Hematochezia 041164529 K 92.1 Tobacco user 450671421 Z 72.0 Strongly encouraged to discontinu e smoking Essential hypertension 70208793 I10 On amlodipine Managed by primary care Uncontroll ed type 2 diabetes mellitus [id number] E11.65 Last A1C 11.2% on 09/15/2020.O n insulin and Glimepirid eManaged by primary care Peripheral neuropathy due to type 2 diabetes mellitus 0335549017 107 E11.42 On pregabalin Managed in Primary Care Mixed anxi ety and depressive disorder 522625474 F41.8 On Trintellix , lorazepam Health Concerns Section Related Observation LastModified by Organization Detai ls LastModified Time None Recorded Concern Status LastModified by Organization Details LastModified Time None Recorded Advance Directives Directive None Recorded Payers Encounter Date Sequence Insurance Name Policy Number Policy Morales Covered Member ID Morales Member ID Guarantor Name 12/24/2020 1 [facility] (MEDICAID HMO) [id number] Randee Lazo [id number] Randee Lzao Notes Date Note Type Note Provider Name [...] CT abdomen with contrast of 10/19/2020 from [facility] reveals hepatomegaly of 23 cm cephalocaudal and hepatic steatosis. HgbA1C was 11.2% on 09/15/2020. Blood sugar this morning was 221. States that she might have angina - was hospitalized at [facility] in [place]. She had a stress test, cardiac enzymes. Not seeing a special skills officer. Had a HIDA scan. Results are not available. Has had US abdomen/pelvis, results not available BMs are daily, sometimes formed, sometimes watery. EtOH: 2 x / yearTobacco: 1/2 PPD x 20 years: 10 PYHRecreational drugs: deniesCaffeine: 60 ounces of soda daily Denies fever, chills, difficulty swallowing, hematemesis, heartburn, reflux, bloating, constipation, excessive belching or flatus, bleeding gums, easy bruising. BRANDON ESCUDERO, CLIENT CONSULTANT [address], [place], [address], [place] - [place] 12/25/2020 08:16:17 OBGyn Episode No OBEpisode recorded.
--- OUTSIDE RECORDS SUMMARY | 2024-08-15 01:04 | XMS_ITS | Clinical Summary ---
Author Organization [facility] Address [address] [place] [address] Phone Care Team Providers Care Production Manager Name Role Phone Maribell Dowling APRN, COURT ORDERLY Primary Care Provider Van Watts MD Unavailable [phone] Allergies Active Allergy Reactions Criticality Noted Date [...] (LaMICtal) 100 MG Tablet 07/11/2023 Active Biotin 77387 MCG Tablet Take 1 Tablet by mouth [...] Comments Blood Pressure 136/82 07/13/2023 12:55 PM STONE FABRICATOR Pulse 79 07/13/2023 12:55 PM STONE FABRICATOR Temperature 36.6 C (97.8 F) 07/13/2023 12:55 PM STONE FABRICATOR Respiratory Rate 18 07/13/2023 12:55 PM STONE FABRICATOR Oxygen Saturation 98% 07/13/2023 12:55 PM STONE FABRICATOR Inhaled Oxygen Concentration - - Weight 107 kg (236 lb) 07/13/2023 12:55 PM STONE FABRICATOR Height 170.2 cm (5' 7 ) 07/13/2023 12:55 PM STONE FABRICATOR Body Mass Index 36.96 07/13/2023 12:55 PM STONE FABRICATOR Plan of Treatment Health Maintenance Due Date [...] Insurance MEDICAID [employer] Care Teams Production Manager Relationship Specialty Start Date End Date Maribell Dowling, DIRECTOR OF PUBLIC WORKS, COURT ORDERLY [address] [place] [address] PCP - General Certified Nurse Practitioner 09/16/15 Van Watst MD [address] [place] [phone] Consulting Physician Oncology 06/06/23
[2024-08-15] MEDS: NAPROXEN 500 MG TABLET PO (01:07)
[2024-08-15 01:22] VITALS: BP 133/83; PULSE 66; RESP 17; TEMP 36.7; O2SAT 99
== END 2024-08-15 01:25 | disposition home or self-care (01) ==
LOC: ANHED 08-15 01:01
PROVIDERS: Registered Nurse; Emergency Provider Physician Assistant
DX: R07.9 Chest pain, unspecified (principal); Z79.4 Long term (current) use of insulin; E11.9 Type 2 diabetes mellitus without complications; I10 Essential (primary) hypertension; G47.33 Obstructive sleep apnea (adult) (pediatric); F17.210 Nicotine dependence, cigarettes, uncomplicated; Z20.822 Contact with and (suspected) exposure to COVID-19
CPT/HCPCS: 36415; 71046; 80053; 81001; 83880; 84484; 85025; 85380; 85610; 85730; 87637; 93005; 99284; A9270

== ENCOUNTER 2024-12-03 09:08 | Outpatient (CLI) | payer BC, MEDICAID, SELFPAY ==
--- NOTE | ~2024-12-03 | MR_ITS ---
MRI left elbow CLINICAL HISTORY: Pain TECHNIQUE: Proton-density and proton-density fat-sat images were acquired in the axial, coronal, and sagittal planes. FINDINGS: Ulnar collateral ligament is intact. Radial collateral ligament and the lateral ulnar colla teral ligament are intact. Common flexor and common extensor tendon origins are intact. There is mini mal tendinosis of the common extensor tendon origin. Bone marrow signals are unremarkable. No articular abnormality of the elbow seen. No significant join t effusion. Biceps, brachialis, and triceps tendons are intact. Visualized musculature unremarkable. No soft tiss ue mass or fluid collection seen. IMPRESSION: Minimal tendinosis of the common extensor tendon origin. Reviewed, dictated and finalized at location M.
== END 2024-12-03 09:09 | disposition home or self-care (01) ==
LOC: MICIMG 09:09
PROVIDERS: Visit Provider Orthopaedic Surgery
DX: M25.522 Pain in left elbow (principal)
CPT/HCPCS: 73221

== ENCOUNTER 2024-12-26 23:59 | Emergency (ER) | payer BC, OTHER, SELFPAY ==
--- NOTE | ~2024-12-26 | CT_ITS ---
Non-contrast Head CT History: Headache COMPARISON: 02/25/2022 Technique: Axial non-contrast imaging of the brain was performed. Dose reduction technique was used on this scan by utilizing automated exposure control and iterative reconstruction technique. The dose -length product (DLP) was 681.00 mGy-cm. Findings: There is no evidence of intracranial hemorrhage, mass lesion, or acute infarct. Brain par enchyma appears normal. The ventricles and subarachnoid spaces are normal in size. The calvarium ap pears normal. There is bilateral maxillary sinus disease, as well as additional sinus disease involvi ng the anterior ethmoid air cells and right frontal sinus.. The remaining visualized paranasal sinuse s and mastoid air cells are clear. Impression: No intracranial abnormality seen. Sinus disease, as above. Reviewed, dictated and finalized at [facility]. Impression: No intracranial abnormality seen. Sinus disease, as above.
--- OUTSIDE RECORDS SUMMARY | 2024-12-27 00:01 | XMS_ITS | Patient Health Record ---
Author Organization [facility] Address [address] [place] [address] Care Team Providers Care Supply Chain Manager Name Role Phone Familia Betancourt Primary Care Provider Allergies Allergen (clinical drug ingredient) Drug/Non Drug Allergy documented on EMR Reaction Allergy Type Onset Date Status codeine Codeine Unknown Drug Allergy Active morphine Morphine Unknown Drug Allergy Active Reason For Referral No Information Medications Medication SIG (Take, Route, Frequency, Duration) Notes Start Date End Date Status LaMICtal 100 MG 1 tablet Orally twic e a day for 30 days Active Linzess 145 MCG 1 capsule at least 3 0 minutes before the first meal of the day on an empty stomach Orally Once a day Active Magnesium Oxide 400 MG 1 tablet as neede d Orally Once a day Active Biotin 94850 MCG 1 tablet Orally Once a day Active ARIPiprazole 30 MG TAKE 1 TABLET BY KATT TH EVERY DAY for 30 Active Trulicity 0.75 MG/0.5ML as directed Subcutaneous Active Fluconazole 150 MG 1 tablet Orally Active Ubrelvy 50 MG 1 tablet may take second dose at least 2 hours after first dose as needed Orally Once a day Active Aimovig 70 MG/ML as directed Subcutaneous Active Spironolactone 25 MG 1 tablet Orally Active Vitamin D2 Not-Takin g Gabapentin 300 MG 1 capsules Orally at bedtime Active Doxycycline Hyclate 100 MG 1 capsule Orally Twice a day Not-Taking Gabapentin 100 MG 1 capsule Orally twi ce a daily Active ARIPiprazole 10 MG TAKE 1 TABLET BY KATT TH EVERY DAY FOR 30 DAYS for 30 Not-Taking hydrOXYzine HCl 25 MG 1 tablet Orally tw ice a day as needed for 30 days Active Sertraline HCl 50 MG TAKE 1 TABLET BY MO MAH EVERY DAY for 30 Active Social History Tobacco Use: Social History Observation Description Date Details (start date - stop date) Current Smoker NA - NA Sex Assigned At : Social History Observation Description Sex Assigned At Female Dont use, Tobacco Use/Smoking Question Answer Notes Are you a current smoker How often do you smoke cigarettes? every day How many cigarettes a day do you smoke? 11-20 Problems Problem Type SNOMED Code ICD Code Onset Dates Problem Status W/U Status Risk Notes Problem Mood disorder (F39) Active confirmed Problem Anxiety (F41.9) Active confirmed Problem Therapeutic drug monitoring (Z51.81) Active confirmed Plan Of Treatment No Information Insurance Providers Payer Name Payer Address Payer Phone Subscriber Number Group Number Insured Name Patient Relationship to Insured Coverage Start Date Coverage End Date MEDICAID [address] [phone] [id number] Randee Lazo Self - patient is the insured 4 [employer] [address] [place] [phone] [id number] Randee Lazo Self - patient is the insured 3 4 [employer] [address] [place] [phone] [id number] Randee Lazo Self - patient is the insured 3 4 [facility] [address] [place] [phone] [id number] Randee Lazo Self - patient is the insured 4 Medical (General) History Medical History History ICD Code Borderline Diabetes Migraines Hidradenitis suppurativa IBS Neuropathy Surgical History Surgery Date(Month/Year) gastric bypass- sleeve bilateral ear tubes
--- OUTSIDE RECORDS SUMMARY | 2024-12-27 00:01 | XMS_ITS ---
Author Organization [facility] Address [address] [place] [address] Care Team Providers Care Vegetable Buncher Name Role Phone Familia Betancourt Primary Care Provider Allergies Allergen (clinical drug ingredient) Drug/Non Drug Allergy documented on EMR Reaction Allergy Type Onset Date Status codeine Codeine Unknown Drug Allergy Active morphine Morphine Unknown Drug Allergy Active REASON FOR VISIT Korina's pt-Transfer/ last seen 10/2023 Social History Sex Assigned At : Social History Observation Description Sex Assigned At Female Encounters Encounter Location Date Provider Diagnosis [address], [place] [address] 04/03/2024 Familia Betancourt Plan Of Treatment No Information Progress Notes * Ed LAZOaDOB:1980 ([age] yo F)Acc No.[id number]:04/03/2024 UNLOCKED PROGRESS NOTE Patient: Randee MILLS Provider: BLANQUITA Valencia :1980 A ge:43 Y S ex:Female Date:04/03/2024 Address:[address] [place], [place] [id number] Subjective: * Chief Complaints: * 1 . Korina's pt-Transfer/ last seen 10/2023. * Medical History: B orderline Diabetes, Migraines, Hidradenitis suppurativa, IBS, Neuropathy. * Surgical History: g astric bypass- sleeve , bilateral ear tubes . * Family History: F ather: alive. S pouse: alive. M other: alive. 1 brother(s) - healthy. 1 son(s) - healthy. . Mother: Depression Son: ADHD, possible Bipolar or mood disorder, anxiety, depression Uncle: committed suicide Grandmother: receieved ECT treatments after finding son who commited suicide. * Allergies: M orphine, Codeine. Objective: * Vitals: Assessment: Plan: * Treatment: * * Electronic signature of Jim Betancourt on 12/27/2024 at 12:00 AM CDT Sign off status: Pending * Provider: BETO ValenciaP Date: 0 04/03/2024 Generated for Janet donald/Ezekiel/Santy on: 12/27/2024 12:00 AM CDT
[2024-12-27 00:02] VITALS: BP 124/70; PULSE 71; RESP 20; TEMP 36.7; O2SAT 100
--- OUTSIDE RECORDS SUMMARY | 2024-12-27 00:02 | XMS_ITS | Data Portability ---
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 We last saw her in June of 2023. She reports pain is getting worse, currently rated as 6/10. She has previously done physical therapy, Aleve, Tylenol, and a counterforce strap. She still has significant symptoms with daily activities. She has tenderness palpation over the lateral epicondyle. She has pain with lateral lifting and resisted wrist extension. Sensation intact to light touch throughout Given her persistent symptoms lasting over a year and a half, we will proceed with MRI to evaluate for a tendon tear. She has failed conservative management so depending on the results of the MRI we will plan to discuss surgery for a tendon debridement and repair. She is in agreement with the plan. [email or web address] Not available 11/13/2024 10:50:17 Plan of Treatment Reminders Order Date Submit Date Provider Last Modified By Organization Details Last Modified Time Details Appointments Any 5 2024 08:55A M Bhupendra Denny MD Not available Not available Not available Nurse Visit 15 2024 08:00A M STEF_Nurse Not available Not available Not available Lab hemoglobi n A1c, QN, blood 2024 025 [facility], [address] [place], [address], 10/24/2024 15:07:17 Referral None recorded. Procedures None recorded. Surgeries None recorded. Imaging XR, elbow, 3 or more view 2024 HAILY [facility] [place], [address], [place], [address], 11/13/2024 14:49:19 MRI, elbow, w/o contrast 2024 [email or web address], [address], [address], [place], [address], 11/15/2024 12:32:18 Medication Orders spironola ctone 100 mg tablet 2024 025 [facility]25, [address] [facility], [place], [address], 12/13/2024 15:18:28 amoxicill in 875 mg-potass ium clavulana te 125 mg tablet 2024 025 [facility] 2425, [address] [facility], [place], [address], 12/13/2024 15:09:50 Ubrelvy 100 mg tablet 2024 025 [facility] [address]25, [address] [facility], [place], [address], 12/13/2024 15:09:49 spironola ctone 100 mg tablet 2024 025 [facility], [address], [place], [place], [id number], 11/12/2024 09:00:47 ropinirol e 0.5 mg tablet 2024 025 [facility], [address], [place], [place], [id number], 11/13/2024 09:31:58 azithromy jo 250 mg tablet 2024 025 [email or web address] [employer] [facility], [address], [place], [place], [id number], 11/13/2024 09:30:16 omeprazol e 20 mg capsule,d elayed release 2024 025 [email or web address] [employer] [facility], [address], [place], [place], [id number], 11/13/2024 09:31:44 Depo-Prov era 150 mg/mL intramusc ular suspensio n 2024 Not available 11/12/2024 09:17:01 amoxicill in 875 mg-potass ium clavulana te 125 mg tablet 2024 025 [facility], [address], [place], [place], [id number], 11/12/2024 08:55:51 Medrol (Justo) 4 mg tablets in a dose pack 2024 025 [facility], [address], [place], [place], [id number], 11/12/2024 08:56:07 fluconazo le 150 mg tablet 2024 025 [facility], [address], [place], [place], [id number], 11/12/2024 08:49:04 Patient TargetsNo targets recorded. Patient InstructionsNo instructions recorded. Reason for Referral None Reported. Results Created Date Observation Date Name Description Value Unit Range Abnormal Flag Note LastModifiedBy Organization Detail LastModifiedTime 11/14/19 XR, elbow , 3 or more view No observ ation record ed. [email or web address] [facility] [place] [place] [address], [place], [address], 11/13/2024 09:34:28 12/05/19 25 12/03/2024 MRI, elbow , w/o contr ast No observ ation record ed. [email or web address] [address], [place], [address], 12/04/2024 08:58:03 12/05/19 25 12/03/2024 MRI, elbow , w/o contr ast No observ ation record ed. [email or web address] [facility] [address], [place], [address], 12/04/2024 08:15:45 Result Notes None recorded. Problems Name Problem SNOMED Code Status Onset Date Resolution Date Notes Provider Name and Address Organization Details Recorded Time Dysfuncti on of bilateral eustachia n tubes 35716861954 50709 Completed 201902/12/[address] [facility], [address], [place], [address] , [employer] 4 10:30:31 Obstructi ve sleep apnea of adult 44524236134 03 Active 2021 Not Available [facility] 3 10:19:56 Sprain of left ankle 50821733821 427657 Completed 201802/12/2024 VEE Reyes [address], [address], [place], [address] , [employer] 4 08:17:00 Chronic vertigo 79812307020 105 Active Not Available [facility] 3 10:19:56 Constipat ion 59340261 Active Not Available [facility] 3 10:19:56 Heartburn 93361540 Active Not Available [facility] 3 10:19:56 Insomnia 130311766 Active Not Available [facility] 3 10:19:56 Skin tag 603065042 Completed 02/12/2024 VEE Reyes [address], [address], [place], [address] , [employer] 4 08:16:50 Mixed anxiety and depressiv e disorder 543686496 Active 2019 Not Available [facility] 3 10:19:56 Morbid obesity 424353437 Active Not Available [facility] 3 10:19:56 Dependent edema 327777371 Active Not Available [facility] 3 10:19:56 Musculosk eletal chest pain 370908302 Completed 02/12/[address] [facility], [facility] [address], [place], [address] , [employer] 4 08:15:51 Chronic sciatica 183812470 Active Not Available [facility] 3 10:19:56 Vitamin D deficienc y 74181222 Active Not Available [facility] 3 10:19:56 Depressiv e disorder 15746480 Active Not Available [facility] 3 10:19:56 Migraine 09425820 Active Not Available [facility] 3 10:19:56 Neuropath y 475173434 Active Not Available [facility] 3 10:19:56 Diverticu lar disease 101256224 Active Not Available [facility] 3 10:19:56 Uncontrol led type 2 diabetes mellitus 990692303 Completed 202002/12/2024 VEE Reyes [address], [address], [place], [address] , [employer] 5 17:02:26 Seasonal allergy 724027101 Active 2018 Not Available [facility] 3 10:19:56 Wagner cisterna magna 008699045 Active 2021 Not Available [facility] 3 10:19:56 Dermatoph ytosis 93284106 Completed 02/12/2024 VEE Reyes [address], [address], [place], [address] , [employer] [facility] 4 08:15:15 Verruca vulgaris 85053901 Active Not Available [facility] 3 10:19:57 Hidradeni tis suppurati va 80116839 Active 2019 Not Available [facility] 3 10:19:57 Essential hypertens ion 93542207 Active 2019 Not Available [facility] 3 10:19:57 Verruca plantaris 80703005 Active Not Available [facility] 3 10:19:57 Otitis media 85902892 Completed 02/12/2024 VEE Reyes [address], [address], [place], [address] , [employer] 4 08:16:46 Hypersomn ia 22892718 Active Not Available [facility] 3 10:19:57 Neck pain 83588164 Completed 02/12/[address], [address], [place], [address] , [employer] 4 08:15:57 Carpal tunnel syndrome of left wrist 24072171504 9102 Active 2022 Not Available [facility] 3 10:19:56 Pain of left wrist 44778063612 9102 Completed 202207/24/2024 VEE Reyes [address], [address], [place], [address] , [employer] 5 08:51:53 Pain of left shoulder joint 33683078387 208846 Completed 202207/24/[address], [address], [place], [address] , [employer] 5 08:51:49 Lateral epicondyl itis of left humerus 64069457541 9100 Active 2022 Not Available [facility] 3 10:19:56 Impingeme nt syndrome of left shoulder region 33026360610 9104 Active 2022 Not Available [facility] 3 10:19:56 Cigarette smoker 32118091 Active 2022 Not Available [facility] 3 10:19:57 Female hirsutism 19062855 Active 2022 Not Available [facility] 3 10:19:57 Chronic idiopathi c constipat ion 24866524 Active 2022 Not Available [facility] 10:19:57 Pharyngit is 911073119 Completed 202207/24/2024 VEE Reyes [address], [address], [address] , [facility] I Had Cancer [facility] 5 08:52:15 Pain of multiple joints 96132226 Active 2022 Monika Arambula MD [address], [address] [place] [address], [address] , [facility] [employer] [facility] I Had Cancer [facility] 3 15:25:04 Type 2 diabetes mellitus without complicat ion 159303624 Active 2022 Monika Arambula MD [address], [place] [address], [place], [address] , [facility] [employer] [facility] I Had Cancer [facility] 3 15:26:14 Hyperlipi demia 39556450 Active 2022 Monika Arambula MD [address], [address], [address] , [facility] [employer] [facility] I Had Cancer [facility] 3 15:27:52 Primary fibromyal vic syndrome 40836120 Active 2022 Monika Arambula MD [address], [address], [place], [address] , [facility] [employer] [facility] I Had Cancer [facility] 3 15:28:15 Degenerat ion of lumbar intervert ebral disc 81357814 Active 2022 Monika Arambula MD [address], [address], [place], [address] , [facility] 3 15:32:54 Thyroid function tests abnormal 299345969 Active 2022 Monika Arambula MD [address], [place], [address] , [facility] 3 07:48:11 Pain of left elbow joint 12348235988 005212 Completed 202207/24/2024 CRISTIANO Wahl, [facility] 5 09:34:25 Viral syndrome 871294476 Completed 202302/12/2024 VEE Reyes [address] [place], [address] , [facility] 4 08:17:09 MRI of lumbar spine abnormal 535309647 Completed 202302/12/2024 VEE Reyes [address], [place], [address] , [facility] 4 08:15:40 Metastati c malignant neoplasm to ischium 01799298 Active 2023 Monika Arambula MD [address] [employer], [place], [address] , [facility] 4 08:22:32 Cobalamin deficienc y 978211922 Active 2023 Monika Arambula MD [address] [place] [place], [address] , [facility] 4 20:32:19 Decreased urine output 068592264 Completed 202302/12/2024 VEE Reyes [address], [place], [address] , [facility] 4 08:15:10 Angular cheilitis 146151069 Completed 202307/24/[address]yes [address], [address], [place], [address] , [facility] 5 08:52:18 Acute urinary tract infection 404035735 Completed 202302/12/[address]yes [address], [address], [place], [address] , [facility] 4 08:15:03 Hyperthyr oidism 09798095 Active 2023 VEE Reyes [address], [address], [place], [address] , [facility] 4 10:25:49 Dysfuncti on of bilateral eustachia n tubes 12338493323 67026 Active 2023 V[address]Ryes [address], [address], [place], [address] , [facility] 4 10:30:31 Bilateral cramp of muscle of lower limbs 85170021574 327504 Active 2024 VEE Reyes [address], [address], [place], [address] , [facility] 5 08:38:47 Bipolar disorder 76500419 Active 2024 [address]EE Reyes [address], [address], [place], [address] , [facility] 5 08:52:38 Vitamin B12 deficienc y (non anemic) 00416929 Active 2024 [address]EE Reyes [address], [address], [place], [address] , [facility] 5 09:45:32 Viral upper respirato ry tract infection 898799597 Active 2024 [address]EE Reyes [address], [address], [place], [address] , [employer] [facility] 5 11:20:12 Migraine with aura 2985561 Active 2024 VEE Reyes [address], [address], [place], [address] , [employer] [facility] 5 09:27:44 Influenza caused by Influenza A virus 505534954 Active 2024 VEE Reyes [address], [address], [place], [address] , [employer] [facility] 5 11:55:20 Rheumatoi d nodule of right wrist Active 2024 VEE Reyes [address], [address], [place], [address] , [employer] [facility] I Had Cancer [facility] 5 11:56:48 Anxiety 32588184 Active 2024 VEE Reyes [address], [address], [place], [address] , [employer] [facility] 5 15:09:22 Acute right otitis media 097197225 Active 2024 [address]yes [address], [address], [place], [address] , [employer] [facility] I Had Cancer [facility] 5 15:18:31 Candidal vulvovagi nitis 97035539 Active 2024 [address]yes [address], [address], [place], [address] , [employer] [facility] I Had Cancer [facility] 5 08:48:46 Uncontrol led type 2 diabetes mellitus 645152653 Active 2024 [address]EE Reyes [address], [address], [place], [address] , [employer] [facility] I Had Cancer [facility] 5 17:02:26 Restless legs 93264812 Active 20[address]yes [address], [address], [place], [address] , [facility] 5 08:57:02 Gastroeso phageal reflux disease 302168081 Active [address], [place], [address] , [facility] 5 08:57:52 Wheezing 06761699 Active 2024 [address]EE Reyes [address], [address], [place], [address] , [facility] 5 09:00:01 Pain of left elbow joint 24712876936 083013 Active 2024 CRISTIANO Wahl, [facility] 5 09:34:25 Acute migraine 30680216944 4108 Active 2024 VEE Reyes [address], [address], [place], [address] , [facility] 5 15:08:04 Dental abscess 350515291 Active 2024 VEE Reyes [address], [address], [place], [address] , [facility] 5 15:08:26 Episodic migraine 50386554108 4106 Active [address], [place], [address] , [facility] 5 13:59:11 Notes:Medical History: Nicot ine use Anxiety/Depression Acne Migraine headaches Vertigo Rhinitis Erythrocytosis Obesity with mild OSAS, AI = 8, 06/18/18 on CPAP c/o [facility] Hepatic steatosis Diverticulosis Vit D deficiency Cervical spondylosis Lumbar spondylosis/stenosis Procedure History: Bilateral ear tube placement 2020 Left breast/axilla abscesses I&D 2021 Gastric sleeve surgery 03/2022 Problem Notes None recorded. Procedures Surgical History Date Name Laterality Status Provider Name and Address Organization Details Recorded Time 5 Transitional_C are_Management completed VEE Reyes [address] [facility], [address], [place], [address], [employer] 08/15/2024 11:19:13 3 Ortho - Cortisone Injection completed Magi Lai NP [address] [facility], [address], [place], [address], [employer] 06/28/2023 15:09:02 2 bariatric operative procedure completed Not Available [facility] 09/07/2022 16:57:30 Ear Tubes completed Not Available [facility] 0 09/07/2022 16:57:30 Imaging Results None recorded. Procedure Notes None recorded. Medical Equipment None Reported. Allergies Allergen ID Allergen Name Allergen Category Reaction Reaction Severity Criticality Documentation Date Start Date Code Code System Note Provider Name and Address Organization Details Recorded Time 58898 morphine medicatio n confusion moderate Not available 09/07/2022 7052 RxNorm Not Available [facility] 3 17:01:22 72846 metformin medicatio n vomiting Not available Not available 09/07/2022 6809 RxNorm Not Available [facility] 3 17:01:22 56170 lisinopri l medicatio n swelling Not available Not available 09/07/2022 18583 RxNorm Not Available [facility] 3 17:01:22 86399 hydrocodo ne Not available Not available Not available Not available 09/07/2022 5489 RxNorm Not Available [facility] 3 17:01:22 33536 egg extract food,medi cation Not available Not available Not available 09/07/2022 12743 15 RxNorm Not Available [facility] 3 17:01:22 04472 codeine medicatio n Not available Not available Not available 09/21/2022 2670 RxNorm FÉLIX Turner, [employer] 3 12:27:25 Medications Name Sig Start Date Stop Date Status Note LastModified by Organization Details LastModified Time cyclobenz aprine 10 mg tablet TAKE 1 TABLET BY MOUTH THREE TIMES A DAY NEEDED active Not Available Not Available No t Available amoxicill in 500 mg capsule TAKE 1 CAPSULE BY MOUTH EVERY 12 HOURS FOR 7 DAYS 09/26 completed Not Available Not Available Not Available bupropion HCl SR 150 mg tablet,12 hr sustained -release TK 1 T PO BID 07/28 completed Not Available Not Available Not Available neomycin- polymyxin -hydrocor t 3.5 mg/mL-10, 000 unit/mL-1 % ear solution INSTILL 4 DROPS INTO AFFECTED EAR(S) BY OTIC ROUTE 3 TIMES PER DAY active Not Available Not Available No t Available venlafaxi ne ER 37.5 mg capsule,e xtended release 24 hr Take 1 capsule every day by oral route for 30 days. 08/15 completed Not Available Not Available Not Available potassium chloride ER 10 mEq capsule,e xtended release TAKE 1 CAPSULE EVERY DAY BY ORAL ROUTE FOR 10 DAYS. 03/03 completed Not Available Not Available Not Available doxycycli ne hyclate 100 mg capsule TAKE 1 CAPSULE BY MOUTH TWICE DAILY DIRECTED active Not Available Not Available No t Available nicotine 14 mg/24 hr daily transderm al patch Apply 1 patch every day by transder mal route. 05/06 completed Not Available Not Available Not Available clindamyc in HCl 300 mg capsule TAKE 1 CAPSULE BY MOUTH EVERY 6 HOURS FOR 10 DAYS active Not Available Not Available No t Available trazodone 50 mg tablet TAKE 1-2 TABS AT BEDTIME FOR INSOMNIA 03/03 completed Not Available Not Available Not Available polyethyl tatyana glycol 3350 17 gram oral powder packet 12/01 completed Not Available Not Available Not Available cetirizin e 10 mg tablet Take 1 tablet every day by oral route as needed for 30 days, for allergic symptoms . 11/13 completed Not Available Not Available Not Available azithromy jo 250 mg tablet TAKE 2 TABLETS (500 MG) BY ORAL ROUTE ONCE DAILY FOR 1 DAY THEN 1 TABLET (250 MG) BY ORAL ROUTE ONCE DAILY FOR 4 DAYS 11/13 completed Not Available Not Available Not Available ibuprofen 800 mg tablet TAKE 1 TABLET BY MOUTH 3 TIMES A DAY TAKE WITH FOOD 03/28 completed Not Available Not Available Not Available fluconazo le 150 mg tablet Take 1 tablet every day by oral route as needed for 1 day, for yeast. 11/12 completed Not Available Not Available Not Available benzonata te 200 mg capsule Take 1 capsule 3 times a day by oral route as needed for 14 days. 11/12 completed Not Available Not Available Not Available clarithro mycin 500 mg tablet active Not Available Not Available No t Available sumatript an 100 mg tablet TAKE 1 TABLET BY MOUTH AT FIRST SYMPTOM, THEN REPEAT IN 2 HOURS IF NEEDED. NO MORE THAN 3 TABLETS IN 24 HOURS 2024 active Not Available Not Available Not Avai lable hydrocodo ne 5 mg-acetam inophen 325 mg tablet TAKE 1 TO 2 TABLETS BY MOUTH EVERY 6 HOURS NEEDED FOR PAIN active Not Available Not Available No t Available meloxicam 15 mg tablet TAKE 1 TABLET BY MOUTH EVERY DAY 07/24 completed Not Available Not Available Not Available ondansetr on HCl 4 mg tablet active Not Available Not Available No t Available glipizide 10 mg tablet Take 1 tablet twice a day by oral route as directed for 30 days, for diabetes . 07/24 completed Not Available Not Available Not Available famotidin e 40 mg tablet TAKE 1 TABLET BY MOUTH EVERY DAY 10/03 completed Not Available Not Available Not Available Medrol (Justo) 4 mg tablets in a dose pack Take 1 dose pk by oral route as directed . 11/12 completed Not Available Not Available Not Available bupivacai ne HCl 0.5 % (5 mg/mL) injection solution Take 1 mL by injectio n route. 09/13 completed Not Available Not Available Not Available prednison e 20 mg tablet Take 1 tablet every day by oral route for 5 days. active Not Available Not Available No t Available spironola ctone 100 mg tablet Take 1 tablet twice a day by oral route as directed for 90 days. 2024 active Not Available Not Available Not Avai lable rizatript an 10 mg tablet TAKE 1 TABLET BY MOUTH ONCE DAILY AT FIRST SIGN OF MIGRAINE AND THEN REPEAT IN 2HOURS IF NEEDED. DO NOT EXCEED 3 TABLETS IN 24 HOURS. active Not Available Not Available No t Available cyanocoba sandra (vit B-12) 1,000 mcg tablet Take 1 tablet every day by oral route as directed for 90 days. 11/13 completed Not Available Not Available Not Available clotrimaz ole 1 % vaginal cream INSERT 1 APPLICAT ORFUL EVERY DAY BY VAGINAL ROUTE AT BEDTIME. 09/16 completed Not Available Not Available Not Available topiramat e 25 mg tablet Take 2 tablets twice a day by oral route as needed for 90 days. active Not Available Not Available No t Available metronida zole 500 mg tablet Take 1 tablet every 8 hours by oral route for 7 days. active Not Available Not Available No t Available phentermi ne 37.5 mg tablet Take 1 tablet every day by oral route for 30 days. active Not Available Not Available No t Available amlodipin e 5 mg tablet TAKE 1 TABLET BY MOUTH EVERY DAY 09/16 completed Not Available Not Available Not Available ciproflox acin 500 mg tablet 11/15 completed Not Available Not Available Not Available sulfameth oxazole 800 mg-trimet hoprim 160 mg tablet TAKE 1 TABLET BY MOUTH EVERY 12 HOURS DIRECTED FOR 3 DAYS 02/11 completed Not Available Not Available Not Available hydrocodo ne 10 mg-acetam inophen 325 mg tablet 07/28 completed Not Available Not Available Not Available omeprazol e 40 mg capsule,d elayed release TAKE 1 CAPSULE BY MOUTH DAILY BEFORE BREAKFAS T REASONS: GASTROES OPHAGEAL REFLUX DISEASE 08/15 completed Not Available Not Available Not Available aspirin 81 mg tablet,de layed release 03/03 completed Not Available Not Available Not Available acetamino phen 500 mg tablet TAKE 2 TABLETS BY MOUTH EVERY 6 HOURS FOR BASAL PAIN 08/08 completed Not Available Not Available Not Available triamcino lone acetonide 0.1 % topical cream APPLY THIN COAT TO AFFECTED AREA TWICE A DAY 09/26 completed Not Available Not Available Not Available spironola ctone 25 mg tablet TAKE 1 TABLET BY MOUTH EVERY DAY IN THE MORNING 05/08 completed Not Available Not Available Not Available glimepiri de 1 mg tablet TAKE 1 TABLET BY MOUTH EVERY DAY active Not Available Not Available No t Available lamotrigi ne 25 mg tablet TAKE 1 TABLET DAILY X 2 WEEKS AND THEN INCREASE TO 2 TABS DAILY BY MOUTH 30 DAYS 05/08 completed Not Available Not Available Not Available baclofen 20 mg tablet TAKE 1 TABLET BY MOUTH FOUR TIMES DAILY NEEDED active Not Available Not Available No t Available ketorolac 10 mg tablet TAKE 1 TABLET BY MOUTH 4 TIMES A DAY NEEDED FOR PAIN 02/25 completed Not Available Not Available Not Available amoxicill in 875 mg tablet TAKE 1 TABLET BY MOUTH EVERY 12 HOURS FOR 10 DAYS 05/08 completed Not Available Not Available Not Available amitripty line 25 mg tablet Take 1 tablet every day by oral route in the evening for 30 days, for migraine preventi on. 07/24 completed Not Available Not Available Not Available magnesium oxide 400 mg (241.3 mg magnesium ) tablet TAKE 1 TABLET BY MOUTH EVERY DAY active Not Available Not Available No t Available lorazepam 0.5 mg tablet TAKE 1 TABLET BY MOUTH EVERY DAY NEEDED 09/13 completed Not Available Not Available Not Available Depo-Prov era 150 mg/mL intramusc ular suspensio n Inject 1 mL every 3 months by intramus cular route. 2024 active Not Available Not Available Not Avai lable Xylocaine 10 mg/mL (1 %) injection solution Take 20 mg by injectio n route for 1 day. 05/19 completed Not Available Not Available Not Available Kenalog 10 mg/mL suspensio n for injection Take 1 mL by injectio n route. 09/13 completed [facility]: [phone] Not Available Not Available Not Available amlodipin e 10 mg tablet Take 1 tablet every day by oral route for 90 days. active Not Available Not Available No t Available hydrocort isone 1 % topical cream APPLY A THIN LAYER TO THE AFFECTED AREA(S) BY TOPICAL ROUTE 2 TIMES PER DAY 09/16 completed Not Available Not Available Not Available triamcino lone acetonide 40 mg/mL suspensio n for injection Take 1.5 mL every day by injectio n route as directed for 1 day. 10/15 completed Not Available Not Available Not Available hydrocodo ne 7.5 mg-acetam inophen 325 mg tablet TAKE 1 TABLET BY MOUTH EVERY 8 HOURS NEEDED FOR 7 DAYS 10/12 completed Not Available Not Available Not Available cephalexi n 500 mg capsule TK 1 C PO BID FOR 10 DAYS active Not Available Not Available No t Available pantopraz ole 40 mg tablet,de layed release TAKE 1 TABLET EVERY DAY BY ORAL ROUTE FOR 30 DAYS. 04/20 completed Not Available Not Available Not Available venlafaxi ne 37.5 mg tablet Take one tablet PO BID 04/21 completed Not Available Not Available Not Available oseltamiv ir 75 mg capsule Take 1 capsule twice a day by oral route as directed for 5 days. 10/15 completed Not Available Not Available Not Available ferrous sulfate 325 mg (65 mg iron) tablet TAKE 1 TABLET BY MOUTH TWICE A DAY WITH MORNING AND EVENING MEAL 08/15 completed Not Available Not Available Not Available fluoxetin e 20 mg tablet Take 1 tablet every day by oral route for 90 days. active Not Available Not Available No t Available ropinirol e 0.5 mg tablet TAKE 1 TABLET BY MOUTH THREE TIMES DAILY DIRECTED active Not Available Not Available No t Available nystatin 100,000 unit/gram topical cream 09/16 completed Not Available Not Available Not Available buspirone 10 mg tablet Take 1 tablet every day by oral route as needed for 30 days, for anxiety. 10/15 completed Not Available Not Available Not Available clotrimaz ole-betam ethasone 1 %-0.05 % topical cream APPLY TO THE AFFECTED AND SURROUND ING AREAS OF SKIN BY TOPICAL ROUTE 2 TIMES PER DAY IN THE MORNING AND EVENING FOR 2 WEEKS 03/20 completed Not Available Not Available Not Available lisinopri l 10 mg tablet Take 1 tablet every day by oral route for 30 days. 05/15 completed angioede ma Not Available Not Available Not Available glimepiri de 4 mg tablet TAKE 2 TABLET BY MOUTH EVERY DAY AT LUNCH active Not Available Not Available No t Available ursodiol 300 mg capsule TAKE 1 CAPSULE BY MOUTH 2 TIMES DAILY FOR 90 DAYS DO NOT START UNTIL 1 WEEK POST OP 08/15 completed Not Available Not Available Not Available nicotine 21 mg/24 hr daily transderm al patch KIRBY 1 PA EXT TO THE SKIN QD active Not Available Not Available No t Available nystatin- triamcino lone 100,000 unit/g-0. 1 % topical cream APPLY TO THE AFFECTED AREA(S) BY TOPICAL ROUTE 2 TIMES PER DAY IN THE MORNING AND EVENING NEEDED 09/16 completed Not Available Not Available Not Available nitroglyc fran 0.4 mg sublingua l tablet Place one tab under tongue at sx onset. May repeat q 5 min x 2 doses. Call 911 if no improvem ent after first dose. active Not Available Not Available No t Available docusate sodium 100 mg capsule TAKE 1 CAPSULE BY MOUTH TWICE A DAY 01/30 completed med stopped 2021 Not Available Not Available Not Available gabapenti n 300 mg capsule Take 1 cap in the morning, 1 cap at noon, 2 caps at bedtime active Not Available Not Available No t Available omeprazol e 20 mg capsule,d elayed release TAKE 1 CAPSULE BY MOUTH TWICE DAILY NEEDED FOR 30 DAYS active Not Available Not Available No t Available aspirin 81 mg chewable tablet TAKE 1 TABLET BY MOUTH EVERY DAY AT 8 03/03 completed Not Available Not Available Not Available diclofena c sodium 75 mg tablet,de layed release TAKE 1 TABLET BY MOUTH TWICE DAILY WITH FOOD active Not Available Not Available No t Available hydrocort isone 2.5 % topical cream 01/02 completed Not Available Not Available Not Available monteluka st 10 mg tablet TAKE 1 TABLET BY MOUTH EVERY DAY 10/12 completed Not Available Not Available Not Available hydroxyzi ne HCl 25 mg tablet TAKE 1 TABLET BY MOUTH TWICE DAILY DIRECTED active Not Available Not Available No t Available mupirocin 2 % topical ointment APPLY A SMALL AMOUNT TO THE AFFECTED AREA BY TOPICAL ROUTE 3 TIMES PER DAY active Not Available Not Available No t Available diclofena c sodium 50 mg tablet,de layed release TAKE 1 TABLET BY MOUTH TWICE A DAY *STOP IBUPROFE N active Not Available Not Available No t Available gabapenti n 100 mg capsule TAKE ONE CAP IN THE MORNING AND NOON 07/24 completed Not Available Not Available Not Available metoprolo l succinate ER 25 mg tablet,ex tended release 24 hr Take 1 tablet every day by oral route as directed for 90 days, for hyperten jeremías. 11/13 completed Not Available Not Available Not Available ergocalci ferol (vitamin D2) 1,250 mcg (50,000 unit) capsule Take 1 capsule every week by oral route as directed for 84 days. 11/13 completed Not Available Not Available Not Available polyethyl tatyana glycol 3350 17 gram/dose oral powder Take 17 g every day by oral route. 01/30 completed Not Available Not Available Not Available scopolami ne 1 mg over 3 days transderm al patch APPLY 1 PATCH TO SKIN PRE-OP FOR 1 DOSE,YELENA CE 1 PATCH BEHIND EAR NIGHT BEFORE SURGERY 05/18 completed Not Available Not Available Not Available albuterol sulfate HFA 90 mcg/actua tion aerosol inhaler Inhale 2 puffs every 4 hours by inhalati on route as needed. active Not Available Not Available No t Available norethind tiffanie (contrace ptive) 0.35 mg tablet TAKE 1 TABLET BY MOUTH EVERY DAY 03/03 completed Not Available Not Available Not Available ketoconaz ole 2 % topical cream 01/02 completed Not Available Not Available Not Available ondansetr on 4 mg disintegr ating tablet DISSOLVE 1 TABLET BY MOUTH EVERY 4 HOURS NEEDED FOR NAUSEA AND VOMITING 08/08 completed Not Available Not Available Not Available topiramat e 100 mg tablet TAKE 1 TABLET BY MOUTH TWICE A DAY 03/17 completed Not Available Not Available Not Available fluticaso ne propionat e 50 mcg/actua tion nasal spray,joseph pension SPRAY 1 SPRAY BY INTRANAS AL ROUTE EVERY DAY 11/13 completed Not Available Not Available Not Available clotrimaz ole 1 % topical cream APPLY TO SORE TWICE DAILY FOR 2 WEEKS UNTIL RESOLVED 03/20 completed Not Available Not Available Not Available sertralin e 50 mg tablet TAKE 1 TABLET BY MOUTH ONCE DAILY DIRECTED active Not Available Not Available No t Available doxycycli ne hyclate 100 mg tablet TAKE 1 TABLET BY MOUTH TWICE A DAY 03/03 completed Not Available Not Available Not Available dicyclomi ne 10 mg capsule TAKE ONE CAPSULE BY MOUTH THREE TIMES DAILY NEEDED FOR 30 DAYS active Not Available Not Available No t Available lamotrigi ne 100 mg tablet TAKE 1 TABLET BY MOUTH TWICE DAILY DIRECTED active Not Available Not Available No t Available loratadin e 10 mg tablet TAKE 1 TABLET BY MOUTH DAILY active Not Available Not Available No t Available naproxen 500 mg tablet Take 1 tablet twice a day by oral route for 15 days. 11/13 completed Not Available Not Available Not Available spironola ctone 50 mg tablet TAKE 1 TABLET BY MOUTH EVERY DAY 01/02 completed Not Available Not Available Not Available mometason e 0.1 % topical cream APPLY A THIN LAYER TO THE AFFECTED AREA(S) BY TOPICAL ROUTE ONCE DAILY active Not Available Not Available No t Available amoxicill in 875 mg-potass ium clavulana te 125 mg tablet TAKE 1 TABLET BY MOUTH EVERY 12 HOURS active Not Available Not Available No t Available amoxicill in 500 mg-potass ium clavulana te 125 mg tablet Take 1 tablet every 12 hours by oral route for 7 days. active Not Available Not Available No t Available nicotine 7 mg/24 hr daily transderm al patch APPLY 1 PATCH D 08/15 completed Not Available Not Available Not Available oxycodone 5 mg tablet TAKE 1 TO 2 TABLETS BY MOUTH EVERY 4 HOURS NEEDED FOR PAIN . MAX OF 6 PER 24HRS 08/15 completed Not Available Not Available Not Available neomycin- polymyxin -hydrocor t 3.5 mg-10,000 unit/mL-1 % ear drops,joseph p INSTILL 4 DROPS INTO AFFECTED EAR(S) BY OTIC ROUTE 3 TIMES PER DAY active Not Available Not Available No t Available clindamyc in 1 % lotion APPLY TOPICALL Y DAILY TO AFFECTED AREAS OF BOILS IN ARMPITS, ABDOMEN 01/02 completed Not Available Not Available Not Available Cough Syrup DM 10 mg-100 mg/5 mL TK 10 ML PO Q 4 H 05/06 completed Not Available Not Available Not Available Antifunga l (tolnafta te) 1 % topical powder APPLY TO AFFECTED AREA TWICE A DAY FOR 4-6 WEEKS NEEDED 08/08 completed Not Available Not Available Not Available hydrocort isone 1 % topical cream with perineal applicato r 09/16 completed Not Available Not Available Not Available medroxypr ogesteron e 150 mg/mL intramusc ular syringe Inject 1 mL every 3 months by intramus cular route. 01/02 completed Not Available Not Available Not Available Liquid [place] and Callus Remover 17 % topical Apply 1 applicat ion twice a day by topical route. 06/30 completed Not Available Not Available Not Available escitalop britta 10 mg tablet TK 1 T PO QD FOR 90 DAYS 02/25 completed Not Available Not Available Not Available escitalop britta 20 mg tablet TAKE 1 TABLET BY MOUTH EVERY DAY 05/06 completed Not Available Not Available Not Available aripipraz ole 10 mg tablet TAKE 1 TABLET BY MOUTH EVERY DAY 09/13 completed Not Available Not Available Not Available aripipraz ole 20 mg tablet TAKE 1 TABLET BY MOUTH EVERY DAY 01/02 completed Not Available Not Available Not Available aripipraz ole 30 mg tablet TAKE 1 TABLET BY MOUTH ONCE DAILY DIRECTED active Not Available Not Available No t Available nicotine 21mg/24hr -14mg/24h r-7mg/24h r daily transderm patches,s equentl Apply 1 patch every day by transder mal route. 03/29 completed Not Available Not Available Not Available cyclobenz aprine 5 mg tablet Take 1 tablet 3 times a day by oral route for 30 days. active Not Available Not Available No t Available aripipraz ole 5 mg tablet TAKE 1 TABLET BY MOUTH EVERY DAY FOR 30 DAYS 05/08 completed Not Available Not Available Not Available rosuvasta tin 10 mg tablet Take 1 tablet every day by oral route for 90 days. 08/15 completed Not Available Not Available Not Available Prilosec OTC 20 mg tablet,de layed release Take 1 tablet by oral route for 90 days. 02/25 completed Not Available Not Available Not Available topiramat e 50 mg tablet TAKE ONE TABLET BY MOUTH TWICE DAILY 08/15 completed Not Available Not Available Not Available OneTouch UltraSoft Lancets active Not Available Not Available Not Available pregabali n 50 mg capsule Take 1 capsule twice a day by oral route for 30 days. 09/16 completed Not Available Not Available Not Available varenicli ne tartrate 0.5 mg (11)-1 mg (42) tablets in a dose pack TAKE PER PACKAGE INSTRUCT IONS 01/02 completed Not Available Not Available Not Available aripipraz ole 2 mg tablet TAKE 1 TABLET BY MOUTH EVERY DAY 09/13 completed Not Available Not Available Not Available Januvia 25 mg tablet TAKE 1 TABLET BY MOUTH EVERY DAY active Not Available Not Available No t Available Lantus Solostar U-100 Insulin 100 unit/mL (3 mL) subcutane ous pen INJECT 50 UNITS SUBQ EVERY DAY AT BEDTIME. 08/09 completed Not Available Not Available Not Available Humalog MalickPen (U-100) Insulin 100 unit/mL subcutane ous 08/09 completed Not Available Not Available Not Available omeprazol e 20 mg tablet,de layed release TAKE 1 TABLET BY MOUTH DAILY 12/01 completed Not Available Not Available Not Available diclofena c 1 % topical gel APPLY 2 GRAMS TO THE AFFECTED AREA(S) BY TOPICAL ROUTE 4 TIMES PER DAY 08/08 completed Not Available Not Available Not Available OneTouch Verio test strips USE TO TEST 4 TIMES A DAY DX (E11.9) 11/13 completed Not Available Not Available Not Available Banophen 50 mg capsule Take 1 capsule every 4 hours by oral route as needed. 07/14 completed Not Available Not Available Not Available Linzess 145 mcg capsule TAKE 1 CAPSULE BY MOUTH ONCE DAILY 11/13 completed Not Available Not Available Not Available Victoza 2-Justo 0.6 mg/0.1 mL (18 mg/3 mL) subcutane ous pen injector INJECT 1.2 MG UNDER THE SKIN ONCE DAILY 08/09 completed Not Available Not Available Not Available My Way 1.5 mg tablet 05/06 completed Not Available Not Available Not Available clotrimaz ole 1 % topical ointment Apply to sore twice daily for twice weeks or until resolved 03/20 completed Not Available Not Available Not Available Trulicity 0.75 mg/0.5 mL subcutane ous pen injector INJECT 0.75MG SUBCUTAN EOUSLY ONE TIME PER WEEK 02/11 completed Not Available Not Available Not Available Trintelli x 5 mg tablet Take 4 tablets every day by oral route for 8 days. 05/19 completed Not Available Not Available Not Available Trintelli x 10 mg tablet TAKE 1.5 TABLETS BY MOUTH EVERY DAY 01/02 completed Not Available Not Available Not Available Trintelli x 20 mg tablet TAKE 1 TABLET BY MOUTH EVERY DAY 01/02 completed Not Available Not Available Not Available TRUEplus Pen Needle 31 gauge x 3/16 08/08 completed Not Available Not Available Not Available OneTouch Ultra Blue Test Strip USE TO TEST BLOOD SUGAR ONCE DAILY 08/08 completed Not Available Not Available Not Available Dexcom G6 Transmitt er device 08/08 completed Not Available Not Available Not Available Aimovig Autoinjec tor 70 mg/mL subcutane ous auto-inje ctor INJECT 70MG SUBCUTAN EOUSLY EVERY 4 WEEKS active Not Available Not Available No t Available BD Loren 2nd Gen Pen Needle 32 gauge x 5/32 Use to inject insulin and Victoza as directed 08/08 completed Not Available Not Available Not Available OneTouch Delica Plus Lancet 33 gauge 08/08 completed Not Available Not Available Not Available Rybelsus 7 mg tablet TAKE 1 TABLET BY MOUTH EVERY DAY DIRECTED *PA DENIED* 07/24 completed Not Available Not Available Not Available Ubrelvy 100 mg tablet Take by oral route for 19 days. active Not Available Not Available No t Available Ubrelvy 50 mg tablet Take by oral route for 10 days. active Not Available Not Available No t Available OneTouch Verio Reflect Meter USE TO TEST DAILY 08/08 completed Not Available Not Available Not Available Mounjaro 2.5 mg/0.5 mL subcutane ous pen injector Inject 0.5 mL every week by subcutan eous route as directed for 28 days. 07/24 completed Not Available Not Available Not Available Micomitin 1 % topical solution Apply topicall y twice daily for 1-2 weeks or until resolved 03/20 completed Not Available Not Available Not Available Vitals Date Recorded Body height Body mass index (BMI) Body weight Body temperature Heart rate Respiratory rate Oxygen saturation Oxygen saturation in Arterial blood by Pulse oximetry Systolic blood pressure Diastolic blood pressure Provider Name and Address Organization Details Last Updated DateTime 5 170.18 cm 32.6 kg/m2 26352.3 1 g 96.6 [degF] 59 /min 20 /min 98 % 98 % 178 mm[Hg] 80 mm[Hg] Annetta Morris RN [place] [facility] [employer] 5 08:39:41 Date Recorded Body height Body mass index (BMI) Body weight Body temperature Heart rate Respiratory rate Oxygen saturation Oxygen saturation in Arterial blood by Pulse oximetry Systolic blood pressure Diastolic blood pressure Provider Name and Address Organization Details Last Updated DateTime 170.18 cm 33.6 kg/m2 15439.2 2 g 97.3 [degF] 68 /min 20 /min 99 % 99 % 213 mm[Hg] 80 mm[Hg] Annetta Morris RN [facility] [employer] [facility] 08:51:52 Date Recorded Body height Body mass index (BMI) Body weight Provider Name and Address Organization Details Last Updated DateTime 11/13/2024 167.64 cm 33.9 kg/m2 71363.4 g Crystal Wade CNA [facility] I Had Cancer [facility] 11/13/2024 09:29:09 Date Recorded Body height Body mass index (BMI) Body weight Body temperature Heart rate Respiratory rate Oxygen saturation Oxygen saturation in Arterial blood by Pulse oximetry Systolic blood pressure Diastolic blood pressure Provider Name and Address Organization Details Last Updated DateTime 167.64 cm 32.8 kg/m2 88709.7 g 97.3 [degF] 101 /min 20 /min 97 % 97 % 152 mm[Hg] 94 mm[Hg] Annetta Morris RN [facility] [employer] [facility] 15:00:00 Social History Question Answer Notes LastModified by Organizat ion Details LastModified Time Tobacco Smoking Status Current Every Day Smoker Not Available [facility] 09/07/2022 16:57:17 Do You Have An Advance Directive? No Information not available 01/03/2024 Is Blood Transfusion Acceptable In An Emergency? Yes Information not available 01/03/2024 What Is Your Level Of Caffeine Consumption? Heavy [id number] Information not available 09/07/2022 How Much Tobacco Do You Chew? None [id number] Information not available 09/07/2022 What Is Your Code Status? Full Code Information not available 01/03/2024 In The 14 Days Before Symptom Onset, Have You Had Close Contact With A Laboratory-confi rmed COVID-19 While That Case Was Ill? No [id number] Information not available 09/07/2022 In The 14 Days Before Symptom Onset, Have You Had Close Contact With A Person Who Is Under Investigation For COVID-19 While That Person Was Ill? No [id number] Information not available 09/07/2022 What Type Of Diet Are You Following? REGULAR [id number] Information not available 09/07/2022 Which Illicit Or Recreational Drugs Have You Used? No [id number] Information not available 09/07/2022 Do You Have An Electrostatic Air Filter? No [id number] Information not available 09/07/2022 Have There Been Any Changes To Your Family Or Social Situation? No Information not available 12/13/2024 Are There Any Guns Present In Your Home? No [id number] Information not available 09/07/2022 Do You Have A Humidifier? No [id number] Information not available 09/07/2022 Do You Use Insect Repellent Routinely? No Information not available 01/03/2024 Where Do You Live? [place] [id number] Information not available 09/07/2022 Do You Have A Medical Power Of Slabber Light? No Information not available 01/03/2024 Do You Have Moisture Problems In Your Home? No [id number] Information not available 09/07/2022 What Was The Date Of Your Most Recent Tobacco Screening? 08/15/2022 [id number] Information not available 09/07/2022 How Many Children Do You Have? 2 Information not available 01/03/2024 Do You Have Any Pets? Yes [id number] Information not available 09/07/2022 What Is Your Relationship Status? [id number] Information not available 09/07/2022 Do You Use Your Seat Belt Or Car Seat Routinely? Yes [id number] Information not available 09/07/2022 Do You Have Smoke And Carbon Monoxide Detectors In Your Home? Yes [id number] Information not available 09/07/2022 At What Age Did You Start Smoking Tobacco? 20 [id number] Information not available 09/07/2022 Are You Passively Exposed To Smoke? Yes [id number] Information not available 09/07/2022 How Much Tobacco Do You Smoke? 1 PPD Information not available 11/13/2024 Do You Participate In Social Media? No Information not available 01/03/2024 Do You Use Sunscreen Routinely? No Information not available 01/03/2024 How Many Years Have You Smoked Tobacco? 20 [id number] Information not available 09/07/2022 Have You Recently Traveled Abroad? No [id number] Information not available 09/07/2022 Are You Currently In School? No [id number] Information not available 09/07/2022 Do You Have Any Dietary Restrictions? No [id number] Information not available 09/21/2022 Sex: Female Functional Status Question Answer Note LastModified by Organizat ion Details LastModified Time What is your level of alcohol consumption? Occasional Information not available 11/13/2024 Do you or have you ever used smokeless tobacco? Never used smokeless tobacco [id number] Information not available 09/07/2022 Are you currently employed? Yes Information not available 01/03/2024 What is your occupation? [employer] Information not available 01/03/2024 Do you or have you ever used e-cigarettes or vape? Never used electronic cigarettes [id number] Information not available 09/07/2022 What is your exercise level? Occasional [id number] Information not available 09/07/2022 Mental Status Question Answer Note LastModified by Organization D etails LastModified Time Do you feel stressed (tense, restless, nervous, or anxious, or unable to sleep at night)? [id number] Information not available 01/03/2024 Family History Relationship Description Onset Age of this Age Resolved Age Notes LastModified by Organization Details LastModified Time Mother Diabetes mellitus [id number] Not available 09/07/2022 16:57:31 Mother Family history of stroke [id number] Not available 09/07/2022 16:57:31 Mother Hypertensive disorder [id number] Not available 09/07/2022 16:57:31 Mother Hyperlipidem ia [id number] Not available 09/07/2022 16:57:31 Mother Heart disease [id number] Not available 09/07/2022 16:57:31 Mother Arthritis [id number] Not available 09/07/2022 16:57:31 Mother Malignant neoplasm of ovary [id number] Not available 09/07/2022 16:57:31 Father Hypertensive disorder [id number] Not available 09/07/2022 16:57:31 Father Hyperlipidem ia [id number] Not available 09/07/2022 16:57:31 Maternal Grandmother Diabetes mellitus [id number] Not available 09/07/2022 16:57:31 Maternal Grandmother Malignant neoplasm of lung [id number] Not available 09/07/2022 16:57:31 Maternal Grandmother Hypertensive disorder MIGRATION.420 [id number] Not available 09/07/2022 16:57:31 Maternal Grandmother Heart disease MIGRATION.545 [id number] Not available 09/07/2022 16:57:31 Maternal Grandmother Arthritis MIGRATION.844 [id number] Not available 09/07/2022 16:57:31 Maternal Grandmother Malignant neoplasm of female breast MIGRATION.461 [id number] Not available 09/07/2022 16:57:31 Paternal Grandmother Diabetes mellitus MIGRATION.454 [id number] Not available 09/07/2022 16:57:31 Paternal Grandmother Malignant neoplasm of lung MIGRATION.395 [id number] Not available 09/07/2022 16:57:31 Paternal Grandmother Hypertensive disorder MIGRATION.573 [id number] Not available 09/07/2022 16:57:31 Paternal Grandmother Arthritis MIGRATION.598 [id number] Not available 09/07/2022 16:57:31 Maternal Uncle Diabetes mellitus MIGRATION.945 [id number] Not available 09/07/2022 16:57:31 Maternal Uncle Hypertensive disorder MIGRATION.785 [id number] Not available 09/07/2022 16:57:31 Maternal Uncle Arthritis MIGRATION.708 [id number] Not available 09/07/2022 16:57:31 Maternal Uncle Malignant neoplasm of prostate MIGRATION.563 [id number] Not available 09/07/2022 16:57:31 Maternal Uncle Primary malignant neoplasm of urinary bladder MIGRATION.964 [id number] Not available 09/07/2022 16:57:32 Maternal Uncle Malignant tumor of colon MIGRATION.820 [id number] Not available 09/07/2022 16:57:32 Paternal Grandfather Malignant neoplasm of lung MIGRATION.378 [id number] Not available 09/07/2022 16:57:32 Paternal Grandfather Hypertensive disorder MIGRATION.579 [id number] Not available 09/07/2022 16:57:32 Paternal Grandfather Arthritis MIGRATION.150 [id number] Not available 09/07/2022 16:57:32 Paternal Uncle Hypertensive disorder MIGRATION.987 [id number] Not available 09/07/2022 16:57:32 Paternal Uncle Heart disease MIGRATION.160 [id number] Not available 09/07/2022 16:57:32 Paternal Uncle Arthritis MIGRATION.049 [id number] Not available 09/07/2022 16:57:32 Brother Arthritis MIGRATION.370 [id number] Not available 09/07/2022 16:57:32 Maternal Grandmother Family history of stroke [email or web address] Not available 2024 09:32:33 Paternal Grandmother Heart disease [email or web address] Not available 2024 09:32:53 Medical History Condition Response DIABETES, TYPE Y SKIN PROBLEMS Y ALLERGIES/HAYFEVER Y LUNG DISEASE/DISORDER Y INSOMNIA Y HIGH CHOLESTEROL / HYPERLIPIDEMIA Y ASTHMA Y CONSTIPATION Y FEMALE PROBLEMS / INFECTIONS Y DEPRESSION (INCLUDING POST ) Y HAVE YOU BEEN HOSPITALIZED OR SEEN IN [facility] ER IN THE PAST YEAR ? HEADACHES/MIGRAINES Y HYPERTENSION Y OBESITY Y ANXIETY DISORDER Y BRONCHITIS Y Gynecological History Statement/Question Response Abnormal Pap Y Flow Light Date of LMP 12/08/2021 Dislike of Light during Menstrual Headac he Y Date of Last Pap Duration of Flow (days) 5 Most Recent Mammogram Current Control Method Depo-[employer] a Age at Menarche 14 Breast Problems no How many live births 1 Date of Last Colonoscopy Most Recent Bone Density Sexually Active? Y Date of Last Pap Smear Obstetrics History GPAL:G 1 P 1 0 0 1 Type Value Full Term 1 Living 1 Total 1 Immunizations Vaccine Type Date Status Note Provider Nam e and Address Organization Details Recorded Time COVID-19, mRNA, LNP-S, PF, 30 mcg/0.3 mL dose 1 completed SCOTT Mohan, [facility] [employer] 12/13/2024 14:56:06 COVID-19, mRNA, LNP-S, PF, 30 mcg/0.3 mL dose 1 completed SCOTT Mohan, [facility] I Had Cancer [facility] 12/13/2024 14:56:06 Tdap completed Not Available [facility] 04/06/2023 10:19:58 Influenza, split virus, quadrivalent, preservative 6 completed Not Available [facility] 04/06/2023 10:19:58 Past Encounters Encounter ID Performer Location Encounter Start Date Encounter Closed Date Diagnosis/Indication Diagnosis SNOMED-CT Code Diagnosis ICD10 Code Diagnosis Note [id number] VEE Degroot [facility] [place] [address] [place] [address] 09/15/2020 00:00:00 09/15/2020 18:32:45 [id number] [facility] _FAYETTE_ IGRATION_ DEFAULT_1 _1 , 10/15/2020 00:00:00 10/15/2020 19:01:05 [id number] VEE Degroot [facility] Primary Care [place] [address] [place] [address] 10/23/2020 00:00:00 10/23/2020 20:38:15 [id number] VEE Degroot [facility] Primary Care [place] [address] [place] [address] 11/05/2020 00:00:00 11/05/2020 18:08:05 [id number] VEE Degroot [facility] [place] [address] [place] [address] 12/15/2020 00:00:00 12/15/2020 19:58:11 [id number] VEE Degroot [facility] [place] [address] [place] [address] 12/31/2020 00:00:00 12/31/2020 14:59:00 [id number] Monika Arambula MD [facility] Primary [facility] [place] [address] [place] [address] 01/14/2021 00:00:00 01/15/2021 16:04:38 [id number] Monika Arambula MD [facility] Primary [facility] [place] [address] [place] [address] 02/11/2021 00:00:00 02/11/2021 15:56:23 [id number] Monika Arambula MD [facility] Primary Care [place] [address] [place] [address] 03/11/2021 00:00:00 03/11/2021 18:21:49 [id number] Monika Arambula MD [facility] Primary [facility] [place] [address] [place] [address] 04/15/2021 00:00:00 04/15/2021 16:21:32 [id number] Monika Arambula MD [facility] Primary Care [place] [address] [place] [address] 05/04/2021 00:00:00 05/04/2021 19:20:48 [id number] Monika Arambula MD [facility] Primary Care [place] [address] [place] [address] 05/25/2021 00:00:00 05/25/2021 14:41:57 [id number] Monika Arambula MD [facility] Primary [facility] [place] [address] [place] [address] 06/22/2021 00:00:00 06/22/2021 18:07:51 [id number] Monika Arambula MD [facility] Primary [facility] [place] [address] [place] [address] 09/16/2021 00:00:00 09/16/2021 19:41:21 [id number] Monika Arambula MD [facility] Primary [facility] [place] [address] [place] [address] 10/01/2021 00:00:00 10/02/2021 00:12:39 [id number] VEE Degroot [facility] Primary [facility] [place] [address] [place] [address] 10/19/2021 00:00:00 10/19/2021 17:47:45 [id number] VEE Degroot [facility] Primary Care [place] [address] [place] [address] 12/15/2021 00:00:00 12/15/2021 15:51:49 [id number] Monika Arambula MD [facility] Primary Care [place] [address] [place] [address] 01/03/2022 00:00:00 01/03/2022 19:08:47 [id number] VEE Degroot [facility] Primary Care [place] [address] [place] [address] 02/08/2022 00:00:00 02/08/2022 15:00:21 [id number] JOSEPH Layne [facility] Primary [facility] [place] [address] [place] [address] 02/17/2022 00:00:00 02/17/2022 17:48:42 [id number] VEE Degroot [facility] Primary [facility] [place] [address] [place] [address] 03/03/2022 00:00:00 03/03/2022 15:12:00 [id number] VEE Degroot [facility] Primary Care [place] [address] [place] [address] 03/17/2022 00:00:00 03/17/2022 16:42:00 [id number] JOSEPH Layne [facility] Primary Care [place] [address] [place] [address] 04/04/2022 00:00:00 05/09/2022 13:52:52 [id number] Monika Arambula MD [facility] Primary Care [place] [address] [place] [address] 04/20/2022 00:00:00 04/20/2022 18:06:01 [id number] Monika Arambula MD [facility] [place] [facility] [address] [facility] [address] [place] [address] 06/28/2022 00:00:00 06/28/2022 17:48:08 [id number] Monika Arambula MD [facility] Primary Care [address] [place] [address] 07/26/2022 00:00:00 07/26/2022 19:24:26 [id number] Monika Arambula MD [facility] Primary Care [address] [place] [address] 08/09/2022 00:00:00 08/09/2022 14:23:39 [id number] Thierno Sharma MD [facility] [address] [address] 08/15/2022 00:00:00 08/15/2022 15:29:19 [id number] VEE Degroot [facility] Primary Care [address] [place] [address] 09/21/2022 12:13:31 09/21/2022 13:58:06 Carpal tunnel syndrome of left wrist [id number] 48577 G56.02 Chronic, worseningI ncrease gabapentin to 100mg qam and noon, 600mg at bedtime.Wi ll send for updated EMG/NC and refer to ortho. Contracept ion care management 880037467 Z30.9 Per patient request, will refer to dairy chemist to discuss Implanon vs Depo-Prove ra. [id number] Monika Arambula MD [facility] [place] [address] [place] [address] 09/26/2022 13:57:30 09/26/2022 15:27:23 [id number] Vimal Gallo MD [facility] [place] [address] [place] [address] 10/12/2022 14:45:26 10/12/2022 15:51:54 Pain of left wrist 0942821565 37927 M25.532 Pain of le ft shoulder joint 7756700398 6733194 M25.512 Carpal emerald aureliano syndrome of left wrist 3977533076 54022 G56.02 Lateral ep icondylitis of left humerus 8549937145 M77.12 Impingemen t syndrome of left shoulder region 2901109921 86528 M75.42 [id number] VEE Degroot [facility] [address] [facility] [address] [place] [address] 12/22/2022 14:39:48 12/22/2022 15:26:00 Hyperglycemia due to type 2 diabetes mellitus 7143161527 49688 E11.65 Much improved with weight loss.A1C 7.6 (07/26/22)D iscussed need for regular exercise, increase intake of water/vege tables/fib er. Decrease intake of carbs, especially white rice/pasta /flour/yoni ad/sugar.P t was managing with diet and weight loss, but pts weight has been fluctuatin g more. Pt was unable to tolerate metformin d/t GI upset. Recommend trial of GLP-1 for sugar control, weight loss, and possible cardioprot ective properties . Morbid obesity 835795622 E66.01 ImprovingD own 122# from highest weight of 350# (01/2020) following bariatric surgery.Ad vised eat 3 meals daily with 1-2 healthy snacks, eliminate caloric drinks, no grazing btw meals, reduce packaged foods, portion control, modificati on of cooking style, low fat/low sugar items, 30 minutes of exercise at least 3x/week, reduce emotional/ stress eating, increase fruits/veg etables, take 15-20 minutes to eat.Reassu red pt that she is doing great with weight loss. Her goal is to lose 150# total.Obie tion of GLP-1 should aid weight loss efforts. Cigarette smoker 2308293 7 F17.210 Currently smoking 1ppdEncour aged smoking cessation. Smoking cessation counseling and techniques reviewed at length with pt. Literature reviewed. Avoid triggers, support groups. Discussed cessation options (counselin g, medication s, e-cigarett es, patches, alternativ e therapies) . Will give trial of vareniclin e. May also help with neuropathy sx. Female hirsutism 8109867 9 L68.0 ChronicWil l give trial of spironolac toneThis is relatively mild in nature but has occurred just in the past year requiring attention/ plucking/w axing/shav ing.May consider checking T2 or DHEA levels if no improvemen tEstrada Valleleandra ion care management 059741171 Z30.9 Due for quarterly Depo Provera injection Mixed anxi ety and depressive disorder 341187367 F41.8 [id number] VEE Degroot [facility] Primary Care [place] [address] [facility] [address] [place] [address] 01/05/2023 14:55:47 01/05/2023 17:43:08 Hyperglycemia due to type 2 diabetes mellitus 0820061347 11458 E11.65 Much improved with weight loss.A1C 7.6 (07/26/22)D iscussed need for regular exercise, increase intake of water/vege tables/fib er. Decrease intake of carbs, especially white rice/pasta /flour/yoni ad/sugar.P t was managing with diet and weight loss, but pts weight has been fluctuatin g more. Pt was unable to tolerate metformin d/t GI upset. Recommend trial of GLP-1 for sugar control, weight loss, and possible cardioprot ective properties . Cigarette smoker 7187838 7 F17.210 Currently smoking 1ppdEncour aged smoking cessation. Smoking cessation counseling and techniques reviewed at length with pt. Literature reviewed. Avoid triggers, attend support groups. Discussed cessation options (counselin g, medication s, e-cigarett es, patches, alternativ e therapies) . Failed vareniclin e d/t panic attacks, likely poor interactio n with her other mental health meds. Morbid obesity 582838597 E66.01 ImprovingD own 122# from highest weight of 350# (01/2020) following bariatric surgery.Ad vised eat 3 meals daily with 1-2 healthy snacks, eliminate caloric drinks, no grazing btw meals, reduce packaged foods, portion control, modificati on of cooking style, low fat/low sugar items, 30 minutes of exercise at least 3x/week, reduce emotional/ stress eating, increase fruits/veg etables, take 15-20 minutes to eat.Reassu red pt that she is doing great with weight loss. Her goal is to lose 150# total.Obie tion of GLP-1 should aid weight loss efforts. Female hirsutism 8635259 9 L68.0 Chronic, improvingC ontinue with spironolac toneThis is relatively mild in nature but has occurred just in the past year requiring attention/ plucking/w axing/shav ing.May consider checking T2 or DHEA levels in the future. Mixed anxi ety and depressive disorder 423823598 F41.8 Improving with psych treatment and counseling .Encourage d pt to continue with current meds and therapy appts. Chronic id iopathic constipation 46630003 K59.04 Not well controlled Sx worsening following bariatric surgery and starting GLP-1Recom mend increasing oral fluids with non-caffei nated, non-alcoho lic beverages. Increase daily dietary fiber. May drink prune juice or pear juice to initiate bowel regularity and then decrease as needed to maintain a once daily or every other day bowel habit. Tylenol or Motrin may be used as needed for cramping. High fiber diet with whole grains, fruits and veggies. Fiber supplement with Metamucil or Citracel. Increase water, fluid intake-Rec ommend at least 6-8 8oz glasses day. Avoid straining. Will resume Linzess 145mcg daily, samples given. [id number] Monika Arambula MD [facility] Primary Care [address] [place] [address] 03/22/2023 13:51:21 03/22/2023 14:54:14 Hyperglycemia due to type 2 diabetes mellitus [id number] 18627 E11.65 Much improved with weight loss.A1C 7.6 (07/26/22)D iscussed need for regular exercise, increase intake of water/vege tables/fib er. Decrease intake of carbs, especially white rice/pasta /flour/yoni ad/sugar.P t was managing with diet and weight loss, but pts weight has been fluctuatin g more. Pt was unable to tolerate metformin d/t GI upset. Recommend trial of GLP-1 for sugar control, weight loss, and possible cardioprot ective properties . Female hirsutism 2107618 9 L68.0 Chronic, no longer improving. Will increase spironolac tone to 50mg dailyThis is relatively mild in nature but has occurred just in the past year requiring attention/ plucking/w axing/shav ing.May consider checking T2 or DHEA levels in the future. Morbid obesity 617605610 E66.01 ImprovingD own more than 120# from highest weight of 350# (01/2020) following bariatric surgery.Ad vised eat 3 meals daily with 1-2 healthy snacks, eliminate caloric drinks, no grazing btw meals, reduce packaged foods, portion control, modificati on of cooking style, low fat/low sugar items, 30 minutes of exercise at least 3x/week, reduce emotional/ stress eating, increase fruits/veg etables, take 15-20 minutes to eat.Reassu red pt that she is doing great with weight loss. Her goal is to lose 150# total.Obie tion of GLP-1 should aid weight loss efforts. Cigarette smoker 6149988 7 F17.210 Currently smoking 1ppdEncour aged smoking cessation. Smoking cessation counseling and techniques reviewed at length with pt. Literature reviewed. Avoid triggers, attend support groups. Discussed cessation options (counselin g, medication s, e-cigarett es, patches, alternativ e therapies) . Failed vareniclin e d/t panic attacks, likely poor interactio n with her other mental health meds. Mixed anxi ety and depressive disorder 499648629 F41.8 Improving with psych treatment and counseling .Encourage d pt to continue with current meds and therapy appts. Pharyngitis 226589726 J0 2.9 New problemEnc ouraged fluids, rest, acetaminop hen, ibuprofen or ASA as directed prn. Salt water gargles, sore throat lozenges, tea with honey/lemo n or lemonade, change toothbrush . Complete all antibiotic s as prescribed . Carpal emerald aureliano syndrome of left wrist 1105815954 63632 G56.02 Chronic, worseningI ncrease gabapentin to 100mg qam and noon, 600mg at bedtime. Neuropathy 327214454 G62 .9 Chronic, worseningB ilat feetPt did not increase gabapentin to 600mg QHS as previously advised. Contracept ion care management 255426378 Z30.9 Due for quarterly Depo Provera injection [id number] Bhupendra Denny MD [facility] [address] [place] [address] 04/05/2023 13:54:03 04/05/2023 14:34:42 Pain of left shoulder joint 9554846854 7828040 M25.512 Pain of left wrist 43493 82640 79654 M25.532 Lateral ep icondylitis of left humerus 0240177149 01846 M77.12 [id number] Monika Arambula MD [facility] Primary Care [facility] [address] [facility] [address] [place] [address] 05/08/2023 15:04:54 05/08/2023 15:57:26 Pain of multiple joints 81690046 M25.50 M79.10 R53.83 check labs Essential hypertension 81683855 I10 Neuropathy 247366625 G62 .9 Vitamin D deficiency 347 03163 E55.9 Migraine 72941973 G43.90 9 will do prior auth for aimovigcon tinue ubrelvy Type 2 katie betes mellitus without complication 692312489 E11.9 Hyperlipidemia 27419512 E78.5 Primary fi bromyalgia syndrome 61570598 M79.7 has failed cyclobenza prineconti nue gabapentin continue meloxicamw ill discuss option of cymbalta instead of trintellix with psychiatry stay physically active Degenerati on of lumbar intervertebral disc 34889997 M51.36 PT referral givenf/u in 8 weeks or sooner if needed [id number] Bhupendra Denny MD [facility] [address] [place] [address] 06/28/2023 13:43:56 06/28/2023 14:21:01 Pain of left elbow joint 3467211722 6058182 M25.808 [id number] Monika Arambula MD [facility] Primary Care [facility] [place] [address] [facility] [address] [place] [address] 07/05/2023 10:24:39 07/05/2023 10:52:10 [id number] Monika Arambula MD [facility] Primary Care [facility] [place] [address] [facility] [address] [place] [address] 07/11/2023 14:13:45 07/11/2023 14:46:43 Degeneration of lumbar intervertebral disc 20193533 M51.36 no improvemen t with PTtakes gabapentin and meloxicam without improvemen tMRI ordered [facility] ion care management 603547631 Z30.9 would like to discuss IUD vs nexplanon [id number] Monika Arambula MD [facility] Primary Care [place] [address] [facility] [address] [place] [address] 09/14/2023 11:00:04 09/14/2023 11:53:10 Depressive disorder 29165692 F32.A Chronic id iopathic constipation 85560258 K59.04 Migraine 01171117 G43.90 9 Hyperglyce marissa due to type 2 diabetes mellitus 6858830057 12938 E11.65 Carpal emerald auerliano syndrome of left wrist 1423989822 20538 G56.02 Neuropathy 968500166 G62 .9 Vitamin D deficiency 347 49533 E55.9 Female hirsutism 4260672 9 L68.0 Viral syndrome 836721667 B34.9 take home covid test Degenerati on of lumbar intervertebral disc 49833978 M51.36 no improvemen t with PTtakes gabapentin and meloxicam without improvemen tMRI ordered 09/14/23: pain mgmt referral given MRI of lum bar spine abnormal 422193733 R93.7 reviewed resultspai n mgmt referral givenrepea t MRI to f/u on ischium lesion [id number] Monika Arambula MD [facility] Care [address] [place] [address] 11/08/2023 14:03:35 11/08/2023 14:37:48 Pain of multiple joints 24187185 M25.50 M79.10 R53.83 check labs Essential hypertension 80606859 I10 Neuropathy 215131409 G62 .9 Vitamin D deficiency 347 24136 E55.9 Type 2 katie betes mellitus without complication 393394307 E11.9 Hyperlipidemia 62413767 E78.5 Primary fi bromyalgia syndrome 23193335 M79.7 has failed cyclobenza prineconti nue gabapentin continue meloxicamw ill discuss option of cymbalta instead of trintellix with psychiatry stay physically active Degenerati on of lumbar intervertebral disc 24172624 M51.36 PT referral givenf/u in 8 weeks or sooner if needed 11/08/23: waiting to hear about appt with pain mgmt [id number] Fortunato Au MD [address] [address] 01/03/2024 09:21:57 01/03/2024 10:32:50 Female hirsutism 67690808 L68.0 Decreased urine output 398529782 R34 Type 2 katie betes mellitus without complication 124738922 E11.9 Carpal emerald aureliano syndrome of left wrist 4221912445 50062 G56.02 Screening mammography 24 878583 Z12.31 Angular cheilitis 305731 005 K13.0 [id number] Fortunato Au MD [address] [address] 03/20/2024 09:48:20 03/20/2024 10:35:06 Type 2 diabetes mellitus without complication 645421047 E11.9 She failed Victoza in 07/2022 and is not tolerating the daily Rybelsus. She would like to try Mounjaro. Hyperthyroidism 13961200 E05.90 Patient is taking biotin supplement , likely causing hyperthyro idism. Will recheck. Dysfunctio n of bilateral eustachian tubes 6583335378 137775 H69.93 [id number] Fortunato Au MD [address] [address] 07/24/2024 08:17:41 07/24/2024 08:57:52 Adult health examination 419267251 Z00.00 Health maintenanc e reviewedDi scussed diet and exercisePa tient questions answeredan nual labs drawn Screening mammography 24 416007 Z12.31 Bilateral cramp of muscle of lower limbs 2684639792 9398718 R25.2 Has been taking magnesium 750 mg daily with no improvemen t Hyperthyroidism 79616542 E05.90 Patient is taking biotin supplement , likely causing hyperthyro idism. Will recheck. Hyperlipidemia 87436360 E78.5 Type 2 katie betes mellitus without complication 831136272 E11.9 She failed Victoza in 07/2022 and is not tolerating the daily Rybelsus. She would like to try Mounjaro. Patient has lost health insurance, would like substitute s off the [employer] $4 listHas not taken any medication s for 3 months. Would like to see A1C before starting meds again. Prefers weekly GLP1 Vitamin D deficiency 347 81176 E55.9 Migraine 58477857 G43.90 9 Dysfunctio n of bilateral eustachian tubes 5345681245 928923 H69.93 Seasonal allergies Neuropathy 902326738 G62 .9 Was previously taking 100 mg in am and noon and found this ineffectiv e. Chronic id iopathic constipation 64206989 K59.04 Well managed with Linzess Essential hypertension 14921306 I10 Patient has lost health insurance, would like substitute s off the [employer] $4 list Female hirsutism [id number] 9 L68.0 Bipolar disorder [id number] 4 F31.9 Will re-establi sh with psych pending insurance Hidradenit is suppurativa 62021397 L73.2 Has gone without doxycyclin e and notes severe boils in axilla [id number] Fortunato Au MD [address] [address] 08/15/2024 10:36:11 08/15/2024 11:27:17 Transition of care [id number] 105 Z75.8 Patient here for Ki FU, pleurisy, headache, lymphadeno mabel. Likely viral infection with reactive lymp Viral uppe r respiratory tract infection 603997298 J06.9 Advised to add vitamin C, zinc, mucinex DM, ibuprofen and tylenol as needed for fever and pain [id number] Fortunato Au MD [address] [address] 08/30/2024 11:40:54 08/30/2024 12:12:32 Influenza caused by Influenza A virus 624409815 J09.X2 Rheumatoid nodule of right wrist 7239968127 60397 M06.331 Notes pain Contraception care 03818 5005 Z30.40 menstruati ng today [id number] Fortunato Au MD [place] [id number] 1 10/15/2024 14:36:25 10/15/2024 15:20:23 Bipolar disorder 11700583 F31.9 Insurance dropped coverage of psych, I will manage for now Anxiety 48353931 F41.9 Not well controlled , insurance does not cover her psychaitri st. I will manage for now Migraine with aura 53956 06 G43.109 Zavzpret given in office, relief noticed within minutes Acute righ t otitis media 698786352 H66.91 [id number] Fortunato Au MD [place] [id number] 1 10/22/2024 08:24:30 10/22/2024 09:13:18 Dysfunction of bilateral eustachian tubes 8093376549 978613 H69.93 Seasonal allergies Acute righ t otitis media 416576276 H66.91 Candidal vulvovaginitis 79010265 B37.31 [id number] Fortunato Au MD [place] [address]804[address] 1 10/23/2024 16:59:49 10/23/2024 17:15:58 Uncontrolled type 2 diabetes mellitus 524950656 E11.65 [id number] VEE Reyes [place] [id number] 1 11/12/2024 08:44:28 11/12/2024 09:31:20 Female hirsutism 13113210 L68.0 Will restart spironolac tone Contracept ion care management 193915325 Z30.8 Last shot 08/22/24 Restless legs 63143990 G 25.81 Not well controlled with gabapentin Gastroesop hageal reflux disease 265764727 K21.9 Mild, does complain of vomit taste after meals Wheezing 22268692 R06.2 Left sided, moderate to severe [id number] Bhupendra Denny MD [facility] [address] [place] [address] 11/13/2024 09:07:44 11/13/2024 12:00:32 Pain of left elbow joint 4162427493 3196059 M25.230 [id number] VEE Reyes [facility] [address] [address] 12/13/2024 14:51:41 12/13/2024 15:26:53 Acute migraine 2951449983 81523 G43.909 worst headache of her life different than a normal migraineU brelvy sample given, pt advised to go to ERPt agreeable Dental abscess 636370096 K04.7 Present x 2 days, painful Female hirsutism 4166066 9 L68.0 Has been taking spironolac tone 100 mg daily, will increase to twice daily Health Concerns Section Related Observation LastModified by Organization Detai ls LastModified Time None Recorded Concern Status LastModified by Organization Details LastModified Time None Recorded Advance Directives Directive N: Payers Insurance Date Sequence Insurance Name Policy Number Policy Morales Covered Member ID Morales Member ID Guarantor Name 11/13/2024 [employer] [facility] [place] (MEDICAID HMO) [id number] 0003 Randee Lazo [id number] Randee Lazo 11/13/2024 1 [employer] [facility] [place] [employer] (MEDICARE - MEDICAID REPLACEMENT HMO) Randee Lazo [id number] Randee Lazo 11/13/2024 1 [employer] [facility] [place] ([place] H[place] [id number] 0003 Randee Lazo [id number] Randee Lazo 11/13/2024 1 [employer] [facility] [place] (HMO) Randee Lazo [id number] Randee Lazo 12/16/2024 1 [employer] [id number] Yoni Mcfarland [id number] Randee Lazo 12/11/2024 2 [place] [employer] Randee Lazo [id number] Randee Lazo 12/16/2024 [employer] [place] ([place]ICA[place] HMO) [id number] 0003 Randee Lazo [id number] Randee Lazo 11/13/2024 1 [facility] (MEDICAID HMO) [id number] 0003 Randee Lazo [id number] Randee Lazo Notes Date Note Type Note Provider Name and Address Organization Details Recorded Time 10/22/2024 text/html Randee Lazo is a 44 year old female patient here today for a 3 month FU Concerns with persistent ear infection pain, rt worse than left. Recently restarted anxiety and bipolar medications, doing okay with this. Migraines are well controlled. BP today is elevated at 178/80, this is abnormal for her. Recheck 126/84 VEE Reyes [address], [place], [address], [place] 10/22/2024 09:00:41 11/12/2024 text/html Randee Lazo is a 44 year old female here today for multiple concerns She has HS, was well managed with spirolactone, would like to restart Needs depo shot today Right ear pain, has completed augmentin and medrol dose pack Concerns with leg twitching and pain, is currently taking gabapentin Has a cough today VEE Reyes [address], [place], [address], [place] 11/12/2024 09:44:05 12/13/2024 text/html Randee Lazo is a 44 year old female patient here today for a headache. She has concerns with a headache on the right side of her head that worsens when she changes position or bears down. Denies changes to vision or hearing, denies N/V, photophobia, sensitivty to noiseShe admits to dizziness and light headedness.This has been present times 2 weeksShjozef does have regular migraines but states this is different and worse than any before. She has a right sided dental abscess VEE Reyes [address], [place], [address], [place] [facility] 12/13/2024 15:19:05 OBGyn Episode No OBEpisode recorded.
--- OUTSIDE RECORDS SUMMARY | 2024-12-27 00:02 | XMS_ITS | Data Portability ---
Author Organization [facility] [place] Yang Address [address] [place] [address] Care Team Providers Care Forensic Social Worker Name Role Phone DOWLINGESATANVIR Primary Care Provider Assessment Encounter Date Assessment Date Assessment LastModified by Organization Details LastModified Time 12/24/2020 12/24/2020 Duration of appointment was 65 minutes rloar Not available 12/24/2020 17:22:25 Plan of Treatment Reminders Order Date Submit Date Provider Last Modified By Organization Details Last Modified Time Details Appointments None recorded. Lab H pylori urea breath test, co2 infrared 2020 021 [facility] (Lab), [address], [place], [address], 21:07:48 SARS CoV 2 RNA (COVID-19) , QL, pediatric medical assistant-PCR, respirator y specimen 2020 021 [facility] (Lab), [address] [facility], [place], [address], 11:42:47 CBC w/ diff [address] [facility] (Lab), [address], [place], [address], 08:32:49 gamma-glut amyl transferas e (ggt), serum 2020 021 [facility] (Lab), [address], [place], [address], 15:10:11 iron + TIBC + ferritin, serum [address] [facility] (Lab), [address], [place], [address], 1 08:32:49 hepatitis panel (A+B+C), acute, serum 2020 [facility] (Lab), [address], [place], [address], 1 11:12:08 ceruloplas min, serum 2020 [facility] (Lab), [address], [place], [address], 1 11:12:07 alpha-1-an titrypsin (aat), QN, serum 2020 [facility] (Lab), [address], [place], [address], 08:32:49 LOIS (antinucle ar antibodies ) panel, serum 2020 [facility] (Lab), [address], [place], [address], 1 13:10:38 liver-kidn ey microsome type 1 igg Ab, serum 2020 [facility] (Lab), [address], [place], [address], 1 08:32:50 smooth muscle Ab, serum 2020 [facility] (Lab), [address], [place], [address], 1 08:32:50 prothrombi n time 2020 [facility] (Lab), [address], [place], [address], 08:32:50 BMP, serum or plasma 2020 [facility] (Lab), [address], [place], [address], 20:33:05 hepatic function panel, serum 2020 [facility] (Lab), [address], [place], [address], 20:33:02 mitochondr ial Ab, serum 2020 [facility] (Lab), [address], [place], [address], 15:10:15 Referral cardiologi referral - Chest pain. Records ordered from [facility]. They told me I might have angina 2020 [facility] Not available 17:43:35 Procedures upper endoscopy procedure (EGD) (PROC) - Cardiac clearance required 2020 [facility] (Surgery Sched), [address] [place], [address], 12:26:55 colonoscop y procedure (PROC) - cardiac clearance 2020 021 [facility] (Surgery Sched), [address] [place], [address], 15:41:31 Surgeries None recorded. Imaging US, elastogram - NAFLD - already had US at [facility] 2020 [facility] (Rad), [address], [place], [address], 16:35:20 Medication Orders pantoprazo le 40 mg tablet,del ayed release 2020 [facility]/Pharmacy #[id number], [address] [place], [address], 17:09:26 Dulcolax (bisacodyl ) 5 mg tablet,del ayed release 2020 [id number] [address] [place], [address], 17:09:26 Miralax 17 gram/dose oral powder 2020 [facility]21 [id number] [address] [place], [address], 17:09:25 Patient TargetsNo targets recorded. Patient Instructions Encounter Date Encounter Id Patient Instructions Last Modified By Organization Details Last Modified Time 12/24/2020 [id number] medical record request* - All records, procedure notes, imaging, lab results, discharge medication list from October 2020 to present [facility] Not available 12/25/2020 08:29:52 medical record request* - Abdominal and pelvic US of 10/15/2020, HIDA [facility] Not available 12/25/2020 08:29:32 RL About your EGD rloar Not availabl e 12/24/2020 17:09:21 RL About Your Colonoscopy 1 Day Prep rloar Not available 12/24/2020 17:09:21 cardiac clearance* [facility] Not available 05/14/2021 10:39:35 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 Records ordered from [facility]. They told me I might have angina Referring Physician: Brandon Escudero, Gastroenterology, Encounter Date: 12/24/2020 Results Created Date Observation Date Name Description Value Unit Range Abnormal Flag Note LastModifiedBy Organization Detail LastModifiedTime 12/25/1912/24/2020 CBC w/ auto diff WBC 10.3 K/uL 3.4-10 .8 Not Available [facility] (Lab) [address], [place], [address], 12/24/2020 19:36:19 12/25/19 21 12/24/2020 CBC w/ auto diff red blood count 5.5 M/uL 4.2-5. 4 high Not Available [facility] (Lab) [address] [place], [address], 12/24/2020 19:36:19 12/25/19 21 12/24/2020 CBC w/ auto diff hemoglobin 16.2 g/dL 11.5-1 5.5 high Not Available [facility] (Lab) [address] [place], [address], 12/24/2020 19:36:19 12/25/19 21 12/24/2020 CBC w/ auto diff hematocrit 48.6 % 36.0-4 8.0 high Not Available [facility] (Lab) [address], [place], [address], 12/24/2020 19:36:19 12/25/19 21 12/24/2020 CBC w/ auto diff MCV 89 fL 80-95 Not Available [facility] (Lab) [address] [place], [address], 12/24/2020 19:36:19 12/25/19 21 12/24/2020 CBC w/ auto diff MCH 30 pg 27-32 Not Available [facility] (Lab) [address] [place], [address], 12/24/2020 19:36:19 12/25/19 21 12/24/2020 CBC w/ auto diff MCHC 33 g/dL 32-36 Not Available [facility] (Lab) [address] [place], [address], 12/24/2020 19:36:19 12/25/19 21 12/24/2020 CBC w/ auto diff platelets 309 K/uL 155-37 9 Not Available [facility] (Lab) [address] [place], [address], 12/24/2020 19:36:19 12/25/19 21 12/24/2020 CBC w/ auto diff RDW 14.8 % 11.5-1 4.5 high Not Available [facility] (Lab) [address] [place], [address], 12/24/2020 19:36:19 12/25/19 21 12/24/2020 CBC w/ auto diff MPV 11.7 fL 8.9-12 .7 Not Available [facility] (Lab) [address] [place], [address], 12/24/2020 19:36:19 12/25/19 21 12/24/2020 CBC w/ auto diff neutrophils absolute 7.6 K/uL 1.4-7. 0 high Not Available [facility] (Lab) [address] [facility] [address], [place], [address], 12/24/2020 19:36:19 12/25/19 21 12/24/2020 CBC w/ auto diff lymphs (absolute) 2.1 K/uL 0.7-3. 1 Not Available [facility] (Lab) [address], [place], [address], 12/24/2020 19:36:19 12/25/19 21 12/24/2020 CBC w/ auto diff monocytes (absolute) 0.6 K/uL 0.1-0. 9 Not Available [facility] (Lab) [address] [place], [address], 12/24/2020 19:36:19 12/25/19 21 12/24/2020 CBC w/ auto diff eos (absolute) 0.1 K/uL 0.0-0. 4 Not Available [facility] (Lab) [address] [place], [address], 12/24/2020 19:36:19 12/25/19 21 12/24/2020 CBC w/ auto diff baso (absolute) 0.0 K/uL 0.0-0. 3 Not Available [facility] (Lab) [address] [place], [address], 12/24/2020 19:36:19 12/25/19 21 12/24/2020 CBC w/ auto diff neut % 73.2 % 40.0-7 4.0 Not Available [facility] (Lab) [address], [place], [address], 12/24/2020 19:36:19 12/25/19 21 12/24/2020 CBC w/ auto diff lymphs % 19.9 % 14.0-4 6.0 Not Available [facility] (Lab) [address] [facility] [address], [place], [address], 12/24/2020 19:36:19 12/25/19 21 12/24/2020 CBC w/ auto diff mono % 5.5 % 4.0-12 .0 Not Available [facility] (Lab) [address] [facility] [address], [place], [address], 12/24/2020 19:36:19 12/25/19 21 12/24/2020 CBC w/ auto diff eos % 1 % 0-5 Not Available [facility] (Lab) [address] [facility] [address], [place], [address], 12/24/2020 19:36:19 12/25/19 21 12/24/2020 CBC w/ auto diff baso % 0.2 % 0.0-1. 0 Not Available [facility] (Lab) [address], [place], [address], 12/24/2020 19:36:19 12/25/19 21 12/24/2020 PT/IN R PT 10.0 secon ds 9.3-11 .1 Not Available [facility] (Lab) [address] [place], [address], 12/24/2020 20:01:19 12/25/19 21 12/24/2020 PT/IN R INR 1.0 0.4-2. 0 Not Available [facility] (Lab) [address] [facility] [address], [place], [address], 12/24/2020 20:01:19 12/25/19 21 12/24/2020 PT/IN R coagcom Please note Refere nce Range has change d Not Available [facility] (Lab) [address], [place], [address], 12/24/2020 20:01:19 12/25/19 21 12/24/2020 hepat ic funct ion panel , serum total protein 6.7 g/dL 6.7-8. 2 Not Available [facility] (Lab) [address], [place], [address], 12/24/2020 20:33:02 12/25/19 21 12/24/2020 hepat ic funct ion panel , serum albumin, serum 3.8 g/dL 3.5-5. 5 Not Available [facility] (Lab) [address], [place], [address], 12/24/2020 20:33:02 12/25/19 21 12/24/2020 hepat ic funct ion panel , serum bilt 0.4 mg/dL 0.0-1. 2 Not Available [facility] (Lab) [address], [place], [address], 12/24/2020 20:33:02 12/25/19 21 12/24/2020 hepat ic funct ion panel , serum bild <0.20 mg/dL 0.10-0 .50 Not Available [facility] (Lab) [address] [place], [address], 12/24/2020 20:33:02 12/25/19 21 12/24/2020 hepat ic funct ion panel , serum AST 19.6 U/L 10.0-4 2.0 Not Available [facility] (Lab) [address], [place], [address], 12/24/2020 20:33:02 12/25/19 21 12/24/2020 hepat ic funct ion panel , serum ALT 33.5 U/L 10.0-6 0.0 Not Available [facility] (Lab) [address] [place], [address], 12/24/2020 20:33:02 12/25/19 21 12/24/2020 hepat ic funct ion panel , serum alk phos 112.0 IU/L 42.0-1 21.0 Not Available [facility] (Lab) [address] [place], [address], 12/24/2020 20:33:02 12/25/19 21 12/24/2020 hepat ic funct ion panel , serum agratio 1.3 Not Available [facility] (Lab) [address] [place], [address], 12/24/2020 20:33:02 12/25/19 21 12/24/2020 BMP, serum or plasm a glucose, serum 241 mg/dL 65-99 high Not Available [facility] (Lab) [address] [place], [address], 12/24/2020 20:33:05 12/25/19 21 12/24/2020 BMP, serum or plasm a BUN 8 mg/dL 8-26 Not Available [facility] (Lab) [address] [facility], [place], [address], 12/24/2020 20:33:05 12/25/19 21 12/24/2020 BMP, serum or plasm a creatinine, serum 0.65 mg/dL 0.50-1 .40 Not Available [facility] (Lab) [address] [place], [address], 12/24/2020 20:33:05 12/25/19 21 12/24/2020 BMP, serum or plasm a BUN/creatnin e ratio 12.9 Not Available [facility] (Lab) [address] [place], [address], 12/24/2020 20:33:05 12/25/19 21 12/24/2020 BMP, serum or plasm a sodium, serum 137.0 mmol/ L 136.0- 144.0 Not Available [facility] (Lab) [address] [place], [address], 12/24/2020 20:33:05 12/25/19 21 12/24/2020 BMP, serum or plasm a potassium, serum 4.1 mmol/ L 3.5-5. 3 Not Available [facility] (Lab) [address] [place], [address], 12/24/2020 20:33:05 12/25/19 21 12/24/2020 BMP, serum or plasm a chloride, serum 103 mmol/ l 101-11 1 Not Available [facility] (Lab) [address] [place], [address], 12/24/2020 20:33:05 12/25/19 21 12/24/2020 BMP, serum or plasm a carbon dioxide total 18.2 mmol/ L 21.0-3 2.0 low Not Available [facility] (Lab) [address], [place], [address], 12/24/2020 20:33:05 12/25/19 21 12/24/2020 BMP, serum or plasm a aniongp 20.0 mmol/ L Not Available [facility] (Lab) [address], [place], [address], 12/24/2020 20:33:05 12/25/19 21 12/24/2020 BMP, serum or plasm a calcium, serum 9.8 mg/dL 8.2-10 .0 Not Available [facility] (Lab) [address] [place], [address], 12/24/2020 20:33:05 12/25/19 21 12/24/2020 BMP, serum or plasm a osmol 280.0 mOsm/ L 275.0- 301.0 Not Available [facility] (Lab) [address] [place], [address], 12/24/2020 20:33:05 12/25/19 21 12/24/2020 BMP, serum or plasm a eGFR, non- AM 109 mL/mi n/1.7 3/m >=60 Not Available [facility] (Lab) [address] [place], [address], 12/24/2020 20:33:05 12/25/19 21 12/25/2020 LOIS (anti nucle ar antib odies ) panel , serum anti-DNA (ds) Ab qn <1 IU/mL 0-9 Negat mark <5 Equiv ocal 5 - 9 Posit mark >9 Not Available [facility] (Lab) [address] [place], [address], 12/25/2020 13:10:38 12/25/19 21 12/25/2020 LOIS (anti nucle ar antib odies ) panel , serum research biologist antibodies 0.7 ai 0.0-0. 9 Not Available [facility] (Lab) [address] [place] [address], [address], 12/25/2020 13:10:38 12/25/19 21 12/25/2020 LOIS (anti nucle ar antib odies ) panel , serum mao antibodies <0.2 ai 0.0-0. 9 Not Available [facility] (Lab) [address] [facility] [address], [place], [address], 12/25/2020 13:10:38 12/25/19 21 12/25/2020 LOIS (anti nucle ar antib odies ) panel , serum antisclerode rma-70 antibodies <0.2 ai 0.0-0. 9 Not Available [facility] (Lab) [address] [place], [address], 12/25/2020 13:10:38 12/25/19 21 12/25/2020 LOIS (anti nucle ar antib odies ) panel , serum sjogren's anti-ss-A <0.2 ai 0.0-0. 9 Not Available [facility] (Lab) [address] [place], [address], 12/25/2020 13:10:38 12/25/19 21 12/25/2020 LOIS (anti nucle ar antib odies ) panel , serum sjogren's anti-ss-B <0.2 ai 0.0-0. 9 Not Available [facility] (Lab) [address] [place], [address], 12/25/2020 13:10:38 12/25/19 21 12/25/2020 LOIS (anti nucle ar antib odies ) panel , serum antichromati n antibodies <0.2 ai 0.0-0. 9 Not Available [facility] (Lab) [address] [place], [address], 12/25/2020 13:10:38 12/25/19 21 12/25/2020 LOIS (anti nucle ar antib odies ) panel , serum anti-taylor-1 <0.2 ai 0.0-0. 9 Not Available [facility] (Lab) [address] [facility] [address], [place], [address], 12/25/2020 13:10:38 12/25/19 21 12/25/2020 LOIS (anti nucle ar antib odies ) panel , serum anti-centrom ere B antibodies <0.2 ai 0.0-0. 9 Not Available [facility] (Lab) [address] [place], [address], 12/25/2020 13:10:38 12/25/19 21 12/25/2020 LOIS (anti nucle ar antib odies ) panel , serum see below: [facility] [employer]oa nt[employer] dy [employer]a se [employer] iatio [...] ----- ----- ----- ----- --- ----- ---- SENIOR INFORMATICA DEVELOPER Mixed Conne ctive Tissu e Disea se 95% (U1 nRNP, SLE 30 - 50% anti- ribon ucleo prote in) Polym yosit is and/o r [place] tomyo sitis 20% ----- ----- ----- ----- - ----- ----- ----- ----- ---- ----- ---- Scl-7 0 (anti DNA Scler oderm a (diff use) 20 - 35% topoi kennedi ase) Crest 13% ----- ----- ----- ----- - ----- ----- ----- ----- ---- ----- ---- Taylor-1 Polym yosit is and/o r [place] tomyo sitis 20 - 40% ----- ----- ----- ----- - ----- ----- ----- ----- ---- ----- ---- Centr omere B Scler oderm a - Crest varia nt 80% Not Available [facility] (Lab) [address] [place], [address], 12/25/2020 13:10:38 12/25/19 21 12/25/2020 gamma -glut amyl trans feras e (ggt) , serum GGT 110 IU/L 0-60 high Not Available [facility] (Lab) [address] [facility] [address], [place], [address], 12/25/2020 15:10:11 12/25/19 21 12/25/2020 alpha 1 antit rypsi n pheno typin g, serum or plasm a hhxhf-5-eppr trypsin, serum 151 mg/dL 100-18 8 Not Available [facility] (Lab) [address] [facility] [address], [place], [address], 12/25/2020 15:10:12 12/25/19 21 12/25/2020 iron + total iron- pattie ng capac ity (TIBC ), serum iron bind.cap.(TI BC) 251 ug/dL 250-45 0 Not Available [facility] (Lab) [address] [facility] [address], [place], [address], 12/25/2020 15:10:14 12/25/19 21 12/25/2020 iron + total iron- pattie ng capac ity (TIBC ), serum UIBC 203 ug/dL 131-42 5 Not Available [facility] (Lab) [address] [place], [address], 12/25/2020 15:10:14 12/25/19 21 12/25/2020 iron + total iron- pattie ng capac ity (TIBC ), serum iron, serum 48 ug/dL 27-159 Not Available [facility] (Lab) [address] [place], [address], 12/25/2020 15:10:14 12/25/19 21 12/25/2020 iron + total iron- pattie ng capac ity (TIBC ), serum iron saturation 19 % 15-55 Not Available [facility] (Lab) [address] [facility] [address], [place], [address], 12/25/2020 15:10:14 12/25/19 21 12/25/2020 mitoc hondr ial Ab, serum mitochondria l (M2) antibody <20.0 units 0.0-20 .0 Negat mark 0.0 - 20.0 Equiv ocal 20.1 - 24.9 Posit mark >24.9 . Mitoc hondr ial (M2) Antib odies are found in 90-96 % of patie nts with prima ry bilia ry cirrh osis. Not Available [facility] (Lab) [address] [place], [address], 12/25/2020 15:10:15 12/25/1912/25/2020 actin jase h muscl e Ab, serum [...] ry bilia ry cirrh osis. Not Available [facility] (Lab) [address] [place], [address], 12/25/2020 15:10:16 12/25/19 21 12/25/2020 H pylor i urea breat h test, co2 infra red H pylori breath test Negati ve negati ve Not Available [facility] (Lab) [address] [facility], [place], [address], 12/25/2020 21:07:48 12/25/19 21 12/30/2020 liver -kidn [...] chron ic HCV infec tion. Not Available [facility] (Lab) [address] [facility] [address], [place], [address], 12/30/2020 11:12:04 12/25/19 21 12/30/2020 madonna tin, serum or plasm a ferritin, serum 95 NG/mL 15-150 Not Available [facility] (Lab) [address] [place], [address], 12/30/2020 11:12:06 12/25/19 21 12/30/2020 cerul oplas min, serum ceruloplasmi n 37.3 mg/dL 19.0-3 9.0 Not Available [facility] (Lab) [address] [place], [address], 12/30/2020 11:12:07 12/25/19 21 12/30/2020 hepat itis panel (A+B+ C), acute , serum hep A Ab, IgM Negati ve negati ve Not Available [facility] (Lab) [address] [place], [address], 12/30/2020 11:12:08 12/25/19 21 12/30/2020 hepat itis panel (A+B+ C), acute , serum HBsAg screen Negati ve negati ve Not Available [facility] (Lab) [address] [place], [address], 12/30/2020 11:12:08 12/25/19 21 12/30/2020 hepat itis panel (A+B+ C), acute , serum hep B core Ab, IgM Negati ve negati ve Not Available [facility] (Lab) [address] [facility], [place], [address], 12/30/2020 11:12:08 12/25/19 21 12/30/2020 hepat itis [...] ficat ion test (5507 13). Not Available [facility] (Lab) [address] [facility], [place], [address], 12/30/2020 11:12:08 12/26/19 21 10/30/2020 NM, hepat obili conchita scan No observ ation record ed. [facility] Add On Lab Orders [address] [place], [address], 12/25/2020 11:34:58 12/26/19 21 10/19/2020 CT, abdom en + pelvi s, w/ contr ast No observ ation record ed. rloar Not Available 2020 13:31:06 Result Notes Documentation Provider Name and Address Organization Details Recorded Time Nm, Hepatobiliary Scan : Normal HIDA Scan with gallbladder EF 52%. BRANDON ESCUDERO NP [address] [place], [address], [place] [facility] 12/25/2020 11:34:58 Problems Name Problem SNOMED Code Status Onset Date Resolution Date Notes Provider Name and Address Organization Details Recorded Time Uncontrolle d type 2 diabetes mellitus 492946750 Active 2020 BRANDON ESCUDERO NP [address], [place], [address], [facility] 15:25:29 Vitamin D deficiency 12210677 Active 2020 BRANDON ESCUDERO NP [address], [place], [address], [place] [facility] 15:26:02 Mixed anxiety and depressive disorder 089497814 Active 2020 BRANDON ESCUDERO NP [address], [place], [address], [facility] 15:26:13 Tobacco user 064161573 Active 2020 BRANDON ESCUDERO NP [address], [place], [address], [facility] 15:26:22 Migraine 45292037 Active 2020 BRANDON ESCUDERO NP [address], [place], [address], [place] [facility] 15:26:33 Peripheral neuropathy due to type 2 diabetes mellitus 8580169412992 Active 2020 BRANDON ESCUDERO NP [address], [place], [address], [place] [facility] 15:26:49 Essential hypertensio n 21789283 Active 2020 BRANDON ESCUDERO NP [address], [place], [address], [place] [facility] 15:26:57 Diverticulo sis of colon 124800476 Active 2020 BRANDON ESCUDERO NP [address], [place], [address], [place] [facility] 15:27:08 Hidradeniti s suppurativa 51295765 Active 2020 BRANDON ESCUDERO NP [address], [place], [address], [place] [facility] 1 15:27:30 Heartburn 96401057 Active 2020 BRANDON ESCUDERO NP [address], [place], [address], [place] [facility] 1 15:27:45 Obstructive sleep apnea syndrome 77131351 Active 2020 BRANDON ESCUDERO FLOOR LAYER HELPER [address], [place], [address], [place] [facility] 1 10:17:36 Problem Notes None recorded. Medical Equipment None Reported. Allergies Allergen ID Allergen Name Allergen Category Reaction Reaction Severity Criticality Documentation Date Start Date Code Code System Note Provider Name and Address Organization Details Recorded Time 153227 lisinopri l medicatio n swelling Not available Not available 12/22/2020 82076 RxNorm BRANDON ESCUDERO FLOOR LAYER HELPER [address], [place], [address], [place] [facility] 1 15:24:07 084395 metformin medicatio n vomiting Not available Not available 12/22/2020 6809 RxNorm BRANDON ESCUDERO, MARGARET [address], [place], [address], [place] [facility] 1 15:24:15 484237 morphine medicatio n confusion moderate Not available 12/22/2020 7052 RxNorm BRANDON ESCUDERO, MARGARET [address], [place], [address], [place] [facility] 1 15:24:26 930682 egg extract food,medi cation nausea Not available Not available 12/24/2020 22827 15 RxNorm BRANDON ESCUDEROMARGARET [address], [place], [address], [place] [facility] 1 16:21:41 Medications Name Sig Start Date Stop Date [...] Ultra-Fine Loren Pen Needle 32 gauge x /32 USE DIRECTED. active Not Available Not Available [...] and Address Organization Details Last Updated DateTime 1 167.64 cm 51.9 kg/m2 158970. 31 g 87 /min 99.3 [degF] 16 /min 153 mm[Hg] 92 mm[Hg] Paulina Ariza LPN [place] [facility] 15:46:39 Social History Question Answer Notes LastModified by [employer] Details LastModified Time Tobacco Smoking Status Current Every Day Smoker 1/2 ppd BRANDON ESCUDERO NP [address] [place], [address], [place] [facility] 12/22/2020 15:29:10 Has Tobacco Cessation Counseling Been Provided? Yes Information not available 12/24/2020 On What Date Was Tobacco Cessation Counseling Provided? 12/24/2020 Information not available 12/24/2020 Sex: Unknown Functional Status Question Answer Note LastModified by Organizat ion Details LastModified Time Do you use any illicit or recreational drugs? No Information not available 12/24/2020 Do you or have you ever used any other forms of tobacco or nicotine? No Information not available 12/24/2020 What is your level of alcohol consumption? Occasional Information not available 12/24/2020 Mental Status None recorded. Family History Relationship [...] Anxiety Disorder Y Diabetes Y Gout N Arthritis N Seizures/Epilepsy N Kidney Stones N Hyperthyroidism N Tuberculosis [...] SNOMED-CT Code Diagnosis ICD10 Code Diagnosis Note [id number] BRANDON ESCUDERO NP [facility] [address] [address] 12/24/2020 15:27:21 12/28/2020 15:51:26 Abdominal pain 06149367 R10.9 epigastric painStop famotidine Start pantopazol eDecrease caffeine Chest pain 86180671 R07. 9 To go to the ED with chest pain Steatotic liver disease 912747710 K76.0 Likely NAFLD Patient counseled at length [...] liver cancer, liver failure and . Hematochezia 602038293 K 92.1 Tobacco user 016493434 Z 72.0 Strongly encouraged to discontinu e smoking Essential hypertension 28079683 I10 On amlodipine Managed by primary care Uncontroll ed type 2 diabetes mellitus 199344791 E11.65 Last A1C 11.2% on 09/15/2020.O n insulin and Glimepirid eManaged by primary care Peripheral neuropathy due to type 2 diabetes mellitus 4568035426 107 E11.42 On pregabalin Managed in Primary Care Mixed anxi ety and depressive disorder 292768755 F41.8 On Trintellix , lorazepam Health Concerns Section Related Observation LastModified by Organization Detai ls LastModified Time None Recorded Concern Status LastModified by Organization Details LastModified Time None Recorded Advance Directives Directive None Recorded Payers Insurance Date Sequence Insurance Name Policy Number Policy Morales Covered Member ID Morales Member ID Guarantor Name 10/26/2020 1 [facility] (MEDICAID HMO) [id number] Randee Lazo [id number] Randee Lazo Notes Date Note Type Note [...] CT abdomen with contrast of 10/19/2020 from [facility] reveals hepatomegaly of 23 cm cephalocaudal and hepatic steatosis. HgbA1C was 11.2% on 09/15/2020. Blood sugar this morning was 221. States that she might have angina - was hospitalized at [facility] in [place]. She had a stress test, cardiac enzymes. Not seeing a car packer. Had a HIDA scan. Results are not available. Has had US abdomen/pelvis, results not available BMs are daily, sometimes formed, sometimes watery. EtOH: 2 x / yearTobacco: 1/2 PPD x 20 years: 10 PYHRecreational drugs: deniesCaffeine: 60 ounces of soda daily Denies fever, chills, difficulty swallowing, hematemesis, heartburn, reflux, bloating, constipation, excessive belching or flatus, bleeding gums, easy bruising. BRANDON ESCUDERO, FLOOR LAYER HELPER [address] [place], [address], [place] - SIF 12/25/2020 08:16:17 OBGyn Episode No OBEpisode recorded.
--- OUTSIDE RECORDS SUMMARY | 2024-12-27 00:02 | XMS_ITS | Clinical Summary ---
Author Organization [facility] Address [address] [place] [address] Phone Care Team Providers Care Air Defence Officer Name Role Phone Maribell Dowling APRN, MEDICAL RECORD LIBRARIAN Primary Care Provider Van Watts MD Unavailable [phone] Allergies Active Allergy Reactions Criticality Noted Date [...] (LaMICtal) 100 MG Tablet 07/11/2023 Active Biotin 53919 MCG Tablet Take 1 Tablet by mouth [...] Comments Blood Pressure 136/82 07/13/2023 12:55 PM MOLASSES COLORING OPERATOR Pulse 79 07/13/2023 12:55 PM MOLASSES COLORING OPERATOR Temperature 36.6 C (97.8 F) 07/13/2023 12:55 PM MOLASSES COLORING OPERATOR Respiratory Rate 18 07/13/2023 12:55 PM MOLASSES COLORING OPERATOR Oxygen Saturation 98% 07/13/2023 12:55 PM MOLASSES COLORING OPERATOR Inhaled Oxygen Concentration - - Weight 107 kg (236 lb) 07/13/2023 12:55 PM MOLASSES COLORING OPERATOR Height 170.2 cm (5' 7) 07/13/2023 12:55 PM MOLASSES COLORING OPERATOR Body Mass Index 36.96 07/13/2023 12:55 PM MOLASSES COLORING OPERATOR Plan of Treatment Health Maintenance Due Date Last Done Comments Hepatitis C Virus (HCV) Screening 1982 Mammogram 1982 Human Papillomavirus (HPV) Immunization (1 - 3-dose series) 1997 Hepatitis B Immunization (1 of 3 - 19+ 3-dose series) 2001 Pneumococcal Immunization Combined (1 of 2 - PCV) 2001 Pap Smear 2003 Cervical Cancer Screening (CCS) 2012 HPV/Cotest 2012 Discussion re Starting/Frequency of Mammograms 2022 SARS-COV-2 Immunization (3 - 2023- season) 2024 11/20/2020, 10/30/2020 Influenza Immunization (Seas on Ended) 2025 06/06/2016 Respiratory Syncytial Virus (RSV) Immunization (Adult) (1 - 1-dose 75+ series) 2057 DTaP/Tdap/Td Immunization Discontinued 05/25/2021 TdaP Immunization Completed 05/25/2021 Meningococcal Immunization (ACWY) Aged Out No longer eligible based on patient's age to complete this topic Rotavirus Immunization Aged Out No lo nger eligible based on patient's age to complete this topic Insurance MEDICAID [employer] Care Teams Air Defence Officer Relationship Specialty Start Date End Date Maribell Dowling, REFUSE COLLECTOR, MEDICAL RECORD LIBRARIAN [address] [place] [address] PCP - General Certified Nurse Practitioner 09/16/15 Van Watts MD [address] [place] [phone] Consulting Physician Oncology 06/06/23
--- OUTSIDE RECORDS SUMMARY | 2024-12-27 00:02 | XMS_ITS | Clinical Summary ---
Author Organization [facility] Address [address] [place] [id number] Care Team Providers Care Manager Of Manufacturing Name Role Phone Unavailable Primary Care Provider [...] 2022 COVID-19 Vaccine (2023-2 5 season) 2024 HPV Vaccines Aged Out No longer eligi ble based on patient's age to complete this topic Meningococcal B Vaccine Aged Out No l onger eligible based on patient's age to complete this topic Meningococcal Vaccine Aged Out No rickie alex eligible based on patient's age to complete this topic Pneumococcal Vaccine: Pediat rics (0 to 5 Years) and At-Risk Patients (6 to 49 Years) Aged Out No longer eligible b ased on patient's age to complete this topic RSV Immunizations Under 20 Months Aged Out No longer eligible based on patient's age to complete this topic
[2024-12-27 00:37] VITALS: TEMP 36.9
--- NOTE | 2024-12-27 00:45 | ED.GENADULT ---
HPI - General Adult General Chief complaint: Headache Stated complaint: weird pain in head Time Seen by Provider: 12/27/24 00:30 History of Present Illness HPI narrative: Patient is a 44-year-old female who presents emergency department with chief complaint of headache. The patient reports that she started having pain on the right side of her head the patient states feels like an ice pick patient reports that she has pain in her right ear and also has noticed some blurry vision the patient states she used 2 doses of migraine medications reports this feels different than her typical migraine Related Data Home Medications ?Medication ?Instructions ?Recorded ?Confirmed ?Last Taken ?Type lorazepam 0.5 mg tablet 0.5 mg PO DAILY PRN Agitation 05/13/19 10/24/22 02/21/22 21:00 History montelukast 10 mg tablet 10 mg PO DAILY 06/11/20 10/24/22 02/22/22 08:00 History insulin glargine 100 unit/mL (3 50 unit subcut HS 12/09/20 10/24/22 02/21/22 21:00 History mL) subcutaneous pen (Lantus Solostar U-100 Insulin) vortioxetine 10 mg tablet 10 mg PO DAILY 08/31/21 10/24/22 02/22/22 08:00 History (Trintellix) amlodipine 10 mg tablet 10 mg PO DAILY 02/23/22 10/24/22 02/22/22 08:00 History aripiprazole 2 mg tablet 2 mg PO DAILY 02/23/22 10/24/22 02/22/22 08:00 History ergocalciferol (vitamin D2) 1,250 1,250 mcg PO WEEKLY 02/23/22 10/24/22 02/22/22 08:00 History mcg (50,000 unit) capsule magnesium oxide 400 mg (241.3 mg 400 mg PO DAILY 02/23/22 10/24/22 02/22/22 08:00 History magnesium) tablet rosuvastatin 10 mg tablet 10 mg PO DAILY 02/23/22 10/24/22 02/22/22 08:00 History erenumab-aooe 70 mg/mL 70 mg subcut USEASDIRECTD 10/24/22 10/24/22 Unknown History subcutaneous auto-injector (Aimovig Autoinjector) ubrogepant 50 mg tablet (Ubrelvy) 50 mg PO USEASDIRECTD 10/24/22 10/24/22 Unknown History doxycycline hyclate 100 mg capsule mg 01/25/24 Unknown History erenumab-aooe 70 mg/mL mg subcut 01/25/24 Unknown History subcutaneous auto-injector (Aimovig Autoinjector) gabapentin 100 mg capsule mg 01/25/24 Unknown History gabapentin 300 mg capsule mg 01/25/24 Unknown History hydroxyzine HCl 25 mg tablet mg 01/25/24 Unknown History lamotrigine 100 mg tablet mg 01/25/24 Unknown History linaclotide 145 mcg capsule mcg 01/25/24 Unknown History (Linzess) sertraline 50 mg tablet mg 01/25/24 Unknown History sertraline 50 mg tablet mg 01/25/24 Unknown History spironolactone 100 mg tablet mg 01/25/24 Unknown History spironolactone 50 mg tablet mg 01/25/24 Unknown History Allergies Allergy/AdvReac Type Severity Reaction Status Date / Time lisinopril Allergy Severe angioedema Verified 12/27/24 00:05 morphine Allergy Intermediate Unresponsiv Verified 12/27/24 00:05 e metformin AdvReac Unknown Vomiting Verified 12/27/24 00:05 Review of Systems Review of Systems: A 10 system review of systems was completed on the patient and is negative except for what is stated in the HPI. Nursing and ancillary documentation was reviewed. [facility] Past Medical History Medical History Hidradenitis suppurativa Migraine WINNIE (obstructive sleep apnea) Diabetes Arthritis of spine Depression HTN (hypertension) Surgical History Surgical History H/O gastric sleeve History of ear surgery Eustachian tubes Family History Family History Grandparent Diabetes mellitus Hypertension Family history of cardiovascular disease Family history of arthritis Family history of lung cancer Family history of primary malignant neoplasm of liver Family history of malignant neoplasm of breast in first degree relative Mother Diabetes mellitus Hypertension Family history of cardiovascular disease Family history of malignant neoplasm of ovary Cerebrovascular accident PAD (peripheral artery disease) Heart disease HLD (hyperlipidemia) Sibling Family history of arthritis Father Hypertension Heart disease HLD (hyperlipidemia) Other Carcinoma of colon Family history of alcoholism Family history of blood dyscrasia Family history of malignant neoplasm of urinary bladder Family history of mental disorder Family history of seizure disorder Malignant neoplasm of prostate Social History Social History Social History: Patient lives at home with and 1 child. Patient would like her surrogate to be Christopher her . Patient also stated that she look forward is her mother and can also be contacted if needed. Patient has lots of animals including 4 cats, 1 dog, 2 birds, and 1 fish. 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 Gender identity (if verbalized by the patient): Female Sexual Orientation (if Verbalized by the Patient): Straight or Heterosexual Spiritual care concerns: No Exam Narrative: GENERAL: Well-appearing, well-nourished, and in no acute distress. HEAD: Normocephalic, atraumatic. EYES: PERRLA and EOMI. ENT: Nares clear, no rhinorrhea or epistaxis. Mucous membranes moist. NECK: Supple. CHEST: Clear to auscultation. No respiratory distress. HEART: Regular rate and rhythm. No murmur heard. Normal peripheral pulses. ABDOMEN: Soft, nontender, nondistended, normal active bowel sounds. EXTREMITIES: Normal range of motion. No edema. SKIN: Warm, dry, no rash. NEURO: No focal deficits. Alert and oriented x3. GCS 15 PSYCH: Normal mood and affect. Course Vital Signs Vital signs: Vital Signs Temperature 36.7 C 12/27/24 00:02 Pulse Rate 71 12/27/24 00:02 Respiratory Rate 20 12/27/24 00:02 Blood Pressure 124/70 12/27/24 00:02 Pulse Oximetry 100 12/27/24 00:02 Oxygen Delivery Room Air 12/27/24 00:02 Temperature 36.9 C 12/27/24 00:37 Pulse Rate 65 12/27/24 03:24 Respiratory Rate 18 12/27/24 03:24 Blood Pressure 132/75 12/27/24 03:24 Pulse Oximetry 97 12/27/24 03:24 Oxygen Delivery Room Air 12/27/24 00:02 Medical Decision Making Vital Signs Vital Signs: Vital Signs Temperature 36.7 C 12/27/24 00:02 Pulse Rate 71 12/27/24 00:02 Respiratory Rate 20 12/27/24 00:02 Blood Pressure 124/70 12/27/24 00:02 Pulse Oximetry 100 12/27/24 00:02 Oxygen Delivery Room Air 12/27/24 00:02 Temperature 36.9 C 12/27/24 00:37 Pulse Rate 65 12/27/24 03:24 Respiratory Rate 18 12/27/24 03:24 Blood Pressure 132/75 12/27/24 03:24 Pulse Oximetry 97 12/27/24 03:24 Oxygen Delivery Room Air 12/27/24 00:02 Lab Data 12/27/24 00:45 12/27/24 00:45 Labs: Lab Results 12/27/24 Range/Units 00:45 WBC 10.2 H (4.5-10.0) K/mm3 RBC 5.61 H (4.2-5.4) M/mm3 Hgb 15.8 H (12.0-15.0) g/dL Hct 49.4 H (37.0-47.0) % MCV 88.1 (80-100) fl MCH 28.2 (26-34) pg MCHC 32.0 (32-36) g/dl RDW 14.4 (11.5-14.5) % Plt Count 357 (150-375) k/mm3 MPV 9.7 (7.4-10.4) fl Immature Gran % (Auto) 0.3 (0-0.5) % Neut % (Auto) 66.5 (45.5-73.1) % Lymph % (Auto) 26.4 (18.3-44.2) % [place] % (Auto) 5.7 (2.6-8.5) % Eos % (Auto) 0.7 (0-4.4) % Baso % (Auto) 0.4 (0.2-1.2) % Lymph # (Auto) 2.69 (0.9-3.2) K/mm3 [place] # (Auto) 0.6 (0.1-0.6) K/mm3 Eos # (Auto) 0.1 (0-0.3) K/mm3 Baso # (Auto) 0.0 (0.0-0.1) K/mm3 Abs Immat Gran (auto) 0.03 (0.00-0.031) K/mm3 Absolute Neuts (auto) 6.8 H (1.3-6.7) K/mm3 Absolute Nucleated RBC 0.000 (0.0-0.012) K/mm3 Nucleated RBC % 0.0 (0.0-0.2) % Sodium 137 (137-145) mmol/L Potassium 4.4 (3.4-5.0) mmol/L Chloride 103 (98-107) mmol/L Carbon Dioxide 28 (22-30) mmol/L Anion Gap 6 (4-12) mmol/L BUN 18 H D (7-17) mg/dL Creatinine 0.92 (0.7-1.0) mg/dL Estim Creat Clear Calc 80 ml/min Estimated GFR > 60 (59 - ) Glucose 102 (65-110) mg/dL Calcium 9.7 (8.4-10.2) mg/dL Total Bilirubin 0.3 (0.2-1.3) mg/dL AST 22 (14-36) U/L ALT 21 (6-35) U/L Alkaline Phosphatase 61 (38-126) U/L Total Protein 7.2 (6.3-8.2) g/dL Albumin 4.3 (3.5-5.1) g/dL Urine Color Yellow (Yellow) Urine Appearance Cloudy H (Clear) Urine pH 8.0 (5.0-9.0) Ur Specific [place] 1.028 (1.001-1.035) Urine Protein Negative (Negative) mg/dL Urine Glucose (UA) Negative (Negative) mg/dL Urine Ketones Negative (Negative) mg/dL Ur Blood (Man) Negative (Negative) Urine Nitrate Negative (Negative) Urine Bilirubin Negative (Negative) Urine Urobilinogen 1.0 (<2.0) mg/dL Add Ur Microanalysis Reviewed Leukocyte Esterase Rfl 1+ H (Negative) SHINE/UL Urine RBC 0-2 (0-2) /hpf Urine WBC 0-5 (0-3) /hpf Ur Squamous Epith Cells Occasional (Few) /hpf Urine Bacteria None seen /hpf Urine Casts 0-2 Discharge Plan Discharge Clinical Impression: Headache Sinusitis Qualifiers: Sinusitis location: ethmoidal Chronicity: acute Recurrence: not specified as recurrent Qualified Code(s): J01.20 - Acute ethmoidal sinusitis, unspecified Patient Disposition: Home Condition: Stable Instructions: Antibiotic Form, Sinusitis (ED), Acute Headache (ED) Patient Language: Icelandic Prescriptions: New prednisone 20 mg tablet 40 mg PO DAILY 5 Days Qty: 10 0RF amoxicillin-pot clavulanate 875-125 mg tablet 1 tablet PO Q12H 10 Days Qty: 20 0RF No Action montelukast 10 mg tablet 10 mg PO DAILY Trintellix 10 mg tablet 10 mg PO DAILY Aimovig Autoinjector 70 mg/mL auto-injector 70 mg SUBCUT USEASDIRECTD Ubrelvy 50 mg tablet 50 mg PO USEASDIRECTD lorazepam 0.5 mg Tablet 0.5 mg PO DAILY PRN (Reason: Agitation) magnesium oxide 400 mg (241.3 mg magnesium) tablet 400 mg PO DAILY amlodipine 10 mg tablet 10 mg PO DAILY ergocalciferol (vitamin D2) 1,250 mcg (50,000 unit) capsule 1,250 mcg PO WEEKLY Rx Instructions: takes on monday rosuvastatin 10 mg tablet 10 mg PO DAILY aripiprazole 2 mg tablet 2 mg PO DAILY docusate sodium 100 mg Capsule 100 mg PO Q12HR Qty: 30 0RF clotrimazole 1 % cream 1 applic topical BID 28 Days Qty: 30 0RF doxycycline hyclate 100 mg capsule spironolactone 100 mg tablet gabapentin 300 mg capsule hydroxyzine HCl 25 mg tablet gabapentin 100 mg capsule sertraline 50 mg tablet sertraline 50 mg tablet lamotrigine 100 mg tablet spironolactone 50 mg tablet Linzess 145 mcg capsule Aimovig Autoinjector 70 mg/mL auto-injector SUBCUT insulin glargine [Lantus Solostar U-100 Insulin] 100 unit/mL (3 mL) insulin pen 50 unit SUBCUT HS naproxen 500 mg tablet 500 mg PO BID PRN (Reason: pain) Qty: 30 0RF naproxen 500 mg tablet 500 mg PO BID PRN (Reason: pain) Qty: 30 0RF Follow-up/Referrals: Satnam,Marta Zavaleta, COUNTY SUPERVISOR [Primary Care Provider] -
--- OUTSIDE RECORDS SUMMARY | 2024-12-27 00:45 | XMS_ITS | Clinical Summary ---
Author Organization [facility] Address [address] [place] [address] Care Team Providers Care Ornamental Iron Worker Apprentice Name Role Phone Unavailable Primary Care Provider [...]
[2024-12-27] MEDS: SODIUM CHLORIDE 0.9% IV 1,000 ML 999 ML IV CONT (00:46)
[2024-12-27] MEDS: KETOROLAC 15 MG/ML VIAL (*BKC) IV PUSH (00:46)
[2024-12-27] MEDS: PROCHLORPERAZINE EDISYLATE 10 MG/2 ML VIAL IV PUSH (00:46)
--- OUTSIDE RECORDS SUMMARY | 2024-12-27 00:46 | XMS_ITS | Clinical Summary ---
Author Organization [facility] Address [address] [place] [address] Phone Care Team Providers Care Manager Post Name Role Phone Maribell Dowling APRN, SEED ANALYSIS LABORATORY ASSISTANT Primary Care Provider Van Watts MD Unavailable [phone] Allergies Active Allergy Reactions Criticality Noted Date [...] (LaMICtal) 100 MG Tablet 07/11/2023 Active Biotin 82479 MCG Tablet Take 1 Tablet by mouth [...] Comments Blood Pressure 136/82 07/13/2023 12:55 PM TIMBER TREATMENT PLANT OPERATOR Pulse 79 07/13/2023 12:55 PM TIMBER TREATMENT PLANT OPERATOR Temperature 36.6 C (97.8 F) 07/13/2023 12:55 PM TIMBER TREATMENT PLANT OPERATOR Respiratory Rate 18 07/13/2023 12:55 PM TIMBER TREATMENT PLANT OPERATOR Oxygen Saturation 98% 07/13/2023 12:55 PM TIMBER TREATMENT PLANT OPERATOR Inhaled Oxygen Concentration - - Weight 107 kg (236 lb) 07/13/2023 12:55 PM TIMBER TREATMENT PLANT OPERATOR Height 170.2 cm (5' 7) 07/13/2023 12:55 PM TIMBER TREATMENT PLANT OPERATOR Body Mass Index 36.96 07/13/2023 12:55 PM TIMBER TREATMENT PLANT OPERATOR Plan of Treatment Health Maintenance Due [...] Insurance MEDICAID [employer] Care Teams Manager Post Relationship Specialty Start Date End Date Maribell Dowling, FORMULA BOTTLER, SEED ANALYSIS LABORATORY ASSISTANT [address] [place] [address] PCP - General Certified Nurse Practitioner 09/16/15 Van Watts MD [address] [place] [phone] Consulting Physician Oncology 06/06/23
[2024-12-27] MEDS: dexAMETHasone SOD PHOS INJ 10 MG/ML 1 ML VIAL IV PUSH (00:47)
[2024-12-27] MEDS: diphenhydrAMINE HCl INJ 50 MG/ML VIAL IV PUSH (00:47)
[2024-12-27 01:04] VITALS: BP 128/72; PULSE 77; RESP 18; O2SAT 99
[2024-12-27 01:06] LABS: Basophils Percent Auto 0.4 % (0.2-1.2); Eosinophils Absolute Auto 0.1 K/mm3 (0-0.3); Eosinophils Percent Auto 0.7 % (0-4.4); Hematocrit 49.4 % (37.0-47.0); Hemoglobin 15.8 g/dL (12.0-15.0); Immature Granulocyte Absolute 0.03 K/mm3 (0.00-0.031); Immature Granulocyte Percent A 0.3 % (0-0.5); Lymphocytes Absolute Auto 2.69 K/mm3 (0.9-3.2); Lymphocytes Percent Auto 26.4 % (18.3-44.2); Mean Corpuscular Hemoglobin 28.2 pg (26-34); Mean Corpuscular Volume 88.1 fl (80-100); Mean Platelet Volume 9.7 fl (7.4-10.4); Monocytes Absolute Auto 0.6 K/mm3 (0.1-0.6); Monocytes Percent Auto 5.7 % (2.6-8.5); Neutrophils Absolute Auto 6.8 K/mm3 (1.3-6.7); Neutrophils Percent Auto 66.5 % (45.5-73.1); Platelet Count Result 357 k/mm3 (150-375); Red Blood Count 5.61 M/mm3 (4.2-5.4); Red Cell Distribution Width 14.4 % (11.5-14.5); White Blood Count 10.2 K/mm3 (4.5-10.0)
[2024-12-27 01:18] LABS: Add Urine Microscopic? YES; Appearance Urine Cloudy (Clear); Bacteria Urine None Seen /hpf; Bilirubin Urine Negative (Negative); Blood Urine Negative (Negative); Color Urine Yellow (Yellow); Glucose Urine UA Negative (Negative); Ketones Urine Negative (Negative); Leukocyte Esterase Ur 1+ LEU/UL (Negative); Need Manual Microscopic Reviewed; Nitrate Urine Negative (Negative); Non Pathogenic Casts 0-2; Protein Urine Negative (Negative); RBC Urine 0-2 /hpf (0-2); Specific Grav Ur 1.028 (1.001-1.035); Squamous Epithelial Cell Urine Occasional /hpf (Few); WBC Urine 0-5 /hpf (0-3)
[2024-12-27 01:29] LABS: Alanine Aminotransferase 21 U/L (6-35); Albumin Level 4.3 g/dL (3.5-5.1); Alkaline Phosphatase 61 U/L (38-126); Anion Gap 6 mmol/L (4-12); Aspartate Amino Transferase 22 U/L (14-36); Bilirubin,Total 0.3 mg/dL (0.2-1.3); Blood Urea Nitrogen 18 mg/dL (7-17); Calcium 9.7 mg/dL (8.4-10.2); Carbon Dioxide 28 mmol/L (22-30); Chloride 103 mmol/L (98-107); Estimated CRCL calculation 80 ml/min; Estimated Glomerular Filt Rate > 60; Glucose 102 mg/dL (65-110); Potassium 4.4 mmol/L (3.4-5.0); Sodium 137 mmol/L (137-145); Total Protein 7.2 g/dL (6.3-8.2)
[2024-12-27 03:24] VITALS: BP 132/75; PULSE 65; RESP 18; O2SAT 97
[2024-12-27 04:52] VITALS: BP 124/81; PULSE 64; RESP 18; O2SAT 97
== END 2024-12-27 04:53 | disposition home or self-care (01) ==
PROVIDERS: Emergency Provider Emergency Medicine
DX: J01.20 Acute ethmoidal sinusitis, unspecified (principal); R51.9 Headache, unspecified; I10 Essential (primary) hypertension; E11.9 Type 2 diabetes mellitus without complications; G47.33 Obstructive sleep apnea (adult) (pediatric); F32.A Depression, unspecified; F17.210 Nicotine dependence, cigarettes, uncomplicated; Z98.84 Bariatric surgery status; Z79.899 Other long term (current) drug therapy; Z79.4 Long term (current) use of insulin
CPT/HCPCS: 36415; 70450; 80053; 81001; 85025; 87086; 87181; 96361; 96374; 96375; 99284; J0780; J1100; J1200; J1885; J7030

== ENCOUNTER 2025-05-04 17:39 | Emergency (ER) | payer OTHER, SELFPAY ==
--- NOTE | ~2025-05-04 | XR_ITS ---
EXAMINATION: XR chest 2V, 05/04/2025 18:06 CDT HISTORY: right side back pain 3x days smoker COMPARISON: No comparisons available. Technique: 2 views obtained. Findings: The lungs are clear, no effusion. No pneumothorax. Heart is normal size. Mediastinal and hilar contours are within normal limits. Bony thorax no acute abnormality. Impression: No acute cardiopulmonary abnormality. Reviewed, dictated and finalized at location P. Impression: No acute cardiopulmonary abnormality.
[2025-05-04 17:46] VITALS: BP 147/92; PULSE 83; RESP 18; TEMP 36.5; O2SAT 99
--- NOTE | 2025-05-04 17:55 | ED.BACK ---
HPI - Back Pain/Injury General Chief Complaint: Back Pain/Injury Stated Complaint: Back Pain Time Seen by Provider: 05/04/25 17:55 Source: patient, RN notes reviewed and old records reviewed Mode of arrival: ambulatory Limitations: no limitations History of Present Illness HPI Narrative: 45 year old female who presents to [facility] care with complaints of back pain across her bilateral upper lumbar/flank region. Patient reports that the right side is worse than left with palpable tenderness. Patient reports no injury to back, denies any history of kidney stones or any history of pneumonia but has had pleurisy in the past. Patient denies any fevers, chills or sweats, did have some nausea and vomiting yesterday denies any diarrhea. Patient reports no increased pain with deep breathing and reports no radiation of pain to her abdomen. Patient reports that she has taken Tylenol for her discomfort. patient reports that she has no problems of diabetes since weight loss of 200 LBS after having gastric sleeve. MD elicited complaint: back pain Onset (ago): day(s) (3 days) Timing: intermittent Severity: moderate Pain scale (0-10): 6 Quality: sharp and dull Location: lumbar spine (upper) and right flank Treatments prior to arrival: acetaminophen Work related injury: No Related Data Home Medications ?Medication ?Instructions ?Recorded ?Confirmed ?Last Taken ?Type amlodipine 10 mg tablet 10 mg PO DAILY 02/23/22 10/24/22 02/22/22 08:00 History erenumab-aooe 70 mg/mL 70 mg subcut USEASDIRECTD 10/24/22 10/24/22 Unknown History subcutaneous auto-injector (Aimovig Autoinjector) doxycycline hyclate 100 mg capsule mg 01/25/24 Unknown History gabapentin 300 mg capsule mg 01/25/24 Unknown History sertraline 50 mg tablet mg 01/25/24 Unknown History medroxyprogesterone 150 mg/mL 150 mg IM [id number] 05/04/25 Unknown History intramuscular suspension (Depo-Provera) Allergies Allergy/AdvReac Type Severity Reaction Status Date / Time lisinopril Allergy Severe angioedema Verified 05/04/25 17:42 morphine Allergy Intermediate Unresponsiv Verified 05/04/25 17:42 e metformin AdvReac Unknown Vomiting Verified 05/04/25 17:42 Review of Systems Review of Systems: CONSTITUTIONAL: Denies fever, chills, or sweats. EYES: Denies visual changes, redness, or discharge. ENT: Denies rhinorrhea, congestion, sore throat, or otalgia. CARDIOVASCULAR: Denies chest pain, palpitations, or edema. RESPIRATORY: Denies cough or dyspnea. GASTROINTESTINAL: Denies abdominal pain, had nausea, vomiting yesterday none since, no diarrhea. GENITOURINARY: Denies dysuria or hematuria. SKIN: Denies rash or itching. MUSCULOSKELETAL: reports bilateral upper lumbar/flank area pain right greater that left,no joint pain, or myalgia. NEUROLOGIC: Denies headache, numbness, or weakness. PSYCHIATRIC: Positive for history of anxiety or depression. All systems reviewed & are unremarkable except as noted in HPI and below PMFSH Past Medical History Medical History Hidradenitis suppurativa Migraine WINNIE (obstructive sleep apnea) Diabetes Arthritis of spine Depression HTN (hypertension) Surgical History Surgical History H/O gastric sleeve History of ear surgery Eustachian tubes Family History Family History Grandparent Diabetes mellitus Hypertension Family history of cardiovascular disease Family history of arthritis Family history of lung cancer Family history of primary malignant neoplasm of liver Family history of malignant neoplasm of breast in first degree relative Mother Diabetes mellitus Hypertension Family history of cardiovascular disease Family history of malignant neoplasm of ovary Cerebrovascular accident PAD (peripheral artery disease) Heart disease HLD (hyperlipidemia) Sibling Family history of arthritis Father Hypertension Heart disease HLD (hyperlipidemia) Other Carcinoma of colon Family history of alcoholism Family history of blood dyscrasia Family history of malignant neoplasm of urinary bladder Family history of mental disorder Family history of seizure disorder Malignant neoplasm of prostate Social History Social History Social History: Patient lives at home with and 1 child. Patient would like her surrogate to be Christopher her . Patient also stated that she look forward is her mother and can also be contacted if needed. Patient has lots of animals including 4 cats, 1 dog, 2 birds, and 1 fish. 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 Gender identity (if verbalized by the patient): Female Sexual Orientation (if Verbalized by the Patient): Straight or Heterosexual Spiritual care concerns: No Comments At time of signature, agree with nursing past medical, surgical, social and family history. There is no relevant family history pertinent to the presenting complaint Exam Narrative: GENERAL: Well-appearing, well-nourished, and in no acute distress. HEAD: Normocephalic, atraumatic. EYES: PERRLA and EOMI. ENT: Nares clear, no rhinorrhea or epistaxis. Mucous membranes moist.TM's normal throat pink with no swelling NECK: Supple. no lymphadenopathy CHEST: Clear to auscultation. No respiratory distress. no acute cough or any pain with deep inspiration. or any noted wheezing. SAO2 99% on room air HEART: Regular rate and rhythm. No murmur heard. Normal peripheral pulses. ABDOMEN: Soft, nontender, nondistended, normal active bowel sounds.denies any present nausea vomiting or diarrhea EXTREMITIES: Normal range of motion. No edema.pain to mainly right upper lumbar /flank area intermittent sharp reported,denies any urinary symptoms, no pain or burning with urination SKIN: Warm, dry, no rash. NEURO: No focal deficits. Alert and oriented x3. Course Course Emergency Course: Patient is aware of diagnosis, understands and agrees to treatment plan.? Anticipatory guidance given.? Patient agrees to follow-up as directed and is aware of reasons to seek care at the emergency department. Portions of this record may have been created with voice recognition software Level of Care: Express Care Visit Vital Signs Vital signs: Vital Signs Temperature 36.5 C 05/04/25 17:46 Pulse Rate 83 05/04/25 17:46 Respiratory Rate 18 05/04/25 17:46 Blood Pressure 147/92 H 05/04/25 17:46 Pulse Oximetry 99 05/04/25 17:46 Oxygen Delivery Room Air 05/04/25 17:46 Temperature 36.5 C 05/04/25 17:46 Pulse Rate 83 05/04/25 17:46 Respiratory Rate 18 05/04/25 17:46 Blood Pressure 147/92 H 05/04/25 17:46 Pulse Oximetry 99 05/04/25 17:46 Oxygen Delivery Room Air 05/04/25 17:46 Reviewed MDM - Back Pain/Injury Differential Diagnosis Differential diagnosis: Likely strain of lumbar region, renal colic and other (upper lumbar/flank pain, myalgia, Pleurisy) Medical Records Attestation: I reviewed the patient's medical records. Lab Data Attestation: I reviewed the patient's lab results. Lab results narrative: urine dip: Glucose is negative, bilirubin 1+ ketone trace, specific gravity 1.020 blood 2+ is on menses, pH 5.5, protein negative, urobilinogen 0.2 nitrate negative, leukocyte negative Imaging Data Attestation: I personally reviewed and interpreted this imaging study as follows: Radiologist's impression: [id number] [place] [address] XRay Report Signed Patient: Randee Lazo : 1980 MR#: [id number] Age: 45 Acct:[id number] Loc: [facility] ADM Date: 05/04/[address]: Ordering Physician: Lianne Corbett APRN Date of Service: 05/04/25 Procedure(s): XR chest 2V Accession Number(s): [id number] cc: Lianne Corbett APRN; Satnam, Marta Zavaleta APRN~ EXAMINATION: XR chest 2V, 05/04/2025 18:06 CDT HISTORY: right side back pain 3x days smoker COMPARISON: No comparisons available. Technique: 2 views obtained. Findings: The lungs are clear, no effusion. No pneumothorax. Heart is normal size. Mediastinal and hilar contours are within normal limits. Bony thorax no acute abnormality. Impression: No acute cardiopulmonary abnormality. Reviewed, dictated and finalized at location P. Please be advised this is a medical document. It is intended for [id number] communication. It is written in medical language and may contain unfamiliar abbreviations or verbiage. Medical documents are intended to carry relevant information, facts as evident, and the clinical opinion of the practitioner at the time of the encounter. This report may have been done utilizing a voice recognition system. Attempts have been made to correct errors. However, there may be uncorrected grammatical, spelling, and recognition errors present. The file time of this note does not necessarily represent the time of service. Dictated By: Vitaly Wick MD 05/04/25 1818 Signed By: <Electronically signed by Vitaly Wick MD in OV> Critical Care Time Critical Care Time Critical Care Time: No Discharge Plan Discharge Clinical Impression: Right-sided back pain Qualifiers: Back pain location: back pain in unspecified location Chronicity: acute Qualified Code(s): M54.9 - Dorsalgia, unspecified Patient Disposition: Home Condition: Stable Instructions: Antibiotic Form, Back Pain (ED) Additional Instructions: Ice and heat to the area for 20-30 minutes Gentle stretching exercises Gentle massage Caution with lifting, bending, stooping, twisting Avoid pushing, pulling Prednisone as prescribed start tomorrow since it is past 6:00 p.m. tonight Follow-up with your PCP if not improving in 5-7 days If your symptoms persist, change or worsen significantly before you can contact your personal physician then please, without delay, go to the emergency department for further evaluation. Follow-up with PCP in 7-10 days or sooner if needed Follow up with PCP soon in regards to your blood pressure which is elevated above threshold for referral. Blood pressure above 120/80 may indicate pre-hypertension. Take Arthritis Pain every 8 hours for pain control Patient Language: Hungarian Prescriptions: New prednisone 20 mg tablet 40 mg PO DAILY Qty: 10 0RF Rx Instructions: take in the am with food monitor glucose levels while on this medication No Action Aimovig Autoinjector 70 mg/mL auto-injector 70 mg SUBCUT USEASDIRECTD medroxyprogesterone [Depo-Provera] 150 mg/mL suspension 150 mg IM [id number] amlodipine 10 mg tablet 10 mg PO DAILY doxycycline hyclate 100 mg capsule gabapentin 300 mg capsule sertraline 50 mg tablet Follow-up/Referrals: Satnam,Marta Zavaleta, FITTER TACKER [Primary Care Provider, Unknown] Time of Disposition: 18:34 Quality [place] Coma Scale Eyes: Open Verbal: Oriented and Alert Motor: Follows Commands [place] Coma Total Score: 15
[2025-05-04 17:59] LABS: EDUAAPPEAR Clear; EDUABILI 1+ (Negative); EDUABLOOD 2+ (Negative); EDUACOLOR1 Dark; EDUAGLUCOSE Negative (Negative); EDUAKETONE Trace (Negative); EDUALEUKO Negative (Negative); EDUANITRATE Negative (Negative); EDUAPH 5.5; EDUAPROTEIN Negative (Negative); EDUASPGRAVITY 1.020; EDUAUROBILI 0.2
== END 2025-05-04 18:43 | disposition home or self-care (01) ==
PROVIDERS: Emergency Provider Registered Nurse
DX: M54.50 Low back pain, unspecified (principal); R10.A1 Flank pain, right side; F17.210 Nicotine dependence, cigarettes, uncomplicated; F12.90 Cannabis use, unspecified, uncomplicated; I10 Essential (primary) hypertension; F32.A Depression, unspecified; Z98.84 Bariatric surgery status
CPT/HCPCS: 71046; 81003; 99213; G0463

== ENCOUNTER 2025-05-30 15:08 | Emergency (ER) | payer OTHER, SELFPAY ==
--- NOTE | ~2025-05-30 | XR_ITS ---
EXAMINATION: XR knee RT min 4V DATE: 05/30/2025 15:41 INDICATION: Trauma. TECHNIQUE: AP, lateral, sunrise view and oblique view of the right knee were obtained. COMPARISON: None. FINDINGS: No acute fracture or dislocation of right knee. Small effusion noted in the knee joint. IMPRESSION: 1. No acute findings except for the presence of small effusion.. Reviewed, dictated and finalized at location T. 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
[2025-05-30 15:19] VITALS: BP 138/68; PULSE 74; RESP 18; TEMP 36.4; O2SAT 98
--- NOTE | 2025-05-30 15:43 | ED_ITS ---
HPI - Extremity Injury (Lower) General Chief Complaint: Extremity Injury, Lower Stated Complaint: FALL Time Seen by Provider: 05/30/25 15:43 Source: patient, RN notes reviewed and old records reviewed Mode of arrival: ambulatory Limitations: no limitations History of Present Illness HPI Narrative: 45-year-old female presents to the [facility] after falling at [employer] landing on her right knee. has an abrasion. No treatment prior to arrival Onset (ago): minute(s) Related Data Home Medications ?Medication ?Instructions ?Recorded ?Confirmed ?Last Taken ?Type amlodipine 10 mg tablet 10 mg PO DAILY 02/23/2205/1102/22/22 08:00 History erenumab-aooe 70 mg/mL 70 mg subcut USEASDIRECTD 05/30/25 Unknown History subcutaneous auto-injector (Aimovig Autoinjector) doxycycline hyclate 100 mg capsule mg 01/25/24 Unknow n History gabapentin 300 mg capsule mg 01/25/24 Unknown History sertraline 50 mg tablet mg 01/25/24 Unknown History medroxyprogesterone 150 mg/mL 150 mg IM [id number] 05/0405/30/25 Unknown History intramuscular suspension (Depo-Provera) cetirizine 10 mg tablet mg 05/30/25 Unknown History omeprazole 20 mg capsule,delayed mg 05/30/25 Unknown History release ropinirole 0.5 mg tablet mg 05/30/25 Unknown History spironolactone 100 mg tablet mg 05/30/25 Unknown Hist ory ubrogepant 100 mg tablet (Ubrelvy) mg 05/30/25 Unknow n History Allergies Allergy/AdvReac Type Severity Reaction Status Date / Time lisinopril Allergy Severe angioedema Verified 05/30/25 15:11 morphine Allergy Intermediate Unresponsiv Verified 05/30/25 15:11 e metformin AdvReac Unknown Vomiting Verified 05/30/25 15:11 Review of Systems Review of Systems: All systems reviewed & are unremarkable except as noted in HPI and below Constitutional: Constitutional: Reports no additional constitutional complaints ENT: Reports system reviewed and no additional complaints, except as documented Cardiovascular: Cardiovascular: Reports no additional cardiovascular complaints, Denies chest pain and Denies dyspnea Respiratory: Respiratory: Reports no additional respiratory complaints, Denies chest congestion, Denies cough and Denies dyspnea Musculoskeletal: Musculoskeletal: Reports as per HPI Integumentary/Breasts: Skin/Breast: Reports as per HPI [facility] Past Medical History Medical History Hidradenitis suppurativa Migraine WINNIE (obstructive sleep apnea) Diabetes Arthritis of spine Depression HTN (hypertension) Surgical History Surgical History H/O gastric sleeve History of ear surgery Eustachian tubes Family History Family History Grandparent Diabetes mellitus Hypertension Family history of cardiovascular disease Family history of arthritis Family history of lung cancer Family history of primary malignant neoplasm of liver Family history of malignant neoplasm of breast in first degree relative Mother Diabetes mellitus Hypertension Family history of cardiovascular disease Family history of malignant neoplasm of ovary Cerebrovascular accident PAD (peripheral artery disease) Heart disease HLD (hyperlipidemia) Sibling Family history of arthritis Father Hypertension Heart disease HLD (hyperlipidemia) Other Carcinoma of colon Family history of alcoholism Family history of blood dyscrasia Family history of malignant neoplasm of urinary bladder Family history of mental disorder Family history of seizure disorder Malignant neoplasm of prostate Social History Social History Social History: Patient lives at home with and 1 child. Patient would like her surrogate to be Christopher her . Patient also stated that she look forward is her mother and can also be contacted if needed. Patient has lots of animals including 4 cats, 1 dog, 2 birds, and 1 fish. 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 Gender identity (if verbalized by the patient): Female Sexual Orientation (if Verbalized by the Patient): Straight or Heterosexual Spiritual care concerns: No Comments At the time of my signature, I reviewed and agree with the nursing past medical, surgical, social, and family history. There is no relevant family history pertinent to the patient complaint. Exam Const: General: cooperative, healthy appearing, comfortable, no acute distress, well developed, alert and well nourished Nutritional Appearance: well nourished Orientation/consciousness: patient oriented x3 Limitations: no limitations HENMT: Head: normal to inspection Eyes: General: appearance normal, both eyes and all related structures Alignment and Position: alignment normal Neck: Neck: normal visual inspection, full ROM, no lymphadenopathy and no m eningeal signs Chest: Chest palpation & inspection: normal inspection of the chest Resp: Effort & Inspection: normal respiratory effort and able to speak in complete sentences Cardio: Rate: regular rate Skin: General skin exam: normal color and no rashes or lesions noted Other: abrasion right knee Neuro: General: patient oriented x3, gait normal, moves all extremities and no meningeal signs Cognition (Neuro): normal cognition Speech: normal speech Gait exam (Neuro): Normal gait present Extrem: General: normal to inspection, full ROM, capillary refill normal and normal gait Right lower extremity: knee Details: tenderness, normal ROM, abrasion and ecchymosis Psych: Appearance: grossly normal and well kempt Mental Status: mental status grossly normal Speech and movement: Normal speech and movement present and Clear speech present Affect: normal affect Attitude: cooperative Course Course Level of Care: Express Care Visit Vital Signs Vital signs: Vital Signs Temperature 97.5 F L 05/30/25 15:19 Pulse Rate 74 05/30/25 15:19 Respiratory Rate 18 05/30/25 15:19 Blood Pressure 138/68 05/30/25 15:19 Pulse Oximetry 98 05/30/25 15:19 Oxygen Delivery Room Air 05/30/25 15:19 Temperature 97.5 F L 05/30/25 15:19 Pulse Rate 74 05/30/25 15:19 Respiratory Rate 18 05/30/25 15:19 Blood Pressure 138/68 05/30/25 15:19 Pulse Oximetry 98 05/30/25 15:19 Oxygen Delivery Room Air 05/30/25 15:19 Reviewed MDM - Extremity Injury (Lower) MDM Narrative Medical decision making narrative: patient sitting in exam room. Patient is nontoxic, vitals stable. Patient reports falling on to her right knee while at [employer]. Abrasion, tenderness noted. X-ray is noted. Patient is appropriate for outpatient treatment of abrasion and contusion of right knee. Discharge instructions reviewed with patient, as well as provided in writing per nursing staff. The instructions also include specific and strict return/GO TO THE ER as well as f/u information. All questions have been answered, and the patient deny any further questions with discharge and discharge plan. Some parts of this dictation were generated by voice recognition software and may contain typographical and/or grammatical inaccuracies. Differential Diagnosis Differential diagnosis: Likely other ( Sprain, strain, contusion, abrasion, fracture) Imaging Data Radiologist's impression: EXAMINATION: XR knee RT min 4V DATE: 05/30/2025 15:41 INDICATION: Trauma. TECHNIQUE: AP, lateral, sunrise view and oblique view of the right knee were obtained. COMPARISON: None. FINDINGS: No acute fracture or dislocation of right knee. Small effusion noted in the knee joint. IMPRESSION: 1. No acute findings except for the presence of small effusion.. Critical Care Time Critical Care Time Critical Care Time: No Discharge Plan Discharge Clinical Impression: Acute knee pain, Abrasion of knee, right Patient Disposition: Home Condition: Stable Instructions: Antibiotic Form, Abrasion (ED), Knee Pain (ED) Additional Instructions: keep area clean and dry. Wash with warm soapy water twice daily and apply a ve ry small amount of bacitracin. Your Xray did not show a fracture. Wear good supportive shoes at all times. Ice should be applied to help reduce swelling. It can be used for 20 to 30 minutes, every 2-3 hours while awake. Do not apply ice directly to your skin. You can alternate ibuprofen 600mg and Tylenol 650mg every 4 hours as needed for pain Please schedule a follow-up visit with your personal physician for further evaluation and treatment within 2 weeks especially if symptoms persist. For new or worsening symptoms go directly to the emergency room Patient Language: Austrian Prescriptions: No Action Aimovig Autoinjector 70 mg/mL auto-injector 70 mg SUBCUT USEASDIRECTD medroxyprogesterone [Depo-Provera] 150 mg/mL suspension 150 mg IM [id number] cetirizine 10 mg tablet spironolactone 100 mg tablet ropinirole 0.5 mg tablet omeprazole 20 mg capsule,delayed release(DR/EC) Ubrelvy 100 mg tablet amlodipine 10 mg tablet 10 mg PO DAILY doxycycline hyclate 100 mg capsule gabapentin 300 mg capsule sertraline 50 mg tablet Follow-up/Referrals: Satnam,Marta Zavaleta, [employer] MAIN[employer] SYSTEMS PROGRAMMER [Primary Care Provider, Unknown] - 1 Week Clinical Impression: Acute knee pain; Abrasion of knee, right Stand Alone Forms: Work/School Release IP Time of Disposition: 15:52
== END 2025-05-30 15:52 | disposition home or self-care (01) ==
PROVIDERS: Emergency Provider Nurse Practitioner
DX: M25.561 Pain in right knee (principal); S80.211A Abrasion, right knee, initial encounter; W19.XXXA Unspecified fall, initial encounter; Y92.512 Supermarket, store or market as the place of occurrence of the external cause; E11.9 Type 2 diabetes mellitus without complications; I10 Essential (primary) hypertension; M47.9 Spondylosis, unspecified; F32.A Depression, unspecified; Z98.84 Bariatric surgery status; F17.210 Nicotine dependence, cigarettes, uncomplicated
CPT/HCPCS: 73564; 99213; G0463